=== PATIENT | male | born 1940 | race Caucasian/White ===

== ENCOUNTER 2016-11-04 13:49 | Observation (INO) ==
[2016-11-04] MEDS ORDERED: Ondansetron 4 MG/2 ML VIAL IVP PRN (18:02)
[2016-11-04] MEDS ORDERED: Acetaminophen 325 MG TABLET PO PRN (18:02)
[2016-11-04] MEDS ORDERED: Naloxone 0.4 MG/ML INJ IVP PRN (18:02)
--- NOTE | 2016-11-04 18:48 | Internal Med History&Physical ---
Date of Encounter: 11/04/16 Time of Encounter: 17:40 Assessment and Plan (1) Syncope Current visit: Yes Status: Acute to r/o cardiogenic syncope. Continue Telemetry monitoring with serial Troponin trending; continue ASA, beta-buster and Eliquis; Echocardiogram from May 2016 shows preserved EF with severe pulmonary HTN, dilated and hypokinetic RV, dilated LA, moderate TR; will repeat Echo and Carotid Doppler; Cardiology consult as needed; Qualifiers: Syncope type: unspecified Qualified Code(s): R55 - Syncope and collapse (2) Acute kidney failure Current visit: Yes Status: Acute likely related to medication use and prerenal- will hold Lasix, ARB for now; he is also noted to be on chronic NSAIDs, will hold Aleeve/Ibuprofen for now; will hold off on IV hydration given his peripheral edema; continue to monitor serum creatinine and consult Nephrology if worsens; avoid nephrotoxins and contrast; Qualifiers: Acute renal failure type: unspecified Qualified Code(s): N17.9 - Acute kidney failure, unspecified (3) Atrial fibrillation Current visit: Yes Status: Chronic continue beta-buster and Eliquis for toe pounder anticoagulation; Qualifiers: Atrial fibrillation type: persistent Qualified Code(s): I48.1 - Persistent atrial fibrillation (4) Fluid overload Current visit: Yes Status: Chronic has been ongoing issue, right ventricular dysfunction; needs Lasix and currently held due to renal dysfunction; Qualifiers: Hypervolemia type: unspecified Qualified Code(s): E87.70 - Fluid overload, unspecified (5) Hyperlipidemia Current visit: Yes Status: Chronic Qualifiers: Hyperlipidemia type: unspecified Qualified Code(s): E78.5 - Hyperlipidemia , unspecified (6) Obesity with body mass index of 30.0-39.9 Current visit: Yes Status: Chronic (7) Hypertension Current visit: Yes Status: Chronic Qualifiers: Hypertension type: essential hypertension Qualified Code(s): I10 - Essential (primary) hypertension Internal Medicine - H&P: HPI Chief complaint: Syncope Admitted From: Emergency Dept Plans for Post Hospital Care: Home History of present illness: Mr. 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 Patient reports being at his [employer] office for f/up of his macular degeneration when he went to use the restroom and had an episode of dizziness and syncope, unwitnessed, probably for a few seconds. Patient reports no chest pain, palpitations, dyspnea, headache prior to the episode and no witnessed seizure-like activity. He does report that he has been doing poorly over the last 2-3 months, with increasing leg swelling, fatigue and intermittent dyspnea. His Lasix has been increased recently due to worsening leg swelling. He is supposed to undergo outpatient Sleep study for possible ANNEL , per previous notes. Past Med Surg Social Fam HX - Past Medical History Medical history: atrial fibrillation, CHF, hyperlipidemia, hypertension, syncope Psychiatric history: no psych history - Past Surgical History Surgical History: orthopedic, other (right shoulder replacement), other ( ablation and maze procedures for a.fib) - Social History Smoking Status: Former smoker Smokeless Tobacco Status: No Alcohol use: none Drug use: none Occupational status: retired Current living situation: Home, With Family Activity Level: Uses cane/walker Recent Out of Country Travel Within the Last 8 Weeks: No Exposure or Possible Exposure to Illness During Travel: No - Family History Father Adopted: No Family Member Ethnicity: Non- Living Status: Cause of : heart attack Hx Family Cardiac Disorders: Yes Hx Family Respiratory Disorders: No Hx Family Cancer: No Hx Family GI Disorders: No Hx Family Genitourinary Disorders: No Hx Family Endocrine Disorder: No Hx Family Musculoskeletal Disorders: No Hx Family Neuromuscular Disorders: No Hx Family Neurologic Disorders: No Hx Family HEENT Disorders: No Hx Family Autoimmune Disorders: No Hx Family Reproductive Disorders: No Hx Family Psychosocial Disorders: No Internal Medicine - H&P: Meds Ascorbate Calcium [Vitamin C] 500 mg PO QPM 06/13/16 [History] Aspirin Enteric Coated [Aspirin EC] 81 mg PO QAM 06/13/16 [History] Duloxetine [Cymbalta] 60 mg PO BID 06/13/16 [History] Furosemide [Lasix] 40 mg PO QAM 06/13/16 [History] Gabapentin [Neurontin] 1,200 mg PO QAM 06/13/16 [History] Gabapentin [Neurontin] 600 mg PO QPM 06/13/16 [History] Gluc/Abran-MSM#1/C/Telly/Mahesh/Bor [Osteo Bi-Flex Caplet] 1 tab PO QPM 06/13/16 [ History] Melatonin 5 mg PO HS 06/13/16 [History] Naproxen Sodium [Aleve] 440 mg PO QAM 06/13/16 [History] Potassium Chloride [K-Tab ER] 10 meq PO QAM 06/13/16 [History] Valsartan/Hydrochlorothiazide [Diovan Hct 160-25 mg Tablet] 1 tab PO QAM [History] Vitamin E Acid Succinate [Vitamin E] 400 units PO QPM 06/13/16 [History] Apixaban [Eliquis] 5 mg PO BID #60 tablet 06/15/16 [Rx] Diltiazem CD (24hr) [Cardizem CD] 240 mg PO DAILY 30 Days 10/12/16 [Rx] Metoprolol XL (24 HR) Succ [Toprol Xl] 50 mg PO QPM 30 Days 10/12/16 [Rx] Docusate Sodium [Move It Along] 100 mg PO BID PRN 11/04/16 [History] Magnesium Citrate [Citroma] 296 ml PO PRN PRN 11/04/16 [History] Allergies Influenza Virus Vaccines Allergy (Verified 06/13/16 11:34) Hives All Systems PM: A 10-system review of systems was performed and is negative for pertinent findings except as documented above in the HPI. - Constitutional Constitutional: fatigue, malaise, weight gain, no chills, no fever(s), no night sweats - EENT Eyes: no change in vision, no discharge, no pain, no photophobia Ears: no ear discharge, no ear pain, no tinnitus Nose, mouth and throat: no dysphagia, no nasal discharge, no neck pain, no sore throat - Cardiovascular Cardiovascular ROS IM: dyspnea on exertion, edema, lightheadedness - Respiratory Respiratory: no cough, no dyspnea, no wheezing, no excessive phlegm production - Gastrointestinal Gastrointestinal: no abdominal pain, no diarrhea, no hematemesis, no hematochezia, no melena, no nausea, no vomiting - Musculoskeletal Musculoskeletal ROS IM: no numbness, no tingling - Integumentary Integumentary IM: no rash, no unusual bruising - Neurological Neurological ROS: no confusion, no convulsions, no focal weakness, no numbness, no tingling, no tremor(s) - Hematologic/Lymphatic Hematologic/Lymphatic: no easy bruising - Constitutional Vitals: Temp Pulse Resp BP Pulse Ox 98.1 F 70 18 127/87 92 L 11/04/16 18:40 11/04/16 18:40 11/04/16 18:40 11/04/16 18:40 11/04/16 18:40 General appearance: Present: A&O X 3, obese, answers questions appropriately - Head Head exam: Present: atraumatic, normocephalic - Neck Neck exam general surgery: Present: supple, trachea midline. Absent: lymphadenopathy - Respiratory Respiratory exam: Present: CTAB. Absent: accessory muscle use, rales, rhonchi, wheezes - Cardiovascular Cardiovascular exam: Present: irregular rhythm, +S1, +S2. Absent: diastolic murmur, gallop, rubs, systolic murmur - GI/Abdominal GI/Abdominal exam: Present: normal bowel sounds, soft (central obesity, nontender), no peritoneal signs. Absent: distended, tenderness - Extremities Exam Extremities exam: Present: pedal edema (2+ pedal edema unto B/L hips) - Neurological Exam Neurological exam: Present: CN II-XII intact, oriented X3, no focal deficits. Absent: pronater drift, facial droop, speech deficit - Skin Skin exam: Present: dry, intact Internal Med - H&P Results - Labs CBC & Chem 7: 11/05/16 01:00 11/05/16 01:00 - EKG Data -: EKG Interpreted by Myself - EKG Data EKG comments: 11/05/16 07:51 Accelerated junctional rhythm at 73bpm, TWI in lateral leads
[2016-11-04] MEDS ORDERED: Furosemide 40 MG/4 ML VIAL IVP SCH (21:00)
[2016-11-04] MEDS: APIXABAN 5 MG TABLET PO SCH (21:36)
[2016-11-05 01:15] LABS: Basophils # 0.1 K/mcL (0.0-0.2); Basophils % 0.8 %; Eosinophils # 0.6 K/mcL (0.0-0.6); Eosinophils % 6.3 %; Hematocrit 33.9 % (37.5-50.1); Hemoglobin 10.5 g/dL (12.9-16.9); Immature Granulocytes % 0.4 % (0-4); Lymphocytes # 1.1 K/mcL (0.6-4.6); Lymphocytes % 12.3 %; Mean Corpuscular Hemoglobin 27.5 pg (28.0-33.3); Mean Corpuscular Volume 88.7 fL (83.0-100.0); Monocytes # 1.1 K/mcL (0.0-1.3); Monocytes % 11.7 %; Neutrophils # 6.2 K/mcL (1.6-8.9); Nucleated Red Blood Cells 0.3 /100 WBC (0); Platelet Count 333 K/mcL (140-400); Red Blood Count 3.82 M/mcL (4.19-5.50); Red Cell Distribution Width 15.3 % (11.5-14.5); Segmented Neutrophils % 68.5 %
[2016-11-05 01:23] LABS: INR 2.7; Prothrombin Time 30.4 Seconds (9.4-12.1)
[2016-11-05 01:28] LABS: Calcium 8.4 mg/dL (8.6-10.8); Potassium 3.7 mEq/L (3.5-4.5)
[2016-11-05] MEDS: Diltiazem CD (24hr) 240 MG CAPSULE PO SCH (08:26)
[2016-11-05] MEDS: Aspirin Enteric Coated 81 MG Tablet PO SCH (08:26)
[2016-11-05] MEDS: APIXABAN 5 MG TABLET PO SCH ×2 (08:26→20:06)
[2016-11-05] MEDS ORDERED: Perflutren Lipid Microsphere 1.3 ML in 0.9 % Sodium Chloride 8.7 ML IVP ONE (11:11)
--- NOTE | 2016-11-05 12:14 | ECHO - Doppler Report ---
Echo with Imaging Enhancement Agent Name: Pete Bonner Date of Study: 11/05/2016 Date: 1940 Ht: 68.0 in Medical Record#: [id number] Age: 76 Wt: 280.0 lb Gender: Male BSA: 2.36 Order #: [id number] Location: [facility] Room #: [id number] Reading Physician: Smita Chong DO Costume Cutter: SHAVON GuyT, [facility] Ordering Physician: Karo Joseph MD Primary Physician: None Indications: Syncope Impressions: Technically a very difficult study with suboptimal images. LV function is normal with use of Definity, EF 60%. LV wall thickness visually appears increased but could not be well measured. RV is not well evaluated. Mild MR and TR. No pulmonary hypertension based on TR gradient, 29 mmHg. IVC is not visualized. Left Ventricular Wall Motion: Rest Echo Findings The mid inferior lateral and basal inferior lateral cheng were not visualized. All other wall segments showed normal motion. Findings: Study Quality * Technically sub-optimal due to body habitus. ECG Findings * Atrial fibrillation. Left Ventricle * Difficult to quantify LV wall thickness. Size appears normal. * Indeterminate diastolic function. * LVEF 60%. * Definity echo contrast was used. Left Atrium * Severely dilated left atrium. Aortic Valve * No aortic regurgitation. * Aortic valve not well visualized. * No aortic stenosis. Mitral Valve * Mild mitral regurgitation. * Mitral valve is not well visualized. * No stenosis. Tricuspid Valve * Tricuspid valve not well visualized. * Mild tricuspid regurgitation. Pulmonic Valve * Pulmonic valve is not well visualized. * No pulmonic stenosis. * Trace pulmonic regurgitation. Pulmonary Artery * Pulmonary artery not well visualized. Right Ventricle * RV is not well evaluated. Right Atrium * Right atrium is not well visualized. Interatrial Septum * Interatrial septum not well evaluated. IVC * The IVC is not well evaluated. Aorta * Not well visualized. History Hypertension Family History of CAD 2016 a Previous Echo was performed. Contrast: Definity 1.3 ml in 8.7 ml of saline 3 ml. Measurements: BP: 127/ 77 2D Normal Values IVSd: 2.10 cm 0.6 - 1.0 cm LVIDd: 4.80 cm 3.7 - 5.6 cm LVPWd: 1.30 cm 0.6 - 1.1 cm LVIDs: 3.95 cm 1.5 - 3.6 cm AO: 3.50 cm < 4.0 cm LA: 5.05 cm 2.0 - 4.0cm %FS: 16.70 cm >25 % LA volume: 129 Mitral Valve Peak E:.98 m/sec Peak A:.40 m/sec E/A Ratio:2.5 Tricuspid Valve TV Regurg Peak Grad: 29.00mmHg TV Regurg Peak Wicho: 2.69m/sec Updated by Smita Chong on 11/05/2016 12:06:56 PM electronically signed on 11/05/2016 12:08:09 PM with status of Final Wall Motion Hendrix: 1=Normal, 2=Hypokinesis, 3=Akinesis, 4=Dyskinesis, 5=Aneurysmal, 6=Hyperkinetic, X=Not Visualized (Blank)=Missing
--- NOTE | 2016-11-05 13:40 | Carotid Imaging Report ---
Carotid Duplex Patient Name:Pete Bonner Order Number:[id number] Procedure Date:11/05/2016 Date:1940Age:76 yrs Gender:Male Location:[facility] Room #: [id number] Chief Clinical Officer:Radha Espinal, RVT, RDCS Referring MD:Karo Joseph MD bottle tester:None Reading MD:Alberto Bowen MD Primary Indications:Syncope Risk Factors Yes/No Hypertension Yes Anticoagulants Yes Previous Vascular Surgery Yes Impressions: Findings: Bilateral carotid system has nonstenotic plaque. Findings Carotid Duplex: Right: The right proximal common carotid artery has a PSV of 66 cm/s and a EDV of 18 cm/s. The right mid common carotid artery has a PSV of 64 cm/s and a EDV of 21 cm/s. The right distal common carotid artery has a PSV of 52 cm/s and a EDV of 19 cm/s. There is nonstenotic plaque in the right bifurcation with a PSV of 50 cm/s and a EDV of 20 cm/s. There is irregular heterogeneous plaque. There is nonstenotic plaque in the right proximal internal carotid artery with a PSV of 97 cm/s and a EDV of 38 cm/s. There is irregular heterogeneous plaque. The right mid internal carotid artery has a PSV of 99 cm/s and a EDV of 34 cm/s. The right distal internal carotid artery has a PSV of 90 cm/s and a EDV of 42 cm/s. The right eca has a PSV of 53 cm/s and a EDV of 11 cm/s. The right vertebral artery was not well visualized. Left: The left proximal common carotid artery has a PSV of 83 cm/s and a EDV of 22 cm/s. The left mid common carotid artery has a PSV of 84 cm/s and a EDV of 29 cm/s. The left distal common carotid artery has a PSV of 72 cm/s and a EDV of 28 cm/s. There is nonstenotic plaque in the left bifurcation with a PSV of 62 cm/s and a EDV of 28 cm/s. There is irregular heterogeneous plaque. The left proximal internal carotid artery has a PSV of 72 cm/s and a EDV of 28 cm/s. The left mid internal carotid artery has a PSV of 83 cm/s and a EDV of 31 cm/s. The left distal internal carotid artery has a PSV of 104 cm/s and a EDV of 45 cm/s. The left eca has a PSV of 58 cm/s and a EDV of 12 cm/s. Prior Study: No prior study available for comparison. Carotid Results Right PSV EDV Assessment Proximal CCA 66 18 Normal Mid CCA 64 21 Normal Distal CCA 52 19 Normal Bifurcation 50 20 Non Stenotic Plaque Proximal ICA 97 38 Non Stenotic Plaque Mid ICA 99 34 Normal Distal ICA 90 42 Normal ECA 53 11 Normal Left PSV EDV Assessment Proximal CCA 83 22 Normal Mid CCA 84 29 Normal Distal CCA 72 28 Normal Bifurcation 62 28 Non Stenotic Plaque Proximal ICA 72 28 Normal Mid ICA 83 31 Normal Distal ICA 104 45 Normal ECA 58 12 Normal Vertebral Artery 53 20 Normal Ratio's Right ICA/CCA Ratio: 1.55 ICA/CCA Values: 99/64 Left ICA/CCA Ratio: 0.99 ICA/CCA Values: 83/84 Updated by Alberto Bowen MD on 11/05/2016 1:35:37 PM electronically signed on 11/05/2016 1:35:52 PM with status of Final
--- NOTE | 2016-11-05 16:23 | Internal Med Progress Note ---
Date of Encounter: 11/05/16 Time of Encounter: 09:00 - Assessment and plan (1) Syncope Current Visit: Yes Status: Acute Assessment and plan: syncopal episode , possible vaso vagal, happen when while pt was having an eye procedure, but also may be precipitated by arrythmia his HR in the ER was 130 ,(pt was on afib ) will be on telemetry, check serial cardiac enzimes, echo was unremarkable will ask cardiology to evaluate, Qualifiers: Syncope type: unspecified Qualified Code(s): R55 - Syncope and collapse (2) Atrial fibrillation Current Visit: Yes Status: Chronic Assessment and plan: pt is s/p Maze procedure and ablation but still on afib, wants to see cardiology again to see if he cardiovertion could be again an option, , rate is control on eliquis for AC Qualifiers: Atrial fibrillation type: persistent Qualified Code(s): I48.1 - Persistent atrial fibrillation (3) Acute kidney failure Current Visit: Yes Status: Acute Assessment and plan: on top on CKD , possible pre renal start gentle hydration, follow renal function Qualifiers: Acute renal failure type: unspecified Qualified Code(s): N17.9 - Acute kidney failure, unspecified (4) Obesity with body mass index of 30.0-39.9 Current Visit: Yes Status: Chronic Assessment and plan: suspect ANNEL check nocturnal pulse ox , check FLP HBA1C, pt advised on weight loss - Subjective Interval history: Pt c/o SOB on exertion denies chest pain , overnight cardiac enzimes negative - Constitutional Vitals: Temp Pulse Resp BP Pulse Ox 97.7 F 87 18 123/76 94 L 11/05/16 15:16 11/05/16 15:16 11/05/16 15:16 11/05/16 15:16 11/05/16 15:16 General appearance: Present: A&O X 3, obese, answers questions appropriately - Respiratory Respiratory exam: Present: decreased breath sounds - Cardiovascular Cardiovascular exam: Present: irregular rhythm, +S1, +S2 Additional comments: increase P2 - GI/Abdominal GI/Abdominal exam: Present: normal bowel sounds, soft. Absent: tenderness - Extremities Exam Additional comments: trace pedal edema Internal Medicine: Result - Labs CBC & Chem 7: 11/05/16 01:00 11/05/16 01:00 Labs: Short CBC 11/05/16 Range/Units 01:00 WBC 9.1 (4.3-11.1) K/mcL Hgb 10.5 L (12.9-16.9) g/dL Hct 33.9 L (37.5-50.1) % Plt Count 333 (140-400) K/mcL Neutrophils # 6.2 (1.6-8.9) K/mcL BMP 11/05/16 01:00 Sodium 136 Potassium 3.7 Chloride 90 L Carbon Dioxide 34 H BUN 86 H Creatinine 2.61 H Glucose 141 H Calcium 8.4 L Cardiac Enzymes 11/04/16 11/05/16 11/05/16 Range/Units 18:49 01:00 06:23 Troponin I 0.04 H* 0.03 0.03 (0-0.03) ng/mL - ABG Interpretation ABG results: PT/INR, D-dimer PT 30.4 Seconds (9.4-12.1) H 11/05/16 01:00 Consult Discharge Plan - Plan Referrals: NO,PCP [Primary Care Provider] -
[2016-11-05] MEDS: 0.9 % Sodium Chloride 1,000 ML IVC SCH (17:12)
[2016-11-05] MEDS: Ascorbic Acid 500 MG TABLET PO SCH (17:13)
[2016-11-05] MEDS: Metoprolol XL (24 HR) Succ 25 MG TAB.ER.24H PO SCH (17:13)
[2016-11-06] MEDS: 0.9 % Sodium Chloride 1,000 ML IVC SCH ×2 (05:13→19:06)
[2016-11-06 05:16] LABS: Hematocrit 32.1 % (37.5-50.1); Hemoglobin 9.8 g/dL (12.9-16.9); Mean Corpuscular HGB Conc 30.5 g/dL (31.6-35.5); Mean Corpuscular Hemoglobin 27.5 pg (28.0-33.3); Mean Corpuscular Volume 89.9 fL (83.0-100.0); Mean Platelet Volume 9.8 fL (9.4-12.4); Platelet Count 311 K/mcL (140-400); Red Blood Count 3.57 M/mcL (4.19-5.50); Red Cell Distribution Width 15.2 % (11.5-14.5)
[2016-11-06 05:32] LABS: Albumin 2.8 g/dL (3.5-5.0); Albumin/Globulin Ratio 0.9 (1.1-2.2); Bilirubin,Total 0.8 mg/dL (0.2-1.2); Calcium 8.1 mg/dL (8.6-10.8); Potassium 3.3 mEq/L (3.5-4.5); Total Protein 5.8 g/dL (6.0-8.3)
[2016-11-06 05:35] LABS: Chol/HDL Ratio 3.8 (0-4.9)
--- NOTE | 2016-11-06 09:01 | Internal Med Progress Note ---
Date of Encounter: 11/06/16 Time of Encounter: 08:55 - Assessment and plan (1) Syncope Current Visit: Yes Status: Acute Assessment and plan: syncopal episode , possible vaso vagal, happen when while pt was having an eye procedure, but also may be precipitated by arrythmia his HR in the ER was 130 ,(pt was on afib ) will be on telemetry, check serial cardiac enzimes, echo was unremarkable will ask cardiology to evaluate, 11/06/2016. Patient is still having dizziness. Vitals stable. Was able to walk a few steps but has a unstable gait. We will continue observation. We will get a physical therapy and occupational therapy tomorrow for further evaluation. Qualifiers: Syncope type: unspecified Qualified Code(s): R55 - Syncope and collapse (2) Atrial fibrillation Current Visit: Yes Status: Chronic Assessment and plan: pt is s/p Maze procedure and ablation but still on afib, wants to see cardiology again to see if he cardiovertion could be again an option, , rate is control on eliquis for AC 11/06/2016 Heart rate is well controlled between 70 and 80. Anticoagulation: Elliquis Qualifiers: Atrial fibrillation type: persistent Qualified Code(s): I48.1 - Persistent atrial fibrillation (3) Acute kidney failure Current Visit: Yes Status: Acute Assessment and plan: on top on CKD , possible pre renal start gentle hydration, follow renal function 11/06/2016 Renal function: 11/05/2016: BUN 86, creatinine 2.61 11/06/2016: BUN 66, creatinine 1.73 We will decrease IV fluids from 100 mL/h to 70 mL per hour. Patient has a 3+ pedal edema. Qualifiers: Acute renal failure type: unspecified Qualified Code(s): N17.9 - Acute kidney failure, unspecified (4) Obesity with body mass index of 30.0-39.9 Current Visit: Yes Status: Chronic Assessment and plan: suspect ANNEL check nocturnal pulse ox , check FLP HBA1C, pt advised on weight loss 11/06/2016. Patient is qualified for BiPAP. Medical decision making: Patient has a yaiz-lb-ltaqozrh risk of worsening in terms of his renal function in spite of appropriate treatment. - Subjective Interval history: Patient seen and examined. Chart reviewed. Patient still complaining of occasional dizziness. - Constitutional Vitals: Temp Pulse Resp BP Pulse Ox 97.3 F L 76 16 162/77 90 L 11/06/16 07:30 11/06/16 07:30 11/06/16 07:30 11/06/16 07:30 11/06/16 07:30 General appearance: Present: A&O X 3, obese, answers questions appropriately - Head Head exam: Present: atraumatic, normocephalic - Eye Eye exam: Present: PERRL, conjuntiva pink, sclera anicteric Pupils: Present: PERRL - Neck Neck exam general surgery: Present: supple, trachea midline. Absent: lymphadenopathy - Respiratory Respiratory exam: Present: CTAB. Absent: accessory muscle use, rales, rhonchi, wheezes - Cardiovascular Cardiovascular exam: Present: RRR, +S1, +S2. Absent: diastolic murmur, gallop, rubs, systolic murmur - GI/Abdominal GI/Abdominal exam: Present: normal bowel sounds, soft, no peritoneal signs. Absent: distended, tenderness - Extremities Exam Extremities exam: Present: warm, radial pulses palpable and symetrical. Absent : calf tenderness, cyanotic, pedal edema - Neurological Exam Neurological exam: Present: CN II-XII intact, oriented X3, no focal deficits. Absent: pronater drift, facial droop, speech deficit - Skin Skin exam: Present: dry, intact Internal Medicine: Result - Labs CBC & Chem 7: 11/06/16 04:49 11/06/16 04:49 Labs: Short CBC 11/06/16 Range/Units 04:49 WBC 9.1 (4.3-11.1) K/mcL Hgb 9.8 L (12.9-16.9) g/dL Hct 32.1 L (37.5-50.1) % Plt Count 311 (140-400) K/mcL BMP 11/06/16 04:49 Sodium 138 Potassium 3.3 L Chloride 94 L Carbon Dioxide 32 H BUN 66 H Creatinine 1.73 H Glucose 121 H Calcium 8.1 L Liver Function 11/06/16 Range/Units 04:49 Total Bilirubin 0.8 (0.2-1.2) mg/dL AST 127 H (5-34) Units/L ALT 198 H (0-55) Units/L Alkaline Phosphatase 160 H (38-126) Units/L Albumin 2.8 L (3.5-5.0) g/dL - ABG Interpretation ABG results: PT/INR, D-dimer PT 30.4 Seconds (9.4-12.1) H 11/05/16 01:00 Consult Discharge Plan - Plan Referrals: NO,PCP [Primary Care Provider] -
[2016-11-06] MEDS ORDERED: Potassium Chloride Elixir 20 MEQ/15 ML UDC PO ONE (09:06)
[2016-11-06] MEDS: APIXABAN 5 MG TABLET PO SCH ×2 (10:11→19:55)
[2016-11-06] MEDS: Diltiazem CD (24hr) 240 MG CAPSULE PO SCH (10:11)
[2016-11-06] MEDS: Aspirin Enteric Coated 81 MG Tablet PO SCH (10:11)
--- NOTE | 2016-11-06 12:33 | Cardiology Consult Note ---
Date of Encounter: 11/06/16 Time of Encounter: 11:00 Assessment and Plan (1) Syncope Current Visit: Yes Status: Acute Mr. Bonner presents with syncope most likely secondary to intravascular volume depletion and dehydration. He did present with acute on chronic renal insufficiency and has recently doubled his dose of Lasix. He also admits to being somewhat lightheaded over the past 2 months. On telemetry, heart rates are averaging in the 80s while in chronic atrial fibrillation. There does not appear to be a cardiac cause to his presenting symptoms. Troponins are unremarkable and EKG is without acute findings. Qualifiers: Syncope type: unspecified Qualified Code(s): R55 - Syncope and collapse (2) Atrial fibrillation Current Visit: Yes Status: Chronic Patient has a long history of chronic atrial fibrillation. He is maintained on a beta buster and is on Eliquis for anticoagulation. Recommend careful watching kidney function while he is on Eliquis. Qualifiers: Atrial fibrillation type: persistent Qualified Code(s): I48.1 - Persistent atrial fibrillation (3) Edema Current Visit: Yes Status: Acute Patient's edema may be multifactorial. He likely has some element of venous insufficiency and he is morbidly obese with significant central adiposity contributing to the delay in venous return. However, he also admits to abdominal distention which may be related in part to constipation. However, we have been unable to evaluate the right side of his heart. He underwent a PRAVEEN in May 2016 which demonstrated poor visualization. He also, during that procedure was hypoxic with episodes of apnea concerning for sleep apnea. He has not undergone a sleep study. I recommend considering an outpatient sleep study. I also recommend getting a better assessment of the right side of his heart, possibly with a cardiac MRI. This would be done as an outpatient. He would require follow-up and discussion with Dr. Schwartz. Qualifiers: Edema type: unspecified Qualified Code(s): R60.9 - Edema, unspecified Discussion w patient/family: The assessment and plan as outlined above was discussed with the patient and/or family members who expressed understanding and agreement. All questions were answered. Thank you for involving us in the care of your patient. No further testing is warranted as an inpatient from a cardiac perspective. I recommend following up as an outpatient. We will sign off. Please call with questions. History of Present Illness Consult date: 11/06/16 Requesting physician: Mila Lee Consult reason: Syncope Chief complaint: Syncope History of present illness: Mr. Bonner is a 76 year old male presenting to the hospital for syncope. 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 Prior to this, he got up to go to the bathroom. He remembers entering the bathroom and that last he is aware of. He woke up on the floor. He states that he will was not confused when he woke up. However, he does not remember the details preceding the event. Was unwitnessed. However the patient believes that it only lasted a few minutes. He states that during the morning, he was not feeling well. He does not describe his exact symptoms. However, he was lightheaded and reports being lightheaded for some time now. He has also noticed abdominal distention and lower extremity swelling. Also, he has been constipated for the past 2-3 months. He reports that Lasix was recently doubled due to leg swelling. Upon presentation, he was noted to be an acute renal failure. His Lasix and ARB were held. He does use chronic NSAIDs which were stopped. Telemetry demonstrates chronic atrial fibrillation with average heart rate 87 bpm without concerning findings. His weight while hospitalized is not comparable to outpatient. During his most recent evaluation on 08/23/2016 in the cardiology office, his weight was 261 pounds. Weight while hospitalized is 104 kg. He is being followed as an outpatient for atrial fibrillation which is chronic. He has been maintained on metoprolol and Eliquis. He underwent PRAVEEN/DCCV 2015. I personally performed this procedure and reviewed the report. His LV function appeared normal but the RV was not well visualized. He had mild to moderate prolapsing of the posterior mitral valve leaflet and moderate mitral regurgitation. The patient was hypoxic during the exam with episodes of apnea. Cardioversion was attempted but unsuccessful. Presently, at the bedside the patient feels somewhat better. He still has lower extremity edema and abdominal distention. He is not having chest pain. He does not feel palpitations. He has baseline shortness of breath. Past Med Surg Social Fam HX - Past Medical History Attestation: Yes The following information was validated with the patient. Medical history: atrial fibrillation, hyperlipidemia, hypertension, syncope Psychiatric history: no psych history - Past Surgical History Surgical History: orthopedic, other (right shoulder replacement), other ( ablation and maze procedures for a.fib) - Social History Smoking Status: Former smoker Smokeless Tobacco Status: No Alcohol use: none Drug use: none - Family History Father Adopted: No Family Member Ethnicity: Non- Living Status: Cause of : heart attack Hx Family Cardiac Disorders: Yes Hx Family Respiratory Disorders: No Hx Family Cancer: No Hx Family GI Disorders: No Hx Family Genitourinary Disorders: No Hx Family Endocrine Disorder: No Hx Family Musculoskeletal Disorders: No Hx Family Neuromuscular Disorders: No Hx Family Neurologic Disorders: No Hx Family HEENT Disorders: No Hx Family Autoimmune Disorders: No Hx Family Reproductive Disorders: No Hx Family Psychosocial Disorders: No Medications and Allergies Ascorbate Calcium [Vitamin C] 500 mg PO QPM 06/13/16 [History] Aspirin Enteric Coated [Aspirin EC] 81 mg PO QAM 06/13/16 [History] Duloxetine [Cymbalta] 60 mg PO BID 06/13/16 [History] Furosemide [Lasix] 40 mg PO QAM 06/13/16 [History] Gabapentin [Neurontin] 1,200 mg PO QAM 06/13/16 [History] Gabapentin [Neurontin] 600 mg PO QPM 06/13/16 [History] Gluc/Abran-MSM#1/C/Telly/Mahesh/Bor [Osteo Bi-Flex Caplet] 1 tab PO QPM 06/13/16 [ History] Melatonin 5 mg PO HS 06/13/16 [History] Naproxen Sodium [Aleve] 440 mg PO QAM 06/13/16 [History] Potassium Chloride [K-Tab ER] 10 meq PO QAM 06/13/16 [History] Valsartan/Hydrochlorothiazide [Diovan Hct 160-25 mg Tablet] 1 tab PO QAM [History] Vitamin E Acid Succinate [Vitamin E] 400 units PO QPM 06/13/16 [History] Apixaban [Eliquis] 5 mg PO BID #60 tablet 06/15/16 [Rx] Diltiazem CD (24hr) [Cardizem CD] 240 mg PO DAILY 30 Days 10/12/16 [Rx] Metoprolol XL (24 HR) Succ [Toprol Xl] 50 mg PO QPM 30 Days 10/12/16 [Rx] Docusate Sodium [Move It Along] 100 mg PO BID PRN 11/04/16 [History] Magnesium Citrate [Citroma] 296 ml PO PRN PRN 11/04/16 [History] Allergies Influenza Virus Vaccines Allergy (Verified 06/13/16 11:34) Hives All Systems Review: A 10-system review of systems was performed and is negative for pertinent findings except as documented above in the HPI. - Cardiovascular Cardiovascular: as per HPI Physical Examination Vital Signs, Last 4 Hours Temp Pulse Resp BP Pulse Ox 11/06/16 11:27 97.6 F 86 16 129/83 86 L General: Conversant, No Apparent Distress HEENT: Other (Mucous membranes moist) Neck: Other (JPV difficult to appreciate) Cardiac: Other (Soft heart sounds, appears irregularly irregular without murmur) Lungs: Other (Breath sounds are normal, no apparent wheeze, rhonchi or rales) Neuro: Alert and responsive, No focal deficits noted Abdomen: Soft, Other (Obese, audible bowel sounds) Extremities: Other (Moderate bilateral lower extremity edema) Results 11/06/16 04:49 11/06/16 04:49 Lab Results 11/06/16 11/06/16 04:49 04:49 WBC 9.1 Hgb 9.8 L Hct 32.1 L Plt Count 311 Sodium 138 Potassium 3.3 L Chloride 94 L Carbon Dioxide 32 H BUN 66 H Creatinine 1.73 H Glucose 121 H Calcium 8.1 L Total Bilirubin 0.8 AST 127 H ALT 198 H Alkaline Phosphatase 160 H - Imaging and Cardiology Other Results: PRAVEEN/DCCV 06/15/2016 - EKG Interpretation EKG results cardiology: personally reviewed (AFIB), other (Telemetry has been reviewed him and treating chronic atrial fibrillation with average heart rate in the 80s, no significant positives or concerning dysrhythmia) Consult Discharge Plan - Plan Referrals: NO,PCP [Primary Care Provider] -
[2016-11-06] MEDS: Metoprolol XL (24 HR) Succ 25 MG TAB.ER.24H PO SCH (17:43)
[2016-11-06] MEDS: Ascorbic Acid 500 MG TABLET PO SCH (17:44)
[2016-11-07 05:10] LABS: Basophils % 0.5 %; Eosinophils # 0.3 K/mcL (0.0-0.6); Eosinophils % 3.9 %; Hematocrit 32.6 % (37.5-50.1); Immature Granulocytes % 0.4 % (0-4); Lymphocytes # 0.9 K/mcL (0.6-4.6); Lymphocytes % 11.3 %; Mean Corpuscular HGB Conc 30.7 g/dL (31.6-35.5); Mean Corpuscular Hemoglobin 27.4 pg (28.0-33.3); Mean Corpuscular Volume 89.3 fL (83.0-100.0); Mean Platelet Volume 10.1 fL (9.4-12.4); Monocytes # 0.9 K/mcL (0.0-1.3); Monocytes % 11.1 %; Neutrophils # 5.7 K/mcL (1.6-8.9); Nucleated Red Blood Cells 0.3 /100 WBC (0); Platelet Count 307 K/mcL (140-400); Red Blood Count 3.65 M/mcL (4.19-5.50); Red Cell Distribution Width 15.4 % (11.5-14.5); Segmented Neutrophils % 72.8 %
[2016-11-07 05:17] LABS: Alanine Aminotransferase 188 Units/L (0-55); Albumin 2.9 g/dL (3.5-5.0); Alkaline Phosphatase 171 Units/L (38-126); Aspartate Amino Transferase 113 Units/L (5-34); BUN/Creatinine Ratio 38 (6-26); Bilirubin,Total 0.8 mg/dL (0.2-1.2); Calcium 8.4 mg/dL (8.6-10.8); Carbon Dioxide 36 mEq/L (19-29); Chloride 97 mEq/L (98-109); Glucose 127 mg/dL (70-99); Osmolality,Calculated 306 (280-300); Potassium 3.4 mEq/L (3.5-4.5); Sodium 141 mEq/L (136-145); Total Protein 5.9 g/dL (6.0-8.3); eGFR For African Americans > 60 (> 60); eGFR For Non-African Americans 57 (> 60)
[2016-11-07 05:19] LABS: Blood Urea Nitrogen 47 mg/dL (8-26)
[2016-11-07] MEDS: APIXABAN 5 MG TABLET PO SCH ×2 (07:33→21:16)
[2016-11-07] MEDS: Diltiazem CD (24hr) 240 MG CAPSULE PO SCH (07:33)
[2016-11-07] MEDS: Aspirin Enteric Coated 81 MG Tablet PO SCH (07:33)
[2016-11-07] MEDS ORDERED: Vancomycin 1,500 MG in D5% in Water 250 ML IVPB SCH (08:00)
[2016-11-07] MEDS ORDERED: Vancomycin 1,500 MG in D5% in Water 250 ML IVPB ONE (12:57)
[2016-11-07] MEDS: Metoprolol XL (24 HR) Succ 25 MG TAB.ER.24H PO SCH (16:59)
[2016-11-07] MEDS: Ascorbic Acid 500 MG TABLET PO SCH (16:59)
--- NOTE | 2016-11-07 18:50 | Internal Med Progress Note ---
Date of Encounter: 11/14/16 Time of Encounter: 18:49 - Assessment and plan (1) Syncope Status: Acute Assessment and plan: syncopal episode , possible vaso vagal, happen when while pt was having an eye procedure, but also may be precipitated by arrythmia his HR in the ER was 130 ,(pt was on afib ) will be on telemetry, check serial cardiac enzimes, echo was unremarkable will ask cardiology to evaluate, 11/06/2016. Patient is still having dizziness. Vitals stable. Was able to walk a few steps but has a unstable gait. We will continue observation. We will get a physical therapy and occupational therapy tomorrow for further evaluation. 11/07/2016 much better no new complaints in terms of dizziness has swollen leg and started on IV vancomycin in view of cellulitis. patietn and family updated about this new medication. side effects explained. Qualifiers: Syncope type: unspecified Qualified Code(s): R55 - Syncope and collapse (2) Atrial fibrillation Status: Chronic Assessment and plan: pt is s/p Maze procedure and ablation but still on afib, wants to see cardiology again to see if he cardiovertion could be again an option, , rate is control on eliquis for AC 11/06/2016 Heart rate is well controlled between 70 and 80. Anticoagulation: Elliquis Qualifiers: Atrial fibrillation type: persistent Qualified Code(s): I48.1 - Persistent atrial fibrillation (3) Acute kidney failure Status: Acute Assessment and plan: on top on CKD , possible pre renal start gentle hydration, follow renal function 11/06/2016 Renal function: 11/05/2016: BUN 86, creatinine 2.61 11/06/2016: BUN 66, creatinine 1.73 We will decrease IV fluids from 100 mL/h to 70 mL per hour. Patient has a 3+ pedal edema. Qualifiers: Acute renal failure type: unspecified Qualified Code(s): N17.9 - Acute kidney failure, unspecified (4) Obesity with body mass index of 30.0-39.9 Status: Chronic Assessment and plan: suspect ANNEL check nocturnal pulse ox , check FLP HBA1C, pt advised on weight loss 11/06/2016. Patient is qualified for BiPAP. Medical decision making: Patient has a [id number] risk of worsening in terms of his renal function in spite of appropriate treatment. - Subjective Interval history: Patient seen and examined. Chart reviewed. Patient still complaining of occasional dizziness. 11/07/2016. Patient seen and examined. Chart reviewed. Patient has redness on his left thigh likely early cellulitis. - Constitutional Vitals: Temp Pulse Resp BP Pulse Ox 97.5 F L 82 17 143/76 93 L 11/07/16 15:54 11/07/16 15:54 11/07/16 15:54 11/07/16 15:54 11/07/16 15:54 General appearance: Present: A&O X 3, obese, answers questions appropriately - Head Head exam: Present: atraumatic, normocephalic - Eye Eye exam: Present: PERRL, conjuntiva pink, sclera anicteric Pupils: Present: PERRL - Neck Neck exam general surgery: Present: supple, trachea midline. Absent: lymphadenopathy - Respiratory Respiratory exam: Present: CTAB. Absent: accessory muscle use, rales, rhonchi, wheezes - Cardiovascular Cardiovascular exam: Present: RRR, +S1, +S2. Absent: diastolic murmur, gallop, rubs, systolic murmur - GI/Abdominal GI/Abdominal exam: Present: normal bowel sounds, soft, no peritoneal signs. Absent: distended, tenderness - Extremities Exam Extremities exam: Present: warm, radial pulses palpable and symetrical. Absent : calf tenderness, cyanotic, pedal edema - Neurological Exam Neurological exam: Present: CN II-XII intact, oriented X3, no focal deficits. Absent: pronater drift, facial droop, speech deficit - Skin Skin exam: Present: dry, intact Internal Medicine: Result - Labs CBC & Chem 7: 11/07/16 04:00 11/07/16 04:00 Labs: Short CBC 11/07/16 Range/Units 04:00 WBC 7.8 (4.3-11.1) K/mcL Hgb 10.0 L (12.9-16.9) g/dL Hct 32.6 L (37.5-50.1) % Plt Count 307 (140-400) K/mcL Neutrophils # 5.7 (1.6-8.9) K/mcL BMP 11/07/16 04:00 Sodium 141 Potassium 3.4 L Chloride 97 L Carbon Dioxide 36 H BUN 47 H D Creatinine 1.23 Glucose 127 H Calcium 8.4 L Liver Function 11/07/16 Range/Units 04:00 Total Bilirubin 0.8 (0.2-1.2) mg/dL AST 113 H (5-34) Units/L ALT 188 H (0-55) Units/L Alkaline Phosphatase 171 H (38-126) Units/L Albumin 2.9 L (3.5-5.0) g/dL - ABG Interpretation ABG results: PT/INR, D-dimer PT 30.4 Seconds (9.4-12.1) H 11/05/16 01:00 Consult Discharge Plan - Plan Referrals: Denis Bhat CNP [Advanced Practice Nurse] - 11/09/16 12:30 pm Johny Waller MD [Partnered Physician] - 11/15/16 11:00 am
[2016-11-07] MEDS ORDERED: MOM Conc 10 ML UD.LIQ PO ONE (20:58)
[2016-11-07] MEDS ORDERED: Sennosides/Docusate Sodium TABLET PO ONE (20:59)
[2016-11-08] MEDS: Vancomycin 1,000 MG in D5% in Water 250 ML IVPB SCH ×2 (00:29→12:03)
[2016-11-08] MEDS: APIXABAN 5 MG TABLET PO SCH ×2 (07:08→21:44)
[2016-11-08] MEDS: Diltiazem CD (24hr) 240 MG CAPSULE PO SCH (07:08)
[2016-11-08] MEDS: Aspirin Enteric Coated 81 MG Tablet PO SCH (07:08)
--- NOTE | 2016-11-08 16:53 | Internal Med Progress Note ---
Date of Encounter: 11/08/16 Time of Encounter: 16:52 - Assessment and plan (1) Syncope Status: Acute Assessment and plan: syncopal episode , possible vaso vagal, happen when while pt was having an eye procedure, but also may be precipitated by arrythmia his HR in the ER was 130 ,(pt was on afib ) will be on telemetry, check serial cardiac enzimes, echo was unremarkable will ask cardiology to evaluate, 11/06/2016. Patient is still having dizziness. Vitals stable. Was able to walk a few steps but has a unstable gait. We will continue observation. We will get a physical therapy and occupational therapy tomorrow for further evaluation. 11/07/2016 much better no new complaints in terms of dizziness has swollen leg and started on IV vancomycin in view of cellulitis. patietn and family updated about this new medication. side effects explained. 11/08/2016 short run of VT noted will get cardiology tomorrow will continue vanco ( pharmacy to dose) Qualifiers: Syncope type: unspecified Qualified Code(s): R55 - Syncope and collapse (2) Atrial fibrillation Status: Chronic Assessment and plan: pt is s/p Maze procedure and ablation but still on afib, wants to see cardiology again to see if he cardiovertion could be again an option, , rate is control on eliquis for AC 11/06/2016 Heart rate is well controlled between 70 and 80. Anticoagulation: Elliquis Qualifiers: Atrial fibrillation type: persistent Qualified Code(s): I48.1 - Persistent atrial fibrillation (3) Acute kidney failure Status: Acute Assessment and plan: on top on CKD , possible pre renal start gentle hydration, follow renal function 11/06/2016 Renal function: 11/05/2016: BUN 86, creatinine 2.61 11/06/2016: BUN 66, creatinine 1.73 We will decrease IV fluids from 100 mL/h to 70 mL per hour. Patient has a 3+ pedal edema. Qualifiers: Acute renal failure type: unspecified Qualified Code(s): N17.9 - Acute kidney failure, unspecified (4) Obesity with body mass index of 30.0-39.9 Status: Chronic Assessment and plan: suspect ANNEL check nocturnal pulse ox , check FLP HBA1C, pt advised on weight loss 11/06/2016. Patient is qualified for BiPAP. Medical decision making: Patient has a [id number] risk of worsening in terms of his renal function in spite of appropriate treatment. - Subjective Interval history: Patient seen and examined. Chart reviewed. Patient still complaining of occasional dizziness. 11/07/2016. Patient seen and examined. Chart reviewed. Patient has redness on his left thigh likely early cellulitis. 11/08/2016 still redness over thigh is present noted short run of VT will get cardiology tomorrow if worsenes then call crdiology - Constitutional Vitals: Temp Pulse Resp BP Pulse Ox 97.7 F 98 16 137/88 89 L 11/08/16 15:17 11/08/16 15:17 11/08/16 15:17 11/08/16 15:17 11/08/16 15:17 General appearance: Present: A&O X 3, obese, answers questions appropriately - Head Head exam: Present: atraumatic, normocephalic - Eye Eye exam: Present: PERRL, conjuntiva pink, sclera anicteric Pupils: Present: PERRL - Neck Neck exam general surgery: Present: supple, trachea midline. Absent: lymphadenopathy - Respiratory Respiratory exam: Present: CTAB. Absent: accessory muscle use, rales, rhonchi, wheezes - Cardiovascular Cardiovascular exam: Present: RRR, +S1, +S2. Absent: diastolic murmur, gallop, rubs, systolic murmur - GI/Abdominal GI/Abdominal exam: Present: normal bowel sounds, soft, no peritoneal signs. Absent: distended, tenderness - Extremities Exam Extremities exam: Present: warm, radial pulses palpable and symetrical. Absent : calf tenderness, cyanotic, pedal edema - Neurological Exam Neurological exam: Present: CN II-XII intact, oriented X3, no focal deficits. Absent: pronater drift, facial droop, speech deficit - Skin Skin exam: Present: dry, intact Internal Medicine: Result - Labs CBC & Chem 7: 11/07/16 04:00 11/07/16 04:00 - ABG Interpretation ABG results: PT/INR, D-dimer PT 30.4 Seconds (9.4-12.1) H 11/05/16 01:00 Consult Discharge Plan - Plan Referrals: Denis Bhat CNP [Advanced Practice Nurse] - 11/09/16 12:30 pm Johny Waller MD [Partnered Physician] - 11/15/16 11:00 am
[2016-11-08] MEDS: Metoprolol XL (24 HR) Succ 25 MG TAB.ER.24H PO SCH (16:59)
[2016-11-08] MEDS: Ascorbic Acid 500 MG TABLET PO SCH (16:59)
[2016-11-08] MEDS ORDERED: traZODone 50 MG TABLET PO PRN ×2 (23:25→23:47)
[2016-11-09] MEDS ORDERED: Aminoglycoside Consult 1 EACH MC ONE (02:49)
[2016-11-09 03:07] VITALS: BP 152/76
== END 2016-11-09 02:50 | disposition left against medical advice (07) ==
LOC: 3BNU → SUATTDRO 17:01
PROVIDERS: ADMIT Nurse Practitioner Family; ATTEND Internal Medicine

== ENCOUNTER 2016-11-19 09:35 | Inpatient (IN) ==
[2016-11-19] MEDS ORDERED: Aspirin 325 MG TABLET PO ONE (09:52)
--- NOTE | 2016-11-19 09:54 | Emergency Department Note ---
Disposition Clinical Impression: CHF exacerbation, CKD (chronic kidney disease), Confusion, Edema Disposition: Admitted As Inpatient Condition: Fair Referrals: Keon Hector MD [Primary Care Provider] - Forms: ED Satisfaction Letter Time of Disposition: 11:18 SOB HPI - General Chief Complaint: ED Shortness of Breath/Dyspnea Stated Complaint: Afib/Weakness Time Seen by Provider: 11/19/16 09:44 Source: patient Mode of arrival: ambulatory Limitations: no limitations Nursing Notes Reviewed: Yes Vital Signs Reviewed: Yes - History of Present Illness This is a 76-year-old male who presents with increased shortness of breath and weakness. Patient has had a history of A. fib and is on Eliquis for this. Patient has had 2 open-heart surgeries and follows with Dr. Waller for cardiology. Patient also seems slightly confused and is a poor historian. Patient denies any chest pain. Patient denies fevers. Patient states his abdomen and his legs have been swelling. Pt Subjective Complaint: shortness of breath Onset (ago): day(s) - Related Data Home Medications Medication Instructions Recorded Confirmed Ascorbate Calcium [Vitamin C] 500 mg PO QPM 06/13/16 11/04/16 Aspirin Enteric Coated [Aspirin EC] 81 mg PO QAM 06/13/16 11/04/16 Duloxetine [Cymbalta] 60 mg PO BID 06/13/16 11/04/16 Furosemide [Lasix] 40 mg PO QAM 06/13/16 11/04/16 Gabapentin [Neurontin] 1,200 mg PO QAM 06/13/16 11/04/16 Gabapentin [Neurontin] 600 mg PO QPM 06/13/16 11/04/16 Gluc/Abran-MSM#1/C/Telly/Mahesh/Bor 1 tab PO QPM 06/13/16 11/04/16 [Osteo Bi-Flex Caplet] Melatonin 5 mg PO HS 06/13/16 11/04/16 Naproxen Sodium [Aleve] 440 mg PO QAM 06/13/16 11/04/16 Potassium Chloride [K-Tab ER] 10 meq PO QAM 06/13/16 11/04/16 Valsartan/Hydrochlorothiazide 1 tab PO QAM 06/13/16 11/04/16 [Diovan Hct 160-25 mg Tablet] Vitamin E Acid Succinate [Vitamin 400 units PO QPM 06/13/16 11/04/16 E] Docusate Sodium [Move It Along] 100 mg PO BID PRN 11/04/16 11/04/16 Magnesium Citrate [Citroma] 296 ml PO PRN PRN 11/04/16 11/04/16 Previous Rx's Medication Instructions Recorded Apixaban [Eliquis] 5 mg PO BID #60 tablet 06/15/16 Diltiazem CD (24hr) [Cardizem CD] 240 mg PO DAILY 30 Days 10/12/16 Metoprolol XL (24 HR) Succ [Toprol 50 mg PO QPM 30 Days 10/12/16 Xl] Allergies Allergy/AdvReac Type Severity Reaction Status Date / Time Influenza Virus Vaccines Allergy Hives Verified 11/19/16 09:39 All systems ED: reviewed and negative except as stated. Constitutional: Reports: weakness. Denies: fever, chills, weight change Eyes: Denies: eye pain, eye discharge, vision change ENT ED: Denies: ear pain, throat pain, dental pain, hearing loss, epistaxis, congestion, dysphagia Cardiovascular: Reports: edema. Denies: chest pain, palpitations, dyspnea on exertion, syncope Respiratory: Reports: dyspnea. Denies: cough, wheezes, hemoptysis, stridor Gastrointestinal: Reports: other (swelling in the abdomen). Denies: abdominal pain, nausea, vomiting, diarrhea, constipation, hematemesis, melena, hematochezia Genitourinary: Denies: urgency, dysuria, frequency, hematuria Musculoskeletal: Denies: back pain, neck pain, arthralgia, myalgia Integumentary: Denies: rash, abrasion, lesions Neurological: Reports: confusion. Denies: headache, numbness, paresthesias, abnormal gait, vertigo Psychiatric: Denies: anxiety, depression, suicidal thoughts, homicidal thoughts , auditory hallucinations, visual hallucinations Endocrine: Denies: fatigue Hematological/Lymphatic: Denies: easy bleeding, easy bruising Allergic/Immunologic: Denies: facial swelling, urticaria Past Medical History - Past Medical History Attestation: Yes The following information was validated with the patient. Source: patient Medical history: Reports: atrial fibrillation, hyperlipidemia, hypertension, syncope Surgical history: Reports: orthopedic, other (right shoulder replacement), other (ablation and maze procedures for a.fib) Psychiatric history: Reports: no psych history - Social History Smoking Status: Former smoker Smokeless Tobacco Status: No Alcohol use: Reports: none Drug use: Reports: none Physical Exam - General Limitations: no limitations General appearance: alert, in no apparent distress - Head Head exam: atraumatic, normocephalic - Eye Eye exam: Present: normal appearance, PERRL, EOMI - ENT ENT exam: normal exam, normal oropharynx - Neck Neck exam: Present: normal inspection, full ROM, trachea midline. Absent: tenderness - Chest Chest inspection: Present: normal inspection, symmetric chest wall rise. Absent : tenderness - Respiratory Respiratory exam: Present: other (diminshed BS mostly on the L) - Cardiovascular Cardiovascular exam: Present: regular rate, irregular rhythm - Abdominal Exam Abdominal exam: Present: soft, Non-Tender, distention. Absent: guarding, rebound, rigidity - Extremities Exam Extremities exam: Present: full ROM, pedal edema. Absent: tenderness - Expanded Lower Extremity Exam Lower leg exam: Present: swelling Ankle exam: Present: swelling Foot/toe exam: Present: swelling - Back Exam Back exam: Present: normal inspection, full ROM. Absent: tenderness - Neurological Exam Neurological exam: Present: alert, oriented X3, other (pt is slow to answer questions and seems mildly confused) - Psychiatric Psychiatric exam: Present: normal affect, normal mood - Skin Skin exam: Present: warm, dry, intact, normal color Course - Consultations Consultation #1: I spoke with Dr. Damian edwards to admit. Time: 11:25 Vital Signs Temperature 97.8 F 11/19/16 09:36 Pulse Rate 87 11/19/16 09:36 Respiratory Rate 18 11/19/16 09:36 Blood Pressure 125/76 11/19/16 09:36 O2 Sat by Pulse Oximetry 91 L 11/19/16 09:36 Temperature 97.8 F 11/19/16 09:36 Pulse Rate 82 11/19/16 11:09 Respiratory Rate 17 11/19/16 11:09 Blood Pressure 125/78 11/19/16 11:09 O2 Sat by Pulse Oximetry 96 11/19/16 11:09 Oxygen Delivery Oxygen Delivery Nasal Cannula Shortness of Breath/Dyspnea - Medical Records Medical records reviewed: Yes I reviewed the patient's medical records. - Lab Data Lab results reviewed: Yes I reviewed the patient's lab results. Result diagrams: 11/19/16 10:27 11/19/16 10:27 Lab Results 11/19/16 11/19/16 11/19/16 Range/Units 10:27 10:27 10:27 WBC 7.2 (4.3-11.1) K/mcL RBC 3.80 L (4.19-5.50) M/mcL Hgb 10.1 L (12.9-16.9) g/dL Hct 33.8 L (37.5-50.1) % MCV 88.9 (83.0-100.0) fL MCH 26.6 L (28.0-33.3) pg MCHC 29.9 L (31.6-35.5) g/dL RDW 16.7 H (11.5-14.5) % Plt Count 264 (140-400) K/mcL MPV 9.5 (9.4-12.4) fL Immature Gran % 0.3 (0-4) % Seg Neutrophils % 74.1 % Lymphocytes % 12.0 % Monocytes % 9.3 % Eosinophils % 3.6 % Basophils % 0.7 % Neutrophils # 5.4 (1.6-8.9) K/mcL Lymphocytes # 0.9 (0.6-4.6) K/mcL Monocytes # 0.7 (0.0-1.3) K/mcL Eosinophils # 0.3 (0.0-0.6) K/mcL Basophils # 0.1 (0.0-0.2) K/mcL PT (9.4-12.1) Seconds INR APTT 34.6 (26.0-36.0) Seconds D-Dimer (0-500) ng/mLFEU Sodium 145 (136-145) mEq/L Potassium 3.8 (3.5-4.5) mEq/L Chloride 100 (98-109) mEq/L Carbon Dioxide 33 H (19-29) mEq/L BUN 38 H (8-26) mg/dL Creatinine 1.48 H (0.72-1.25) mg/dL Est GFR ( Amer) 56 L (> 60) Est GFR (Non-Af Amer) 46 L (> 60) BUN/Creatinine Ratio 26 (6-26) Glucose 135 H (70-99) mg/dL Calculated Osmolality 311 H (280-300) Calcium 8.9 (8.6-10.8) mg/dL Total Bilirubin (0.2-1.2) mg/dL Direct Bilirubin (0.0-0.5) mg/dL Indirect Bilirubin (0.0-1.2) mg/dL AST (5-34) Units/L ALT (0-55) Units/L Alkaline Phosphatase (38-126) Units/L Troponin I (0-0.03) ng/mL B-Natriuretic Peptide (0-100) pg/mL Serum Total Protein (6.0-8.3) g/dL Albumin (3.5-5.0) g/dL Globulin (2.4-3.5) g/dL Albumin/Globulin Ratio (1.1-2.2) Lipase (8-78) Units/L TSH (0.350-4.840) mcIU/mL 11/19/16 11/19/16 11/19/16 Range/Units 10:27 10:27 10:27 WBC (4.3-11.1) K/mcL RBC (4.19-5.50) M/mcL Hgb (12.9-16.9) g/dL Hct (37.5-50.1) % MCV (83.0-100.0) fL MCH (28.0-33.3) pg MCHC (31.6-35.5) g/dL RDW (11.5-14.5) % Plt Count (140-400) K/mcL MPV (9.4-12.4) fL Immature Gran % (0-4) % Seg Neutrophils % % Lymphocytes % % Monocytes % % Eosinophils % % Basophils % % Neutrophils # (1.6-8.9) K/mcL Lymphocytes # (0.6-4.6) K/mcL Monocytes # (0.0-1.3) K/mcL Eosinophils # (0.0-0.6) K/mcL Basophils # (0.0-0.2) K/mcL PT 25.9 H (9.4-12.1) Seconds INR 2.3 APTT (26.0-36.0) Seconds D-Dimer 950 H (0-500) ng/mLFEU Sodium (136-145) mEq/L Potassium (3.5-4.5) mEq/L Chloride (98-109) mEq/L Carbon Dioxide (19-29) mEq/L BUN (8-26) mg/dL Creatinine (0.72-1.25) mg/dL Est GFR ( Amer) (> 60) Est GFR (Non-Af Amer) (> 60) BUN/Creatinine Ratio (6-26) Glucose (70-99) mg/dL Calculated Osmolality (280-300) Calcium (8.6-10.8) mg/dL Total Bilirubin 0.7 (0.2-1.2) mg/dL Direct Bilirubin 0.5 (0.0-0.5) mg/dL Indirect Bilirubin 0.2 (0.0-1.2) mg/dL AST 32 (5-34) Units/L ALT 34 (0-55) Units/L Alkaline Phosphatase 169 H (38-126) Units/L Troponin I (0-0.03) ng/mL B-Natriuretic Peptide 960 H (0-100) pg/mL Serum Total Protein 6.1 (6.0-8.3) g/dL Albumin 2.6 L (3.5-5.0) g/dL Globulin 3.5 (2.4-3.5) g/dL Albumin/Globulin Ratio 0.7 L (1.1-2.2) Lipase 30 (8-78) Units/L TSH 4.421 (0.350-4.840) mcIU/mL 11/19/16 Range/Units 10:27 WBC (4.3-11.1) K/mcL RBC (4.19-5.50) M/mcL Hgb (12.9-16.9) g/dL Hct (37.5-50.1) % MCV (83.0-100.0) fL MCH (28.0-33.3) pg MCHC (31.6-35.5) g/dL RDW (11.5-14.5) % Plt Count (140-400) K/mcL MPV (9.4-12.4) fL Immature Gran % (0-4) % Seg Neutrophils % % Lymphocytes % % Monocytes % % Eosinophils % % Basophils % % Neutrophils # (1.6-8.9) K/mcL Lymphocytes # (0.6-4.6) K/mcL Monocytes # (0.0-1.3) K/mcL Eosinophils # (0.0-0.6) K/mcL Basophils # (0.0-0.2) K/mcL PT (9.4-12.1) Seconds INR APTT (26.0-36.0) Seconds D-Dimer (0-500) ng/mLFEU Sodium (136-145) mEq/L Potassium (3.5-4.5) mEq/L Chloride (98-109) mEq/L Carbon Dioxide (19-29) mEq/L BUN (8-26) mg/dL Creatinine (0.72-1.25) mg/dL Est GFR ( Amer) (> 60) Est GFR (Non-Af Amer) (> 60) BUN/Creatinine Ratio (6-26) Glucose (70-99) mg/dL Calculated Osmolality (280-300) Calcium (8.6-10.8) mg/dL Total Bilirubin (0.2-1.2) mg/dL Direct Bilirubin (0.0-0.5) mg/dL Indirect Bilirubin (0.0-1.2) mg/dL AST (5-34) Units/L ALT (0-55) Units/L Alkaline Phosphatase (38-126) Units/L Troponin I 0.04 H* (0-0.03) ng/mL B-Natriuretic Peptide (0-100) pg/mL Serum Total Protein (6.0-8.3) g/dL Albumin (3.5-5.0) g/dL Globulin (2.4-3.5) g/dL Albumin/Globulin Ratio (1.1-2.2) Lipase (8-78) Units/L TSH (0.350-4.840) mcIU/mL - Radiology Data Radiology results reviewed: Yes I reviewed the patient's radiology results. - EKG Data EKG attestation: Yes I reviewed and interpreted this EKG. Rate: Reports: normal Rhythm: Reports: A.Fib Zimmerman/QRS: Reports: normal T wave inversions noted in: Reports: v5, v6 When compared to previous EKG there are: no significant changes Interpretation: Reports: nonspecific ST-T wave changes
[2016-11-19 10:34] LABS: Basophils # 0.1 K/mcL (0.0-0.2); Basophils % 0.7 %; Eosinophils # 0.3 K/mcL (0.0-0.6); Eosinophils % 3.6 %; Hematocrit 33.8 % (37.5-50.1); Hemoglobin 10.1 g/dL (12.9-16.9); Immature Granulocytes % 0.3 % (0-4); Lymphocytes # 0.9 K/mcL (0.6-4.6); Mean Corpuscular HGB Conc 29.9 g/dL (31.6-35.5); Mean Corpuscular Hemoglobin 26.6 pg (28.0-33.3); Mean Corpuscular Volume 88.9 fL (83.0-100.0); Mean Platelet Volume 9.5 fL (9.4-12.4); Monocytes # 0.7 K/mcL (0.0-1.3); Monocytes % 9.3 %; Neutrophils # 5.4 K/mcL (1.6-8.9); Platelet Count 264 K/mcL (140-400); Red Cell Distribution Width 16.7 % (11.5-14.5); Segmented Neutrophils % 74.1 %
[2016-11-19 10:51] LABS: Calcium 8.9 mg/dL (8.6-10.8); Potassium 3.8 mEq/L (3.5-4.5)
[2016-11-19 10:52] LABS: Albumin 2.6 g/dL (3.5-5.0); Albumin/Globulin Ratio 0.7 (1.1-2.2); Bilirubin,Direct 0.5 mg/dL (0.0-0.5); Bilirubin,Indirect 0.2 mg/dL (0.0-1.2); Bilirubin,Total 0.7 mg/dL (0.2-1.2); Globulin 3.5 g/dL (2.4-3.5); Total Protein 6.1 g/dL (6.0-8.3)
[2016-11-19 11:04] LABS: INR 2.3; Prothrombin Time 25.9 Seconds (9.4-12.1)
[2016-11-19 11:13] LABS: Thyroid Stimulating Hormone 4.421 mcIU/mL (0.350-4.840)
[2016-11-19] MEDS ORDERED: Acetaminophen 325 MG TABLET PO PRN (12:41)
--- NOTE | 2016-11-19 14:32 | Internal Med History&Physical ---
Date of Encounter: 11/19/16 Time of Encounter: 14:26 Assessment and Plan (1) Congestive heart failure (CHF) Current visit: Yes Status: Acute Suspected right heart failure. Patient having symptoms of dyspnea on exertion and persistent pedal edema. His pedal edema appears to be chronic but his symptoms of dyspnea on exertion are concerning. We will start treatment with Bumex. During his last admission, cardiology recommended cardiac MRI as outpatient to assess right heart function. We will order this to better evaluate the patient's heart function as he has not had a clear diagnosis yet. Daily weights. Monitor intake and output. Fluid restriction. During his last hospitalization, patient did have acute kidney injury and exhibited symptoms of dehydration and orthostasis. We will monitor his blood pressure and renal function closely. We will consider cardiology consult depending on the patient' s course. Patient at high risk for complications from this condition and due to use of intravenous diuretics. Qualifiers: Congestive heart failure type: unspecified congestive heart failure type Congestive heart failure chronicity: acute Qualified Code(s): I50.9 - Heart failure, unspecified (2) CKD (chronic kidney disease) Current visit: Yes Status: Chronic Patient appears to be having chronic kidney disease stage II. Will follow renal function. Monitor urine output. At risk for acute kidney injury due to intravenous diuretic use Qualifiers: Chronic kidney disease stage: stage 2 (mild) Qualified Code(s): N18.2 - Chronic kidney disease, stage 2 (mild) (3) Edema Current visit: Yes Status: Chronic Patient has chronic pedal edema. Likely due to combination of possible right- sided heart failure and venous stasis. Started on diuretics. Patient does have stasis dermatitis changes in both his lower extremities. Qualifiers: Edema type: unspecified Qualified Code(s): R60.9 - Edema, unspecified (4) Hypertension Current visit: No Status: Chronic Blood pressure elevated on presentation. Will monitor blood pressure. Resume home medications. Qualifiers: Hypertension type: essential hypertension Qualified Code(s): I10 - Essential (primary) hypertension (5) Obesity with body mass index of 30.0-39.9 Current visit: No Status: Chronic Recommend weight loss. Patient will may have underlying sleep apnea. He will need a sleep study done as outpatient. (6) Atrial fibrillation Current visit: No Status: Chronic Rate controlled. On Eliquis for anticoagulation. Qualifiers: Atrial fibrillation type: persistent Qualified Code(s): I48.1 - Persistent atrial fibrillation Internal Medicine - H&P: HPI Chief complaint: Shortness of breath, leg swelling, abdominal distention Admitted From: Emergency Dept Plans for Post Hospital Care: Home History of present illness: Mr. Bonner is a 76 year old male with a history of atrial fibrillation, possible right-sided heart failure, chronic kidney disease, hypertension and hyperlipidemia along with obesity presented to the ER with complaints of shortness of breath, especially with exertion and persistent swelling in his legs and on his abdomen. He had been admitted here last week for similar complaints after he presented with an episode of syncope. During the course of his stay he underwent a 2-D echocardiogram which showed a normal ejection fraction of 60%. Right ventricular systolic function could not be assessed. Cardiology recommended cardiac MRI as outpatient to better evaluate her ventricular function. Patient had left against medical advise at that time by this treatment was ongoing. He returns today as his symptoms have not gotten better. He is taking 160 mg of Lasix at home and has had no improvement in his pedal edema or symptoms. He continues to have significant dyspnea on exertion. No chest pain. No palpitations. Denies any cough or sputum production. Occasionally gets dizzy especially on standing. Past Med Surg Social Fam HX - Past Medical History Medical history: atrial fibrillation, hyperlipidemia, hypertension, syncope Psychiatric history: no psych history - Past Surgical History Surgical History: orthopedic, other (right shoulder replacement), other ( ablation and maze procedures for a.fib) - Social History Smoking Status: Former smoker Smokeless Tobacco Status: No Alcohol use: none Drug use: none - Family History Father Adopted: No Family Member Ethnicity: Non- Living Status: Hx Family Cardiac Disorders: Yes Hx Family Respiratory Disorders: No Hx Family Cancer: No Hx Family GI Disorders: No Hx Family Endocrine Disorder: No Hx Family Neuromuscular Disorders: No Hx Family Neurologic Disorders: No Hx Family HEENT Disorders: No Hx Family Autoimmune Disorders: No Internal Medicine - H&P: Meds Ascorbate Calcium [Vitamin C] 500 mg PO QPM 06/13/16 [History] Aspirin Enteric Coated [Aspirin EC] 81 mg PO QAM 06/13/16 [History] Duloxetine [Cymbalta] 60 mg PO BID 06/13/16 [History] Furosemide [Lasix] 40 mg PO QAM 06/13/16 [History] Gabapentin [Neurontin] 600 mg PO TID 06/13/16 [History] Gluc/Abran-MSM#1/C/Telly/Mahesh/Bor [Osteo Bi-Flex Caplet] 1 tab PO QPM 06/13/16 [ History] Melatonin 5 mg PO HS 06/13/16 [History] Naproxen Sodium [Aleve] 440 mg PO QAM 06/13/16 [History] Potassium Chloride [K-Tab ER] 10 meq PO QAM 06/13/16 [History] Valsartan/Hydrochlorothiazide [Diovan Hct 160-25 mg Tablet] 1 tab PO QAM [History] Vitamin E Acid Succinate [Vitamin E] 400 units PO QPM 06/13/16 [History] Apixaban [Eliquis] 5 mg PO BID #60 tablet 06/15/16 [Rx] Diltiazem CD (24hr) [Cardizem CD] 240 mg PO DAILY 30 Days 10/12/16 [Rx] Metoprolol XL (24 HR) Succ [Toprol Xl] 50 mg PO QPM 30 Days 10/12/16 [Rx] Docusate Sodium [Move It Along] 100 mg PO BID PRN 11/04/16 [History] Allergies Influenza Virus Vaccines Allergy (Verified 11/19/16 11:53) Swelling of Lip/Tongue/Throat All Systems PM: A 10-system review of systems was performed and is negative for pertinent findings except as documented above in the HPI. - Constitutional Constitutional: fatigue, lethargy, no chills, no fever(s), no night sweats - EENT Eyes: no change in vision, no discharge, no pain, no photophobia Ears: no ear discharge, no ear pain, no tinnitus Nose, mouth and throat: no dysphagia, no nasal discharge, no neck pain, no sore throat - Cardiovascular Cardiovascular ROS IM: dyspnea on exertion, edema, no chest pain, no diaphoresis , no dyspnea, no lightheadedness, no palpitations, no syncope - Respiratory Respiratory: no cough, no dyspnea, no wheezing, no excessive phlegm production - Gastrointestinal Gastrointestinal: no abdominal pain, no diarrhea, no hematemesis, no hematochezia, no melena, no nausea, no vomiting - Musculoskeletal Musculoskeletal ROS IM: no numbness, no tingling - Integumentary Integumentary IM: no rash, no unusual bruising - Neurological Neurological ROS: no confusion, no convulsions, no focal weakness, no numbness, no tingling, no tremor(s) - Hematologic/Lymphatic Hematologic/Lymphatic: no easy bruising - Constitutional Vitals: Temp Pulse Resp BP Pulse Ox 97.4 F L 84 17 152/84 100 11/19/16 13:42 11/19/16 13:42 11/19/16 13:42 11/19/16 13:42 11/19/16 13:42 General appearance: Present: cooperative, A&O X 3, obese, answers questions appropriately Exam: Moderate distress - Eye Eye exam: Present: EOMI, PERRL - Neck Neck exam general surgery: Present: supple, trachea midline. Absent: lymphadenopathy - Respiratory Respiratory exam: Present: CTAB. Absent: accessory muscle use, rales, rhonchi, wheezes - Cardiovascular Cardiovascular exam: Present: irregular rhythm, +S1, +S2. Absent: diastolic murmur, gallop, rubs, systolic murmur Additional comments: basal crackles - GI/Abdominal GI/Abdominal exam: Present: normal bowel sounds, soft, no peritoneal signs. Absent: distended, tenderness - Extremities Exam Extremities exam: Present: pedal edema, warm, radial pulses palpable and symetrical. Absent: calf tenderness, cyanotic Additional comments: stasis dermatitis - Neurological Exam Neurological exam: Present: CN II-XII intact, oriented X3, no focal deficits. Absent: pronater drift, speech deficit - Psychiatric Psychiatric exam: Present: normal affect, normal mood - Skin Skin exam: Present: dry, intact Internal Med - H&P Results - Labs CBC & Chem 7: 11/19/16 10:27 11/19/16 10:27 - EKG Data -: EKG Interpreted by Myself - EKG Data EKG comments: 11/19/16 15:01 Atrial fibrillation-rate controlled - Impressions Chest X-Ray 11/19/16 09:51 IMPRESSION: Findings most consistent with mild congestive heart failure. D/ / Gigi Gonzalez MD / Gigi Gonzalez MD Interpreting Provider: Gigi Gonzalez MD - Attending Attestation This document has been at least partially created by [employer] recognition technology by Dr. Kruger. Errors in grammar, wording or other phrases may exist. If errors are found after the documentation is signed, they will be addressed individually in the addendum section of this document when appropriate.
[2016-11-19] MEDS ORDERED: metOLazone 5 MG TABLET PO ONE (14:33)
[2016-11-19] MEDS: Ascorbic Acid 500 MG TABLET PO SCH (17:37)
[2016-11-19] MEDS: Metoprolol XL (24 HR) Succ 25 MG TAB.ER.24H PO SCH (17:37)
[2016-11-19] MEDS: Gabapentin 300 MG CAPSULE PO SCH ×2 (17:37→22:22)
[2016-11-19] MEDS: Bumetanide 1 MG/4 ML VIAL IVP SCH (17:37)
[2016-11-19] MEDS: Melatonin 3 MG TABLET PO SCH (22:23)
[2016-11-19] MEDS: APIXABAN 5 MG TABLET PO SCH (22:23)
[2016-11-20 04:22] LABS: Basophils # 0.1 K/mcL (0.0-0.2); Basophils % 0.8 %; Eosinophils # 0.4 K/mcL (0.0-0.6); Eosinophils % 5.2 %; Hematocrit 34.6 % (37.5-50.1); Hemoglobin 10.5 g/dL (12.9-16.9); Immature Granulocytes % 0.2 % (0-4); Lymphocytes % 12.6 %; Mean Corpuscular HGB Conc 30.3 g/dL (31.6-35.5); Mean Corpuscular Hemoglobin 26.6 pg (28.0-33.3); Mean Corpuscular Volume 87.6 fL (83.0-100.0); Mean Platelet Volume 10.3 fL (9.4-12.4); Monocytes # 0.8 K/mcL (0.0-1.3); Monocytes % 9.7 %; Neutrophils # 5.9 K/mcL (1.6-8.9); Platelet Count 283 K/mcL (140-400); Red Blood Count 3.95 M/mcL (4.19-5.50); Red Cell Distribution Width 16.8 % (11.5-14.5); Segmented Neutrophils % 71.5 %
[2016-11-20 04:47] LABS: Chol/HDL Ratio 3.1 (0-4.9)
[2016-11-20 04:55] LABS: BUN/Creatinine Ratio 26 (6-26); Blood Urea Nitrogen 35 mg/dL (8-26); Calcium 9.1 mg/dL (8.6-10.8); Carbon Dioxide 31 mEq/L (19-29); Chloride 97 mEq/L (98-109); Glucose 111 mg/dL (70-99); Osmolality,Calculated 307 (280-300); Potassium 3.5 mEq/L (3.5-4.5); Sodium 144 mEq/L (136-145); eGFR For African Americans > 60 (> 60); eGFR For Non-African Americans 52 (> 60)
[2016-11-20] MEDS: APIXABAN 5 MG TABLET PO SCH ×2 (08:23→20:26)
[2016-11-20] MEDS: Gabapentin 300 MG CAPSULE PO SCH ×3 (08:23→20:26)
[2016-11-20] MEDS: Bumetanide 1 MG/4 ML VIAL IVP SCH ×2 (08:23→17:53)
[2016-11-20] MEDS: Diltiazem CD (24hr) 240 MG CAPSULE PO SCH (08:23)
[2016-11-20] MEDS: Aspirin Enteric Coated 81 MG Tablet PO SCH (08:23)
[2016-11-20 09:44] LABS: Bilirubin,Urine Negative (Negative); Blood,Urine Negative (Negative); Clarity,Urine Clear (Clear); Color,Urine Yellow (Yellow); Glucose,Urine (UA) Normal (Normal); Ketones,Urine Negative (Negative); Leukocyte Esterase,Urine Negative (Negative); Nitrite,Urine Negative (Negative); PH,Urine 6.5 pH Units (5.0-8.0); Protein,Urine Negative (Neg-Trace); Specific Gravity,Urine 1.013 (1.010-1.025); Urobilinogen,Urine Normal (Normal)
--- NOTE | 2016-11-20 10:58 | Cardiology Consult Note ---
Date of Encounter: 11/20/16 Time of Encounter: 10:00 Assessment and Plan (1) CHF exacerbation Current Visit: Yes Status: Acute Acute on chronic diastolic CHF likely secondary to dietary non-compliance and untreated ANNEL. He appears volume overload upon exam; states his symptoms have improved. IKG=555. CXR: mild CHF BLE are edematous; however suspect a component of BLE cellulitis contributing to edema--defer mgmt to primary service. States BLE redness started after last hospital discharge. Reviewed TTE (11/05/16) with Dr. Tanner; EF preserved however RV is dilated and hypokinetic. Unable to complete Cardiac MRI as inpatient; can consider as outpatient if warranted. Continue Bumex, will decrease to 1 mg BID. Monitor I&O and daily weights closely. 24 I&O: -420 mL. Recommend ANNEL evaluation as outpatient as untreated sleep apnea is likely contributing to his symptoms. CHF education discussed including 2L fluid restriction diet, low sodium, and daily weights. Qualifiers: Congestive heart failure type: diastolic Qualified Code(s): I50.33 - Acute on chronic diastolic (congestive) heart failure (2) Atrial fibrillation Current Visit: Yes Status: Chronic Long standing history of atrial fibrillation. Hx of ablation in 2002 ([facility]) complicated by perforation requiring OHS, s/p repeat ablation, and s/p open MAZE procedure and PER stapling. Recent failed DCCV (06/15/16) x2 attempts. TTE May 2016: EF 60%, severe hypertrophy of basal septum, RV dilated and hypokinetic, mild MR, mild to moderate TR, severe PH. TTE 11/05/15: EF 60% mild MR, TR RVR likely secondary to volume overload, suspect rate will improve with diuresis. 12 hour tele: avg HR=94 afib. HR 70's-80's upon exam. Continue Toprol 50 mg daily and cardizem 240 mg daily. Continue Eliquis 5 mg BID for AC. Recommend outpatient sleep study as he likely has underlying ANNEL which may be driving RVR. Follow-up with Dr. Johny Waller as scheduled. Qualifiers: Atrial fibrillation type: persistent Qualified Code(s): I48.1 - Persistent atrial fibrillation Discussion w patient/family: The assessment and plan as outlined above was discussed with the patient and/or family members who expressed understanding and agreement. All questions were answered. Thank you for involving us in the care of your patient. Please call with any questions. The patient will be discussed and reviewed with Dr. Tanner; changes to be made accordingly. History of Present Illness Consult date: 11/20/16 Requesting physician: Seema Kruger Consult reason: CHF Chief complaint: BLE swelling/redness History of present illness: Mr. Bonner is a 76 year old male with PMH significant for AF (Eliquis), obesity , HTN, and chronic back pain who reports to the ED with weakness and worsening shortness of breath over the past few days. Associated symptoms include increase in abdominal girth, increase in BLE edema, and BLE redness. Recently hospitalized a few weeks ago after syncopal episode. He denies any other symptoms including chest pain or discomfort, palpitations, syncope, or dizziness. Reports non-compliance CHF guidelines including low sodium diet and fluid restriction. Past Med Surg Social Fam HX - Past Medical History Medical history: atrial fibrillation, CHF (chronic, diastolic), hyperlipidemia, hypertension, renal disease, syncope Psychiatric history: no psych history - Past Surgical History Surgical History: orthopedic, other (right shoulder replacement), other ( ablation and maze procedures for a.fib) - Social History Smoking Status: Former smoker Smokeless Tobacco Status: No Alcohol use: none Drug use: none - Family History Father Adopted: No Family Member Ethnicity: Non- Living Status: Hx Family Cardiac Disorders: Yes Hx Family Respiratory Disorders: No Hx Family Cancer: No Hx Family GI Disorders: No Hx Family Endocrine Disorder: No Hx Family Neuromuscular Disorders: No Hx Family Neurologic Disorders: No Hx Family HEENT Disorders: No Hx Family Autoimmune Disorders: No Medications and Allergies Ascorbate Calcium [Vitamin C] 500 mg PO QPM 06/13/16 [History] Aspirin Enteric Coated [Aspirin EC] 81 mg PO QAM 06/13/16 [History] Duloxetine [Cymbalta] 60 mg PO BID 06/13/16 [History] Furosemide [Lasix] 40 mg PO QAM 06/13/16 [History] Gabapentin [Neurontin] 600 mg PO TID 06/13/16 [History] Gluc/Abran-MSM#1/C/Telly/Mahesh/Bor [Osteo Bi-Flex Caplet] 1 tab PO QPM 06/13/16 [ History] Melatonin 5 mg PO HS 06/13/16 [History] Naproxen Sodium [Aleve] 440 mg PO QAM 06/13/16 [History] Potassium Chloride [K-Tab ER] 10 meq PO QAM 06/13/16 [History] Valsartan/Hydrochlorothiazide [Diovan Hct 160-25 mg Tablet] 1 tab PO QAM [History] Vitamin E Acid Succinate [Vitamin E] 400 units PO QPM 06/13/16 [History] Apixaban [Eliquis] 5 mg PO BID #60 tablet 06/15/16 [Rx] Diltiazem CD (24hr) [Cardizem CD] 240 mg PO DAILY 30 Days 10/12/16 [Rx] Metoprolol XL (24 HR) Succ [Toprol Xl] 50 mg PO QPM 30 Days 10/12/16 [Rx] Docusate Sodium [Move It Along] 100 mg PO BID PRN 11/04/16 [History] Allergies Influenza Virus Vaccines Allergy (Verified 11/19/16 11:53) Swelling of Lip/Tongue/Throat All Systems Review: A 10-system review of systems was performed and is negative for pertinent findings except as documented above in the HPI. - Cardiovascular Cardiovascular: as per HPI Physical Examination Vital Signs, Last 4 Hours Temp Pulse Resp BP Pulse Ox 11/20/16 06:59 97.3 F L 70 17 149/87 95 General: Conversant, Other (morbidly obese, scotty appearance ) Cardiac: Other (irregularly irregular) Lungs: Other (Expiratory wheezes, bibasilar rales) Neuro: Alert and responsive, No focal deficits noted Abdomen: Other (Large, distended) Musculoskeletal: No Chest Wall Tenderness Extremities: Other (BLE edema +2 to hips; BLE redness) Results 11/20/16 02:54 11/20/16 02:54 Lab Results 11/19/16 11/19/16 11/20/16 16:51 23:02 02:54 WBC 8.2 Hgb 10.5 L Hct 34.6 L Plt Count 283 Sodium Potassium Chloride Carbon Dioxide BUN Creatinine Glucose Calcium Troponin I 0.03 0.03 11/20/16 02:54 WBC Hgb Hct Plt Count Sodium 144 Potassium 3.5 Chloride 97 L Carbon Dioxide 31 H BUN 35 H Creatinine 1.33 H Glucose 111 H Calcium 9.1 Troponin I Active Medications Acetaminophen (Tylenol) 650 mg PO Q6HR PRN PRN Reason: Mild Pain (1-3) Stop: 05/21/17 12:42 Apixaban (Eliquis) 5 mg PO BID [facility] Stop: 05/21/17 21:01 Last Admin: 11/20/16 08:23 Dose: 5 mg Ascorbic Acid (Vitamin C) 500 mg PO QPM [facility] Stop: 05/21/17 18:01 Last Admin: 11/19/16 17:37 Dose: 500 mg Aspirin (Aspirin Ec) 81 mg PO QAM [facility] Stop: 05/22/17 09:01 Last Admin: 11/20/16 08:23 Dose: 81 mg Bumetanide (Bumex) 2 mg IVP BIDDIURETIC [facility] Stop: 05/21/17 17:01 Last Admin: 11/20/16 08:23 Dose: 2 mg Diltiazem HCl (Cardizem Cd) 240 mg PO DAILY [facility] Stop: 05/22/17 09:01 Last Admin: 11/20/16 08:23 Dose: 240 mg Docusate Sodium (Colace) 100 mg PO BID PRN PRN Reason: Constipation Duloxetine HCl (Cymbalta) 60 mg PO BID [facility] Stop: 05/21/17 21:01 Last Admin: 11/20/16 08:23 Dose: 60 mg Gabapentin (Neurontin) 600 mg PO TID [facility] Stop: 05/21/17 15:01 Last Admin: 11/20/16 08:23 Dose: 600 mg Melatonin (Melatonin) 5 mg PO HS [facility] Stop: 05/21/17 21:01 Last Admin: 11/19/16 22:23 Dose: 5 mg Metoprolol Succinate (Toprol Xl) 50 mg PO QPM [facility] Stop: 05/21/17 18:01 Last Admin: 11/19/16 17:37 Dose: 50 mg Potassium Chloride (Potassium Chloride) 10 meq PO QAM [facility] Stop: 05/22/17 09:01 Last Admin: 11/20/16 08:23 Dose: 10 meq - Imaging and Cardiology Chest Xray: report reviewed Echo: report reviewed Other Results: Telemetry reviewed, avg HR=94 afib. - EKG Interpretation EKG results cardiology: personally reviewed Consult Discharge Plan - Plan Referrals: Keon Hector MD [Primary Care Provider] -
--- NOTE | 2016-11-20 12:40 | Internal Med Progress Note ---
Date of Encounter: 11/20/16 Time of Encounter: 08:35 - Assessment and plan (1) Congestive heart failure (CHF) Current Visit: Yes Status: Acute Assessment and plan: Cardiology consulted. Improving volume status. Responded well to IV Bumex. Cardiology recommends decreasing dose to 1 mg twice daily. Will continue. Daily weights. Monitor intake and output. Qualifiers: Congestive heart failure type: unspecified congestive heart failure type Congestive heart failure chronicity: acute Qualified Code(s): I50.9 - Heart failure, unspecified (2) CKD (chronic kidney disease) Current Visit: Yes Status: Chronic Assessment and plan: Stable Qualifiers: Chronic kidney disease stage: stage 2 (mild) Qualified Code(s): N18.2 - Chronic kidney disease, stage 2 (mild) (3) Edema Current Visit: Yes Status: Chronic Assessment and plan: Persistent bilateral pedal edema. Likely exacerbated by stasis dermatitis bilaterally. Qualifiers: Edema type: unspecified Qualified Code(s): R60.9 - Edema, unspecified (4) Hypertension Current Visit: No Status: Chronic Assessment and plan: Controlled Qualifiers: Hypertension type: essential hypertension Qualified Code(s): I10 - Essential (primary) hypertension (5) Obesity with body mass index of 30.0-39.9 Current Visit: No Status: Chronic (6) Atrial fibrillation Current Visit: Yes Status: Chronic Assessment and plan: Rate controlled. On Eliquis Qualifiers: Atrial fibrillation type: persistent Qualified Code(s): I48.1 - Persistent atrial fibrillation (7) Stasis dermatitis without varicosities Current Visit: Yes Status: Acute Assessment and plan: Patient appears to be having chronic stasis dermatitis with edema in his bilateral lower extremities. There is no significant warmth to touch or tenderness. Does not appear to be cellulitis. Will recommend local wound care and Prudencio wrap bandage. - Subjective Interval history: Patient is feeling much better today. Denies any fever or chills or night sweats overnight. Dyspnea is improving. Not requiring O2 supplementation. - Constitutional Vitals: Temp Pulse Resp BP Pulse Ox 98.1 F 71 15 111/42 99 11/20/16 11:10 11/20/16 11:10 11/20/16 11:10 11/20/16 11:10 11/20/16 11:10 General appearance: Present: cooperative, mild distress, A&O X 3, obese, answers questions appropriately - Respiratory Respiratory exam: Present: CTAB. Absent: accessory muscle use, rales, rhonchi, wheezes - Cardiovascular Cardiovascular exam: Present: RRR, +S1, +S2. Absent: diastolic murmur, gallop, rubs, systolic murmur - GI/Abdominal GI/Abdominal exam: Present: normal bowel sounds, soft, no peritoneal signs. Absent: distended, tenderness - Extremities Exam Extremities exam: Present: pedal edema, warm, radial pulses palpable and symetrical. Absent: calf tenderness, cyanotic Additional comments: Bilateral stasis dermatitis in both lower extremities - Neurological Exam Neurological exam: Present: oriented X3, no focal deficits. Absent: facial droop, speech deficit - Skin Skin exam: Present: dry, intact Additional comments: Stasis dermatitis involving both lower extremities present Internal Medicine: Result - Labs CBC & Chem 7: 11/20/16 02:54 11/20/16 02:54 Labs: Short CBC 11/20/16 Range/Units 02:54 WBC 8.2 (4.3-11.1) K/mcL Hgb 10.5 L (12.9-16.9) g/dL Hct 34.6 L (37.5-50.1) % Plt Count 283 (140-400) K/mcL Neutrophils # 5.9 (1.6-8.9) K/mcL BMP 11/20/16 02:54 Sodium 144 Potassium 3.5 Chloride 97 L Carbon Dioxide 31 H BUN 35 H Creatinine 1.33 H Glucose 111 H Calcium 9.1 Cardiac Enzymes 11/19/16 11/19/16 Range/Units 16:51 23:02 Troponin I 0.03 0.03 (0-0.03) ng/mL Urine 11/20/16 Range/Units 09:31 Urine Color Yellow (Yellow) Urine Clarity Clear (Clear) Urine pH 6.5 (5.0-8.0) pH Units Ur Specific [place] 1.013 (1.010-1.025) Urine Protein Negative (Neg-Trace) mg/dL Urine Glucose (UA) Normal (Normal) mg/dL - ABG Interpretation ABG results: PT/INR, D-dimer PT 25.9 Seconds (9.4-12.1) H 11/19/16 10:27 D-Dimer 950 ng/mLFEU (0-500) H 11/19/16 10:27 Consult Discharge Plan - Plan Referrals: Keon Hector MD [Primary Care Provider] - - Attending Attestation This document has been at least partially created by [facility] recognition technology by Dr. Kruger. Errors in grammar, wording or other phrases may exist. If errors are found after the documentation is signed, they will be addressed individually in the addendum section of this document when appropriate. Medical Decision Making - MDM Narrative Medical decision making narrative: High risk for complications due to use of intravenous diuretics - Lab Data Lab results reviewed: Yes I reviewed the patient's lab results. Result diagrams: 11/20/16 02:54 11/20/16 02:54 Lab Results 11/19/16 11/19/16 11/20/16 Range/Units 16:51 23:02 02:54 WBC 8.2 (4.3-11.1) K/mcL RBC 3.95 L (4.19-5.50) M/mcL Hgb 10.5 L (12.9-16.9) g/dL Hct 34.6 L (37.5-50.1) % MCV 87.6 (83.0-100.0) fL MCH 26.6 L (28.0-33.3) pg MCHC 30.3 L (31.6-35.5) g/dL RDW 16.8 H (11.5-14.5) % Plt Count 283 (140-400) K/mcL MPV 10.3 (9.4-12.4) fL Immature Gran % 0.2 (0-4) % Seg Neutrophils % 71.5 % Lymphocytes % 12.6 % Monocytes % 9.7 % Eosinophils % 5.2 % Basophils % 0.8 % Neutrophils # 5.9 (1.6-8.9) K/mcL Lymphocytes # 1.0 (0.6-4.6) K/mcL Monocytes # 0.8 (0.0-1.3) K/mcL Eosinophils # 0.4 (0.0-0.6) K/mcL Basophils # 0.1 (0.0-0.2) K/mcL Sodium (136-145) mEq/L Potassium (3.5-4.5) mEq/L Chloride (98-109) mEq/L Carbon Dioxide (19-29) mEq/L BUN (8-26) mg/dL Creatinine (0.72-1.25) mg/dL Est GFR ( Amer) (> 60) Est GFR (Non-Af Amer) (> 60) BUN/Creatinine Ratio (6-26) Glucose (70-99) mg/dL Calculated Osmolality (280-300) Calcium (8.6-10.8) mg/dL Troponin I 0.03 0.03 (0-0.03) ng/mL Triglycerides (< 150) mg/dL Cholesterol (< 200) mg/dL LDL Cholesterol, Calc (0-99) mg/dL VLDL Cholesterol, Calc (< 31) mg/dL HDL Cholesterol (40-59) mg/dL Cholesterol/HDL Ratio (0-4.9) Urine Color (Yellow) Urine Clarity (Clear) Urine pH (5.0-8.0) pH Units Ur Specific [place] (1.010-1.025) Urine Protein (Neg-Trace) mg/dL Urine Glucose (UA) (Normal) mg/dL Urine Ketones (Negative) mg/dL Urine Blood (Negative) Urine Nitrite (Negative) Urine Bilirubin (Negative) Urine Urobilinogen (Normal) mg/dL Ur Leukocyte Esterase (Negative) Ur Culture Indicated? (NO) 11/20/16 11/20/16 11/20/16 Range/Units 02:54 02:54 09:31 WBC (4.3-11.1) K/mcL RBC (4.19-5.50) M/mcL Hgb (12.9-16.9) g/dL Hct (37.5-50.1) % MCV (83.0-100.0) fL MCH (28.0-33.3) pg MCHC (31.6-35.5) g/dL RDW (11.5-14.5) % Plt Count (140-400) K/mcL MPV (9.4-12.4) fL Immature Gran % (0-4) % Seg Neutrophils % % Lymphocytes % % Monocytes % % Eosinophils % % Basophils % % Neutrophils # (1.6-8.9) K/mcL Lymphocytes # (0.6-4.6) K/mcL Monocytes # (0.0-1.3) K/mcL Eosinophils # (0.0-0.6) K/mcL Basophils # (0.0-0.2) K/mcL Sodium 144 (136-145) mEq/L Potassium 3.5 (3.5-4.5) mEq/L Chloride 97 L (98-109) mEq/L Carbon Dioxide 31 H (19-29) mEq/L BUN 35 H (8-26) mg/dL Creatinine 1.33 H (0.72-1.25) mg/dL Est GFR ( Amer) > 60 (> 60) Est GFR (Non-Af Amer) 52 L (> 60) BUN/Creatinine Ratio 26 (6-26) Glucose 111 H (70-99) mg/dL Calculated Osmolality 307 H (280-300) Calcium 9.1 (8.6-10.8) mg/dL Troponin I (0-0.03) ng/mL Triglycerides 85 (< 150) mg/dL Cholesterol 109 (< 200) mg/dL LDL Cholesterol, Calc 57 (0-99) mg/dL VLDL Cholesterol, Calc 17 (< 31) mg/dL HDL Cholesterol 35 L (40-59) mg/dL Cholesterol/HDL Ratio 3.1 (0-4.9) Urine Color Yellow (Yellow) Urine Clarity Clear (Clear) Urine pH 6.5 (5.0-8.0) pH Units Ur Specific [place] 1.013 (1.010-1.025) Urine Protein Negative (Neg-Trace) mg/dL Urine Glucose (UA) Normal (Normal) mg/dL Urine Ketones Negative (Negative) mg/dL Urine Blood Negative (Negative) Urine Nitrite Negative (Negative) Urine Bilirubin Negative (Negative) Urine Urobilinogen Normal (Normal) mg/dL Ur Leukocyte Esterase Negative (Negative) Ur Culture Indicated? NO (NO)
[2016-11-20] MEDS: Metoprolol XL (24 HR) Succ 25 MG TAB.ER.24H PO SCH (17:53)
[2016-11-20] MEDS: Ascorbic Acid 500 MG TABLET PO SCH (17:53)
[2016-11-20] MEDS: Melatonin 3 MG TABLET PO SCH (20:27)
[2016-11-21 02:44] LABS: Basophils # 0.1 K/mcL (0.0-0.2); Basophils % 0.8 %; Eosinophils # 0.4 K/mcL (0.0-0.6); Eosinophils % 4.5 %; Hematocrit 31.5 % (37.5-50.1); Hemoglobin 9.6 g/dL (12.9-16.9); Immature Granulocytes % 0.7 % (0-4); Lymphocytes % 11.3 %; Mean Corpuscular HGB Conc 30.5 g/dL (31.6-35.5); Mean Corpuscular Hemoglobin 25.8 pg (28.0-33.3); Mean Corpuscular Volume 84.7 fL (83.0-100.0); Mean Platelet Volume 10.2 fL (9.4-12.4); Monocytes # 0.9 K/mcL (0.0-1.3); Monocytes % 9.7 %; Neutrophils # 6.5 K/mcL (1.6-8.9); Platelet Count 263 K/mcL (140-400); Red Blood Count 3.72 M/mcL (4.19-5.50); Red Cell Distribution Width 16.7 % (11.5-14.5)
[2016-11-21 02:58] LABS: BUN/Creatinine Ratio 26 (6-26); Blood Urea Nitrogen 34 mg/dL (8-26); Calcium 8.5 mg/dL (8.6-10.8); Carbon Dioxide 25 mEq/L (19-29); Chloride 103 mEq/L (98-109); Glucose 133 mg/dL (70-99); Osmolality,Calculated 310 (280-300); Potassium 4.3 mEq/L (3.5-4.5); Sodium 145 mEq/L (136-145); eGFR For African Americans > 60 (> 60); eGFR For Non-African Americans 52 (> 60)
[2016-11-21] MEDS: Diltiazem CD (24hr) 240 MG CAPSULE PO SCH (07:31)
[2016-11-21] MEDS: Gabapentin 300 MG CAPSULE PO SCH ×3 (07:31→21:19)
[2016-11-21] MEDS: APIXABAN 5 MG TABLET PO SCH ×2 (07:31→21:19)
[2016-11-21] MEDS: Aspirin Enteric Coated 81 MG Tablet PO SCH (07:31)
[2016-11-21] MEDS: Bumetanide 1 MG/4 ML VIAL IVP SCH ×2 (07:32→18:00)
--- NOTE | 2016-11-21 10:02 | Cardiology Progress Note ---
Date of Encounter: 11/21/16 Time of Encounter: 10:30 Assessment and Plan (1) CHF exacerbation Current Visit: Yes Status: Acute Acute on chronic diastolic CHF likely secondary to dietary non-compliance (fluid /sodium indiscretion) and untreated ANNEL. He appears volume overload upon exam; states his symptoms have improved. UOS=693. CXR: mild CHF BLE are edematous; however suspect a component of BLE cellulitis contributing to edema--defer mgmt to primary service. States BLE redness started after last hospital discharge. Reviewed TTE (11/05/16) with Dr. Tanner; EF preserved however RV is dilated and hypokinetic. Unable to complete Cardiac MRI as inpatient; can consider as outpatient if warranted. Continue IV Bumex, 1 mg BID. Monitor I&O and daily weights closely. Recommend additional 24-48 hours of IV diuresis, defer further mgmt to primary service. Transition to oral dose by discharge. 24 I&O: -1400 mL, cumulative -3490 mL Recommend ANNEL evaluation as outpatient as untreated sleep apnea is likely contributing to his symptoms. CHF education discussed including 2L fluid restriction diet, low sodium, and daily weights. Follow-up with Dr. Johny Waller as scheduled on 11/24/16. Qualifiers: Congestive heart failure type: diastolic Qualified Code(s): I50.33 - Acute on chronic diastolic (congestive) heart failure (2) Atrial fibrillation Current Visit: Yes Status: Chronic Long standing history of atrial fibrillation. Hx of ablation in 2002 ([facility]) complicated by perforation requiring OHS, s/p repeat ablation, and s/p open MAZE procedure and PER stapling. Recent failed DCCV (06/15/16) x2 attempts. TTE May 2016: EF 60%, severe hypertrophy of basal septum, RV dilated and hypokinetic, mild MR, mild to moderate TR, severe PH. TTE 11/05/15: EF 60% mild MR, TR RVR likely secondary to volume overload, suspect rate will improve with diuresis. HR 70's-80's upon exam. Continue Toprol 50 mg daily and cardizem 240 mg daily. Continue Eliquis 5 mg BID for AC. Recommend outpatient sleep study as he likely has underlying ANNEL which may be driving RVR. Follow-up with Dr. Johny Waller as scheduled. Qualifiers: Atrial fibrillation type: persistent Qualified Code(s): I48.1 - Persistent atrial fibrillation Discussion w patient/family: The assessment and plan as outlined above was discussed with the patient and/or family members who expressed understanding and agreement. All questions were answered. Thank you for involving us in the care of your patient. Please call with any questions. The patient was discussed and reviewed with Dr. Schwartz; Cardiology will sign- off. Please call with questions. Subjective Principal diagnosis: dCHF, Afib Interval history: Seen and examined. Denies complaints overnight. Continue to have dependent edema, improving; not yet at baseline. Objective Vital Signs, Last 4 Hours Temp Pulse Resp BP Pulse Ox 11/21/16 09:27 148/88 95 11/21/16 07:13 97.6 F 97 15 136/63 98 General: Conversant HEENT: Atraumatic, Normocephaly Cardiac: Other (irregularly irregular) Lungs: Other (Expiratory wheezes) Neuro: Alert and responsive Abdomen: Other (large, distended) Extremities: Other (+2-3 edema to hips; BUE edema/red discoloration) Results 11/21/16 02:36 11/21/16 02:36 Lab Results 11/21/16 11/21/16 02:36 02:36 WBC 8.9 Hgb 9.6 L Hct 31.5 L Plt Count 263 Sodium 145 Potassium 4.3 Chloride 103 Carbon Dioxide 25 BUN 34 H Creatinine 1.33 H Glucose 133 H Calcium 8.5 L Active Medications Acetaminophen (Tylenol) 650 mg PO Q6HR PRN PRN Reason: Mild Pain (1-3) Stop: 05/21/17 12:42 Apixaban (Eliquis) 5 mg PO BID [facility] Stop: 05/21/17 21:01 Last Admin: 11/21/16 07:31 Dose: 5 mg Ascorbic Acid (Vitamin C) 500 mg PO QPM [facility] Stop: 05/21/17 18:01 Last Admin: 11/20/16 17:53 Dose: 500 mg Aspirin (Aspirin Ec) 81 mg PO QAM [facility] Stop: 05/22/17 09:01 Last Admin: 11/21/16 07:31 Dose: 81 mg Bumetanide (Bumex) 1 mg IVP BIDDIURETIC [facility] Stop: 05/21/17 17:01 Last Admin: 11/21/16 07:32 Dose: 1 mg Docusate Sodium (Colace) 100 mg PO BID PRN PRN Reason: Constipation Duloxetine HCl (Cymbalta) 60 mg PO BID [facility] Stop: 05/21/17 21:01 Last Admin: 11/21/16 07:31 Dose: 60 mg Gabapentin (Neurontin) 600 mg PO TID [facility] Stop: 05/21/17 15:01 Last Admin: 11/21/16 07:31 Dose: 600 mg Diltiazem HCl 125 mg/ Dextrose 125 mls @ 10 mls/hr IVC .[id number] JESSE; 10 MG/HR PRN Reason: Protocol Stop: 05/23/17 09:01 Melatonin (Melatonin) 5 mg PO HS [facility] Stop: 05/21/17 21:01 Last Admin: 11/20/16 20:27 Dose: 5 mg Metoprolol Succinate (Toprol Xl) 50 mg PO QPM [facility] Stop: 05/21/17 18:01 Last Admin: 11/20/16 17:53 Dose: 50 mg Potassium Chloride (Potassium Chloride) 10 meq PO QAM [facility] Stop: 05/22/17 09:01 Last Admin: 11/21/16 07:31 Dose: 10 meq - Imaging and Cardiology Echo: report reviewed - EKG Interpretation EKG results cardiology: personally reviewed Consult Discharge Plan - Plan Referrals: Keon Hector MD [Primary Care Provider] - Johny Waller MD [Partnered Physician] - 11/24/16 4:00 pm
[2016-11-21] MEDS: Miconazole 2% cream 118 GM TUBE TP SCH ×3 (13:54→21:19)
--- NOTE | 2016-11-21 15:26 | Internal Med Progress Note ---
Date of Encounter: 11/21/16 Time of Encounter: 08:25 - Assessment and plan (1) Congestive heart failure (CHF) Current Visit: Yes Status: Acute Assessment and plan: We will change Bumex to oral dose. Continue to monitor input and output and daily weights. Patient may need home oxygen especially with exertion. Will consult PTOT. Incentive spirometry. Plan for O2 qualification tomorrow. Moderate risk for complications Qualifiers: Congestive heart failure type: diastolic Congestive heart failure chronicity: acute Qualified Code(s): I50.31 - Acute diastolic (congestive) heart failure (2) Atrial fibrillation Current Visit: Yes Status: Acute Assessment and plan: A. fib with RVR. Cardizem 20 mg IV ordered. Transferred to [facility] floor and monitor closely with telemetry. If heart rate does not improve, start Cardizem drip. Continue to monitor to make sure patient does not have any further episodes of RVR. Qualifiers: Atrial fibrillation type: persistent Qualified Code(s): I48.1 - Persistent atrial fibrillation (3) CKD (chronic kidney disease) Current Visit: Yes Status: Chronic Assessment and plan: Creatinine is at baseline. Qualifiers: Chronic kidney disease stage: stage 2 (mild) Qualified Code(s): N18.2 - Chronic kidney disease, stage 2 (mild) (4) Edema Current Visit: Yes Status: Chronic Assessment and plan: Bilateral pedal edema still present. Dermatitis changes. Wound care to commence topical antifungal application. Most likely due to venous insufficiency. Qualifiers: Edema type: unspecified Qualified Code(s): R60.9 - Edema, unspecified (5) Hypertension Current Visit: No Status: Chronic Assessment and plan: Well-controlled Qualifiers: Hypertension type: essential hypertension Qualified Code(s): I10 - Essential (primary) hypertension (6) Obesity with body mass index of 30.0-39.9 Current Visit: No Status: Chronic (7) Stasis dermatitis without varicosities Current Visit: Yes Status: Acute Assessment and plan: Patient appears to be having chronic pedal edema and dermatitis related to venous insufficiency. Supportive care. Topical antifungal agents for dermatitis. No indication for antibiotics at this time as patient does not have any warmth or tenderness suggestive of cellulitis. No fever either. - Subjective Interval history: Patient was doing all right this morning. He developed an episode of rapid ventricular rate with heart rate going into the 160s. EKG was done. EKG shows atrial fibrillation without any ST segment changes. He denies any chest pain. His respiratory status is improving. He however is having episodes of hypoxia especially with walking. Denies any palpitations. - Constitutional Vitals: Temp Pulse Resp BP Pulse Ox 97.6 F 96 18 127/73 98 11/21/16 15:08 11/21/16 15:08 11/21/16 15:08 11/21/16 15:08 11/21/16 15:08 General appearance: Present: cooperative, mild distress, A&O X 3, obese, answers questions appropriately - Respiratory Respiratory exam: Present: CTAB. Absent: accessory muscle use, rales, rhonchi, wheezes - Cardiovascular Cardiovascular exam: Present: irregular rhythm, +S1, +S2, tachycardia. Absent: diastolic murmur, gallop, rubs, systolic murmur - GI/Abdominal GI/Abdominal exam: Present: normal bowel sounds, soft, no peritoneal signs. Absent: distended, tenderness - Extremities Exam Extremities exam: Present: pedal edema, warm, radial pulses palpable and symetrical. Absent: calf tenderness, cyanotic Additional comments: Bilateral lower extremity dermatitis changes noted. Pedal edema. No warmth or tenderness to palpation. - Neurological Exam Neurological exam: Present: alert, oriented X3, no focal deficits. Absent: facial droop, speech deficit Internal Medicine: Result - Labs CBC & Chem 7: 11/21/16 02:36 11/21/16 02:36 Labs: Short CBC 11/21/16 Range/Units 02:36 WBC 8.9 (4.3-11.1) K/mcL Hgb 9.6 L (12.9-16.9) g/dL Hct 31.5 L (37.5-50.1) % Plt Count 263 (140-400) K/mcL Neutrophils # 6.5 (1.6-8.9) K/mcL BMP 11/21/16 02:36 Sodium 145 Potassium 4.3 Chloride 103 Carbon Dioxide 25 BUN 34 H Creatinine 1.33 H Glucose 133 H Calcium 8.5 L - ABG Interpretation ABG results: PT/INR, D-dimer PT 25.9 Seconds (9.4-12.1) H 11/19/16 10:27 D-Dimer 950 ng/mLFEU (0-500) H 11/19/16 10:27 Consult Discharge Plan - Plan Referrals: Keon Hector MD [Primary Care Provider] - Johny Waller MD [Partnered Physician] - 11/24/16 4:00 pm - Attending Attestation This document has been at least partially created by eEye recognition technology by Dr. Kruger. Errors in grammar, wording or other phrases may exist. If errors are found after the documentation is signed, they will be addressed individually in the addendum section of this document when appropriate.
--- NOTE | 2016-11-21 17:24 | Electrocardiograph Report ---
[facility] Test Date: 2016-11-19 Pat Name: Pete Bonner Department: 104 Room: 2A36 Gender: M Thoracic Surgeon: WALESKA : 1940 Requested By: Lisa Hunt Order Number: [id number] Reading MD: Justin Tanner DO Measurements Intervals [place] Rate: 86 P: [place]: 0 QRS: 59 QRSD: 100 T: 69 QT: 388 QTc: 431 Interpretive Statements Atrial fibrillation Low QRS voltage Nonspecific ST-T changes Electronically Signed On 11-21-16 17:23:52 EST by Justin Tanner DO
--- NOTE | 2016-11-21 17:47 | Electrocardiograph Report ---
[facility] Test Date: 2016-11-21 Pat Name: ARGELIA SALOMON Department: 115 Room: 2A36 Gender: M Health Information Assistant: : 1940 Requested By: Janina Fields Order Number: [id number] Reading MD: Justin Tanner DO Measurements Intervals [place] Rate: 161 P: ID: 0 QRS: 61 QRSD: 88 T: 240 QT: 268 QTc: 357 Interpretive Statements Atrial fibrillation with rapid ventricular response Anterolateral ST-T changes due to rate and/or ischemia Electronically Signed On 11-21-16 17:46:07 EST by Justin Tanner DO
[2016-11-21] MEDS: Metoprolol XL (24 HR) Succ 25 MG TAB.ER.24H PO SCH (18:00)
[2016-11-21] MEDS: Ascorbic Acid 500 MG TABLET PO SCH (18:00)
[2016-11-21] MEDS: Melatonin 3 MG TABLET PO SCH (21:18)
[2016-11-21] MEDS: Nystatin POWDER 30 GM BOTTLE TP SCH (21:19)
[2016-11-22 05:46] LABS: Basophils # 0.1 K/mcL (0.0-0.2); Basophils % 1.1 %; Eosinophils # 0.6 K/mcL (0.0-0.6); Eosinophils % 6.9 %; Hemoglobin 10.3 g/dL (12.9-16.9); Immature Granulocytes % 0.5 % (0-4); Lymphocytes # 1.1 K/mcL (0.6-4.6); Lymphocytes % 12.7 %; Mean Corpuscular HGB Conc 29.4 g/dL (31.6-35.5); Mean Corpuscular Hemoglobin 25.8 pg (28.0-33.3); Mean Corpuscular Volume 87.5 fL (83.0-100.0); Mean Platelet Volume 10.5 fL (9.4-12.4); Monocytes % 11.6 %; Neutrophils # 5.7 K/mcL (1.6-8.9); Platelet Count 311 K/mcL (140-400); Red Cell Distribution Width 16.9 % (11.5-14.5); Segmented Neutrophils % 67.2 %
[2016-11-22 06:02] LABS: BUN/Creatinine Ratio 25 (6-26); Blood Urea Nitrogen 32 mg/dL (8-26); Calcium 8.9 mg/dL (8.6-10.8); Carbon Dioxide 33 mEq/L (19-29); Chloride 94 mEq/L (98-109); Glucose 119 mg/dL (70-99); Osmolality,Calculated 300 (280-300); Potassium 3.3 mEq/L (3.5-4.5); Sodium 141 mEq/L (136-145); eGFR For African Americans > 60 (> 60); eGFR For Non-African Americans 55 (> 60)
[2016-11-22] MEDS: Aspirin Enteric Coated 81 MG Tablet PO SCH (09:10)
[2016-11-22] MEDS: Gabapentin 300 MG CAPSULE PO SCH ×3 (09:10→20:21)
[2016-11-22] MEDS: APIXABAN 5 MG TABLET PO SCH ×2 (09:10→20:21)
[2016-11-22] MEDS: Nystatin POWDER 30 GM BOTTLE TP SCH ×2 (09:11→20:21)
[2016-11-22] MEDS: Miconazole 2% cream 118 GM TUBE TP SCH ×2 (09:11→20:21)
[2016-11-22] MEDS ORDERED: traMADol 50 MG TABLET PO ONE (09:14)
[2016-11-22] MEDS: Bumetanide 1 MG TABLET PO SCH ×2 (09:14→18:05)
[2016-11-22] MEDS: Diltiazem CD (24hr) 120 MG CAPSULE PO SCH (15:52)
[2016-11-22] MEDS: Ascorbic Acid 500 MG TABLET PO SCH (18:05)
[2016-11-22] MEDS: Metoprolol XL (24 HR) Succ 25 MG TAB.ER.24H PO SCH (18:05)
--- NOTE | 2016-11-22 18:20 | Internal Med Progress Note ---
Date of Encounter: 11/22/16 Time of Encounter: 13:00 - Assessment and plan (1) Atrial fibrillation Current Visit: Yes Status: Acute Assessment and plan: A. fib with RVR. Now rate controlled Will resume home cardizem at a low dose and titrate prn Also on toprol, continue same On anticoagulation, continue same Qualifiers: Atrial fibrillation type: persistent Qualified Code(s): I48.1 - Persistent atrial fibrillation (2) CHF exacerbation Current Visit: Yes Status: Acute Assessment and plan: Improving, continue current management Qualify for home O2 PT reviewed noted, for home with home health Qualifiers: Congestive heart failure type: diastolic Qualified Code(s): I50.33 - Acute on chronic diastolic (congestive) heart failure (3) Stasis dermatitis without varicosities Current Visit: Yes Status: Acute Assessment and plan: Patient appears to be having chronic pedal edema and dermatitis related to venous insufficiency. Supportive care. Topical antifungal agents for dermatitis. No indication for antibiotics at this time as patient does not have any warmth or tenderness suggestive of cellulitis. No fever either. (4) CKD (chronic kidney disease) Current Visit: Yes Status: Chronic Assessment and plan: Creatinine is at baseline. Qualifiers: Chronic kidney disease stage: stage 2 (mild) Qualified Code(s): N18.2 - Chronic kidney disease, stage 2 (mild) (5) Hyperlipidemia Current Visit: Yes Status: Chronic Qualifiers: Hyperlipidemia type: unspecified Qualified Code(s): E78.5 - Hyperlipidemia , unspecified (6) Hypertension Current Visit: No Status: Chronic Assessment and plan: Well-controlled Qualifiers: Hypertension type: essential hypertension Qualified Code(s): I10 - Essential (primary) hypertension - Subjective Interval history: 76 Y/O M with Afib, CH He is being managed for acute hypoxic respiratory failure secondary to CHF exacerbation he is seen at bedside, complains of chronic shoulder pain He remains oxygen dependent even though he is not on home O2 at home He has chronic venous stasis changes, with bilateral chronic pedal edema - Constitutional Vitals: Temp Pulse Resp BP Pulse Ox 98 F 85 18 141/96 98 11/22/16 15:53 11/22/16 17:53 11/22/16 17:53 11/22/16 17:53 11/22/16 17:53 General appearance: Present: cooperative, A&O X 3, morbidly obese, pleasant, answers questions appropriately - Head Head exam: Present: atraumatic - Eye Eye exam: Present: PERRL, conjuntiva pink, sclera anicteric - ENT ENT exam: Present: mucous membranes moist - Neck Neck exam general surgery: Present: normal inspection - Respiratory Respiratory exam: Present: CTAB - Cardiovascular Cardiovascular exam: Present: +S1, +S2, systolic murmur. Absent: JVD, rubs - GI/Abdominal GI/Abdominal exam: Present: normal bowel sounds, soft, no peritoneal signs. Absent: tenderness - Extremities Exam Extremities exam: Present: pedal edema - Neurological Exam Neurological exam: Present: alert, oriented X3, no focal deficits. Absent: pronater drift, facial droop, speech deficit - Skin Skin exam: Present: dry Internal Medicine: Result - Labs CBC & Chem 7: 11/22/16 05:21 11/22/16 05:21 Labs: Short CBC 11/22/16 Range/Units 05:21 WBC 8.5 (4.3-11.1) K/mcL Hgb 10.3 L (12.9-16.9) g/dL Hct 35.0 L (37.5-50.1) % Plt Count 311 (140-400) K/mcL Neutrophils # 5.7 (1.6-8.9) K/mcL BMP 11/22/16 05:21 Sodium 141 Potassium 3.3 L D Chloride 94 L Carbon Dioxide 33 H BUN 32 H Creatinine 1.28 H Glucose 119 H Calcium 8.9 - ABG Interpretation ABG results: PT/INR, D-dimer PT 25.9 Seconds (9.4-12.1) H 11/19/16 10:27 D-Dimer 950 ng/mLFEU (0-500) H 11/19/16 10:27 Consult Discharge Plan - Plan Referrals: Keon Hector MD [Primary Care Provider] - Johny Waller MD [Partnered Physician] - 11/24/16 4:00 pm (Please follow up as schedule..)
[2016-11-22] MEDS: Melatonin 3 MG TABLET PO SCH (20:21)
[2016-11-23] MEDS ORDERED: methylPREDNISolone 125 MG/2 ML VIAL IM ONE (00:06)
[2016-11-23 00:34] LABS: ABG Base Excess 15.8 mEq/L (-2.0 to 3.0); ABG HCO3 43.4 mEQ/L (21-27); ABG Oxygen Saturation 96 % (95-98); ABG PO2 82 mmHg (85-104); ABG TCO2 45.5 mEq/L (20-26)
[2016-11-23 00:35] LABS: Blood Gas FiO2 36 %
[2016-11-23 00:39] LABS: ABG PCO2 70 mmHg (35-45)
[2016-11-23] MEDS ORDERED: *HR* LORazepam 2 MG/ML VIAL ONE (04:36)
[2016-11-23] MEDS ORDERED: Haloperidol Lactate 5 MG/ML VIAL ONE (04:36)
[2016-11-23] MEDS ORDERED: Haloperidol Lactate 5 MG/ML VIAL IVP ONE (04:50)
[2016-11-23] MEDS ORDERED: *HR* LORazepam 2 MG/ML VIAL IV ONE (04:51)
[2016-11-23 06:43] LABS: Basophils # 0.1 K/mcL (0.0-0.2); Basophils % 0.7 %; Eosinophils # 0.1 K/mcL (0.0-0.6); Eosinophils % 1.9 %; Hematocrit 33.4 % (37.5-50.1); Hemoglobin 9.9 g/dL (12.9-16.9); Immature Granulocytes % 0.4 % (0-4); Lymphocytes # 0.4 K/mcL (0.6-4.6); Lymphocytes % 5.2 %; Mean Corpuscular HGB Conc 29.6 g/dL (31.6-35.5); Mean Corpuscular Volume 87.7 fL (83.0-100.0); Mean Platelet Volume 10.2 fL (9.4-12.4); Monocytes # 0.1 K/mcL (0.0-1.3); Monocytes % 1.5 %; Neutrophils # 6.6 K/mcL (1.6-8.9); Platelet Count 286 K/mcL (140-400); Red Blood Count 3.81 M/mcL (4.19-5.50); Segmented Neutrophils % 90.3 %
--- NOTE | 2016-11-23 06:45 | Event Note ---
Date of Encounter: 11/23/16 Time of Encounter: 05:10 I had ordered solumedrol to control a susposedly rapidly progressive erythematous rash (as I was informed had spread and was more in ense over a matter of hours), patient developed aggression subseqtly. IMP Dermatitis, report of rapid progression. Corticosteroid-induced psychotic episode. Sleep apnea PLAN 1 dose of Ativan and Haloperidol, 1mg and 2.5mg respectively DC SOLUMEDROL De-escalate to 2 point restraint Maintain a sitter BiPAP, continous pulse ox.
[2016-11-23 06:52] LABS: BUN/Creatinine Ratio 25 (6-26); Blood Urea Nitrogen 30 mg/dL (8-26); Calcium 8.9 mg/dL (8.6-10.8); Carbon Dioxide 34 mEq/L (19-29); Chloride 96 mEq/L (98-109); Glucose 164 mg/dL (70-99); Osmolality,Calculated 304 (280-300); Potassium 3.1 mEq/L (3.5-4.5); Sodium 142 mEq/L (136-145); eGFR For African Americans > 60 (> 60); eGFR For Non-African Americans 58 (> 60)
[2016-11-23] MEDS ORDERED: MethylPREDNISolone 40 MG/ML VIAL IVP SCH (08:00)
[2016-11-23 09:09] LABS: ABG Base Excess 12.8 mEq/L (-2.0 to 3.0); ABG HCO3 40.9 mEQ/L (21-27); ABG Oxygen Saturation 98 % (95-98); ABG PH 7.35 pH Units (7.32-7.45); ABG PO2 118 mmHg (85-104); ABG TCO2 43.2 mEq/L (20-26)
[2016-11-23 09:10] LABS: ABG PCO2 74 mmHg (35-45); Blood Gas FiO2 40 %
[2016-11-23] MEDS: Bumetanide 1 MG TABLET PO SCH (09:14)
[2016-11-23] MEDS: Gabapentin 300 MG CAPSULE PO SCH ×3 (10:07→21:43)
[2016-11-23] MEDS: APIXABAN 5 MG TABLET PO SCH ×2 (10:07→21:43)
[2016-11-23] MEDS: Aspirin Enteric Coated 81 MG Tablet PO SCH (10:07)
[2016-11-23] MEDS: Nystatin POWDER 30 GM BOTTLE TP SCH ×2 (10:43→21:43)
[2016-11-23] MEDS: Miconazole 2% cream 118 GM TUBE TP SCH ×2 (10:44→21:43)
[2016-11-23] MEDS: Diltiazem CD (24hr) 120 MG CAPSULE PO SCH (12:48)
[2016-11-23 15:37] LABS: ABG Oxygen Saturation 98 % (95-98); ABG PCO2 63 mmHg (35-45); ABG PO2 100 mmHg (85-104); ABG TCO2 40.9 mEq/L (20-26)
[2016-11-23 15:38] LABS: Blood Gas FiO2 35 %
[2016-11-23] MEDS: Bumetanide 1 MG/4 ML VIAL IVP SCH (16:23)
--- NOTE | 2016-11-23 17:49 | Internal Med Progress Note ---
Date of Encounter: 11/23/16 Time of Encounter: 09:15 - Assessment and plan (1) Acute hypercapnic respiratory failure Current Visit: Yes Status: Acute (2) Metabolic alkalosis Current Visit: Yes Status: Acute (3) Atrial fibrillation Current Visit: Yes Status: Acute Qualifiers: Atrial fibrillation type: persistent Qualified Code(s): I48.1 - Persistent atrial fibrillation (4) CHF exacerbation Current Visit: Yes Status: Acute Qualifiers: Congestive heart failure type: diastolic Qualified Code(s): I50.33 - Acute on chronic diastolic (congestive) heart failure (5) Stasis dermatitis without varicosities Current Visit: Yes Status: Acute (6) CKD (chronic kidney disease) Current Visit: Yes Status: Chronic Qualifiers: Chronic kidney disease stage: stage 2 (mild) Qualified Code(s): N18.2 - Chronic kidney disease, stage 2 (mild) (7) Hyperlipidemia Current Visit: Yes Status: Chronic Qualifiers: Hyperlipidemia type: unspecified Qualified Code(s): E78.5 - Hyperlipidemia , unspecified (8) Hypertension Current Visit: No Status: Chronic Qualifiers: Hypertension type: essential hypertension Qualified Code(s): I10 - Essential (primary) hypertension - Subjective Interval history: 76 Y/O M with Afib, CHFrEF, HTN, Morbid Obesity Patient was seen this morning Apparently had a new R upper extremity swelling and redness overnight that was concerning for allergic reaction, he was given solumedrol, he also had an episode of hyperactive delirium, requiring benzodiazepines and haldol He also developed acute hypercapneic respiratory failure As per family at the bedside, patient never had sleep studies nor is on Oxygen or BIPAP at home he has been having metabolic alkalosis since admission but had been tolerable He is seen at bedside with family on BIPAP VSS. Noted to have gained ~1.5kg in the past 24hours, he also looks more edematous to me than yesterday Gen: He opens eye to name call, is able to recognize family and follows commands HEENT: Crusty eye discharge, dry oral mucosa Chest: Anterior auscultation is clear Heart: S1, S2 , no S3, irregular, no murmurs Abdomen: Obese, with abdominal wall edema, sacral edema, moves with respiration , not tender Extremities: Bilateral pedal edema, with hyperpigmentation from stasis dermatitis. RUE redness and swelling from the mid-arm down to the mid fore-arm, pulses are present. Labs and Imaging reviewed Assessment/Plan 1. Acute Hypercapneic respiratory failure: Continue BiPAP, repeat ABG, may feed once PCO2 starts to trend down. Ensure BiPAP at ight. D/C restraints. Patient is high risk due to respiratory status. He is full code and is agreeable to mechanical intubation should need arise for it 2. Hyperactive delirium: Improved. Avoid benzos. Orientation and reorientation 3. CHFrEF: Change bumex to IV as patient is currently on BiPAP. Patient with metabolic alkalosis but weight gain, will continue IV diuresis for ow. Place [place] For strict intake/output. Fluid restriction diet 4. Afib : No RVR. rate is controlled. Continue Cardizem, continue anticoagulation with Eliquis 5. Stasis dermatitis: Stable 6. HTN: Stable 7. HLD: Stable - Constitutional Vitals: Temp Pulse Resp BP Pulse Ox 98.2 F 82 32 121/92 95 11/23/16 15:03 11/23/16 15:03 11/23/16 15:03 11/23/16 15:03 11/23/16 15:03 Internal Medicine: Result - Labs CBC & Chem 7: 11/23/16 06:24 11/23/16 06:24 - ABG Interpretation ABG results: ABG ABG pH 7.40 pH Units (7.32-7.45) 11/23/16 15:28 ABG pCO2 63 mmHg (35-45) H 11/23/16 15:28 ABG pO2 100 mmHg (85-104) 11/23/16 15:28 ABG O2 Saturation 98 % (95-98) 11/23/16 15:28 PT/INR, D-dimer PT 25.9 Seconds (9.4-12.1) H 11/19/16 10:27 D-Dimer 950 ng/mLFEU (0-500) H 11/19/16 10:27 Consult Discharge Plan - Plan Referrals: Keon Hector MD [Primary Care Provider] - 12/05/16 9:20 am Johny Waller MD [Partnered Physician] - 11/24/16 4:00 pm (Please follow up as schedule..)
[2016-11-23] MEDS: Metoprolol XL (24 HR) Succ 25 MG TAB.ER.24H PO SCH (17:51)
[2016-11-23] MEDS: Ascorbic Acid 500 MG TABLET PO SCH (17:51)
[2016-11-23] MEDS: Melatonin 3 MG TABLET PO SCH (21:43)
[2016-11-23] MEDS ORDERED: *HR* LORazepam 2 MG/ML VIAL IVP ONE (22:23)
[2016-11-24 00:08] LABS: ABG Base Excess 14.3 mEq/L (-2.0 to 3.0); ABG HCO3 41.2 mEQ/L (21-27); ABG Oxygen Saturation 100 % (95-98); ABG PCO2 65 mmHg (35-45); ABG PH 7.41 pH Units (7.32-7.45); ABG PO2 260 mmHg (85-104); ABG TCO2 43.2 mEq/L (20-26)
[2016-11-24 00:10] LABS: Blood Gas FiO2 80 %
[2016-11-24] MEDS ORDERED: Furosemide 20 MG/2 ML VIAL IVP ONE (00:36)
[2016-11-24] MEDS ORDERED: *HR* LORazepam 2 MG/ML VIAL IVP ONE ×2 (03:09→06:10)
[2016-11-24 06:05] LABS: Basophils % 0.3 %; Red Cell Distribution Width 17.2 % (11.5-14.5)
[2016-11-24 06:07] LABS: Eosinophils # 0.1 K/mcL (0.0-0.6); Eosinophils % 0.8 %; Hematocrit 36.2 % (37.5-50.1); Hemoglobin 10.6 g/dL (12.9-16.9); Immature Granulocytes % 0.6 % (0-4); Lymphocytes # 1.2 K/mcL (0.6-4.6); Lymphocytes % 9.8 %; Mean Corpuscular HGB Conc 29.3 g/dL (31.6-35.5); Mean Corpuscular Hemoglobin 26.1 pg (28.0-33.3); Mean Corpuscular Volume 89.2 fL (83.0-100.0); Mean Platelet Volume 10.2 fL (9.4-12.4); Monocytes # 1.4 K/mcL (0.0-1.3); Monocytes % 11.3 %; Neutrophils # 9.3 K/mcL (1.6-8.9); Platelet Count 374 K/mcL (140-400); Red Blood Count 4.06 M/mcL (4.19-5.50); Segmented Neutrophils % 77.2 %
[2016-11-24 06:24] LABS: BUN/Creatinine Ratio 27 (6-26); Blood Urea Nitrogen 33 mg/dL (8-26); Calcium 9.3 mg/dL (8.6-10.8); Carbon Dioxide 37 mEq/L (19-29); Chloride 95 mEq/L (98-109); Glucose 122 mg/dL (70-99); Osmolality,Calculated 311 (280-300); Sodium 146 mEq/L (136-145); eGFR For African Americans > 60 (> 60); eGFR For Non-African Americans 58 (> 60)
[2016-11-24 06:26] LABS: Anisocytosis 1+ (Not Present); Hypochromasia Present (Not Present); Large Platelets Present (Not Present); Platelet Estimate Normal (Normal); Polychromasia 1+ (Not Present); Reactive Lymphocytes Present (Not Present)
[2016-11-24 06:29] LABS: Potassium 4.4 mEq/L (3.5-4.5)
[2016-11-24] MEDS: APIXABAN 5 MG TABLET PO SCH ×2 (08:52→21:05)
[2016-11-24] MEDS: Aspirin Enteric Coated 81 MG Tablet PO SCH (08:53)
[2016-11-24] MEDS: Gabapentin 300 MG CAPSULE PO SCH ×3 (08:53→21:05)
[2016-11-24] MEDS: Nystatin POWDER 30 GM BOTTLE TP SCH ×2 (08:53→21:10)
[2016-11-24] MEDS: Bumetanide 1 MG/4 ML VIAL IVP SCH (08:53)
[2016-11-24] MEDS: Miconazole 2% cream 118 GM TUBE TP SCH ×2 (08:54→21:10)
--- NOTE | 2016-11-24 10:23 | Venous Imaging Report ---
UE Venous Duplex Patient Name:Pete Bonner Order Number:[id number] Procedure Date:11/23/2016 Date:1940Age:76 yrs Gender:Male Location:[facility] Room #: 2N15 Group Home Counselor:Reta Grissom Referring MD:Estrada Garcia MD fold skiver:None Reading MD:Blake Easton MD , FACS Primary Indications:New onset edema Secondary Indications: Risk Factors Yes/No Anticoagulants Impressions: Right upper extremity: normal superficial and deep exam. Left upper extremity: normal contralateral exam. Recommendations: After imaging the patient returned to their room. Findings Prior Study: No prior study available for comparison. Upper Extremity Venous Duplex Side Vein Compress Spontaneous Flow Augment Right Jugular Normal Yes Phasic Yes Right Subclavian Normal Yes Phasic Yes Right Axillary Normal Yes Phasic Yes Right Brachial Normal Yes Phasic Yes Right Cephalic Normal Yes Phasic Yes Right Basilic Normal Yes Phasic Yes Right Radial Normal Yes Phasic Yes Right Ulnar Normal Yes Phasic Yes Left Subclavian Normal Yes Phasic Yes Updated by Blake Easton MD, FACS on 11/24/2016 10:17:03 AM Blake Easton MD electronically signed on 11/24/2016 10:17:29 AM with status of Final
[2016-11-24] MEDS: Diltiazem CD (24hr) 120 MG CAPSULE PO SCH (12:59)
[2016-11-24] MEDS: methylPREDNISolone 125 MG/2 ML VIAL IV SCH ×3 (14:55→23:40)
--- NOTE | 2016-11-24 15:11 | Internal Med Progress Note ---
Date of Encounter: 11/24/16 Time of Encounter: 15:09 - Assessment and plan (1) Acute hypercapnic respiratory failure Current Visit: Yes Status: Acute (2) CHF exacerbation Current Visit: Yes Status: Acute Qualifiers: Congestive heart failure type: diastolic Qualified Code(s): I50.33 - Acute on chronic diastolic (congestive) heart failure (3) Encephalopathy acute Current Visit: Yes Status: Acute (4) Acute kidney failure Current Visit: No Status: Acute Qualifiers: Acute renal failure type: unspecified Qualified Code(s): N17.9 - Acute kidney failure, unspecified (5) Atrial fibrillation with RVR Current Visit: No Status: Acute (6) Hypertension Current Visit: No Status: Chronic Qualifiers: Hypertension type: essential hypertension Qualified Code(s): I10 - Essential (primary) hypertension (7) Obesity with body mass index of 30.0-39.9 Current Visit: No Status: Chronic Assessment and plan: Episode of confusion with agitation, continue soft restraints restart steroids, nebs and add mucomyst. continue bipap as tolerated elevate extremities, restrict fluids to 1500ml/day with strict ins and outs. continue metoprolol and diltiazem. - Subjective Interval history: pt confused at times, laying in bed, awake and responding to questions. - Constitutional Vitals: Temp Pulse Resp BP Pulse Ox 97.3 F L 86 17 131/80 92 L 11/24/16 10:58 11/24/16 15:00 11/24/16 15:00 11/24/16 15:00 11/24/16 15:00 General appearance: Present: cooperative, A&O X 3, morbidly obese, pleasant, answers questions appropriately - Head Head exam: Present: atraumatic, normocephalic - Eye Eye exam: Present: PERRL, conjuntiva pink, sclera anicteric Pupils: Present: PERRL - Neck Neck exam general surgery: Present: supple, trachea midline. Absent: lymphadenopathy - Respiratory Respiratory exam: Present: decreased breath sounds, wheezes. Absent: accessory muscle use, rales, rhonchi - Cardiovascular Cardiovascular exam: Present: RRR, +S1, +S2. Absent: diastolic murmur, gallop, rubs, systolic murmur - GI/Abdominal GI/Abdominal exam: Present: normal bowel sounds, soft, no peritoneal signs. Absent: distended, tenderness - Extremities Exam Extremities exam: Present: warm, radial pulses palpable and symetrical. Absent : calf tenderness, cyanotic, pedal edema Additional comments: 2+ LE edema bilaterally. oscar has been displaced by patient and now laying on the bed. - Neurological Exam Neurological exam: Present: CN II-XII intact, oriented X3, no focal deficits. Absent: pronater drift, facial droop, speech deficit - Skin Skin exam: Present: dry, intact Internal Medicine: Result - Labs CBC & Chem 7: 11/24/16 05:26 11/24/16 05:26 Labs: Short CBC 11/24/16 Range/Units 05:26 WBC 12.0 H D (4.3-11.1) K/mcL Hgb 10.6 L (12.9-16.9) g/dL Hct 36.2 L (37.5-50.1) % Plt Count 374 (140-400) K/mcL Neutrophils # 9.3 H (1.6-8.9) K/mcL BMP 11/24/16 05:26 Sodium 146 H Potassium 4.4 D Chloride 95 L Carbon Dioxide 37 H BUN 33 H Creatinine 1.21 Glucose 122 H Calcium 9.3 - ABG Interpretation ABG results: ABG ABG pH 7.41 pH Units (7.32-7.45) 11/23/16 23:58 ABG pCO2 65 mmHg (35-45) H 11/23/16 23:58 ABG pO2 260 mmHg (85-104) H 11/23/16 23:58 ABG O2 Saturation 100 % (95-98) H 11/23/16 23:58 PT/INR, D-dimer PT 25.9 Seconds (9.4-12.1) H 11/19/16 10:27 D-Dimer 950 ng/mLFEU (0-500) H 11/19/16 10:27 - Impressions Impressions Chest X-Ray 11/23/16 21:46 IMPRESSION: 1. Pulmonary vascular congestion and moderate cardiomegaly with bilateral perihilar edema. 2. Unchanged bibasilar atelectasis. D/ / Robert Chatterjee MD / Robert Chatterjee MD Interpreting Provider: Robert Chatterjee MD Consult Discharge Plan - Plan Referrals: Keon Hector MD [Primary Care Provider] - 12/05/16 9:20 am Johny Waller MD [Partnered Physician] - 11/24/16 4:00 pm (Please follow up as schedule..)
[2016-11-24] MEDS: Ipratropium/Albuterol Neb 3 ML IH SCH ×2 (16:05→20:51)
[2016-11-24] MEDS: Acetylcysteine 10% 2 ML INHSOL IH SCH ×2 (16:05→20:51)
[2016-11-24] MEDS: Haloperidol Lactate 5 MG/ML VIAL IVP PRN ×2 (16:09→22:05)
[2016-11-24] MEDS: Ascorbic Acid 500 MG TABLET PO SCH (17:14)
[2016-11-24] MEDS: Metoprolol XL (24 HR) Succ 25 MG TAB.ER.24H PO SCH (17:14)
[2016-11-24] MEDS: Melatonin 3 MG TABLET PO SCH (21:05)
[2016-11-24] MEDS: Furosemide 40 MG/4 ML VIAL IVP SCH (21:06)
[2016-11-25] MEDS: Ipratropium/Albuterol Neb 3 ML IH SCH ×6 (00:03→20:30)
[2016-11-25] MEDS: Acetylcysteine 10% 2 ML INHSOL IH SCH ×6 (00:03→20:31)
[2016-11-25] MEDS: Haloperidol Lactate 5 MG/ML VIAL IVP PRN ×3 (04:08→23:10)
[2016-11-25] MEDS: methylPREDNISolone 125 MG/2 ML VIAL IV SCH ×4 (05:08→23:09)
[2016-11-25] MEDS: APIXABAN 5 MG TABLET PO SCH ×2 (08:16→20:13)
[2016-11-25] MEDS: Miconazole 2% cream 118 GM TUBE TP SCH ×2 (08:17→20:13)
[2016-11-25] MEDS: Nystatin POWDER 30 GM BOTTLE TP SCH ×2 (08:17→20:13)
[2016-11-25] MEDS: Furosemide 40 MG/4 ML VIAL IVP SCH (08:17)
[2016-11-25] MEDS: Gabapentin 300 MG CAPSULE PO SCH ×3 (08:17→20:13)
[2016-11-25] MEDS: Diltiazem CD (24hr) 120 MG CAPSULE PO SCH (12:59)
[2016-11-25] MEDS: Metoprolol XL (24 HR) Succ 25 MG TAB.ER.24H PO SCH (17:58)
[2016-11-25] MEDS: Ascorbic Acid 500 MG TABLET PO SCH (17:58)
--- NOTE | 2016-11-25 18:34 | Internal Med Progress Note ---
Date of Encounter: 11/25/16 Time of Encounter: 18:32 - Assessment and plan (1) Acute hypercapnic respiratory failure Current Visit: Yes Status: Acute (2) CHF exacerbation Current Visit: Yes Status: Acute Qualifiers: Congestive heart failure type: diastolic Qualified Code(s): I50.33 - Acute on chronic diastolic (congestive) heart failure (3) Encephalopathy acute Current Visit: Yes Status: Acute (4) Acute kidney failure Current Visit: No Status: Acute Qualifiers: Acute renal failure type: unspecified Qualified Code(s): N17.9 - Acute kidney failure, unspecified (5) Atrial fibrillation with RVR Current Visit: No Status: Acute (6) Hypertension Current Visit: No Status: Chronic Qualifiers: Hypertension type: essential hypertension Qualified Code(s): I10 - Essential (primary) hypertension (7) Obesity with body mass index of 30.0-39.9 Current Visit: No Status: Chronic Assessment and plan: Episode of confusion with agitation, continue soft restraints. severely diminshed lung sounds, continue steroids, nebs. continue bipap as tolerated elevate extremities, restrict fluids to 1500ml/day with strict ins and outs. modest decrease in LE edema noted, will decrease lasix to once daily. continue metoprolol and diltiazem. - Subjective Interval history: pt confused at times, laying in bed, awake and responding to questions. - Constitutional Vitals: Temp Pulse Resp BP Pulse Ox 98.0 F 92 19 120/82 94 L 11/25/16 17:12 11/25/16 17:12 11/25/16 17:12 11/25/16 17:12 11/25/16 17:12 General appearance: Present: cooperative, A&O X 3, morbidly obese, pleasant, answers questions appropriately - Head Head exam: Present: atraumatic, normocephalic - Eye Eye exam: Present: PERRL, conjuntiva pink, sclera anicteric Pupils: Present: PERRL - Neck Neck exam general surgery: Present: supple, trachea midline. Absent: lymphadenopathy - Respiratory Respiratory exam: Present: decreased breath sounds, rhonchi. Absent: accessory muscle use, rales, wheezes - Cardiovascular Cardiovascular exam: Present: RRR, +S1, +S2. Absent: diastolic murmur, gallop, rubs, systolic murmur - GI/Abdominal GI/Abdominal exam: Present: normal bowel sounds, soft, no peritoneal signs. Absent: distended, tenderness - Extremities Exam Extremities exam: Present: warm, radial pulses palpable and symetrical. Absent : calf tenderness, cyanotic, pedal edema Additional comments: 1+ edema bilaterally. - Neurological Exam Neurological exam: Present: CN II-XII intact, oriented X3, no focal deficits. Absent: pronater drift, facial droop, speech deficit - Skin Skin exam: Present: dry, intact Internal Medicine: Result - Labs CBC & Chem 7: 11/24/16 05:26 11/24/16 05:26 - ABG Interpretation ABG results: ABG ABG pH 7.41 pH Units (7.32-7.45) 11/23/16 23:58 ABG pCO2 65 mmHg (35-45) H 11/23/16 23:58 ABG pO2 260 mmHg (85-104) H 11/23/16 23:58 ABG O2 Saturation 100 % (95-98) H 11/23/16 23:58 PT/INR, D-dimer PT 25.9 Seconds (9.4-12.1) H 11/19/16 10:27 D-Dimer 950 ng/mLFEU (0-500) H 11/19/16 10:27 Consult Discharge Plan - Plan Referrals: Keon Hector MD [Primary Care Provider] - 12/05/16 9:20 am Johny Waller MD [Partnered Physician] - 11/24/16 4:00 pm (Please follow up as schedule..)
[2016-11-25] MEDS: Melatonin 3 MG TABLET PO SCH (20:13)
[2016-11-26] MEDS: Acetylcysteine 10% 2 ML INHSOL IH SCH ×7 (05:14→23:18)
[2016-11-26] MEDS: Ipratropium/Albuterol Neb 3 ML IH SCH ×7 (05:14→23:18)
[2016-11-26] MEDS: methylPREDNISolone 125 MG/2 ML VIAL IV SCH ×2 (05:17→12:39)
[2016-11-26] MEDS: Gabapentin 300 MG CAPSULE PO SCH ×3 (08:06→20:45)
[2016-11-26] MEDS: APIXABAN 5 MG TABLET PO SCH ×2 (08:06→20:45)
[2016-11-26] MEDS: Furosemide 40 MG/4 ML VIAL IVP SCH (08:07)
[2016-11-26] MEDS: Nystatin POWDER 30 GM BOTTLE TP SCH ×2 (08:09→20:45)
[2016-11-26] MEDS: Miconazole 2% cream 118 GM TUBE TP SCH ×2 (08:10→20:45)
[2016-11-26] MEDS: Diltiazem CD (24hr) 120 MG CAPSULE PO SCH (12:39)
--- NOTE | 2016-11-26 17:30 | Internal Med Progress Note ---
Date of Encounter: 11/26/16 Time of Encounter: 17:25 - Assessment and plan (1) Acute hypercapnic respiratory failure Current Visit: Yes Status: Acute (2) Atrial fibrillation Current Visit: Yes Status: Acute Qualifiers: Atrial fibrillation type: persistent Qualified Code(s): I48.1 - Persistent atrial fibrillation (3) CHF exacerbation Current Visit: Yes Status: Acute Qualifiers: Congestive heart failure type: diastolic Qualified Code(s): I50.33 - Acute on chronic diastolic (congestive) heart failure (4) Stasis dermatitis without varicosities Current Visit: Yes Status: Acute Assessment and plan: Counseling patient and family about ROX hose lower extremities, discussed with staff. Check chest x-ray, change IV steroid to oral steroid tapering dose. Counseling on deep breathing and incentive spirometry Daily weight, patient had dry mouth to the extent, talk discussed with patient and family about water restriction. It is not forbidden to drink water. 300 mL was given to the patient. Add laxiatives no bowel movement since admission. Add thiamine in view of thiamine deficiency with use of Lasix . We will try to avoid any narcotics in view of possible sleep apnea. Physical therapy consult, ambulate patient, up to chair - Time Spent With Patient 25 - 35 minutes - Constitutional Vitals: Temp Pulse Resp BP Pulse Ox 97.6 F 89 18 142/88 93 L 11/26/16 15:42 11/26/16 15:42 11/26/16 16:20 11/26/16 15:42 11/26/16 16:20 General appearance: Present: cooperative, morbidly obese, pleasant, no acute distress, answers questions appropriately - Head Head exam: Present: atraumatic, normocephalic - Neck Neck exam general surgery: Present: supple, trachea midline. Absent: lymphadenopathy - Respiratory Respiratory exam: Present: decreased breath sounds (Bilateral lung base), prolonged expiratory phase. Absent: accessory muscle use, rales, rhonchi, wheezes - Cardiovascular Cardiovascular exam: Present: RRR, +S1, +S2. Absent: diastolic murmur, gallop, rubs - GI/Abdominal GI/Abdominal exam: Present: hypoactive bowel sounds, soft, no peritoneal signs. Absent: distended, tenderness - Extremities Exam Extremities exam: Present: pedal edema (Positive 3 bilateral lower extremity edema), warm, radial pulses palpable and symetrical. Absent: calf tenderness, cyanotic - Neurological Exam Neurological exam: Present: CN II-XII intact, oriented X3, no focal deficits. Absent: pronater drift, facial droop, speech deficit - Skin Skin exam: Present: dry, intact. Absent: abrasion Internal Medicine: Result - Labs CBC & Chem 7: 11/24/16 05:26 11/24/16 05:26 - ABG Interpretation ABG results: ABG ABG pH 7.41 pH Units (7.32-7.45) 11/23/16 23:58 ABG pCO2 65 mmHg (35-45) H 11/23/16 23:58 ABG pO2 260 mmHg (85-104) H 11/23/16 23:58 ABG O2 Saturation 100 % (95-98) H 11/23/16 23:58 PT/INR, D-dimer PT 25.9 Seconds (9.4-12.1) H 11/19/16 10:27 D-Dimer 950 ng/mLFEU (0-500) H 11/19/16 10:27 Consult Discharge Plan - Plan Referrals: Keon Hector MD [Primary Care Provider] - 12/05/16 9:20 am Johny Waller MD [Partnered Physician] - 11/24/16 4:00 pm (Please follow up as schedule..)
[2016-11-26] MEDS: Metoprolol XL (24 HR) Succ 25 MG TAB.ER.24H PO SCH (19:42)
[2016-11-26] MEDS: Thiamine (B-1) 100 MG TABLET PO SCH (19:42)
[2016-11-26] MEDS: predniSONE 20 MG TABLET PO SCH (19:43)
[2016-11-26] MEDS: Ascorbic Acid 500 MG TABLET PO SCH (19:43)
[2016-11-26] MEDS: Melatonin 3 MG TABLET PO SCH (20:44)
[2016-11-27] MEDS: Ipratropium/Albuterol Neb 3 ML IH SCH ×5 (03:47→20:07)
[2016-11-27] MEDS: Acetylcysteine 10% 2 ML INHSOL IH SCH ×5 (03:47→20:07)
[2016-11-27 05:18] LABS: Basophils % 0.1 %; Hematocrit 32.5 % (37.5-50.1); Hemoglobin 9.7 g/dL (12.9-16.9); Immature Granulocytes % 0.5 % (0-4); Lymphocytes # 0.4 K/mcL (0.6-4.6); Lymphocytes % 4.1 %; Mean Corpuscular HGB Conc 29.8 g/dL (31.6-35.5); Mean Corpuscular Hemoglobin 25.9 pg (28.0-33.3); Mean Corpuscular Volume 86.9 fL (83.0-100.0); Mean Platelet Volume 10.1 fL (9.4-12.4); Monocytes # 0.7 K/mcL (0.0-1.3); Monocytes % 7.4 %; Neutrophils # 8.6 K/mcL (1.6-8.9); Platelet Count 325 K/mcL (140-400); Red Blood Count 3.74 M/mcL (4.19-5.50); Red Cell Distribution Width 17.1 % (11.5-14.5); Segmented Neutrophils % 87.9 %
[2016-11-27 05:34] LABS: BUN/Creatinine Ratio 39 (6-26); Blood Urea Nitrogen 40 mg/dL (8-26); Carbon Dioxide 37 mEq/L (19-29); Chloride 95 mEq/L (98-109); Glucose 162 mg/dL (70-99); Magnesium 2.3 mg/dL (1.6-2.6); Osmolality,Calculated 309 (280-300); Phosphorous 2.7 mg/dL (2.3-4.7); Potassium 4.1 mEq/L (3.5-4.5); Sodium 143 mEq/L (136-145); eGFR For African Americans > 60 (> 60); eGFR For Non-African Americans > 60 (> 60)
[2016-11-27] MEDS: Gabapentin 300 MG CAPSULE PO SCH ×3 (08:50→20:35)
[2016-11-27] MEDS: Furosemide 40 MG/4 ML VIAL IVP SCH ×2 (08:50→16:49)
[2016-11-27] MEDS: APIXABAN 5 MG TABLET PO SCH ×2 (08:50→20:35)
[2016-11-27] MEDS: Thiamine (B-1) 100 MG TABLET PO SCH (08:50)
[2016-11-27] MEDS: Miconazole 2% cream 118 GM TUBE TP SCH ×2 (08:51→20:35)
[2016-11-27] MEDS: predniSONE 20 MG TABLET PO SCH (08:51)
[2016-11-27] MEDS: Nystatin POWDER 30 GM BOTTLE TP SCH ×2 (08:52→20:35)
[2016-11-27] MEDS: Diltiazem CD (24hr) 120 MG CAPSULE PO SCH (13:29)
--- NOTE | 2016-11-27 15:56 | Internal Med Progress Note ---
Date of Encounter: 11/27/16 Time of Encounter: 15:00 - Assessment and plan (1) Acute hypercapnic respiratory failure Current Visit: Yes Status: Acute Assessment and plan: Continue to improve, wean oxygen as tolerated, discussed with staff about incentive spirometry, counseling patient about incentive spirometry and deep breathing, home oxygen evaluation next a.m., possible discharge home next a.m. (2) Atrial fibrillation Current Visit: Yes Status: Acute Assessment and plan: Rate controlled continue current medication, potassium magnesium stable Qualifiers: Atrial fibrillation type: persistent Qualified Code(s): I48.1 - Persistent atrial fibrillation (3) CHF exacerbation Current Visit: Yes Status: Acute Qualifiers: Congestive heart failure type: diastolic Qualified Code(s): I50.33 - Acute on chronic diastolic (congestive) heart failure (4) Stasis dermatitis without varicosities Current Visit: Yes Status: Acute Assessment and plan: Improving continue compression stockings extremities marked improvement with swelling with compression stocking (5) Physical deconditioning Current Visit: Yes Status: Acute Assessment and plan: PTOT, need home health on discharge, discontinue Oscar catheter - Subjective Interval history: Patient C/o sob better than yesterday , He had BM, He still has oscar catheter, lower extremity swelling is improving compared to yesterday - Constitutional Vitals: Temp Pulse Resp BP Pulse Ox 98.5 F 97 18 136/67 96 11/27/16 12:27 11/27/16 12:27 11/27/16 12:27 11/27/16 12:27 11/27/16 12:27 General appearance: Present: cooperative, morbidly obese, pleasant, no acute distress, answers questions appropriately - Head Head exam: Present: atraumatic, normocephalic - Neck Neck exam general surgery: Present: supple, trachea midline. Absent: lymphadenopathy - Respiratory Respiratory exam: Present: decreased breath sounds (Markedly diminished breathing sounds on bilateral lung base), prolonged expiratory phase. Absent: accessory muscle use, rales, rhonchi, wheezes - Cardiovascular Cardiovascular exam: Present: irregular rhythm, +S1, +S2. Absent: diastolic murmur, gallop, rubs, systolic murmur - GI/Abdominal GI/Abdominal exam: Present: distended, normal bowel sounds, soft, no peritoneal signs. Absent: hepatomegaly, mass, tenderness - Extremities Exam Extremities exam: Present: pedal edema (+2-3 edema bilateral lower extremities) , warm, radial pulses palpable and symetrical. Absent: calf tenderness, cyanotic - Skin Skin exam: Present: dry, intact Internal Medicine: Result - Labs CBC & Chem 7: 11/27/16 05:01 11/27/16 05:01 Labs: Short CBC 11/27/16 Range/Units 05:01 WBC 9.8 (4.3-11.1) K/mcL Hgb 9.7 L (12.9-16.9) g/dL Hct 32.5 L (37.5-50.1) % Plt Count 325 (140-400) K/mcL Neutrophils # 8.6 (1.6-8.9) K/mcL BMP 11/27/16 05:01 Sodium 143 Potassium 4.1 Chloride 95 L Carbon Dioxide 37 H BUN 40 H Creatinine 1.02 Glucose 162 H Calcium 9.0 - ABG Interpretation ABG results: ABG ABG pH 7.41 pH Units (7.32-7.45) 11/23/16 23:58 ABG pCO2 65 mmHg (35-45) H 11/23/16 23:58 ABG pO2 260 mmHg (85-104) H 11/23/16 23:58 ABG O2 Saturation 100 % (95-98) H 11/23/16 23:58 PT/INR, D-dimer PT 25.9 Seconds (9.4-12.1) H 11/19/16 10:27 D-Dimer 950 ng/mLFEU (0-500) H 11/19/16 10:27 - Impressions Impressions Chest X-Ray 11/26/16 17:32 IMPRESSION: Stable mild pulmonary vascular congestion. New small left pleural effusion. Resolution of the small right effusion. D/ / 11/27/2016 08:34:21 Ac Barber MD / bcarter Interpreting Provider: Ac Barber MD - VTE Documentation of Mechanical Device: Graduated compression elastic hosiery Consult Discharge Plan - Plan Referrals: Keon Hector MD [Primary Care Provider] - 12/05/16 9:20 am Johny Waller MD [Partnered Physician] - 11/24/16 4:00 pm (Please follow up as schedule..)
[2016-11-27] MEDS: Ascorbic Acid 500 MG TABLET PO SCH (16:49)
[2016-11-27] MEDS: Metoprolol XL (24 HR) Succ 25 MG TAB.ER.24H PO SCH (16:49)
[2016-11-27] MEDS: Melatonin 3 MG TABLET PO SCH (20:34)
[2016-11-28] MEDS: Ipratropium/Albuterol Neb 3 ML IH SCH ×5 (00:28→16:04)
[2016-11-28] MEDS: Acetylcysteine 10% 2 ML INHSOL IH SCH ×5 (00:28→16:04)
[2016-11-28 06:12] LABS: BUN/Creatinine Ratio 38 (6-26); Blood Urea Nitrogen 41 mg/dL (8-26); Calcium 8.8 mg/dL (8.6-10.8); Chloride 93 mEq/L (98-109); Glucose 114 mg/dL (70-99); Osmolality,Calculated 313 (280-300); Phosphorous 2.7 mg/dL (2.3-4.7); Potassium 3.6 mEq/L (3.5-4.5); Sodium 146 mEq/L (136-145); eGFR For African Americans > 60 (> 60); eGFR For Non-African Americans > 60 (> 60)
[2016-11-28 06:18] LABS: Carbon Dioxide 41 mEq/L (19-29)
[2016-11-28] MEDS: Gabapentin 300 MG CAPSULE PO SCH ×2 (08:53→14:41)
[2016-11-28] MEDS: Furosemide 40 MG/4 ML VIAL IVP SCH (08:53)
[2016-11-28] MEDS: Thiamine (B-1) 100 MG TABLET PO SCH (08:54)
[2016-11-28] MEDS: APIXABAN 5 MG TABLET PO SCH (08:54)
[2016-11-28] MEDS: predniSONE 20 MG TABLET PO SCH (08:54)
[2016-11-28] MEDS: Nystatin POWDER 30 GM BOTTLE TP SCH (08:55)
--- NOTE | 2016-11-28 10:28 | Internal Med Progress Note ---
Date of Encounter: 11/28/16 - Assessment and plan (1) Acute hypercapnic respiratory failure Current Visit: Yes Status: Acute (2) Atrial fibrillation Current Visit: Yes Status: Acute Qualifiers: Atrial fibrillation type: persistent Qualified Code(s): I48.1 - Persistent atrial fibrillation (3) CHF exacerbation Current Visit: Yes Status: Acute Qualifiers: Congestive heart failure type: diastolic Qualified Code(s): I50.33 - Acute on chronic diastolic (congestive) heart failure (4) Stasis dermatitis without varicosities Current Visit: Yes Status: Acute (5) Physical deconditioning Current Visit: Yes Status: Acute - Subjective Interval history: Patient C/o sob better than yesterday , He had BM, He still has oscar catheter, lower extremity swelling is improving compared to yesterday - Constitutional Vitals: Temp Pulse Resp BP Pulse Ox 97.4 F L 0 16 139/84 94 L 11/28/16 07:18 11/28/16 09:10 11/28/16 07:24 11/28/16 07:24 11/28/16 09:10 General appearance: Present: cooperative, morbidly obese, pleasant, no acute distress, answers questions appropriately Internal Medicine: Result - Labs CBC & Chem 7: 11/27/16 05:01 11/28/16 05:30 Labs: BMP 11/28/16 05:30 Sodium 146 H Potassium 3.6 Chloride 93 L Carbon Dioxide 41 H* BUN 41 H Creatinine 1.07 Glucose 114 H Calcium 8.8 - ABG Interpretation ABG results: ABG ABG pH 7.41 pH Units (7.32-7.45) 11/23/16 23:58 ABG pCO2 65 mmHg (35-45) H 11/23/16 23:58 ABG pO2 260 mmHg (85-104) H 11/23/16 23:58 ABG O2 Saturation 100 % (95-98) H 11/23/16 23:58 PT/INR, D-dimer PT 25.9 Seconds (9.4-12.1) H 11/19/16 10:27 D-Dimer 950 ng/mLFEU (0-500) H 11/19/16 10:27 - VTE Documentation of Mechanical Device: Graduated compression elastic hosiery Consult Discharge Plan - Plan Referrals: Keon Hector MD [Primary Care Provider] - 12/05/16 9:20 am Johny Waller MD [Partnered Physician] - 11/24/16 4:00 pm (Please follow up as schedule..)
[2016-11-28 11:12] VITALS: BP 142/80
--- NOTE | 2016-11-28 12:03 | Discharge Summary ---
Date of Encounter: 11/28/16 Time of Encounter: 12:03 - Discharge Diagnosis (1) Acute hypercapnic respiratory failure Priority: Primary Status: Acute (2) Atrial fibrillation Priority: Secondary Status: Acute Qualifiers: Qualified Code(s): I48.1 - Persistent atrial fibrillation (3) CHF exacerbation Priority: Primary Status: Acute Qualifiers: Qualified Code(s): I50.33 - Acute on chronic diastolic (congestive) heart failure (4) Stasis dermatitis without varicosities Priority: Secondary Status: Acute (5) Physical deconditioning Priority: Primary Status: Acute (6) Liver cirrhosis Priority: Secondary Status: Acute Qualifiers: Qualified Code(s): K74.60 - Unspecified cirrhosis of liver - Discharge Medications Prescriptions: Ipratropium/Albuterol Neb [Duoneb] 3 ml IH Q8HR #90 inhsol Diltiazem CD (24hr) [Cardizem CD] 120 mg PO Q24H #90 cap.er.24h Docusate [Colace] 100 mg PO BID PRN #60 capsule PRN Reason: Constipation Furosemide [Lasix] 40 mg PO DAILY PRN #30 tab PRN Reason: other Lidocaine Patch [Lidoderm 5% patch] 1 each TP Q24H #20 adh..patch Miconazole 2% cream [Remedy Antifungal] 1 appl TP BID #2 tube PredniSONE 20 mg PO DAILY #9 tablet Spironolactone [Aldactone] 25 mg PO DAILY #30 tablet Thiamine (B-1) [Vitamin B-1] 200 mg PO DAILY #180 tablet Home Medications: Ascorbate Calcium [Vitamin C] 500 mg PO QPM 06/13/16 [History] Aspirin Enteric Coated [Aspirin EC] 81 mg PO QAM 06/13/16 [History] Duloxetine [Cymbalta] 60 mg PO BID 06/13/16 [History] Furosemide [Lasix] 40 mg PO QAM 06/13/16 [History] Gabapentin [Neurontin] 600 mg PO TID 06/13/16 [History] Gluc/Abran-MSM#1/C/Telly/Mahesh/Bor [Osteo Bi-Flex Caplet] 1 tab PO QPM 06/13/16 [ History] Melatonin 5 mg PO HS 06/13/16 [History] Potassium Chloride [K-Tab ER] 10 meq PO QAM 06/13/16 [History] Apixaban [Eliquis] 5 mg PO BID #60 tablet 06/15/16 [Rx] Metoprolol XL (24 HR) Succ [Toprol Xl] 50 mg PO QPM 30 Days 10/12/16 [Rx] Docusate Sodium [Move It Along] 100 mg PO BID PRN 11/04/16 [History] Diltiazem CD (24hr) [Cardizem CD] 120 mg PO Q24H #90 cap.er.24h 11/28/16 [Rx] Docusate [Colace] 100 mg PO BID PRN #60 capsule 11/28/16 [Rx] Furosemide [Lasix] 40 mg PO DAILY PRN #30 tab 11/28/16 [Rx] Ipratropium/Albuterol Neb [Duoneb] 3 ml IH Q8HR #90 inhsol 11/28/16 [Rx] Lidocaine Patch [Lidoderm 5% patch] 1 each TP Q24H #20 adh..patch 11/28/16 [Rx] Miconazole 2% cream [Remedy Antifungal] 1 appl TP BID #2 tube 11/28/16 [Rx] PredniSONE 20 mg PO DAILY #9 tablet 11/28/16 [Rx] Spironolactone [Aldactone] 25 mg PO DAILY #30 tablet 11/28/16 [Rx] Thiamine (B-1) [Vitamin B-1] 200 mg PO DAILY #180 tablet 11/28/16 [Rx] Allergies/Adverse Reactions: Allergies Influenza Virus Vaccines Allergy (Verified 11/19/16 11:53) Swelling of Lip/Tongue/Throat Procedures/tests Complete & Pending: BMP to be done in 4 days Date of admission: 11/23/16 08:39 Primary care physician: Keon Hector MD Consults: Cardiology Discharging clinician: Milton Maddox - Patient Status Disposition: Home Health Service Condition: Fair Functional capacity at discharge: uses cane/walker Overall status at discharge: patient is progressing back to baseline - Discharge Instructions Instructions: Spironolactone (By mouth), Diltiazem (By mouth), Furosemide (By mouth), Prednisone (By mouth), Thiamine (Vitamin B-1) (By mouth), Laxative, Stool Softeners (By mouth), Lidocaine (On the skin), Miconazole (On the skin), Heart Failure (DC) Follow Up With: Keon Hector MD [Primary Care Provider] - 12/05/16 9:20 am (Follow-up with cardiology in 1 week) Johny Waller MD [Partnered Physician] - 11/24/16 4:00 pm (Please follow up as schedule..) Erasto Lund MD [Partnered Physician] - (follow up with pulmonary for severe pulmonary hypertension, sleep apnea, COPD) Shyla Morgan MD [Non-Partnered Physician] - ( F/Up director of home health services for liver cirrhosis and ascites) Additional Instructions: Follow-up with cardiology in 1 week, Follow up with director of home health services in 2 weeks, Follow-up with pulmonary in 1 week Follow-up with the cardiac rehabilitation in 3-4 days - Diet and Activity Activity: ambulate only with your walker, other (Oxygen 24h/day / 7days /week) Hospital course: Mr. Bonner is a 76 year old male past medical history of atrial fibrillation, right-sided heart failure, chronic kidney disease, severe pulmonary hypertension and morbid obesity. Cardiac echo done showed ejection fraction was 60% with mild mitral regurg and tricuspid regurg. Patient came to the hospital with progressive shortness of breath and progressive lower extremity swelling. With his hypoxemia, patient was admitted to the hospital for CHF exacerbation. Will start patient on Lasix IV 40 mg twice a day. Continue to monitor the patient condition. Patient required BiPAP at night, continue to wean patient gradually from oxygen. Patient had dermatitis in lower extremities responded to steroid. With his abdominal distention ultrasound abdomen done which show mild ascites with liver cirrhosis. Patient is not alcoholic. Possible secondary to right sided heart failure. Discussed with cardiology team recommended to add a small dose of Aldactone follow-up as an outpatient with the renal function test in one week. Patient had mild elevation of liver enzyme in addition to high INR and albumin which indicate about possible liver cirrhosis as a contributing factor for patient condition. Discussed with family that need to follow up with director of home health services as outpatient for further workup. I had a long discussion with patient about BiPAP. Patient refused BiPAP. He will did not hospital hardly he will keep it on. After long discussion with patient he was agreeable to wear oxygen at home. I had a discussion with patient at bedside in the presence of his and daughter on the risk of noncompliance to oxygen. Counseling about compression stockings lower extremities. Counseling about cardiac rehabilitation. Need further evaluation by pulmonary team for his pulmonary hypertension as well as for his sleep apnea, needs sleep study to be done as an outpatient.. - Time Spent with Patient Total time spent providing and/or coordinating discharge services: Greater than 30 minutes - Constitutional Vitals: Temp Pulse Resp BP Pulse Ox 97.8 F 82 19 142/80 96 11/28/16 11:11 11/28/16 11:11 11/28/16 11:11 11/28/16 11:11 11/28/16 11:51 General appearance: Present: cooperative, morbidly obese, pleasant, no acute distress, answers questions appropriately - Head Head exam: Present: atraumatic, normocephalic - Neck Neck exam general surgery: Present: supple, trachea midline. Absent: lymphadenopathy - Respiratory Respiratory exam: Present: decreased breath sounds, prolonged expiratory phase. Absent: accessory muscle use, rales, rhonchi, wheezes - Cardiovascular Cardiovascular exam: Present: irregular rhythm, +S1, +S2. Absent: diastolic murmur, gallop, rubs, systolic murmur - GI/Abdominal GI/Abdominal exam: Present: distended, normal bowel sounds, soft, no peritoneal signs. Absent: tenderness - Extremities Exam Extremities exam: Present: pedal edema (Positive 2-3 edema bilateral), warm, radial pulses palpable and symetrical. Absent: calf tenderness, cyanotic - VTE Documentation of Mechanical Device: Graduated compression elastic hosiery
[2016-11-28 13:46] LABS: INR 1.5; Prothrombin Time 16.7 Seconds (9.4-12.1)
[2016-11-28 13:48] LABS: Activated Partial Thrombo Time 29.5 Seconds (26.0-36.0)
[2016-11-28 13:54] LABS: Albumin/Globulin Ratio 0.8 (1.1-2.2); Bilirubin,Direct 0.5 mg/dL (0.0-0.5); Bilirubin,Indirect 0.5 mg/dL (0.0-1.2); Globulin 3.6 g/dL (2.4-3.5); Total Protein 6.6 g/dL (6.0-8.3)
[2016-11-28] MEDS: Diltiazem CD (24hr) 120 MG CAPSULE PO SCH (14:41)
--- NOTE | 2016-11-28 16:36 | Physician Discharge Referral ---
Home Health/Hosp Referral Info Transfer to: Home Health Provider in Charge Post Discharge: PCP - Diagnosis (1) Acute hypercapnic respiratory failure Priority: Primary Status: Acute (2) Atrial fibrillation Priority: Secondary Status: Acute (3) CHF exacerbation Priority: Primary Status: Acute (4) Stasis dermatitis without varicosities Priority: Primary Status: Acute (5) Physical deconditioning Priority: Secondary Status: Acute (6) Liver cirrhosis Priority: Primary Status: Acute - Respiratory Orders Smoking Cessation: Smoking cessation has been advised. For more information, call the [place] Tobacco Quit Line at 8-332-XRUM-NOW. - Transfer Medications Prescriptions: Ipratropium/Albuterol Neb [Duoneb] 3 ml IH Q8HR #90 inhsol Diltiazem CD (24hr) [Cardizem CD] 120 mg PO Q24H #90 cap.er.24h Docusate [Colace] 100 mg PO BID PRN #60 capsule PRN Reason: Constipation Furosemide [Lasix] 40 mg PO DAILY PRN #30 tab PRN Reason: other Lidocaine Patch [Lidoderm 5% patch] 1 each TP Q24H #20 adh..patch Miconazole 2% cream [Remedy Antifungal] 1 appl TP BID #2 tube PredniSONE 20 mg PO DAILY #9 tablet Spironolactone [Aldactone] 25 mg PO DAILY #30 tablet Thiamine (B-1) [Vitamin B-1] 200 mg PO DAILY #180 tablet Home Medications: Ascorbate Calcium [Vitamin C] 500 mg PO QPM 06/13/16 [History] Aspirin Enteric Coated [Aspirin EC] 81 mg PO QAM 06/13/16 [History] Duloxetine [Cymbalta] 60 mg PO BID 06/13/16 [History] Furosemide [Lasix] 40 mg PO QAM 06/13/16 [History] Gabapentin [Neurontin] 600 mg PO TID 06/13/16 [History] Gluc/Abran-MSM#1/C/Telly/Mahesh/Bor [Osteo Bi-Flex Caplet] 1 tab PO QPM 06/13/16 [ History] Melatonin 5 mg PO HS 06/13/16 [History] Potassium Chloride [K-Tab ER] 10 meq PO QAM 06/13/16 [History] Apixaban [Eliquis] 5 mg PO BID #60 tablet 06/15/16 [Rx] Metoprolol XL (24 HR) Succ [Toprol Xl] 50 mg PO QPM 30 Days 10/12/16 [Rx] Docusate Sodium [Move It Along] 100 mg PO BID PRN 11/04/16 [History] Diltiazem CD (24hr) [Cardizem CD] 120 mg PO Q24H #90 cap.er.24h 11/28/16 [Rx] Docusate [Colace] 100 mg PO BID PRN #60 capsule 11/28/16 [Rx] Furosemide [Lasix] 40 mg PO DAILY PRN #30 tab 11/28/16 [Rx] Ipratropium/Albuterol Neb [Duoneb] 3 ml IH Q8HR #90 inhsol 11/28/16 [Rx] Lidocaine Patch [Lidoderm 5% patch] 1 each TP Q24H #20 adh..patch 11/28/16 [Rx] Miconazole 2% cream [Remedy Antifungal] 1 appl TP BID #2 tube 11/28/16 [Rx] PredniSONE 20 mg PO DAILY #9 tablet 11/28/16 [Rx] Spironolactone [Aldactone] 25 mg PO DAILY #30 tablet 11/28/16 [Rx] Thiamine (B-1) [Vitamin B-1] 200 mg PO DAILY #180 tablet 11/28/16 [Rx] Allergies/Adverse Reactions: Allergies Influenza Virus Vaccines Allergy (Verified 11/19/16 11:53) Swelling of Lip/Tongue/Throat Certification: Further, I certify that my clinical findings support that this patient is homebound (i.e. absences from home require considerable and taxing effort and are for medical reasons or orthodox services or infrequently or short duration when for other reasons) because: Homebound Reason: Patient requires assistance of a person or device to safely leave home, Leaving home requires considerable and taxing effort due to condition, Severity of cardiac or pulmonary status limits activity tolerance ( Daily weight, daily vital signs, labs to be drawn) Attestation: My signature below is to certify that this patient is under my care and that I, or nurse practitioner, or a physician's certified medical assistant working with me, has a face-to -face encounter with this patient.
[2016-11-28] MEDS: Miconazole 2% cream 118 GM TUBE TP SCH (16:56)
[2016-11-28] MEDS: Metoprolol XL (24 HR) Succ 25 MG TAB.ER.24H PO SCH (18:16)
[2016-11-28] MEDS: Ascorbic Acid 500 MG TABLET PO SCH (18:16)
[2016-11-29] MEDS ORDERED: Furosemide 40 MG/4 ML VIAL IVP SCH (09:00)
== END 2016-11-28 18:44 | disposition home health service (06) | DRG 291 ==
LOC: EMEROO 09:35 → 3BNU 09:35 → SUATTDRO 11:47 → 3BNU 13:20 → 2ANU 11-21 10:01 → SUATTDRO 11-23 08:39 → 2NNU 11-23 11:36 → 2ANU 11-27 11:19
PROVIDERS: ADMIT Nurse Practitioner Family; ATTEND Family Medicine

== ENCOUNTER 2017-03-02 18:55 | Inpatient (IN) ==
[2017-03-02] MEDS ORDERED: Naloxone 0.4 MG/ML INJ IVP PRN (23:30)
--- NOTE | 2017-03-02 23:51 | Internal Med History&Physical ---
Date of Encounter: 03/02/17 Time of Encounter: 23:51 Assessment and Plan (1) Acute exacerbation of CHF (congestive heart failure) Current visit: Yes Status: Acute Pt received lasix in the ER. Pt has borderline BP and no further lasix is given at this time. If the BP improves, will consider starting IV lasix Qualifiers: Congestive heart failure type: diastolic Qualified Code(s): I50.33 - Acute on chronic diastolic (congestive) heart failure (2) UTI (urinary tract infection) Current visit: Yes Status: Acute UA was positive in the ER. Pt was given levofloxacin. UA/culture requested. Qualifiers: Urinary tract infection type: site unspecified Hematuria presence: without hematuria Qualified Code(s): N39.0 - Urinary tract infection, site not specified (3) Lactic acid acidosis Current visit: Yes Status: Acute Likely secondary to pneumonia/UTI versus hypoperfusion secondary to CHF (4) Pulmonary infiltrate in right lung on CXR Current visit: Yes Status: Acute Emperically treat for pneumonia, with ceftriaxone and levofloxacin (5) Hyperkalemia Current visit: Yes Status: Acute Patient is given calcium gluconate and Kayexalate in the ER. Repeat Potassium level is normal (6) Lethargy Current visit: Yes Status: Acute Likely multifactorial including CHF exacerbation, UTI / suspected pneumonia (7) Chronic anticoagulation Current visit: Yes Status: Chronic Continue eliquis (8) Atrial fibrillation Current visit: Yes Status: Chronic Rate controlled at this time Qualifiers: Atrial fibrillation type: unspecified Qualified Code(s): I48.91 - Unspecified atrial fibrillation (9) CKD (chronic kidney disease) Current visit: Yes Status: Chronic Monitor renal function. Avoid nephrotoxics Qualifiers: Chronic kidney disease stage: stage 3 (moderate) Qualified Code(s): N18.3 - Chronic kidney disease, stage 3 (moderate) (10) Edema Current visit: Yes Status: Acute Due to CHF. Treat with IV lasix Qualifiers: Edema type: unspecified Qualified Code(s): R60.9 - Edema, unspecified (11) Physical deconditioning Current visit: Yes Status: Acute Consult PT, when medically stable Internal Medicine - H&P: HPI Chief complaint: Shortness of breath Admitted From: Hospital to Hospital Transfer Plans for Post Hospital Care: Home History of present illness: Mr. Bonner is a 77 year old male with history of atrial fibrillation on eliquis , diastolic CHF (echo from Oct 2016 showed EF of 60%), chronic kidney disease, hypertension and hyperlipidemia. Patient is somnolent at the time of my evaluation and is not able to give clinical details. No family members at bedside. I have reviewed the medical records from his previous admissions and [facility]. He reported progressively worsening swelling over a few weeks and shortness of breath, generalized weakness, lethargy, swelling of the extremities and abdomen. He apparently presented to the ER by EMS and had CPAP at presentation which was changed to BiPAP in the ER. He was noted to be edematous and was given intravenous Lasix. His potassium was 6 and was given calcium gluconate and Kayexalate and sodium bicarbonate. Chest x-ray reported right pleural effusion/possible pneumonia versus CHF. He was given levofloxacin and transferred to [facility] for further management. Labs done at that [facility] showed serum sodium 139, potassium 6, chloride 88, BUN 57, creatinine 1.5, BNP 1014, WBC 11.2, hemoglobin 9.7 hematocrit 33.9, platelets, CK 52, PTT 35, INR 4.3, troponin 0.04. Urinalysis was positive for leukocyte esterase. Lactate was 3.71 Past Med Surg Social Fam HX - Past Medical History Medical history: atrial fibrillation, CHF (chronic, diastolic), hyperlipidemia, hypertension, renal disease, syncope Psychiatric history: no psych history - Past Surgical History Surgical History: orthopedic, other (right shoulder replacement), other ( ablation and maze procedures for a.fib) - Social History Smoking Status: Former smoker Smokeless Tobacco Status: No Alcohol use: none Drug use: none - Family History Father Adopted: No Family Member Ethnicity: Non- Living Status: Hx Family Cardiac Disorders: Yes Hx Family Respiratory Disorders: No Hx Family Cancer: No Hx Family GI Disorders: No Hx Family Endocrine Disorder: No Hx Family Neuromuscular Disorders: No Hx Family Neurologic Disorders: No Hx Family HEENT Disorders: No Hx Family Autoimmune Disorders: No Internal Medicine - H&P: Meds Aspirin Enteric Coated [Aspirin EC] 81 mg PO QAM 06/13/16 [History] Duloxetine [Cymbalta] 60 mg PO DAILY 06/13/16 [History] Gabapentin [Neurontin] 600 mg PO TID 06/13/16 [History] Melatonin 5 mg PO HS 06/13/16 [History] Potassium Chloride [K-Tab ER] 20 meq PO DAILY 06/13/16 [History] Apixaban [Eliquis] 5 mg PO BID #60 tablet 06/15/16 [Rx] Calcium Carbonate [Calcium] 1 tab PO DAILY 03/02/17 [History] Diltiazem CD (24hr) [Cardizem CD] 240 mg PO DAILY 03/02/17 [History] Glucosamine/D3/Boswellia Alondra [Osteo Bi-Flex Tablet] 1 each PO DAILY 03/02/17 [ History] Metoprolol XL (24 HR) Succ [Toprol XL] 75 mg PO BID 03/02/17 [History] Valsartan [Diovan] 160 mg PO DAILY 03/02/17 [History] Furosemide [Lasix] 40 mg PO BID 03/03/17 [History] Ipratropium/Albuterol Neb [Duoneb] 3 ml IH Q6HR PRN 03/03/17 [History] Spironolactone [Aldactone] 25 mg PO DAILY 03/03/17 [History] Thiamine (B-1) [Vitamin B-1] 100 mg PO DAILY 03/03/17 [History] Venlafaxine HCl [Venlafaxine HCl ER] 150 mg PO DAILY 03/03/17 [History] Vitamin E Acetate [Vitamin E] 400 unit PO DAILY 03/03/17 [History] Allergies Influenza Virus Vaccines Allergy (Verified 11/19/16 11:53) Swelling of Lip/Tongue/Throat ROS unobtainable: due to mental status - Constitutional Vitals: Temp Pulse Resp BP Pulse Ox 97.1 F L 106 13 106/98 100 03/02/17 23:00 03/02/17 23:00 03/02/17 23:00 03/02/17 23:00 03/02/17 23:00 Exam: General: Somnulent HEENT: BiPAP in place. No conjunctival palor or scleral icterus Neck: No obvious neck swellings Lungs: B/L Basal crackles present Cardiac: Irregular rhythm. No significant murmurs Abdomen: Distended. Abdominal wall edema present. Bowel sounds present Genitourinary: Haney catheter present Neurological: Somnulent. Not able to follow commands Psych: Somnulent Extremities: B/L leg edema present Skin: Bruising of the upper extremities present. No generalized rash Internal Med - H&P Results - Labs CBC & Chem 7: 03/02/17 23:45 03/02/17 23:45 - ABG Interpretation Interpretation: ABG interpreted by me Additional comments: Possible chronic CO2 retention - EKG Data -: EKG Interpreted by Myself - EKG Data EKG comments: Atrial fibrillation with ventricular rate of 95 bpm. Deviated inversion in lead I, II, V2 to V6 03/03/17 05:56 - Impressions ITS Impressions Chest X-Ray 03/03/17 05:59 IMPRESSION: Worsening right effusion and right lower lobe infiltrate. D/ / 03/03/2017 07:24:08 Loida Castrejon MD / sanket Interpreting Provider: Loida Castrejon MD
[2017-03-02 23:53] LABS: Basophils % 0.5 %
[2017-03-02 23:55] LABS: Eosinophils # 0.3 K/mcL (0.0-0.6); Eosinophils % 3.7 %; Hematocrit 32.8 % (37.5-50.1); Hemoglobin 9.4 g/dL (12.9-16.9); Immature Granulocytes % 0.4 % (0-4); Lymphocytes % 11.9 %; Mean Corpuscular HGB Conc 28.7 g/dL (31.6-35.5); Mean Corpuscular Hemoglobin 21.9 pg (28.0-33.3); Mean Corpuscular Volume 76.5 fL (83.0-100.0); Mean Platelet Volume 9.8 fL (9.4-12.4); Monocytes # 0.9 K/mcL (0.0-1.3); Monocytes % 10.5 %; Neutrophils # 6.2 K/mcL (1.6-8.9); Nucleated Red Blood Cells 3.7 /100 WBC (0); Platelet Count 521 K/mcL (140-400); Red Blood Count 4.29 M/mcL (4.19-5.50); Red Cell Distribution Width 20.5 % (11.5-14.5)
[2017-03-03 00:06] LABS: Calcium 8.7 mg/dL (8.6-10.8); INR 3.8; Potassium 4.4 mEq/L (3.5-4.5); Prothrombin Time 43.2 Seconds (9.4-12.1)
[2017-03-03 00:15] LABS: Anisocytosis 2+ (Not Present); Hypochromasia Present (Not Present); Macrocytosis Present (Not Present); Microcytosis Present (Not Present); Polychromasia 2+ (Not Present)
[2017-03-03 00:16] LABS: Platelet Estimate Increased (Normal); Poikilocytosis 1+ (Not Present); Target Cells 1+ (Not Present)
[2017-03-03 00:44] LABS: ABG Oxygen Saturation 99 % (95-98); ABG PCO2 54 mmHg (35-45); ABG PH 7.42 pH Units (7.32-7.45); ABG PO2 153 mmHg (85-104); ABG TCO2 36.7 mEq/L (20-26)
[2017-03-03 00:46] LABS: Blood Gas FiO2 50 %
[2017-03-03 06:35] LABS: Bilirubin,Urine Negative (Negative); Blood,Urine Large (Negative); Clarity,Urine Cloudy (Clear); Color,Urine Yellow (Yellow); Glucose,Urine (UA) Normal (Normal); Ketones,Urine Negative (Negative); Leukocyte Esterase,Urine Large (Negative); Nitrite,Urine Negative (Negative); Protein,Urine 30 mg/dL (Neg-Trace); Specific Gravity,Urine 1.018 (1.010-1.025); Urobilinogen,Urine Normal (Normal)
[2017-03-03 06:37] LABS: Hyaline Casts,Urine None Seen per lpf (None-Few); RBC,Urine 30-50 per hpf (0-3); Squamous Epithelial Cell,Urine Many per lpf (None-Few); WBC,Urine TNTC per hpf (0-3)
[2017-03-03 06:46] LABS: Bacteria,Urine Moderate per hpf (None-Few)
[2017-03-03] MEDS ORDERED: Ipratropium/Albuterol Neb 3 ML IH PRN (09:21)
[2017-03-03] MEDS ORDERED: Spironolactone 25 MG TABLET PO SCH (09:30)
[2017-03-03] MEDS: APIXABAN 5 MG TABLET PO SCH ×2 (09:55→21:55)
[2017-03-03] MEDS: Gabapentin 300 MG CAPSULE PO SCH ×3 (09:55→21:55)
[2017-03-03] MEDS: Aspirin Enteric Coated 81 MG Tablet PO SCH (09:55)
[2017-03-03] MEDS ORDERED: Levofloxacin 750 MG/150 ML 750 MG/150 ML BAG IVPB SCH (10:00)
[2017-03-03] MEDS ORDERED: Furosemide 100 MG/10 ML VIAL IVP SCH (10:00)
--- NOTE | 2017-03-03 10:22 | Internal Med Progress Note ---
Addendum entered and electronically signed by Dacia Crump DO 13:15: Note was signed in error before subjective and objective portions were completed. Subjective: Patient seen and examined. He would like his BiPAP to be removed. He uses nasal cannula 2-3 L chronically at home. He has a dry mouth and is asking for swabs. Objective: General: Alert and oriented, answers questions appropriately, no distress Head: Normocephalic atraumatic Eyes: PERRLA EOMI ENT: Mucous membranes dry Neck supple Heart: Tachycardic, irregular rhythm Lungs: Clear to auscultation bilaterally Abdomen: Soft, distended, no tenderness Extremities: 1-2+ pitting pedal edema bilaterally Neurologic: Alert, oriented, cranial nerves II-12 intact, no focal deficits Skin: Warm, dry, intact Original Note: <Dacia Crump - Last Filed: 03/03/17 13:09> Date of Encounter: 03/03/17 Time of Encounter: 10:20 - Assessment and plan (1) Acute exacerbation of CHF (congestive heart failure) Current Visit: Yes Status: Acute Assessment and plan: BNP at [facility] 1014 IV Lasix given at [facility], continue as possible hold for hypotension at this time Fluid restriction Continue beta buster, spironolactone --ARB being held at this time due to slight hypotensive pressures Cardiology consulted, appreciate recommendations Qualifiers: Congestive heart failure type: diastolic Qualified Code(s): I50.33 - Acute on chronic diastolic (congestive) heart failure (2) Acute and chronic respiratory failure with hypercapnia Current Visit: Yes Status: Acute Assessment and plan: Patient admitted overnight on BiPAP support Blood gas on BiPAP showed CO2 retention Patient chronically uses 2-3 L supplemental oxygen via nasal cannula 24/ (3) Pulmonary infiltrate in right lung on CXR Current Visit: Yes Status: Acute Assessment and plan: Rocephin and Levaquin --Renally dosed (4) Edema Current Visit: Yes Status: Acute Assessment and plan: IV Lasix - as tolerated, being held due to hypotension at this time Qualifiers: Edema type: unspecified Qualified Code(s): R60.9 - Edema, unspecified (5) Physical deconditioning Current Visit: Yes Status: Acute Assessment and plan: PT/OT consulted, appreciate recommendations (6) UTI (urinary tract infection) Current Visit: Yes Status: Acute Assessment and plan: Urinalysis with blood, white blood cells, and bacteria Urine culture pending [facility] Qualifiers: Urinary tract infection type: site unspecified Hematuria presence: without hematuria Qualified Code(s): N39.0 - Urinary tract infection, site not specified (7) Atrial fibrillation Current Visit: Yes Status: Chronic Assessment and plan: Home medications include Cardizem,Toprol, and anticoagulation with Eliquis --Cardizem being held today due to slight hypotensive blood pressures Qualifiers: Atrial fibrillation type: unspecified Qualified Code(s): I48.91 - Unspecified atrial fibrillation (8) CKD (chronic kidney disease) Current Visit: Yes Status: Chronic Assessment and plan: Monitor renal function Avoid nephrotoxins as possible Qualifiers: Chronic kidney disease stage: stage 3 (moderate) Qualified Code(s): N18.3 - Chronic kidney disease, stage 3 (moderate) (9) Hypertension Current Visit: No Status: Chronic Assessment and plan: Patient currently hypotensive Home medications being held Qualifiers: Hypertension type: essential hypertension Qualified Code(s): I10 - Essential (primary) hypertension - Constitutional Vitals: Temp Pulse Resp BP Pulse Ox 97.1 F L 91 16 95/71 97 03/03/17 07:42 03/03/17 07:42 03/03/17 07:42 03/03/17 07:42 03/03/17 07:42 Internal Medicine: Result - Labs CBC & Chem 7: 03/02/17 23:45 03/02/17 23:45 Labs: Short CBC 03/02/17 Range/Units 23:45 WBC 8.5 (4.3-11.1) K/mcL Hgb 9.4 L (12.9-16.9) g/dL Hct 32.8 L (37.5-50.1) % Plt Count 521 H (140-400) K/mcL Neutrophils # 6.2 (1.6-8.9) K/mcL BMP 03/02/17 23:45 Sodium 132 L Potassium 4.4 Chloride 89 L Carbon Dioxide 32 H BUN 55 H Creatinine 1.41 H Glucose 100 H Calcium 8.7 Cardiac Enzymes 03/02/17 03/03/17 Range/Units 23:45 05:44 Troponin I 0.02 0.01 (0-0.03) ng/mL Urine 03/03/17 Range/Units 06:20 Urine Color Yellow (Yellow) Urine Clarity Cloudy A (Clear) Urine pH 6.0 (5.0-8.0) pH Units Ur Specific Rougon 1.018 (1.010-1.025) Urine Protein 30 H (Neg-Trace) mg/dL Urine Glucose (UA) Normal (Normal) mg/dL - ABG Interpretation ABG results: ABG ABG pH 7.42 pH Units (7.32-7.45) 03/03/17 00:25 ABG pCO2 54 mmHg (35-45) H 03/03/17 00:25 ABG pO2 153 mmHg (85-104) H 03/03/17 00:25 ABG O2 Saturation 99 % (95-98) H 03/03/17 00:25 PT/INR, D-dimer PT 43.2 Seconds (9.4-12.1) H 03/02/17 23:45 - Impressions Impressions Chest X-Ray 03/03/17 05:59 IMPRESSION: Worsening right effusion and right lower lobe infiltrate. D/ / 03/03/2017 07:24:08 Loida Castrejon MD / sanket Interpreting Provider: Loida Castrejon MD Consult Discharge Plan - Plan Referrals: NO,PCP [Primary Care Provider] - <Jan Mccauley P - Last Filed: 03/03/17 17:28> Date of Encounter: 03/03/17 - Constitutional Vitals: Temp Pulse Resp BP Pulse Ox 97.8 F 113 20 108/90 99 03/03/17 13:27 03/03/17 16:00 03/03/17 16:00 03/03/17 16:00 03/03/17 16:00 Internal Medicine: Result - Labs CBC & Chem 7: 03/03/17 15:46 03/03/17 15:46 Labs: Short CBC 03/02/17 03/03/17 Range/Units 23:45 15:46 WBC 8.5 7.8 (4.3-11.1) K/mcL Hgb 9.4 L 8.2 L (12.9-16.9) g/dL Hct 32.8 L 28.8 L (37.5-50.1) % Plt Count 521 H 458 H (140-400) K/mcL Neutrophils # 6.2 5.8 (1.6-8.9) K/mcL BMP 03/02/17 03/03/17 23:45 15:46 Sodium 132 L 136 Potassium 4.4 3.3 L D Chloride 89 L 94 L Carbon Dioxide 32 H 32 H BUN 55 H 49 H Creatinine 1.41 H 1.30 H Glucose 100 H 119 H Calcium 8.7 7.8 L Cardiac Enzymes 03/02/17 03/03/17 Range/Units 23:45 05:44 Troponin I 0.02 0.01 (0-0.03) ng/mL Urine 03/03/17 Range/Units 06:20 Urine Color Yellow (Yellow) Urine Clarity Cloudy A (Clear) Urine pH 6.0 (5.0-8.0) pH Units Ur Specific Rougon 1.018 (1.010-1.025) Urine Protein 30 H (Neg-Trace) mg/dL Urine Glucose (UA) Normal (Normal) mg/dL - ABG Interpretation ABG results: ABG ABG pH 7.42 pH Units (7.32-7.45) 03/03/17 00:25 ABG pCO2 54 mmHg (35-45) H 03/03/17 00:25 ABG pO2 153 mmHg (85-104) H 03/03/17 00:25 ABG O2 Saturation 99 % (95-98) H 03/03/17 00:25 PT/INR, D-dimer PT 43.2 Seconds (9.4-12.1) H 03/02/17 23:45 - Impressions Impressions Chest X-Ray 03/03/17 05:59 IMPRESSION: Worsening right effusion and right lower lobe infiltrate. D/ 03/03/2017 07:24:08 Loida Castrejon MD / sanket Interpreting Provider: Loida Castrejon MD - Attending Attestation I examined this patient and my medical decision-making was reviewed with the PILE DRIVING SUPERVISOR/PA/Advanced Practice Nurse/Resident Physician. I agree with the documented findings, disposition and treatment plan as described except to the extent set forth below. Seen and examined. Chart reviewed. Patient is admitted with atrial fibrillation with rapid ventricular response. Condition received Cardizem intravenously. Patient also received intravenous was admitted. Noted that patient was hypotensive. Etiology: Multifactorial. Cardiology recommended amiodarone drip. Patient was transferred to intensive care unit for further evaluation. Patient was seen by material requirements worker. Wafer Production Lead Worker input appreciated. Care will be transferred under intensive care unit.
--- NOTE | 2017-03-03 10:47 | Cardiology Consult Note ---
<Jesu Corea - Last Filed: 03/03/17 10:32> Date of Encounter: 03/03/17 Time of Encounter: 10:32 Assessment and Plan (1) Acute exacerbation of CHF (congestive heart failure) Current Visit: Yes Status: Acute As an outpatient had a 10 lbs weight gain, with LE edema, and dyspnea R pleural effusion is present on CXR Lasix received in ER BP is in the 90's systolic so unable to use nitro at this time This could be due to infectious causes vs worsening of his cardiac function Recommend maintaining home dose of metoprolol XL 50mg and holding cardizem while BP is in the 90's. Will obtain echocardiogram Recommend strict I's/O's Recommend wrapping legs Qualifiers: Congestive heart failure type: diastolic Qualified Code(s): I50.33 - Acute on chronic diastolic (congestive) heart failure (2) Pulmonary infiltrate in right lung on CXR Current Visit: Yes Status: Acute Pleural effusion likely secondary to CHF Possible infectious etiology covered by antibiotics (3) UTI (urinary tract infection) Current Visit: Yes Status: Acute Treatment by primary team Qualifiers: Urinary tract infection type: site unspecified Hematuria presence: without hematuria Qualified Code(s): N39.0 - Urinary tract infection, site not specified (4) Atrial fibrillation Current Visit: No Status: Acute Remote history of ablation and open MAZE procedure with PER stapling Recommend remaining on metoprolol with BP holding parameters Recommend holding cardizem while SBP is decreased Rate is currently controlled Recommend continuing anticoagulation Qualifiers: Atrial fibrillation type: persistent Qualified Code(s): I48.1 - Persistent atrial fibrillation Discussion w patient/family: The assessment and plan as outlined above was discussed with the patient and/or family members who expressed understanding and agreement. All questions were answered. Thank you for involving us in the care of your patient. Please call with any questions. History of Present Illness Consult date: 03/03/17 Consult reason: CHF exacerbation Chief complaint: Dyspnea, weight gain, LE edema History of present illness: Mr. Bonner is a 77 year old male who is seen as an outpatient by Dr Johny Waller. He has been having a progressive weight gain, progressive dyspnea, and progressive LE edema. Recent increase in lasix and metoprolol by Dr Waller. Due to to improvement and worsening of his dyspnea he was advised to come to the ER. He was given a dose of IV lasix at [facility] and transferred to [place]. Denies CP. PMH of CHF, afib, HTN. History of ablation in 2002 due to afib, open MAZE procedure and PER stapling. Takes Eliquis due to Afib. Denies excessive salt intake. Was placed on Bipap. Found to have RLL infiltrate and R pleural effusion on CXR. UTI also present. Received rocephin and levaquin. Past Med Surg Social Fam HX - Past Medical History Medical history: atrial fibrillation, CHF (chronic, diastolic), hyperlipidemia, hypertension, renal disease, syncope Psychiatric history: no psych history - Past Surgical History Surgical History: orthopedic, other (right shoulder replacement), other ( ablation and maze procedures for a.fib) - Social History Smoking Status: Former smoker Smokeless Tobacco Status: No Alcohol use: none Drug use: none - Family History Father History Unknown: Yes Adopted: No Family Member Ethnicity: Non- Living Status: Hx Family Cardiac Disorders: Yes Hx Family Respiratory Disorders: No Hx Family Cancer: No Hx Family GI Disorders: No Hx Family Endocrine Disorder: No Hx Family Neuromuscular Disorders: No Hx Family Neurologic Disorders: No Hx Family HEENT Disorders: No Hx Family Autoimmune Disorders: No Medications and Allergies Aspirin Enteric Coated [Aspirin EC] 81 mg PO QAM 06/13/16 [History] Duloxetine [Cymbalta] 60 mg PO DAILY 06/13/16 [History] Gabapentin [Neurontin] 600 mg PO TID 06/13/16 [History] Melatonin 5 mg PO HS 06/13/16 [History] Potassium Chloride [K-Tab ER] 20 meq PO DAILY 06/13/16 [History] Apixaban [Eliquis] 5 mg PO BID #60 tablet 06/15/16 [Rx] Calcium Carbonate [Calcium] 1 tab PO DAILY 03/02/17 [History] Diltiazem CD (24hr) [Cardizem CD] 240 mg PO DAILY 03/02/17 [History] Glucosamine/D3/Boswellia Alondra [Osteo Bi-Flex Tablet] 1 each PO DAILY 03/02/17 [ History] Metoprolol XL (24 HR) Succ [Toprol XL] 75 mg PO BID 03/02/17 [History] Valsartan [Diovan] 160 mg PO DAILY 03/02/17 [History] Furosemide [Lasix] 40 mg PO BID 03/03/17 [History] Ipratropium/Albuterol Neb [Duoneb] 3 ml IH Q6HR PRN 03/03/17 [History] Spironolactone [Aldactone] 25 mg PO DAILY 03/03/17 [History] Thiamine (B-1) [Vitamin B-1] 100 mg PO DAILY 03/03/17 [History] Venlafaxine HCl [Venlafaxine HCl ER] 150 mg PO DAILY 03/03/17 [History] Vitamin E Acetate [Vitamin E] 400 unit PO DAILY 03/03/17 [History] Allergies Influenza Virus Vaccines Allergy (Verified 11/19/16 11:53) Swelling of Lip/Tongue/Throat All Systems Review: A 10-system review of systems was performed and is negative for pertinent findings except as documented above in the HPI. - Constitutional Constitutional: weight gain, no fever(s) - EENT Eyes: no loss of vision - Cardiovascular Cardiovascular: dyspnea at rest, dyspnea on exertion, leg edema, rapid heart rate, no chest pain at rest, no chest pain with exertion - Respiratory Respiratory: cough, dyspnea - Gastrointestinal Gastrointestinal: no abdominal pain - Integumentary Integumentary: no rash - Hematological/Lymphatic Hematologic/Lymphatic: no easy bleeding Physical Examination Vital Signs, Last 4 Hours Temp Pulse Resp BP Pulse Ox 03/03/17 07:42 97.1 F L 91 16 95/71 97 General: Conversant HEENT: Atraumatic Cardiac: Other (regular rate, irregular rhythm) Lungs: Other (poor air movement. On bipap) Neuro: Alert and responsive Abdomen: Soft Skin: No rashes noted on visualized skin Extremities: Other (3+ LE edema. pulses present) Results 03/02/17 23:45 03/02/17 23:45 Lab Results 03/02/17 03/02/17 03/02/17 23:45 23:45 23:45 WBC 8.5 Hgb 9.4 L Hct 32.8 L Plt Count 521 H INR 3.8 Sodium Potassium Chloride Carbon Dioxide BUN Creatinine Glucose Calcium Magnesium 2.0 Troponin I 03/02/17 03/02/17 03/03/17 23:45 23:45 05:44 WBC Hgb Hct Plt Count INR Sodium 132 L Potassium 4.4 Chloride 89 L Carbon Dioxide 32 H BUN 55 H Creatinine 1.41 H Glucose 100 H Calcium 8.7 Magnesium Troponin I 0.02 0.01 Consult Discharge Plan - Plan Referrals: NO,PCP [Primary Care Provider] - <MyayaquelinSmita - Last Filed: 03/03/17 13:55> Date of Encounter: 03/03/17 Assessment and Plan Discussion w patient/family: The assessment and plan as outlined above was discussed with the patient and/or family members who expressed understanding and agreement. All questions were answered. Thank you for involving us in the care of your patient. Please call with any questions. History of Present Illness History of present illness: Mr. Bonner is a 77 year old male All Systems Review: A 10-system review of systems was performed and is negative for pertinent findings except as documented above in the HPI. Physical Examination Vital Signs, Last 4 Hours Temp Pulse Resp BP Pulse Ox 03/03/17 12:09 98.1 F 99 14 87/66 92 03/03/17 10:00 97 Results 03/02/17 23:45 03/02/17 23:45 Lab Results 03/02/17 03/02/17 03/02/17 23:45 23:45 23:45 WBC 8.5 Hgb 9.4 L Hct 32.8 L Plt Count 521 H INR 3.8 Sodium Potassium Chloride Carbon Dioxide BUN Creatinine Glucose Calcium Magnesium 2.0 Troponin I 03/02/17 03/02/17 03/03/17 23:45 23:45 05:44 WBC Hgb Hct Plt Count INR Sodium 132 L Potassium 4.4 Chloride 89 L Carbon Dioxide 32 H BUN 55 H Creatinine 1.41 H Glucose 100 H Calcium 8.7 Magnesium Troponin I 0.02 0.01 - Attending Attestation I examined this patient and my medical decision-making was reviewed with the TIME STUDY TECHNICIAN/PA/Advanced Practice Nurse/Resident Physician. I agree with the documented findings, disposition and treatment plan. Mr. Bonner developed almost 15 pound weight gain since January admitting to dyspnea, abdominal swelling and worse LE edema. Recent echo in October 2016 demonstrated normal LVEF but right heart was not well visualized. He has diastolic heart failure and possibly may have right sided heart failure. This is in the setting of ARF and UTI. Troponin peak at 0.04 secondary to heart failure. PLAN: 1. Agree with echo 2. Continue IV diuresis with lasix 3. Hold off on spironolactone given treatment for hyperkalemia at outside institution 4. Wrap legs 5. Blood pressures are low, possibly secondary to UTI/bacteremia picture; will have to hold AVN blockers for AF. Recommend Amio gtt as a temporary measure. He is on eliquis.
[2017-03-03] MEDS ORDERED: Amiodarone Premix 360 MG/200 ML BAG IVC ONE ×2 (12:41→21:07)
--- NOTE | 2017-03-03 12:44 | Event Note ---
Date of Encounter: 03/03/17 Time of Encounter: 12:43 While in the room patient was in afib RVR with rates in the 120's. Due to hypotension will start amiodarone. Patient is anticoagulated with Eliquis
[2017-03-03] MEDS ORDERED: Sodium Phosphate 30 MMOL in D5% in Water 100 ML IVPB PRN (15:35)
[2017-03-03] MEDS ORDERED: Furosemide 40 MG/4 ML VIAL IVP ONE (16:09)
--- NOTE | 2017-03-03 16:17 | Pulmonology Consult Note ---
<Matheus Bradford W - Last Filed: 03/03/17 16:44> Date of Encounter: 03/03/17 Medications and Allergies Aspirin Enteric Coated [Aspirin EC] 81 mg PO QAM 06/13/16 [History] Duloxetine [Cymbalta] 60 mg PO DAILY 06/13/16 [History] Gabapentin [Neurontin] 600 mg PO TID 06/13/16 [History] Melatonin 5 mg PO HS 06/13/16 [History] Potassium Chloride [K-Tab ER] 20 meq PO DAILY 06/13/16 [History] Apixaban [Eliquis] 5 mg PO BID #60 tablet 06/15/16 [Rx] Calcium Carbonate [Calcium] 1 tab PO DAILY 03/02/17 [History] Diltiazem CD (24hr) [Cardizem CD] 240 mg PO DAILY 03/02/17 [History] Glucosamine/D3/Boswellia Alondra [Osteo Bi-Flex Tablet] 1 each PO DAILY 03/02/17 [ History] Metoprolol XL (24 HR) Succ [Toprol XL] 75 mg PO BID 03/02/17 [History] Valsartan [Diovan] 160 mg PO DAILY 03/02/17 [History] Furosemide [Lasix] 40 mg PO BID 03/03/17 [History] Ipratropium/Albuterol Neb [Duoneb] 3 ml IH Q6HR PRN 03/03/17 [History] Spironolactone [Aldactone] 25 mg PO DAILY 03/03/17 [History] Thiamine (B-1) [Vitamin B-1] 100 mg PO DAILY 03/03/17 [History] Venlafaxine HCl [Venlafaxine HCl ER] 150 mg PO DAILY 03/03/17 [History] Vitamin E Acetate [Vitamin E] 400 unit PO DAILY 03/03/17 [History] Allergies Influenza Virus Vaccines Allergy (Verified 11/19/16 11:53) Swelling of Lip/Tongue/Throat All Systems: A 10-system review of systems was performed and is negative for pertinent findings except as documented above in the HPI. Physical Examination Vital Signs: Vital Signs, Last 4 Hours Temp Pulse Resp BP Pulse Ox 03/03/17 16:00 113 20 108/90 99 03/03/17 15:05 121 03/03/17 15:00 118 22 110/79 99 05/05/17 14:00 106 20 108/98 93 03/03/17 13:27 97.8 F 110 23 104/74 98 Results - Laboratory Findings CBC and BMP: 03/03/17 15:46 03/02/17 23:45 ABG ABG pH 7.42 pH Units (7.32-7.45) 03/03/17 00:25 ABG pCO2 54 mmHg (35-45) H 03/03/17 00:25 ABG pO2 153 mmHg (85-104) H 03/03/17 00:25 ABG O2 Saturation 99 % (95-98) H 03/03/17 00:25 PT/INR, D-dimer PT 43.2 Seconds (9.4-12.1) H 03/02/17 23:45 Abnormal lab findings: Abnormal lab results RBC 3.84 M/mcL (4.19-5.50) L 03/03/17 15:46 Hgb 8.2 g/dL (12.9-16.9) L 03/03/17 15:46 Hct 28.8 % (37.5-50.1) L 03/03/17 15:46 MCV 75.0 fL (83.0-100.0) L 03/03/17 15:46 MCH 21.4 pg (28.0-33.3) L 03/03/17 15:46 MCHC 28.5 g/dL (31.6-35.5) L 03/03/17 15:46 RDW 20.2 % (11.5-14.5) H 03/03/17 15:46 Plt Count 458 K/mcL (140-400) H 03/03/17 15:46 Nucleated RBCs/100 WBC 3.6 /100 WBC (0) H 03/03/17 15:46 Platelet Estimate Increased (Normal) H 03/02/17 23:45 Polychromasia 2+ (Not Present) A 03/02/17 23:45 Hypochromasia Present (Not Present) A 03/02/17 23:45 Poikilocytosis 1+ (Not Present) A 03/02/17 23:45 Anisocytosis 2+ (Not Present) A 03/02/17 23:45 Microcytosis Present (Not Present) A 03/02/17 23:45 Macrocytosis Present (Not Present) A 03/02/17 23:45 Target Cells 1+ (Not Present) A 03/02/17 23:45 PT 43.2 Seconds (9.4-12.1) H 03/02/17 23:45 ABG pCO2 54 mmHg (35-45) H 03/03/17 00:25 ABG pO2 153 mmHg (85-104) H 03/03/17 00:25 ABG HCO3 35.0 mEQ/L (21-27) H 03/03/17 00:25 ABG Total CO2 36.7 mEq/L (20-26) H 03/03/17 00:25 ABG O2 Saturation 99 % (95-98) H 03/03/17 00:25 ABG Base Excess 9.0 mEq/L (-2.0 to 3.0) H 03/03/17 00:25 Sodium 132 mEq/L (136-145) L 03/02/17 23:45 Chloride 89 mEq/L (98-109) L 03/02/17 23:45 Carbon Dioxide 32 mEq/L (19-29) H 03/02/17 23:45 BUN 55 mg/dL (8-26) H 03/02/17 23:45 Creatinine 1.41 mg/dL (0.72-1.25) H 03/02/17 23:45 Est GFR ( Amer) 59 (> 60) L 03/02/17 23:45 Est GFR (Non-Af Amer) 49 (> 60) L 03/02/17 23:45 BUN/Creatinine Ratio 39 (6-26) H 03/02/17 23:45 Glucose 100 mg/dL (70-99) H 03/02/17 23:45 POC Glucose 116 (58-89) H 03/03/17 13:37 Urine Clarity Cloudy (Clear) A 03/03/17 06:20 Urine Protein 30 mg/dL (Neg-Trace) H 03/03/17 06:20 Urine Blood Large (Negative) H 03/03/17 06:20 Ur Leukocyte Esterase Large (Negative) H 03/03/17 06:20 Urine Microscopic RBC 30-50 per hpf (0-3) H 03/03/17 06:20 Urine Microscopic WBC TNTC per hpf (0-3) H 03/03/17 06:20 Ur Squamous Epith Cells Many per lpf (None-Few) H 03/03/17 06:20 Urine Bacteria Moderate per hpf (None-Few) H 03/03/17 06:20 Ur Culture Indicated? YES (NO) A 03/03/17 06:20 - Clinical Findings Intake & Output: Intake & Output 03/03/17 03/03/17 03/03/17 07:59 15:59 23:59 Intake Total 100 / 100 Output Total 550 / 550 400 / 400 Balance -450 / -450 -400 / -400 Weight 124.4 kg Consult Discharge Plan - Plan Referrals: NO,PCP [Primary Care Provider] - - Attending Attestation I examined this patient and my medical decision-making was reviewed with the RIVET DRIVER/PA/Advanced Practice Nurse/Resident Physician. I agree with the documented findings, disposition and treatment plan as described except to the extent set forth below. Patient seen and examined at bedside Labs, radiology, chart personally reviewed. All lines examined without evidence of infection. Impression: 1. Acute on Chronic Respiratory Failure 2. ADHF (HFpEF) 3. Hypotension 4. Afib with RVR 5. DERRICK 6. Pleural Effusion Plan: -Continue supplemental oxygen via nasal cannula to keep saturations around 92-94 % will use positive airway pressure at night or as needed for work of breathing/ desaturation -Continue diuresis as tolerated by blood pressure; Cardiology following patient -This is secondary to rapid ventricular response improving with amiodarone drip ; maintaining near baseline; lactate is normal; white count not elevated doubt sepsis stop antimicrobials -Continue amiodarone drip restart oral medications as tolerated by BP, continue NOAC for CVA prophylaxis; check TSH -Most likely secondary to venous congestion we will attempt diuresis follow renal function panel every 12 hours replace lites per protocol avoid nephrotoxic agents. Acceptable urine output at present -Defer thoracentesis at this time as this is likely secondary to heart failure and patient currently anticoagulated <Sadiq Arteaga - Last Filed: 03/03/17 16:57> Date of Encounter: 03/03/17 Time of Encounter: 15:30 Assessment and Plan (1) Atrial fibrillation with RVR Current Visit: No Status: Acute Cardiology is following. On amiodarone drip. Continue diuresis. Will dose lasix as tolerated based on response. Additional dose IV lasix 60mg given this evening. Will reassess in the morning. Continue anticoagulation. (2) Fluid overload Current Visit: No Status: Chronic Secondary to CHF and atrial fibrillation with RVR. History of excessive fluid intake without any sort of diet adherence to salty foods. See plan above. Qualifiers: Hypervolemia type: other Qualified Code(s): E87.79 - Other fluid overload (3) Hypertension Current Visit: No Status: Chronic Currently hypotensive secondary to cardizem drip. Consider hydralazine once pressure has normalized. Hold home meds at this time. Continue to monitor. Qualifiers: Hypertension type: essential hypertension Qualified Code(s): I10 - Essential (primary) hypertension (4) Acute exacerbation of CHF (congestive heart failure) Current Visit: Yes Status: Acute Heart failure with preserved ejection fraction. Optimize heart rate and rhythm. Decrease afterload. See plan above. Qualifiers: Congestive heart failure type: diastolic Qualified Code(s): I50.33 - Acute on chronic diastolic (congestive) heart failure (5) Acute hypercapnic respiratory failure Current Visit: No Status: Acute Blood gas on BiPAP showed CO2 retention Patient chronically uses 2-3 L supplemental oxygen via nasal cannula 22/05. Recommend BiPAP overnight. (6) DERRICK (acute kidney injury) Current Visit: Yes Status: Acute Creatinine 1.41 currently. Avoid nephrotoxins. Continue to monitor. History of Present Illness Consult date: 03/03/17 Requesting physician: Jan Mccauley Reason for consult: other (a. fib RVR, with hypotension and hypoxia) Chief complaint: fluid retention History of present illness: This is a 77 year old male with PMH of A. Fib on anticoagulation, CHF, hypertension, and renal disease who was admitted for shortness of breath. The patient reports that he has been going weight and retaining water for the last week. 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 He states that for the last 2-3 days he was not eating much due to trying to get his weight back down, but continued to drink fluids throughout the day. He reports taking lasix at home, but had continued to gain weight. He did complain of some shortness of breath with exertion, but denied palpitations and denied chest pain. He states that he had a similar exacerbation and hospitalization in October where he was so fluid overloaded that he was seeping fluid out of his skin. He has been receiving Lasix and was on a cardizem drip, but became hypotensive. Cardiology was then consulted and he was started an amiodarone drip and transferred to the ICU as a 2N overflow patient. Past Med Surg Social Fam HX - Past Medical History Medical history: atrial fibrillation, CHF (chronic, diastolic), hyperlipidemia, hypertension, renal disease, syncope Psychiatric history: no psych history - Past Surgical History Surgical History: orthopedic, other (right shoulder replacement), other ( ablation and maze procedures for a.fib) - Social History Smoking Status: Former smoker Smokeless Tobacco Status: No Alcohol use: none Drug use: none - Family History Father History Unknown: Yes Adopted: No Family Member Ethnicity: Non- Living Status: Hx Family Cardiac Disorders: Yes Hx Family Respiratory Disorders: No Hx Family Cancer: No Hx Family GI Disorders: No Hx Family Endocrine Disorder: Yes (DM) Hx Family Neuromuscular Disorders: No Hx Family Neurologic Disorders: No Hx Family HEENT Disorders: No Hx Family Autoimmune Disorders: No All Systems: A 10-system review of systems was performed and is negative for pertinent findings except as documented above in the HPI. - Constitutional Constitutional: fatigue, weight gain, no chills, no fever(s) - Cardiovascular Cardiovascular: dyspnea on exertion, edema, orthopnea, no chest pain, no diaphoresis, no palpitations - Respiratory Respiratory: no cough, no hemoptysis - Gastrointestinal Gastrointestinal: no abdominal pain, no diarrhea - Genitourinary Genitourinary: no dysuria, no urinary frequency, no urinary hesitancy, no urinary incontinence - Musculoskeletal Musculoskeletal: back pain (chronic) Physical Examination Vital Signs: Vital Signs, Last 4 Hours Temp Pulse Resp BP Pulse Ox 03/03/17 14:00 106 20 108/98 93 03/03/17 13:27 97.8 F 110 23 104/74 98 General appearance: no acute distress, lethargic, other (answers questions appropriately, but slowly) ENT: oropharynx moist Neck: supple Effort: normal Auscultation: bilateral: other (crackles bilaterally at lung bases, worse ont he right) Cardiovascular: irregular rhythm (tachycardic) Gastrointestinal: normoactive bowel sounds, non-tender, other (distended) Extremities: cyanosis (present bilaterally on the toes and feet), edema (upper and lower extremity edema present) normal mental status, non-focal exam mood appropriate Results - Laboratory Findings CBC and BMP: 03/03/17 15:46 03/02/17 23:45 ABG ABG pH 7.42 pH Units (7.32-7.45) 03/03/17 00:25 ABG pCO2 54 mmHg (35-45) H 03/03/17 00:25 ABG pO2 153 mmHg (85-104) H 03/03/17 00:25 ABG O2 Saturation 99 % (95-98) H 03/03/17 00:25 PT/INR, D-dimer PT 43.2 Seconds (9.4-12.1) H 03/02/17 23:45 Abnormal lab findings: Abnormal lab results Hgb 9.4 g/dL (12.9-16.9) L 03/02/17 23:45 Hct 32.8 % (37.5-50.1) L 03/02/17 23:45 MCV 76.5 fL (83.0-100.0) L 03/02/17 23:45 MCH 21.9 pg (28.0-33.3) L 03/02/17 23:45 MCHC 28.7 g/dL (31.6-35.5) L 03/02/17 23:45 RDW 20.5 % (11.5-14.5) H 03/02/17 23:45 Plt Count 521 K/mcL (140-400) H 03/02/17 23:45 Nucleated RBCs/100 WBC 3.7 /100 WBC (0) H 03/02/17 23:45 Platelet Estimate Increased (Normal) H 03/02/17 23:45 Polychromasia 2+ (Not Present) A 03/02/17 23:45 Hypochromasia Present (Not Present) A 03/02/17 23:45 Poikilocytosis 1+ (Not Present) A 03/02/17 23:45 Anisocytosis 2+ (Not Present) A 03/02/17 23:45 Microcytosis Present (Not Present) A 03/02/17 23:45 Macrocytosis Present (Not Present) A 03/02/17 23:45 Target Cells 1+ (Not Present) A 03/02/17 23:45 PT 43.2 Seconds (9.4-12.1) H 03/02/17 23:45 ABG pCO2 54 mmHg (35-45) H 03/03/17 00:25 ABG pO2 153 mmHg (85-104) H 03/03/17 00:25 ABG HCO3 35.0 mEQ/L (21-27) H 03/03/17 00:25 ABG Total CO2 36.7 mEq/L (20-26) H 03/03/17 00:25 ABG O2 Saturation 99 % (95-98) H 03/03/17 00:25 ABG Base Excess 9.0 mEq/L (-2.0 to 3.0) H 03/03/17 00:25 Sodium 132 mEq/L (136-145) L 03/02/17 23:45 Chloride 89 mEq/L (98-109) L 03/02/17 23:45 Carbon Dioxide 32 mEq/L (19-29) H 03/02/17 23:45 BUN 55 mg/dL (8-26) H 03/02/17 23:45 Creatinine 1.41 mg/dL (0.72-1.25) H 03/02/17 23:45 Est GFR ( Amer) 59 (> 60) L 03/02/17 23:45 Est GFR (Non-Af Amer) 49 (> 60) L 03/02/17 23:45 BUN/Creatinine Ratio 39 (6-26) H 03/02/17 23:45 Glucose 100 mg/dL (70-99) H 03/02/17 23:45 POC Glucose 116 (58-89) H 03/03/17 13:37 Urine Clarity Cloudy (Clear) A 03/03/17 06:20 Urine Protein 30 mg/dL (Neg-Trace) H 03/03/17 06:20 Urine Blood Large (Negative) H 03/03/17 06:20 Ur Leukocyte Esterase Large (Negative) H 03/03/17 06:20 Urine Microscopic RBC 30-50 per hpf (0-3) H 03/03/17 06:20 Urine Microscopic WBC TNTC per hpf (0-3) H 03/03/17 06:20 Ur Squamous Epith Cells Many per lpf (None-Few) H 03/03/17 06:20 Urine Bacteria Moderate per hpf (None-Few) H 03/03/17 06:20 Ur Culture Indicated? YES (NO) A 03/03/17 06:20 - Clinical Findings Intake & Output: Intake & Output 03/03/17 03/03/17 03/03/17 07:59 15:59 23:59 Intake Total 100 / 100 Output Total 550 / 550 400 / 400 Balance -450 / -450 -400 / -400 Weight 124.4 kg
[2017-03-03 16:26] LABS: Basophils % 0.5 %; Eosinophils # 0.3 K/mcL (0.0-0.6); Eosinophils % 4.2 %; Hematocrit 28.8 % (37.5-50.1); Hemoglobin 8.2 g/dL (12.9-16.9); Immature Granulocytes % 0.4 % (0-4); Lymphocytes # 0.8 K/mcL (0.6-4.6); Lymphocytes % 10.1 %; Mean Corpuscular HGB Conc 28.5 g/dL (31.6-35.5); Mean Corpuscular Hemoglobin 21.4 pg (28.0-33.3); Mean Platelet Volume 9.6 fL (9.4-12.4); Monocytes # 0.8 K/mcL (0.0-1.3); Monocytes % 10.4 %; Neutrophils # 5.8 K/mcL (1.6-8.9); Nucleated Red Blood Cells 3.6 /100 WBC (0); Platelet Count 458 K/mcL (140-400); Red Blood Count 3.84 M/mcL (4.19-5.50); Red Cell Distribution Width 20.2 % (11.5-14.5); Segmented Neutrophils % 74.4 %
[2017-03-03 16:59] LABS: BUN/Creatinine Ratio 38 (6-26); Blood Urea Nitrogen 49 mg/dL (8-26); Calcium 7.8 mg/dL (8.6-10.8); Carbon Dioxide 32 mEq/L (19-29); Chloride 94 mEq/L (98-109); Glucose 119 mg/dL (70-99); Osmolality,Calculated 296 (280-300); Sodium 136 mEq/L (136-145); eGFR For African Americans > 60 (> 60); eGFR For Non-African Americans 54 (> 60)
[2017-03-03 17:00] LABS: Potassium 3.3 mEq/L (3.5-4.5)
[2017-03-03] MEDS ORDERED: Furosemide 20 MG TABLET PO SCH (17:00)
[2017-03-03] MEDS ORDERED: Perflutren Lipid Microsphere 1.3 ML in 0.9 % Sodium Chloride 8.7 ML IVP ONE (17:32)
[2017-03-03] MEDS ORDERED: Levofloxacin 500 MG/100 ML 500 MG/100 ML BAG IVPB SCH (18:00)
[2017-03-03] MEDS: Amiodarone Premix 360 MG/200 ML BAG IVC SCH (19:30)
[2017-03-03] MEDS ORDERED: Metoprolol XL (24 HR) Succ 25 MG TAB.ER.24H PO SCH (21:00)
[2017-03-03] MEDS: Melatonin 3 MG TABLET PO SCH (21:55)
[2017-03-04 04:01] LABS: Hematocrit 29.3 % (37.5-50.1); Hemoglobin 8.5 g/dL (12.9-16.9); Mean Corpuscular Hemoglobin 21.5 pg (28.0-33.3); Mean Corpuscular Volume 74.2 fL (83.0-100.0); Mean Platelet Volume 9.1 fL (9.4-12.4); Platelet Count 435 K/mcL (140-400); Red Blood Count 3.95 M/mcL (4.19-5.50); Red Cell Distribution Width 20.1 % (11.5-14.5)
[2017-03-04 04:08] LABS: Ionized Calcium 1.04 mmol/L (1.15-1.35)
[2017-03-04 04:19] LABS: Magnesium 1.5 mg/dL (1.6-2.6); Phosphorous 3.7 mg/dL (2.3-4.7)
[2017-03-04 04:20] LABS: BUN/Creatinine Ratio 34 (6-26); Blood Urea Nitrogen 46 mg/dL (8-26); Calcium 8.3 mg/dL (8.6-10.8); Carbon Dioxide 34 mEq/L (19-29); Chloride 91 mEq/L (98-109); Glucose 114 mg/dL (70-99); Osmolality,Calculated 297 (280-300); Potassium 3.1 mEq/L (3.5-4.5); Sodium 137 mEq/L (136-145); eGFR For African Americans > 60 (> 60); eGFR For Non-African Americans 51 (> 60)
[2017-03-04] MEDS: Amiodarone Premix 360 MG/200 ML BAG IVC SCH ×2 (06:52→19:00)
[2017-03-04] MEDS ORDERED: Furosemide 100 MG/10 ML VIAL IVP ONE (08:04)
--- NOTE | 2017-03-04 08:58 | Pulmonology Progress Note ---
<Sadiq Arteaga - Last Filed: 03/04/17 08:53> Date of Encounter: 03/04/17 Time of Encounter: 08:10 Assessment and Plan (1) Atrial fibrillation with RVR Current Visit: No Status: Acute Cardiology is following. On amiodarone drip. Will follow cardiology's input. Continue diuresis. Will dose lasix as tolerated based on response. Additional dose IV lasix 60mg given this morning. Will continue to reassess. Continue anticoagulation. (2) Fluid overload Current Visit: No Status: Chronic Secondary to CHF and atrial fibrillation with RVR. History of excessive fluid intake without any sort of diet adherence to salty foods. See plan above. Qualifiers: Hypervolemia type: other Qualified Code(s): E87.79 - Other fluid overload (3) Hypertension Current Visit: No Status: Chronic Currently hypotensive secondary to cardizem drip. Consider hydralazine once pressure has normalized. Hold home meds at this time. Continue to monitor. Qualifiers: Hypertension type: essential hypertension Qualified Code(s): I10 - Essential (primary) hypertension (4) Acute exacerbation of CHF (congestive heart failure) Current Visit: Yes Status: Acute Heart failure with preserved ejection fraction. Optimize heart rate and rhythm. Decrease afterload. See plan above. Qualifiers: Congestive heart failure type: diastolic Qualified Code(s): I50.33 - Acute on chronic diastolic (congestive) heart failure (5) Acute hypercapnic respiratory failure Current Visit: No Status: Acute The patient tolerated BiPAP well overnight. Currently saturating at 98% on 4L NC. (6) DERRICK (acute kidney injury) Current Visit: Yes Status: Acute Creatinine 1.41 > 1.35 Avoid nephrotoxins. Continue to monitor. Subjective Principal diagnosis: exacerbation of CHF with fluid overload Interval history: The patient was seen and examined. He states that he feels better this morning and was able to sleep well. He states that he feels like he isn't as short of breath as he was yesterday. He is currently saturating at 98% on 4L NC. Objective PUL Vital signs: Last Vital Signs Temp 97.0 F L 03/04/17 07:40 Pulse 110 03/04/17 07:55 Resp 12 03/04/17 07:00 BP 112/90 03/04/17 07:00 Pulse Ox 98 03/04/17 07:00 General appearance: no acute distress Eyes: nonicteric ENT: oropharynx moist Effort: normal Auscultation: bilateral: diminished breath sounds Cardiovascular: irregular rhythm Gastrointestinal: normoactive bowel sounds, non-tender, other (distended) Extremities: cyanosis (present bilaterally on the toes and feet), edema (upper and lower extremity edema present) normal mental status, non-focal exam mood appropriate Results - Laboratory Findings CBC and BMP: 03/04/17 03:50 03/04/17 03:50 ABG ABG pH 7.42 pH Units (7.32-7.45) 03/03/17 00:25 ABG pCO2 54 mmHg (35-45) H 03/03/17 00:25 ABG pO2 153 mmHg (85-104) H 03/03/17 00:25 ABG O2 Saturation 99 % (95-98) H 03/03/17 00:25 PT/INR, D-dimer PT 43.2 Seconds (9.4-12.1) H 03/02/17 23:45 Abnormal lab findings: Abnormal lab results RBC 3.95 M/mcL (4.19-5.50) L 03/04/17 03:50 Hgb 8.5 g/dL (12.9-16.9) L 03/04/17 03:50 Hct 29.3 % (37.5-50.1) L 03/04/17 03:50 MCV 74.2 fL (83.0-100.0) L 03/04/17 03:50 MCH 21.5 pg (28.0-33.3) L 03/04/17 03:50 MCHC 29.0 g/dL (31.6-35.5) L 03/04/17 03:50 RDW 20.1 % (11.5-14.5) H 03/04/17 03:50 Plt Count 435 K/mcL (140-400) H 03/04/17 03:50 MPV 9.1 fL (9.4-12.4) L 03/04/17 03:50 Nucleated RBCs/100 WBC 3.6 /100 WBC (0) H 03/03/17 15:46 Platelet Estimate Increased (Normal) H 03/02/17 23:45 Polychromasia 2+ (Not Present) A 03/02/17 23:45 Hypochromasia Present (Not Present) A 03/02/17 23:45 Poikilocytosis 1+ (Not Present) A 03/02/17 23:45 Anisocytosis 2+ (Not Present) A 03/02/17 23:45 Microcytosis Present (Not Present) A 03/02/17 23:45 Macrocytosis Present (Not Present) A 03/02/17 23:45 Target Cells 1+ (Not Present) A 03/02/17 23:45 PT 43.2 Seconds (9.4-12.1) H 03/02/17 23:45 ABG pCO2 54 mmHg (35-45) H 03/03/17 00:25 ABG pO2 153 mmHg (85-104) H 03/03/17 00:25 ABG HCO3 35.0 mEQ/L (21-27) H 03/03/17 00:25 ABG Total CO2 36.7 mEq/L (20-26) H 03/03/17 00:25 ABG O2 Saturation 99 % (95-98) H 03/03/17 00:25 ABG Base Excess 9.0 mEq/L (-2.0 to 3.0) H 03/03/17 00:25 Potassium 3.1 mEq/L (3.5-4.5) L 03/04/17 03:50 Chloride 91 mEq/L (98-109) L 03/04/17 03:50 Carbon Dioxide 34 mEq/L (19-29) H 03/04/17 03:50 BUN 46 mg/dL (8-26) H 03/04/17 03:50 Creatinine 1.35 mg/dL (0.72-1.25) H 03/04/17 03:50 Est GFR (Non-Af Amer) 51 (> 60) L 03/04/17 03:50 BUN/Creatinine Ratio 34 (6-26) H 03/04/17 03:50 Glucose 114 mg/dL (70-99) H 03/04/17 03:50 POC Glucose 116 (58-89) H 03/03/17 13:37 Calcium 8.3 mg/dL (8.6-10.8) L 03/04/17 03:50 Ionized Calcium 1.04 mmol/L (1.15-1.35) L 03/04/17 03:50 Magnesium 1.5 mg/dL (1.6-2.6) L 03/04/17 03:50 Urine Clarity Cloudy (Clear) A 03/03/17 06:20 Urine Protein 30 mg/dL (Neg-Trace) H 03/03/17 06:20 Urine Blood Large (Negative) H 03/03/17 06:20 Ur Leukocyte Esterase Large (Negative) H 03/03/17 06:20 Urine Microscopic RBC 30-50 per hpf (0-3) H 03/03/17 06:20 Urine Microscopic WBC TNTC per hpf (0-3) H 03/03/17 06:20 Ur Squamous Epith Cells Many per lpf (None-Few) H 03/03/17 06:20 Urine Bacteria Moderate per hpf (None-Few) H 03/03/17 06:20 Ur Culture Indicated? YES (NO) A 03/03/17 06:20 - Microbiology Findings Microbiology Findings: Microbiology, Last 48 Hours 03/03/17 06:20 Urine Culture - Final Urine,Clean Catch No growth. - Clinical Findings Intake & Output: Intake & Output 03/03/17 03/04/17 03/04/17 23:59 07:59 15:59 Intake Total 882 / 882 200 / 200 120 / 120 Output Total 300 / 300 Balance 882 / 882 -100 / -100 120 / 120 Weight 129.4 kg Consult Discharge Plan - Plan Referrals: NO,PCP [Primary Care Provider] - <Matheus Bradford - Last Filed: 03/04/17 12:24> Date of Encounter: 03/04/17 Objective PUL Vital signs: Last Vital Signs Temp 98.1 F 03/04/17 12:03 Pulse 94 03/04/17 11:00 Resp 18 03/04/17 11:00 BP 108/81 03/04/17 11:00 Pulse Ox 96 03/04/17 11:00 Results - Laboratory Findings CBC and BMP: 03/04/17 03:50 03/04/17 03:50 ABG ABG pH 7.42 pH Units (7.32-7.45) 03/03/17 00:25 ABG pCO2 54 mmHg (35-45) H 03/03/17 00:25 ABG pO2 153 mmHg (85-104) H 03/03/17 00:25 ABG O2 Saturation 99 % (95-98) H 03/03/17 00:25 PT/INR, D-dimer PT 43.2 Seconds (9.4-12.1) H 03/02/17 23:45 Abnormal lab findings: Abnormal lab results RBC 3.95 M/mcL (4.19-5.50) L 03/04/17 03:50 Hgb 8.5 g/dL (12.9-16.9) L 03/04/17 03:50 Hct 29.3 % (37.5-50.1) L 03/04/17 03:50 MCV 74.2 fL (83.0-100.0) L 03/04/17 03:50 MCH 21.5 pg (28.0-33.3) L 03/04/17 03:50 MCHC 29.0 g/dL (31.6-35.5) L 03/04/17 03:50 RDW 20.1 % (11.5-14.5) H 03/04/17 03:50 Plt Count 435 K/mcL (140-400) H 03/04/17 03:50 MPV 9.1 fL (9.4-12.4) L 03/04/17 03:50 Nucleated RBCs/100 WBC 3.6 /100 WBC (0) H 03/03/17 15:46 Platelet Estimate Increased (Normal) H 03/02/17 23:45 Polychromasia 2+ (Not Present) A 03/02/17 23:45 Hypochromasia Present (Not Present) A 03/02/17 23:45 Poikilocytosis 1+ (Not Present) A 03/02/17 23:45 Anisocytosis 2+ (Not Present) A 03/02/17 23:45 Microcytosis Present (Not Present) A 03/02/17 23:45 Macrocytosis Present (Not Present) A 03/02/17 23:45 Target Cells 1+ (Not Present) A 03/02/17 23:45 PT 43.2 Seconds (9.4-12.1) H 03/02/17 23:45 ABG pCO2 54 mmHg (35-45) H 03/03/17 00:25 ABG pO2 153 mmHg (85-104) H 03/03/17 00:25 ABG HCO3 35.0 mEQ/L (21-27) H 03/03/17 00:25 ABG Total CO2 36.7 mEq/L (20-26) H 03/03/17 00:25 ABG O2 Saturation 99 % (95-98) H 03/03/17 00:25 ABG Base Excess 9.0 mEq/L (-2.0 to 3.0) H 03/03/17 00:25 Potassium 3.1 mEq/L (3.5-4.5) L 03/04/17 03:50 Chloride 91 mEq/L (98-109) L 03/04/17 03:50 Carbon Dioxide 34 mEq/L (19-29) H 03/04/17 03:50 BUN 46 mg/dL (8-26) H 03/04/17 03:50 Creatinine 1.35 mg/dL (0.72-1.25) H 03/04/17 03:50 Est GFR (Non-Af Amer) 51 (> 60) L 03/04/17 03:50 BUN/Creatinine Ratio 34 (6-26) H 03/04/17 03:50 Glucose 114 mg/dL (70-99) H 03/04/17 03:50 POC Glucose 116 (58-89) H 03/03/17 13:37 Calcium 8.3 mg/dL (8.6-10.8) L 03/04/17 03:50 Ionized Calcium 1.04 mmol/L (1.15-1.35) L 03/04/17 03:50 Magnesium 1.5 mg/dL (1.6-2.6) L 03/04/17 03:50 Urine Clarity Cloudy (Clear) A 03/03/17 06:20 Urine Protein 30 mg/dL (Neg-Trace) H 03/03/17 06:20 Urine Blood Large (Negative) H 03/03/17 06:20 Ur Leukocyte Esterase Large (Negative) H 03/03/17 06:20 Urine Microscopic RBC 30-50 per hpf (0-3) H 03/03/17 06:20 Urine Microscopic WBC TNTC per hpf (0-3) H 03/03/17 06:20 Ur Squamous Epith Cells Many per lpf (None-Few) H 03/03/17 06:20 Urine Bacteria Moderate per hpf (None-Few) H 03/03/17 06:20 Ur Culture Indicated? YES (NO) A 03/03/17 06:20 - Microbiology Findings Microbiology Findings: Microbiology, Last 48 Hours 03/03/17 06:20 Urine Culture - Final Urine,Clean Catch No growth. - Clinical Findings Intake & Output: Intake & Output 03/03/17 03/04/17 03/04/17 23:59 07:59 15:59 Intake Total 882 / 882 200 / 200 120 / 120 Output Total 300 / 300 1200 / 1200 Balance 882 / 882 -100 / -100 -1080 / -1080 Weight 129.4 kg - Attending Attestation I examined this patient and my medical decision-making was reviewed with the GASATERIA ATTENDANT/PA/Advanced Practice Nurse/Resident Physician. I agree with the documented findings, disposition and treatment plan as described except to the extent set forth below. Patient seen and examined at bedside Labs, radiology, chart personally reviewed. All lines examined without evidence of infection. Impression: 1. Acute on Chronic Respiratory Failure 2. ADHF (HFpEF) 3. Hypotension 4. Afib with RVR 5. DERRICK Plan: -Continue supplemental oxygen via nasal cannula to keep saturations around 92-94 % Cont PAP at night -Continue diuresis.;Add small dose afterload reduction such as hydralazine when able. Cardiology following patient. -Resovled with improvement in HR. MAP goal 60. -Continue amiodarone drip per cardiology -Most likely secondary to venous congestion. Creatinine stable and urine output is good with diuresis. Stable for transfer to stepdown unit when bed available for amiodarone gtt.
[2017-03-04] MEDS ORDERED: Diltiazem CD (24hr) 240 MG CAPSULE PO SCH (09:00)
[2017-03-04] MEDS: Venlafaxine XR (24 HR) 150 MG CAP.ER.24H PO SCH (09:10)
[2017-03-04] MEDS: Gabapentin 300 MG CAPSULE PO SCH ×3 (09:11→20:04)
[2017-03-04] MEDS: Metoprolol XL (24 HR) Succ 50 MG TAB.ER.24H PO SCH (09:11)
[2017-03-04] MEDS: Aspirin Enteric Coated 81 MG Tablet PO SCH (09:11)
[2017-03-04] MEDS: APIXABAN 5 MG TABLET PO SCH ×2 (09:11→20:04)
--- NOTE | 2017-03-04 10:16 | ECHO - Doppler Report ---
Echo with Imaging Enhancement Agent Name: Pete Bonner Date of Study: 03/03/2017 Date: 1940 Ht: 70.0 in Medical Record#: [id number] Age: 77 Wt: 274.0 lb Gender: Male BSA: 2.39 Order #: [id number] Location: [facility] Room #: IC11 Reading Physician: Smita Chong DO Director Of Sales: Abbie Cortez RVT Ordering Physician: Jesu Corea DO Primary Physician: None Indications: Dyspnea, Congestive heart failure Impressions: Technically challenging study due to AFIB with RVR, HR 120's during exam. LVEF 65-70%. Indeterminate diastolic function. Moderate concentric left ventricular hypertrophy. RV is suboptimally visualized in most views. In the PLAX view, it appears hypokinetic. TD velocities of 4 cm/s suggests severe hypokinesis. Mild mitral regurgitation. Moderate tricuspid regurgitation. IVC is dilated without collapse. Estimated RVSP 52 mmHg consistent with moderate pulmonary hypertension. Left Ventricular Wall Motion: Rest Echo Findings The mid anterior septal, mid inferior lateral, basal anterior septal and basal inferior lateral cheng were not visualized. All other wall segments showed normal motion. Findings: Study Quality * Technically sub-optimal due to body habitus. ECG Findings * Atrial fibrillation with RVR, HR 120's. Left Ventricle * Indeterminate diastolic function. * Moderate concentric left ventricular hypertrophy. * Dynamic mid ventricular gradient without significant obstruction, 13 mmHg. * Definity echo contrast was used. * LVEF 65-70%. Left Atrium * Severely dilated left atrium. Mitral Valve * Normal mitral valve structure. * No mitral stenosis. * Mild mitral regurgitation. Aorta * Normally sized aortic root. Aortic Valve * No aortic regurgitation. * Aortic valve not well visualized. * No aortic stenosis. Tricuspid Valve * Tricuspid valve not well visualized. * Moderate tricuspid regurgitation. Pulmonic Valve * Pulmonic valve is not well visualized. * No pulmonic stenosis. * No pulmonic regurgitation. Pulmonary Artery * Pulmonary artery not well visualized. Right Atrium * Volumes not well obtained. Visually, appears mildly dilated. Right Ventricle * RV is not well visualized. Lat S Wicho 4 cm/s. Interatrial Septum * No evidence of PFO by color Doppler. Pericardium * There is no pericardial effusion present. IVC * The IVC is dilated. History Hypertension Family History of CAD 1-7-17 a Previous Echo was performed. Contrast: Definity 1.3 ml in 8.7 ml of saline 2 ml. Measurements: BP: 108/ 90 2D Normal Values RVIDd: 4.30 cm <2.7 cm IVSd: 1.60 cm 0.6 - 1.0 cm LVIDd: 2.60 cm 3.7 - 5.6 cm LVPWd: 1.60 cm 0.6 - 1.1 cm LVIDs: 1.80 cm 1.5 - 3.6 cm AO: 3.80 cm < 4.0 cm LA: 5.70 cm 2.0 - 4.0cm %FS: 30.80 cm >25 % LA volume: 178 Mitral Valve Peak Velocity 1.95 m/sec Mean Velocity:1.01 m/sec Peak Grad:15.00 mmHg Mean Grad:5.00 mmHg Pressure Time:25.00 msec Valve Area:8.80 cm2 Peak E:.86 m/sec Peak E' Lat Wicho:4.42 cm/s Peak E' Med Wicho:2.9 cm/s E/E' Lat Ratio:19.5 E/E' Med Ratio:29.8 LVOT Peak Wicho:1.80 m/sec Mean Wicho:1.07 m/sec Peak Grad:13.00 mmHg Mean Grad:6.00 mmHg Tricuspid Valve TV Regurg Peak Grad: 37.00mmHg TV Regurg Peak Wicho: 3.06m/sec Updated by Smita Chong on 03/04/2017 10:11:08 AM electronically signed on 03/04/2017 10:12:54 AM with status of Final Wall Motion Hendrix: 1=Normal, 2=Hypokinesis, 3=Akinesis, 4=Dyskinesis, 5=Aneurysmal, 6=Hyperkinetic, X=Not Visualized (Blank)=Missing
--- NOTE | 2017-03-04 13:38 | Cardiology Progress Note ---
Date of Encounter: 03/04/17 Time of Encounter: 12:00 Assessment and Plan (1) Atrial fibrillation with RVR Current Visit: No Status: Acute Etiology of AFIB exacerbation may be multifactorial and in part related to acute CHF exacerbation and possibly due to blood loss anemia. Looking back, the patient was started on Eliquis in the Fall of 2015 after which he developed gross hematuria and was seen by Dr. Catalan as an outpatient who recommended cysto but is unclear whether patient no showed. Subsequently, Hgb has continued to slowly decline, now 8.5 from 11-12 in May 2016. At some point, he was also supposed to see GI but did not. For now, we recommend stopping aspirin. We would like to continue eliquis for stroke prevention. Will check stool hemoccult. May consider Urology evaluation (large blood in urinalysis). Also likely driving AFIB RVR is CHF exacerbation and likely undiagnosed ANNEL. Recommend using BIPAP at nighttime during hospitalization. Recommend replacing electrolytes and restart IV diuresis. Home doses of cardizem and toprol were restarted today but concern that BP may not allow. Will decrease cardizem to 120mg and continue toprol with careful watch on BP. (2) Congestive heart failure (CHF) Current Visit: No Status: Acute has acute CHF with an element of diastolic heart failure and probable right sided heart failure. His echo images have been traditionally difficult to visualize the RV. However, his most recent echo demonstrates hypokinesis in the PLAX images and severe reduction in TD velocities suggesting right sided heart failure. For now, I recommend continued IV diuresis and consider nighttime BIPAP. He will need an official sleep study as an outpatient. Qualifiers: Congestive heart failure type: diastolic Congestive heart failure chronicity: acute Qualified Code(s): I50.31 - Acute diastolic (congestive) heart failure Discussion w patient/family: The assessment and plan as outlined above was discussed with the patient and/or family members who expressed understanding and agreement. All questions were answered. Thank you for involving us in the care of your patient. Please call with any questions. Subjective Principal diagnosis: exacerbation of CHF with fluid overload Interval history: No acute overnight events. Patient is somnolent but arousable and oriented and appropriate when asked questions. Objective Vital Signs, Last 4 Hours Temp Pulse Resp BP Pulse Ox 03/04/17 13:00 94 16 99/80 98 03/04/17 12:03 98.1 F 03/04/17 11:00 93 18 108/81 96 General: No Apparent Distress, Other (sleeping but arousable, able to converse) HEENT: Atraumatic Neck: Other (JVP difficult to appreciate) Cardiac: Other (irregularly irregular, soft systolic murmur LSB) Lungs: Other (breath sounds appear clear anteriorly) Neuro: No focal deficits noted Abdomen: Soft, Other (bowel sounds present) Extremities: Other (bilateral LE edema) Results 03/04/17 03:50 03/04/17 03:50 Lab Results 03/03/17 03/03/17 03/04/17 15:46 15:46 03:50 WBC 7.8 7.0 Hgb 8.2 L 8.5 L Hct 28.8 L 29.3 L Plt Count 458 H 435 H Sodium 136 Potassium 3.3 L D Chloride 94 L Carbon Dioxide 32 H BUN 49 H Creatinine 1.30 H Glucose 119 H Calcium 7.8 L Magnesium 03/04/17 03/04/17 03:50 03:50 WBC Hgb Hct Plt Count Sodium 137 Potassium 3.1 L Chloride 91 L Carbon Dioxide 34 H BUN 46 H Creatinine 1.35 H Glucose 114 H Calcium 8.3 L Magnesium 1.5 L - Imaging and Cardiology Echo: report reviewed, image reviewed - EKG Interpretation EKG results cardiology: other (24h telemetry demonstrates average HR 108 bpm, 5 beat run NSVT) Consult Discharge Plan - Plan Referrals: NO,PCP [Primary Care Provider] -
[2017-03-04] MEDS: Furosemide 20 MG/2 ML VIAL IVP SCH ×2 (14:24→20:04)
[2017-03-04] MEDS: Magnesium Sulfate 2 GM in D5% in Water 100 ML IVPB PRN ×2 (14:25→23:39)
[2017-03-04] MEDS: Calcium Gluconate 1,000 MG in D5% in Water 100 ML IVPB PRN ×2 (14:25→23:39)
[2017-03-04] MEDS ORDERED: Saline Nasal Spray 44 ML BOTTLE NS PRN (17:28)
[2017-03-04] MEDS: Melatonin 3 MG TABLET PO SCH (20:04)
[2017-03-04 21:03] LABS: Ionized Calcium 1.07 mmol/L (1.15-1.35)
[2017-03-04 21:05] LABS: Magnesium 1.8 mg/dL (1.6-2.6)
[2017-03-05 05:41] LABS: Basophils % 0.6 %; Immature Granulocytes % 0.4 % (0-4); Mean Corpuscular HGB Conc 28.4 g/dL (31.6-35.5); Mean Corpuscular Hemoglobin 21.3 pg (28.0-33.3)
[2017-03-05 05:42] LABS: Eosinophils % 4.8 %; Hematocrit 29.6 % (37.5-50.1); Hemoglobin 8.4 g/dL (12.9-16.9); Lymphocytes # 0.9 K/mcL (0.6-4.6); Mean Corpuscular Volume 75.1 fL (83.0-100.0); Mean Platelet Volume 9.4 fL (9.4-12.4); Monocytes # 0.8 K/mcL (0.0-1.3); Monocytes % 11.3 %; Neutrophils # 5.1 K/mcL (1.6-8.9); Nucleated Red Blood Cells 1.4 /100 WBC (0); Platelet Count 416 K/mcL (140-400); Red Blood Count 3.94 M/mcL (4.19-5.50); Red Cell Distribution Width 20.3 % (11.5-14.5); Segmented Neutrophils % 70.9 %
[2017-03-05 05:44] LABS: Eosinophils # 0.4 K/mcL (0.0-0.6)
[2017-03-05 05:53] LABS: BUN/Creatinine Ratio 24 (6-26); Calcium 8.4 mg/dL (8.6-10.8); Carbon Dioxide 38 mEq/L (19-29); Chloride 91 mEq/L (98-109); Glucose 126 mg/dL (70-99); Ionized Calcium 0.95 mmol/L (1.15-1.35); Magnesium 1.9 mg/dL (1.6-2.6); Osmolality,Calculated 296 (280-300); Phosphorous 3.4 mg/dL (2.3-4.7); Sodium 139 mEq/L (136-145); eGFR For African Americans > 60 (> 60); eGFR For Non-African Americans 55 (> 60)
[2017-03-05 05:56] LABS: Blood Urea Nitrogen 31 mg/dL (8-26)
[2017-03-05 06:00] LABS: Anisocytosis 2+ (Not Present); Hypochromasia Present (Not Present)
[2017-03-05 06:01] LABS: Microcytosis Present (Not Present); Platelet Estimate Normal (Normal)
[2017-03-05] MEDS: Magnesium Sulfate 2 GM in D5% in Water 100 ML IVPB PRN (06:43)
[2017-03-05] MEDS: Calcium Gluconate 1,000 MG in D5% in Water 100 ML IVPB PRN ×3 (06:43→22:04)
[2017-03-05] MEDS: Amiodarone Premix 360 MG/200 ML BAG IVC SCH (06:46)
[2017-03-05] MEDS: Gabapentin 300 MG CAPSULE PO SCH ×3 (08:58→20:48)
--- NOTE | 2017-03-05 08:58 | Pulmonology Progress Note ---
<Matheus Bradford W - Last Filed: 03/05/17 10:24> Date of Encounter: 03/05/17 Objective PUL Vital signs: Last Vital Signs Temp 95.9 F L 03/05/17 07:00 Pulse 81 03/05/17 09:00 Resp 18 03/05/17 09:00 BP 104/70 03/05/17 09:00 Pulse Ox 95 03/05/17 09:00 Results - Laboratory Findings CBC and BMP: 03/05/17 05:30 03/05/17 05:30 ABG ABG pH 7.42 pH Units (7.32-7.45) 03/03/17 00:25 ABG pCO2 54 mmHg (35-45) H 03/03/17 00:25 ABG pO2 153 mmHg (85-104) H 03/03/17 00:25 ABG O2 Saturation 99 % (95-98) H 03/03/17 00:25 PT/INR, D-dimer PT 43.2 Seconds (9.4-12.1) H 03/02/17 23:45 Abnormal lab findings: Abnormal lab results RBC 3.94 M/mcL (4.19-5.50) L 03/05/17 05:30 Hgb 8.4 g/dL (12.9-16.9) L 03/05/17 05:30 Hct 29.6 % (37.5-50.1) L 03/05/17 05:30 MCV 75.1 fL (83.0-100.0) L 03/05/17 05:30 MCH 21.3 pg (28.0-33.3) L 03/05/17 05:30 MCHC 28.4 g/dL (31.6-35.5) L 03/05/17 05:30 RDW 20.3 % (11.5-14.5) H 03/05/17 05:30 Plt Count 416 K/mcL (140-400) H 03/05/17 05:30 Nucleated RBCs/100 WBC 1.4 /100 WBC (0) H 03/05/17 05:30 Polychromasia 2+ (Not Present) A 03/02/17 23:45 Hypochromasia Present (Not Present) A 03/05/17 05:30 Poikilocytosis 1+ (Not Present) A 03/02/17 23:45 Anisocytosis 2+ (Not Present) A 03/05/17 05:30 Microcytosis Present (Not Present) A 03/05/17 05:30 Macrocytosis Present (Not Present) A 03/02/17 23:45 Target Cells 1+ (Not Present) A 03/02/17 23:45 PT 43.2 Seconds (9.4-12.1) H 03/02/17 23:45 ABG pCO2 54 mmHg (35-45) H 03/03/17 00:25 ABG pO2 153 mmHg (85-104) H 03/03/17 00:25 ABG HCO3 35.0 mEQ/L (21-27) H 03/03/17 00:25 ABG Total CO2 36.7 mEq/L (20-26) H 03/03/17 00:25 ABG O2 Saturation 99 % (95-98) H 03/03/17 00:25 ABG Base Excess 9.0 mEq/L (-2.0 to 3.0) H 03/03/17 00:25 Potassium 3.0 mEq/L (3.5-4.5) L 03/05/17 05:30 Chloride 91 mEq/L (98-109) L 03/05/17 05:30 Carbon Dioxide 38 mEq/L (19-29) H 03/05/17 05:30 BUN 31 mg/dL (8-26) H D 03/05/17 05:30 Creatinine 1.27 mg/dL (0.72-1.25) H 03/05/17 05:30 Est GFR (Non-Af Amer) 55 (> 60) L 03/05/17 05:30 Glucose 126 mg/dL (70-99) H 03/05/17 05:30 POC Glucose 116 (58-89) H 03/03/17 13:37 Calcium 8.4 mg/dL (8.6-10.8) L 03/05/17 05:30 Ionized Calcium 0.95 mmol/L (1.15-1.35) L 03/05/17 05:30 Urine Clarity Cloudy (Clear) A 03/03/17 06:20 Urine Protein 30 mg/dL (Neg-Trace) H 03/03/17 06:20 Urine Blood Large (Negative) H 03/03/17 06:20 Ur Leukocyte Esterase Large (Negative) H 03/03/17 06:20 Urine Microscopic RBC 30-50 per hpf (0-3) H 03/03/17 06:20 Urine Microscopic WBC TNTC per hpf (0-3) H 03/03/17 06:20 Ur Squamous Epith Cells Many per lpf (None-Few) H 03/03/17 06:20 Urine Bacteria Moderate per hpf (None-Few) H 03/03/17 06:20 Ur Culture Indicated? YES (NO) A 03/03/17 06:20 - Microbiology Findings Microbiology Findings: Microbiology, Last 48 Hours 03/03/17 06:20 Urine Culture - Final Urine,Clean Catch No growth. - Clinical Findings Intake & Output: Intake & Output 03/04/17 03/05/17 03/05/17 23:59 07:59 15:59 Intake Total 654 / 654 654 / 654 240 / 240 Output Total 900 / 900 1600 / 1600 175 / 175 Balance -246 / -246 -946 / -946 65 / 65 Weight 129.6 kg Consult Discharge Plan - Plan Referrals: NO,PCP [Primary Care Provider] - - Attending Attestation I examined this patient and my medical decision-making was reviewed with the SIX PACK LOADER OPERATOR/PA/Advanced Practice Nurse/Resident Physician. I agree with the documented findings, disposition and treatment plan as described except to the extent set forth below. Patient seen and examined at bedside Labs, radiology, chart personally reviewed. All lines examined without evidence of infection. Impression: 1. Acute on Chronic Respiratory Failure 2. ADHF (HFpEF) 3. Afib with RVR 4. DERRICK Plan: -Continue supplemental oxygen via nasal cannula to keep saturations around 92-94 % Cont PAP at night -Continue diuresis. Cardiology following patient. -Continue amiodarone drip per cardiology -Improving with diuresis cont to monitor I/Os Stable for transfer to stepdown unit report will be called to admitting hospitalist service who will assume care of the patient. <Sadiq Arteaga - Last Filed: 03/05/17 11:38> Date of Encounter: 03/05/17 Time of Encounter: 08:58 Assessment and Plan (1) Atrial fibrillation with RVR Current Visit: No Status: Acute Cardiology is following. On amiodarone drip. Will follow cardiology's input. Continue diuresis. Continues to tolerate diursis well. Lasix 60mg IVP JESSE BID. Continue anticoagulation. Home rate control medications have been restarted with adequate blood pressures. I spoke with the admitting hospitalist Dr. Wright who accepted the patient for transfer out of the ICU. He is in stable condition and is currently rate controlled. (2) Fluid overload Current Visit: No Status: Chronic Secondary to CHF and atrial fibrillation with RVR. History of excessive fluid intake without any sort of diet adherence to salty foods. See plan above. Qualifiers: Hypervolemia type: other Qualified Code(s): E87.79 - Other fluid overload (3) Hypertension Current Visit: No Status: Chronic Consider hydralazine once pressure has normalized. Hold home meds at this time. Continue to monitor. Qualifiers: Hypertension type: essential hypertension Qualified Code(s): I10 - Essential (primary) hypertension (4) Acute exacerbation of CHF (congestive heart failure) Current Visit: Yes Status: Acute Heart failure with preserved ejection fraction. Optimize heart rate and rhythm. Decrease afterload. See plan above. Qualifiers: Congestive heart failure type: diastolic Qualified Code(s): I50.33 - Acute on chronic diastolic (congestive) heart failure (5) Acute hypercapnic respiratory failure Current Visit: No Status: Acute The patient tolerated BiPAP well overnight. Currently saturating at 96% on 4L NC. (6) DERRICK (acute kidney injury) Current Visit: Yes Status: Acute Creatinine 1.41 > 1.35 > 1.27 Avoid nephrotoxins. Continue to monitor. Subjective Principal diagnosis: exacerbation of CHF with fluid overload Interval history: The patient was seen and examined. He continues to feel comfortable. He is sitting up in a chair and does not have any complaints at this time. He is currently saturating at 96% on 4L NC. Objective PUL Vital signs: Last Vital Signs Temp 95.9 F L 03/05/17 07:00 Pulse 77 03/05/17 07:58 Resp 14 03/05/17 07:00 BP 96/75 03/05/17 07:00 Pulse Ox 96 03/05/17 07:00 General appearance: no acute distress Eyes: nonicteric ENT: oropharynx moist Neck: supple Effort: normal Auscultation: bilateral: diminished breath sounds, other (crackles bilaterally at lung bases) Cardiovascular: irregular rhythm Gastrointestinal: normoactive bowel sounds, non-tender, other (distended) Integumentary: normal Extremities: cyanosis (present on right foot) Musculoskeletal: no deformities normal mental status, non-focal exam mood appropriate Results - Laboratory Findings CBC and BMP: 03/05/17 05:30 03/05/17 05:30 ABG ABG pH 7.42 pH Units (7.32-7.45) 03/03/17 00:25 ABG pCO2 54 mmHg (35-45) H 03/03/17 00:25 ABG pO2 153 mmHg (85-104) H 03/03/17 00:25 ABG O2 Saturation 99 % (95-98) H 03/03/17 00:25 PT/INR, D-dimer PT 43.2 Seconds (9.4-12.1) H 03/02/17 23:45 Abnormal lab findings: Abnormal lab results RBC 3.94 M/mcL (4.19-5.50) L 03/05/17 05:30 Hgb 8.4 g/dL (12.9-16.9) L 03/05/17 05:30 Hct 29.6 % (37.5-50.1) L 03/05/17 05:30 MCV 75.1 fL (83.0-100.0) L 03/05/17 05:30 MCH 21.3 pg (28.0-33.3) L 03/05/17 05:30 MCHC 28.4 g/dL (31.6-35.5) L 03/05/17 05:30 RDW 20.3 % (11.5-14.5) H 03/05/17 05:30 Plt Count 416 K/mcL (140-400) H 03/05/17 05:30 Nucleated RBCs/100 WBC 1.4 /100 WBC (0) H 03/05/17 05:30 Polychromasia 2+ (Not Present) A 03/02/17 23:45 Hypochromasia Present (Not Present) A 03/05/17 05:30 Poikilocytosis 1+ (Not Present) A 03/02/17 23:45 Anisocytosis 2+ (Not Present) A 03/05/17 05:30 Microcytosis Present (Not Present) A 03/05/17 05:30 Macrocytosis Present (Not Present) A 03/02/17 23:45 Target Cells 1+ (Not Present) A 03/02/17 23:45 PT 43.2 Seconds (9.4-12.1) H 03/02/17 23:45 ABG pCO2 54 mmHg (35-45) H 03/03/17 00:25 ABG pO2 153 mmHg (85-104) H 03/03/17 00:25 ABG HCO3 35.0 mEQ/L (21-27) H 03/03/17 00:25 ABG Total CO2 36.7 mEq/L (20-26) H 03/03/17 00:25 ABG O2 Saturation 99 % (95-98) H 03/03/17 00:25 ABG Base Excess 9.0 mEq/L (-2.0 to 3.0) H 03/03/17 00:25 Potassium 3.0 mEq/L (3.5-4.5) L 03/05/17 05:30 Chloride 91 mEq/L (98-109) L 03/05/17 05:30 Carbon Dioxide 38 mEq/L (19-29) H 03/05/17 05:30 BUN 31 mg/dL (8-26) H D 03/05/17 05:30 Creatinine 1.27 mg/dL (0.72-1.25) H 03/05/17 05:30 Est GFR (Non-Af Amer) 55 (> 60) L 03/05/17 05:30 Glucose 126 mg/dL (70-99) H 03/05/17 05:30 POC Glucose 116 (58-89) H 03/03/17 13:37 Calcium 8.4 mg/dL (8.6-10.8) L 03/05/17 05:30 Ionized Calcium 0.95 mmol/L (1.15-1.35) L 03/05/17 05:30 Urine Clarity Cloudy (Clear) A 03/03/17 06:20 Urine Protein 30 mg/dL (Neg-Trace) H 03/03/17 06:20 Urine Blood Large (Negative) H 03/03/17 06:20 Ur Leukocyte Esterase Large (Negative) H 03/03/17 06:20 Urine Microscopic RBC 30-50 per hpf (0-3) H 03/03/17 06:20 Urine Microscopic WBC TNTC per hpf (0-3) H 03/03/17 06:20 Ur Squamous Epith Cells Many per lpf (None-Few) H 03/03/17 06:20 Urine Bacteria Moderate per hpf (None-Few) H 03/03/17 06:20 Ur Culture Indicated? YES (NO) A 03/03/17 06:20 - Microbiology Findings Microbiology Findings: Microbiology, Last 48 Hours 03/03/17 06:20 Urine Culture - Final Urine,Clean Catch No growth. - Clinical Findings Intake & Output: Intake & Output 03/04/17 03/05/17 03/05/17 23:59 07:59 15:59 Intake Total 654 / 654 654 / 654 Output Total 900 / 900 1600 / 1600 175 / 175 Balance -246 / -246 -946 / -946 -175 / -175 Weight 129.6 kg
[2017-03-05] MEDS: Metoprolol XL (24 HR) Succ 50 MG TAB.ER.24H PO SCH (08:59)
[2017-03-05] MEDS: APIXABAN 5 MG TABLET PO SCH ×2 (08:59→20:48)
[2017-03-05] MEDS: Venlafaxine XR (24 HR) 150 MG CAP.ER.24H PO SCH (08:59)
[2017-03-05] MEDS ORDERED: Diltiazem CD (24hr) 120 MG CAPSULE PO SCH (09:00)
[2017-03-05] MEDS: Furosemide 20 MG/2 ML VIAL IVP SCH ×2 (09:18→17:38)
[2017-03-05] MEDS ORDERED: Magnesium Sulfate 2 GM in D5% in Water 100 ML IVPB PRN (11:53)
[2017-03-05] MEDS ORDERED: Amiodarone Premix 360 MG/200 ML BAG IVC SCH (11:53)
[2017-03-05] MEDS ORDERED: Sodium Phosphate 30 MMOL in D5% in Water 100 ML IVPB PRN (11:53)
[2017-03-05] MEDS ORDERED: Saline Nasal Spray 44 ML BOTTLE NS PRN (11:53)
[2017-03-05] MEDS ORDERED: Ipratropium/Albuterol Neb 3 ML IH PRN (11:53)
[2017-03-05] MEDS ORDERED: Naloxone 0.4 MG/ML INJ IVP PRN (11:53)
[2017-03-05 12:15] LABS: Magnesium 2.1 mg/dL (1.6-2.6); Potassium 3.1 mEq/L (3.5-4.5)
--- NOTE | 2017-03-05 12:44 | Cardiology Progress Note ---
Date of Encounter: 03/05/17 Time of Encounter: 09:30 Assessment and Plan (1) Atrial fibrillation with RVR Current Visit: No Status: Acute Heart rates are much better controlled with diuresis. Recommend discontinuing amio drip. Would hold off on starting this patient on PO amiodarone. Continue cardizem and toprol at present doses given borderline blood pressures. Suspect AF RVR secondary to CHF exacerbation and untreated sleep apnea. Replete electrolytes. In regards to eliquis, Ideally he should remain on this medication. However, his blood counts have slowly declined since the start of Eliquis and at one point had gross hematuria but does not appear to have followed up with Dr. Catalan as an outpatient. He does not have gross hematuria on visual inspection but does have large blood in recent urinalysis. May be reasonable to consider Urology evaluation. Aspirin has been stopped. (2) Congestive heart failure (CHF) Current Visit: No Status: Acute has acute CHF with an element of diastolic heart failure and probable right sided heart failure. Echo demonstrates hypokinesis of the RV in the PLAX images and severe reduction in TD velocities suggesting right sided heart failure. I recommend continued IV diuresis and nighttime BIPAP. He will need an official sleep study as an outpatient. Qualifiers: Congestive heart failure type: diastolic Congestive heart failure chronicity: acute Qualified Code(s): I50.31 - Acute diastolic (congestive) heart failure Discussion w patient/family: The assessment and plan as outlined above was discussed with the patient and/or family members who expressed understanding and agreement. All questions were answered. Thank you for involving us in the care of your patient. Please call with any questions. Subjective Principal diagnosis: exacerbation of CHF with fluid overload Interval history: No acute overnight events. Patient has no new complaints today. Objective Vital Signs, Last 4 Hours Pulse Resp BP Pulse Ox 03/05/17 09:00 81 18 104/70 95 General: Conversant, No Apparent Distress Neck: Other (JVP difficult to appreciate) Cardiac: No Murmur, Other (irregularly irregular) Lungs: Other (clear breath sounds anteriorly) Neuro: Alert and responsive, No focal deficits noted Abdomen: Soft, Other (bowel sounds present) Extremities: Other (bilateral LE edema) Results 03/05/17 05:30 03/05/17 11:56 Lab Results 03/04/17 03/05/17 03/05/17 20:45 05:30 05:30 WBC 7.2 Hgb 8.4 L Hct 29.6 L Plt Count 416 H Sodium 139 Potassium 3.0 L 3.0 L Chloride 91 L Carbon Dioxide 38 H BUN 31 H D Creatinine 1.27 H Glucose 126 H Calcium 8.4 L Magnesium 1.8 1.9 03/05/17 11:56 WBC Hgb Hct Plt Count Sodium Potassium 3.1 L Chloride Carbon Dioxide BUN Creatinine Glucose Calcium Magnesium 2.1 - EKG Interpretation EKG results cardiology: other (24h telemetry reviewed demonstrating average HR 94 bpm in AFIB, no other concerning dysrhythmia) Consult Discharge Plan - Plan Referrals: NO,PCP [Primary Care Provider] -
[2017-03-05 12:48] LABS: Ionized Calcium 1.09 mmol/L (1.15-1.35)
[2017-03-05] MEDS: Melatonin 3 MG TABLET PO SCH (20:48)
[2017-03-06 03:36] LABS: Ionized Calcium 1.03 mmol/L (1.15-1.35); Magnesium 1.8 mg/dL (1.6-2.6); Phosphorous 2.9 mg/dL (2.3-4.7)
[2017-03-06] MEDS: Calcium Gluconate 1,000 MG in D5% in Water 100 ML IVPB PRN (05:31)
[2017-03-06] MEDS: Diltiazem CD (24hr) 120 MG CAPSULE PO SCH (08:27)
[2017-03-06] MEDS: Venlafaxine XR (24 HR) 150 MG CAP.ER.24H PO SCH (08:27)
[2017-03-06] MEDS: APIXABAN 5 MG TABLET PO SCH ×2 (08:28→19:59)
[2017-03-06] MEDS: Furosemide 20 MG/2 ML VIAL IVP SCH ×2 (08:28→16:53)
[2017-03-06] MEDS: Gabapentin 300 MG CAPSULE PO SCH ×3 (08:30→20:00)
[2017-03-06] MEDS: Metoprolol XL (24 HR) Succ 50 MG TAB.ER.24H PO SCH (08:30)
--- NOTE | 2017-03-06 08:47 | Cardiology Progress Note ---
Date of Encounter: 03/06/17 Time of Encounter: 08:46 Assessment and Plan (1) Atrial fibrillation with RVR Current Visit: No Status: Acute - HR controlled at 80s-90s - Continue cardizem 120mg daily and toprol 50 mg PO daily - Suspect AF RVR secondary to CHF exacerbation and untreated sleep apnea. Replete electrolytes. Continue BiPAP at night - Continue eliquis 5mg PO BID with close monitoring of any active bleeding. (2) Acute exacerbation of CHF (congestive heart failure) Current Visit: Yes Status: Acute - Echo- LVEF 65-70%, RV hypokinetic with TD velocity 4cm/s; mild MR, moderate TR , moderate pulm HTN with RVSP 52, IVC dilated. - Continue diuresis 60mg BID - Continue nightly BiPAP Qualifiers: Qualified Code(s): I50.33 - Acute on chronic diastolic (congestive) heart failure Discussion w patient/family: The assessment and plan as outlined above was discussed with the patient and/or family members who expressed understanding and agreement. All questions were answered. Thank you for involving us in the care of your patient. Please call with any questions. Subjective Principal diagnosis: exacerbation of CHF with fluid overload Interval history: No acute issues overnight. Pt being transferred out of ICU. BPs decreased to 82/ 68 with morning Lasix dose. Pt currently feeling much better and is able to breath without difficulty on 4L NC. Just worked with therapy and was able to do more activities without exertional dyspnea. Objective Vital Signs, Last 4 Hours Temp Pulse Resp BP Pulse Ox 03/06/17 08:43 89 11 82/68 94 03/06/17 08:32 98.0 F 03/06/17 07:50 84 General: Conversant, No Apparent Distress HEENT: Atraumatic, Mucus Membranes Moist Neck: No JVD Cardiac: Other (a fib, rate 80s-90s) Lungs: Normal Breath Sounds, No Wheeze, Rales, Rhonchi Neuro: Alert and responsive, No focal deficits noted Abdomen: Soft, Non-Tender Skin: No rashes noted on visualized skin Musculoskeletal: No Chest Wall Tenderness Extremities: Normal Pulses, Other (mild LE edema) Results 03/06/17 14:26 03/06/17 14:26 Lab Results 03/05/17 03/05/17 03/05/17 11:56 17:35 20:58 Potassium 3.1 L 3.1 L 3.9 Magnesium 2.1 03/06/17 03/06/17 03:15 03:15 Potassium 3.7 Magnesium 1.8 - Imaging and Cardiology Chest Xray: report reviewed Echo: report reviewed - EKG Interpretation EKG results cardiology: personally reviewed, other (rate controlled a fib) Consult Discharge Plan - Plan Referrals: NO,PCP [Primary Care Provider] -
[2017-03-06 14:31] LABS: Eosinophils % 3.7 %; Hemoglobin 8.8 g/dL (12.9-16.9)
[2017-03-06 14:33] LABS: Basophils % 0.3 %; Eosinophils # 0.3 K/mcL (0.0-0.6); Hematocrit 31.6 % (37.5-50.1); Immature Granulocytes % 0.1 % (0-4); Lymphocytes % 9.8 %; Mean Corpuscular HGB Conc 27.8 g/dL (31.6-35.5); Mean Corpuscular Hemoglobin 21.4 pg (28.0-33.3); Mean Corpuscular Volume 76.9 fL (83.0-100.0); Mean Platelet Volume 9.3 fL (9.4-12.4); Monocytes # 0.9 K/mcL (0.0-1.3); Monocytes % 10.8 %; Neutrophils # 6.5 K/mcL (1.6-8.9); Nucleated Red Blood Cells 1.5 /100 WBC (0); Platelet Count 424 K/mcL (140-400); Red Blood Count 4.11 M/mcL (4.19-5.50); Red Cell Distribution Width 20.5 % (11.5-14.5); Segmented Neutrophils % 75.3 %
[2017-03-06 14:34] LABS: Lymphocytes # 0.8 K/mcL (0.6-4.6)
[2017-03-06 14:46] LABS: BUN/Creatinine Ratio 25 (6-26); Blood Urea Nitrogen 21 mg/dL (8-26); Calcium 7.5 mg/dL (8.6-10.8); Carbon Dioxide 37 mEq/L (19-29); Chloride 97 mEq/L (98-109); Glucose 107 mg/dL (70-99); Osmolality,Calculated 297 (280-300); Potassium 3.2 mEq/L (3.5-4.5); Sodium 142 mEq/L (136-145); eGFR For African Americans > 60 (> 60); eGFR For Non-African Americans > 60 (> 60)
[2017-03-06 14:49] LABS: Anisocytosis 2+ (Not Present); Hypochromasia Present (Not Present); Microcytosis Present (Not Present); Platelet Estimate Increased (Normal)
[2017-03-06] MEDS ORDERED: Furosemide 40 MG/4 ML VIAL IVP ONE (14:53)
--- NOTE | 2017-03-06 15:09 | Internal Med Progress Note ---
Date of Encounter: 03/06/17 Time of Encounter: 15:04 - Assessment and plan (1) Acute on chronic kidney failure Current Visit: Yes Status: Acute Assessment and plan: Improving continue diuresis (2) Acute and chronic respiratory failure with hypercapnia Current Visit: Yes Status: Acute Assessment and plan: Patient admitted on BiPAP support Initial ABG with hypercapnea However, chart review reveals chronic metabolic alkalosis and patient is possibly a chronic retainer Continue O2 supplement and BiPAP prn (3) Acute exacerbation of CHF (congestive heart failure) Current Visit: Yes Status: Acute Assessment and plan: BNP at [facility] 1014 Echo shows LVEF 65-70%, RV hypokinetic with TD velocity 4cm/s; mild MR, moderate TR, moderate pulm HTN with RVSP 52, IVC dilated. I/O -4L Continue lasix 60mg BID Give additional 40mg lasix as tolerated by BP Strict I/Os Daily weight 1.5L fluid restricted cardiac diet Monitor renal function Qualifiers: Congestive heart failure type: diastolic Qualified Code(s): I50.33 - Acute on chronic diastolic (congestive) heart failure (4) CKD (chronic kidney disease) Current Visit: Yes Status: Chronic Assessment and plan: Cr at baseline, avoid nephrotoxins Qualifiers: Chronic kidney disease stage: stage 3 (moderate) Qualified Code(s): N18.3 - Chronic kidney disease, stage 3 (moderate) (5) Chronic anticoagulation Current Visit: Yes Status: Chronic Assessment and plan: Continue eliquis (6) Atrial fibrillation Current Visit: Yes Status: Chronic Assessment and plan: HR controlled On Cardizem, Toprol, Eliquis Continue same Qualifiers: Atrial fibrillation type: persistent Qualified Code(s): I48.1 - Persistent atrial fibrillation (7) Hypokalemia Current Visit: Yes Status: Acute Assessment and plan: Replaced, check chem a.m (8) Hypertension Current Visit: Yes Status: Chronic Assessment and plan: Controlled, continue meds Qualifiers: Hypertension type: essential hypertension Qualified Code(s): I10 - Essential (primary) hypertension (9) Morbid obesity Current Visit: Yes Status: Chronic Assessment and plan: Lifestyle changed Qualifiers: Obesity type: unspecified obesity type Qualified Code(s): E66.01 - Morbid ( severe) obesity due to excess calories - Subjective Interval history: 77 YO M being managed for Acute hypercapneic respiratory failure, Afib with RVR , Acute on chronic CHF exacerbation, and DERRICK on CKD, Hyperkalemia he has a PMH of Afib on Eliquis, CHFpEF, Pulm HTN On admission, he also had infiltrates on R lung region thought to be due to pneumonia, a/b had been discontinued by ICU team Patient is seen and evaluated at bedside by ICU team, He appears dusky and laying with HOB elevation without distress He denies new complains I/O -4.9L Weight gain, doubt accuracy Labs today reviewed - Constitutional Vitals: Temp Pulse Resp BP Pulse Ox 97.9 F 118 11 114/63 96 03/06/17 11:24 03/06/17 14:17 03/06/17 14:15 03/06/17 14:15 03/06/17 14:15 General appearance: Present: A&O X 3, morbidly obese, pleasant, no acute distress - Head Head exam: Present: atraumatic, normocephalic - Eye Eye exam: Present: PERRL, conjuntiva pink, sclera anicteric Pupils: Present: PERRL - ENT Additional comments: Cyanosis at the tip of both ears - Respiratory Respiratory exam: Present: CTAB (anterior auscultation only) - Cardiovascular Cardiovascular exam: Present: irregular rhythm, +S1, +S2. Absent: diastolic murmur, gallop, rubs, systolic murmur - GI/Abdominal GI/Abdominal exam: Present: normal bowel sounds, soft, no peritoneal signs. Absent: distended, tenderness Additional comments: Abdominal wall edema - Extremities Exam Extremities exam: Present: cyanotic (peripheral cyanosis), pedal edema (3+ bilateral pitting pedal edema, chronic venous stasis changes, upper extremity edema, pitting, peripheral cyanosis), warm, radial pulses palpable and symetrical. Absent: calf tenderness - Neurological Exam Neurological exam: Present: alert, CN II-XII intact, oriented X3, no focal deficits. Absent: pronater drift, facial droop, speech deficit - Skin Skin exam: Present: dry, intact Internal Medicine: Result - Labs CBC & Chem 7: 03/06/17 14:26 03/06/17 14:26 Labs: Short CBC 03/06/17 Range/Units 14:26 WBC 8.6 (4.3-11.1) K/mcL Hgb 8.8 L (12.9-16.9) g/dL Hct 31.6 L (37.5-50.1) % Plt Count 424 H (140-400) K/mcL Neutrophils # 6.5 (1.6-8.9) K/mcL BMP 03/05/17 03/05/17 03/06/17 17:35 20:58 03:15 Sodium Potassium 3.1 L 3.9 3.7 Chloride Carbon Dioxide BUN Creatinine Glucose Calcium 03/06/17 14:26 Sodium 142 Potassium 3.2 L Chloride 97 L Carbon Dioxide 37 H BUN 21 D Creatinine 0.85 Glucose 107 H Calcium 7.5 L - ABG Interpretation ABG results: ABG ABG pH 7.42 pH Units (7.32-7.45) 03/03/17 00:25 ABG pCO2 54 mmHg (35-45) H 03/03/17 00:25 ABG pO2 153 mmHg (85-104) H 03/03/17 00:25 ABG O2 Saturation 99 % (95-98) H 03/03/17 00:25 PT/INR, D-dimer PT 43.2 Seconds (9.4-12.1) H 03/02/17 23:45 - Impressions Impressions Chest X-Ray 03/03/17 05:59 IMPRESSION: Worsening right effusion and right lower lobe infiltrate. D/ 03/03/2017 07:24:08 Loida Castrejon MD / sanket Interpreting Provider: Loida Castrejon MD - VTE Documentation of Mechanical Device: Intermittent pneumatic compression device Consult Discharge Plan - Plan Referrals: NO,PCP [Primary Care Provider] -
[2017-03-06] MEDS: Melatonin 3 MG TABLET PO SCH (19:59)
[2017-03-07 03:25] LABS: Hemoglobin 8.6 g/dL (12.9-16.9); Immature Granulocytes % 0.2 % (0-4)
[2017-03-07 03:27] LABS: Basophils # 0.1 K/mcL (0.0-0.2); Basophils % 0.6 %; Eosinophils # 0.4 K/mcL (0.0-0.6); Eosinophils % 4.3 %; Hematocrit 30.5 % (37.5-50.1); Lymphocytes # 0.8 K/mcL (0.6-4.6); Lymphocytes % 10.2 %; Mean Corpuscular HGB Conc 28.2 g/dL (31.6-35.5); Mean Corpuscular Hemoglobin 21.6 pg (28.0-33.3); Mean Corpuscular Volume 76.6 fL (83.0-100.0); Mean Platelet Volume 9.6 fL (9.4-12.4); Monocytes # 1.1 K/mcL (0.0-1.3); Monocytes % 13.1 %; Neutrophils # 5.8 K/mcL (1.6-8.9); Platelet Count 398 K/mcL (140-400); Red Blood Count 3.98 M/mcL (4.19-5.50); Red Cell Distribution Width 20.2 % (11.5-14.5); Segmented Neutrophils % 71.6 %
[2017-03-07 03:37] LABS: BUN/Creatinine Ratio 26 (6-26); Blood Urea Nitrogen 22 mg/dL (8-26); Calcium 8.2 mg/dL (8.6-10.8); Carbon Dioxide 39 mEq/L (19-29); Chloride 94 mEq/L (98-109); Glucose 105 mg/dL (70-99); Osmolality,Calculated 294 (280-300); Potassium 4.1 mEq/L (3.5-4.5); Sodium 140 mEq/L (136-145); eGFR For African Americans > 60 (> 60); eGFR For Non-African Americans > 60 (> 60)
[2017-03-07 03:47] LABS: Anisocytosis 1+ (Not Present); Hypochromasia Present (Not Present); Microcytosis Present (Not Present); Platelet Estimate Normal (Normal); Poikilocytosis 1+ (Not Present)
--- NOTE | 2017-03-07 09:07 | Cardiology Progress Note ---
Date of Encounter: 03/07/17 Time of Encounter: 09:04 Assessment and Plan (1) Atrial fibrillation with RVR Current Visit: No Status: Acute - HR controlled 80s-90s - Continue cardizem 120mg daily and toprol 50 mg PO daily - Suspect AF RVR secondary to CHF exacerbation and untreated sleep apnea. Replete electrolytes. Continue BiPAP at night - Continue eliquis 5mg PO BID with close monitoring of any active bleeding. (2) Fluid overload Current Visit: No Status: Chronic Secondary to CHF and atrial fibrillation with RVR. improving continue diuresis continue fluid restriction and strict I/O monitor electrolytes Qualifiers: Hypervolemia type: other Qualified Code(s): E87.79 - Other fluid overload (3) Congestive heart failure (CHF) Current Visit: No Status: Acute has acute CHF with an element of diastolic heart failure and probable right sided heart failure. Echo demonstrates hypokinesis of the RV in the PLAX images and severe reduction in TD velocities suggesting right sided heart failure. I recommend continued IV diuresis and nighttime BIPAP. He will need an official sleep study as an outpatient. Qualifiers: Congestive heart failure type: diastolic Congestive heart failure chronicity: acute Qualified Code(s): I50.31 - Acute diastolic (congestive) heart failure Discussion w patient/family: The assessment and plan as outlined above was discussed with the patient and/or family members who expressed understanding and agreement. All questions were answered. Thank you for involving us in the care of your patient. Please call with any questions. Subjective Principal diagnosis: exacerbation of CHF with fluid overload Interval history: 77 yo M presents with acute exacerbation of CHF with fluid overload. Pt states that since admission and administration of lasix his edema has improved mostly on the right side of his body. Pt states he has not been having chest pain or shortness of breath while at rest, while laying flat or with minimal ambulation around room. Objective Vital Signs, Last 4 Hours Temp Pulse Resp BP Pulse Ox 03/07/17 06:34 97.4 F L 88 16 114/87 98 General: Conversant, No Apparent Distress HEENT: Atraumatic, Normocephaly, Mucus Membranes Moist Neck: No JVD Cardiac: Other (atrial fibrillation P 88) Lungs: Other (mild crackles and diminished breath sounds at bases) Neuro: Alert and responsive, No focal deficits noted Abdomen: Soft, Non-Tender Skin: No rashes noted on visualized skin Musculoskeletal: No Chest Wall Tenderness Extremities: Normal Pulses, Other (b/l LE 2+pitting edema, 3+ pitting edema L hand) Results 03/07/17 03:15 03/07/17 03:15 Lab Results 03/06/17 03/06/17 03/07/17 14:26 14:26 03:15 WBC 8.6 8.1 Hgb 8.8 L 8.6 L Hct 31.6 L 30.5 L Plt Count 424 H 398 Sodium 142 Potassium 3.2 L Chloride 97 L Carbon Dioxide 37 H BUN 21 D Creatinine 0.85 Glucose 107 H Calcium 7.5 L 03/07/17 03:15 WBC Hgb Hct Plt Count Sodium 140 Potassium 4.1 Chloride 94 L Carbon Dioxide 39 H BUN 22 Creatinine 0.86 Glucose 105 H Calcium 8.2 L - VTE Documentation of Mechanical Device: Intermittent pneumatic compression device Consult Discharge Plan - Plan Referrals: NO,PCP [Primary Care Provider] -
[2017-03-07] MEDS: Furosemide 20 MG/2 ML VIAL IVP SCH ×2 (09:44→17:24)
[2017-03-07] MEDS: Metoprolol XL (24 HR) Succ 50 MG TAB.ER.24H PO SCH (09:45)
[2017-03-07] MEDS: Gabapentin 300 MG CAPSULE PO SCH ×3 (09:45→19:53)
[2017-03-07] MEDS: APIXABAN 5 MG TABLET PO SCH ×2 (09:45→19:53)
[2017-03-07] MEDS: Diltiazem CD (24hr) 120 MG CAPSULE PO SCH (09:46)
[2017-03-07] MEDS: Venlafaxine XR (24 HR) 150 MG CAP.ER.24H PO SCH (09:46)
--- NOTE | 2017-03-07 18:52 | Internal Med Progress Note ---
Date of Encounter: 03/07/17 Time of Encounter: 16:30 - Assessment and plan (1) Acute and chronic respiratory failure with hypercapnia Current Visit: Yes Status: Acute Assessment and plan: Has been slowly improving with diuresis. Tolerates bipap as well. Still very volume overloaded. Continue diuresis and monitoring of respiratory status and renal function. (2) Acute exacerbation of CHF (congestive heart failure) Current Visit: Yes Status: Acute Assessment and plan: Slowly improving with diuresis. Will continue current management. Qualifiers: Congestive heart failure type: diastolic Qualified Code(s): I50.33 - Acute on chronic diastolic (congestive) heart failure (3) Acute on chronic kidney failure Current Visit: Yes Status: Resolved Assessment and plan: Resolved at this time. (4) Atrial fibrillation Current Visit: Yes Status: Chronic Assessment and plan: HR controlled On Cardizem, Toprol, Eliquis Continue same plan at this time. Qualifiers: Atrial fibrillation type: persistent Qualified Code(s): I48.1 - Persistent atrial fibrillation (5) Hypertension Current Visit: Yes Status: Chronic Assessment and plan: Controlled, continue meds Qualifiers: Hypertension type: essential hypertension Qualified Code(s): I10 - Essential (primary) hypertension - Subjective Interval history: Mr. Bonner is currently admitted for acute exac chr diastolic CHF and R heart failure. He is high risk due to potential for worsening respiratory status. - Constitutional Vitals: Temp Pulse Resp BP Pulse Ox 97.7 F 96 16 110/93 97 03/07/17 14:28 03/07/17 14:28 03/07/17 14:28 03/07/17 14:28 03/07/17 14:28 General appearance: Present: mild distress, A&O X 3, morbidly obese, pleasant - Head Head exam: Present: normocephalic - Eye Eye exam: Present: EOMI, conjuntiva pink - ENT ENT exam: Present: mucous membranes moist - Respiratory Respiratory exam: Present: decreased breath sounds, prolonged expiratory phase, rhonchi - Cardiovascular Cardiovascular exam: Present: RRR. Absent: tachycardia - GI/Abdominal GI/Abdominal exam: Present: soft. Absent: tenderness - Extremities Exam Extremities exam: Present: warm Additional comments: Severe pitting edema throughout. - Neurological Exam Neurological exam: Present: alert, oriented X3 - Skin Skin exam: Present: warm. Absent: rash Internal Medicine: Result - Labs CBC & Chem 7: 03/07/17 03:15 03/07/17 03:15 Labs: Short CBC 03/07/17 Range/Units 03:15 WBC 8.1 (4.3-11.1) K/mcL Hgb 8.6 L (12.9-16.9) g/dL Hct 30.5 L (37.5-50.1) % Plt Count 398 (140-400) K/mcL Neutrophils # 5.8 (1.6-8.9) K/mcL BMP 03/07/17 03:15 Sodium 140 Potassium 4.1 Chloride 94 L Carbon Dioxide 39 H BUN 22 Creatinine 0.86 Glucose 105 H Calcium 8.2 L - ABG Interpretation ABG results: ABG ABG pH 7.42 pH Units (7.32-7.45) 03/03/17 00:25 ABG pCO2 54 mmHg (35-45) H 03/03/17 00:25 ABG pO2 153 mmHg (85-104) H 03/03/17 00:25 ABG O2 Saturation 99 % (95-98) H 03/03/17 00:25 PT/INR, D-dimer PT 43.2 Seconds (9.4-12.1) H 03/02/17 23:45 - VTE Documentation of Mechanical Device: Intermittent pneumatic compression device Consult Discharge Plan - Plan Referrals: Keon Hector MD [Non-Partnered Physician] - 03/17/17 9:00 am
[2017-03-07] MEDS: Melatonin 3 MG TABLET PO SCH (19:53)
[2017-03-08 05:25] LABS: BUN/Creatinine Ratio 28 (6-26); Blood Urea Nitrogen 24 mg/dL (8-26); Calcium 8.7 mg/dL (8.6-10.8); Chloride 91 mEq/L (98-109); Glucose 103 mg/dL (70-99); Magnesium 1.4 mg/dL (1.6-2.6); Osmolality,Calculated 292 (280-300); Phosphorous 2.6 mg/dL (2.3-4.7); Potassium 3.7 mEq/L (3.5-4.5); Sodium 139 mEq/L (136-145); eGFR For African Americans > 60 (> 60); eGFR For Non-African Americans > 60 (> 60)
[2017-03-08 05:32] LABS: Carbon Dioxide 41 mEq/L (19-29)
[2017-03-08 06:42] LABS: Hemoglobin 8.8 g/dL (12.9-16.9); Red Cell Distribution Width 20.5 % (11.5-14.5)
[2017-03-08 06:44] LABS: Hematocrit 30.9 % (37.5-50.1); Mean Corpuscular HGB Conc 28.5 g/dL (31.6-35.5); Mean Corpuscular Hemoglobin 21.7 pg (28.0-33.3); Mean Corpuscular Volume 76.3 fL (83.0-100.0); Mean Platelet Volume 9.9 fL (9.4-12.4); Nucleated Red Blood Cells 1.1 /100 WBC (0); Platelet Count 417 K/mcL (140-400); Red Blood Count 4.05 M/mcL (4.19-5.50)
[2017-03-08 07:29] LABS: Anisocytosis 1+ (Not Present); Hypochromasia Present (Not Present); Microcytosis Present (Not Present); Polychromasia 1+ (Not Present)
[2017-03-08 07:31] LABS: Platelet Estimate Normal (Normal)
--- NOTE | 2017-03-08 08:31 | Cardiology Progress Note ---
Date of Encounter: 03/08/17 Time of Encounter: 08:31 Assessment and Plan (1) Atrial fibrillation with RVR Current Visit: No Status: Acute - HR 96-119, continue to monitor - Continue cardizem 120mg daily and toprol 50 mg PO daily; consider increasing if worsening rate control - Suspect AF RVR secondary to CHF exacerbation and untreated sleep apnea. Replete electrolytes. Continue BiPAP at night - Continue eliquis 5mg PO BID with close monitoring of any active bleeding. (2) Acute exacerbation of CHF (congestive heart failure) Current Visit: Yes Status: Acute - Echo- LVEF 65-70%, RV hypokinetic with TD velocity 4cm/s; mild MR, moderate TR , moderate pulm HTN with RVSP 52, IVC dilated. - Continue diuresis 60mg BID - Continue nightly BiPAP Qualifiers: Congestive heart failure type: diastolic Qualified Code(s): I50.33 - Acute on chronic diastolic (congestive) heart failure Discussion w patient/family: The assessment and plan as outlined above was discussed with the patient and/or family members who expressed understanding and agreement. All questions were answered. Thank you for involving us in the care of your patient. Please call with any questions. Subjective Principal diagnosis: exacerbation of CHF with fluid overload Interval history: Pt denies any chest pain or difficulty breathing at this time. Only complaint is that he wants to have a bowel movement. Pt is somewhat confused upon exam today. Edema improved on R side but still prominent on L. Objective Vital Signs, Last 4 Hours Temp Pulse Resp BP Pulse Ox 03/08/17 07:01 97.9 F 94 16 111/74 96 General: No Apparent Distress HEENT: Atraumatic, Mucus Membranes Moist Neck: No JVD Cardiac: Other (a fib with rvr rate 96-119) Lungs: Normal Breath Sounds, No Wheeze, Rales, Rhonchi Neuro: Alert and responsive, No focal deficits noted Abdomen: Soft, Non-Tender Skin: No rashes noted on visualized skin Musculoskeletal: No Chest Wall Tenderness Extremities: Other (2+ pitting edema LUE, RLLE, LLE) Results 03/08/17 04:30 03/08/17 04:30 Lab Results 03/08/17 03/08/17 04:30 04:30 WBC 8.0 Hgb 8.8 L Hct 30.9 L Plt Count 417 H Sodium 139 Potassium 3.7 Chloride 91 L Carbon Dioxide 41 H* BUN 24 Creatinine 0.87 Glucose 103 H Calcium 8.7 Magnesium 1.4 L - VTE Documentation of Mechanical Device: Intermittent pneumatic compression device Consult Discharge Plan - Plan Referrals: Keon Hector MD [Non-Partnered Physician] - 03/17/17 9:00 am
[2017-03-08] MEDS: Metoprolol XL (24 HR) Succ 50 MG TAB.ER.24H PO SCH (09:10)
[2017-03-08] MEDS: APIXABAN 5 MG TABLET PO SCH ×2 (09:10→20:21)
[2017-03-08] MEDS: Diltiazem CD (24hr) 120 MG CAPSULE PO SCH (09:10)
[2017-03-08] MEDS: Furosemide 20 MG/2 ML VIAL IVP SCH ×2 (09:10→16:20)
[2017-03-08] MEDS: Gabapentin 300 MG CAPSULE PO SCH ×3 (09:10→20:21)
[2017-03-08] MEDS: Venlafaxine XR (24 HR) 150 MG CAP.ER.24H PO SCH (09:10)
[2017-03-08 12:49] LABS: Neutrophils # 6.6 K/mcL (1.6-8.9)
[2017-03-08 12:53] LABS: Large Platelets Present (Not Present); Lymphocytes # 0.6 K/mcL (0.6-4.6)
--- NOTE | 2017-03-08 19:15 | Internal Med Progress Note ---
Date of Encounter: 03/08/17 Time of Encounter: 11:30 - Assessment and plan (1) Acute and chronic respiratory failure with hypercapnia Current Visit: Yes Status: Acute Assessment and plan: Continues to slowly improve. Continue diuresis for now. HCO3 increasing so may need to adjust diuretics. (2) Acute exacerbation of CHF (congestive heart failure) Current Visit: Yes Status: Acute Assessment and plan: Slowly improving with diuresis. Will continue current management. Qualifiers: Congestive heart failure type: diastolic Qualified Code(s): I50.33 - Acute on chronic diastolic (congestive) heart failure (3) Atrial fibrillation Current Visit: Yes Status: Chronic Assessment and plan: HR controlled On Cardizem, Toprol, Eliquis Continue same plan at this time. Qualifiers: Atrial fibrillation type: persistent Qualified Code(s): I48.1 - Persistent atrial fibrillation (4) Hypertension Current Visit: Yes Status: Chronic Assessment and plan: Controlled, continue meds Qualifiers: Hypertension type: essential hypertension Qualified Code(s): I10 - Essential (primary) hypertension (5) Morbid obesity Current Visit: Yes Status: Chronic Assessment and plan: Lifestyle changed Qualifiers: Obesity type: unspecified obesity type Qualified Code(s): E66.01 - Morbid ( severe) obesity due to excess calories - Subjective Interval history: Mr. Bonner is currently admitted for acute exac chr diastolic CHF and R heart failure. He is high risk due to potential for worsening respiratory status. Mr. Bonner is feeling OK at this time. He denies pain. He feels like he is breathing better than yesterday. Denies pain. Denies fever or chills. - Constitutional Vitals: Temp Pulse Resp BP Pulse Ox 97.6 F 93 17 134/94 91 03/08/17 16:01 03/08/17 16:01 03/08/17 16:01 03/08/17 16:01 03/08/17 16:01 General appearance: Present: A&O X 3, morbidly obese, pleasant - Head Head exam: Present: normocephalic - Eye Eye exam: Present: conjuntiva pink - ENT ENT exam: Present: mucous membranes dry - Respiratory Respiratory exam: Present: decreased breath sounds, rales, rhonchi - Cardiovascular Cardiovascular exam: Present: irregular rhythm. Absent: tachycardia - GI/Abdominal GI/Abdominal exam: Present: soft. Absent: tenderness - Extremities Exam Extremities exam: Present: pedal edema, warm Additional comments: L arm more swollen than R - Neurological Exam Neurological exam: Present: alert, oriented X3, no focal deficits - Skin Skin exam: Present: warm Additional comments: Weeping from edema Internal Medicine: Result - Labs CBC & Chem 7: 03/08/17 04:30 03/08/17 04:30 Labs: Short CBC 03/08/17 Range/Units 04:30 WBC 8.0 (4.3-11.1) K/mcL Hgb 8.8 L (12.9-16.9) g/dL Hct 30.9 L (37.5-50.1) % Plt Count 417 H (140-400) K/mcL Neutrophils # 6.6 (1.6-8.9) K/mcL BMP 03/08/17 04:30 Sodium 139 Potassium 3.7 Chloride 91 L Carbon Dioxide 41 H* BUN 24 Creatinine 0.87 Glucose 103 H Calcium 8.7 - ABG Interpretation ABG results: ABG ABG pH 7.42 pH Units (7.32-7.45) 03/03/17 00:25 ABG pCO2 54 mmHg (35-45) H 03/03/17 00:25 ABG pO2 153 mmHg (85-104) H 03/03/17 00:25 ABG O2 Saturation 99 % (95-98) H 03/03/17 00:25 PT/INR, D-dimer PT 43.2 Seconds (9.4-12.1) H 03/02/17 23:45 - VTE Documentation of Mechanical Device: Intermittent pneumatic compression device Consult Discharge Plan - Plan Referrals: Keon Hector MD [Non-Partnered Physician] - 03/17/17 9:00 am
[2017-03-08] MEDS ORDERED: Magnesium Sulfate 2 GM in D5% in Water 100 ML IVPB ONE (19:20)
[2017-03-08] MEDS: Melatonin 3 MG TABLET PO SCH (20:21)
--- NOTE | 2017-03-08 21:52 | Venous Imaging Report ---
UE Venous Duplex Patient Name:Pete Bonner Order Number:[id number] Procedure Date:03/08/2017 Date:1940Age:77 yrs Gender:Male Location:[facility] Room #: [id number] Musical Instrument Supervisor:Deisy Peter Referring MD:Jose Lux DO digital composer:None Reading MD:Blake Easton MD , FACS Primary Indications:DVT evaluation Secondary Indications: Risk Factors Yes/No Anticoagulants Yes Impressions: Left upper extremity: normal superficial and deep exam. Right upper extremity: normal contralateral exam. Recommendations: After imaging the patient returned to their room. Findings Venous Duplex Results: Right: Venous imaging of the upper extremity reveals full patency and normal vessel compressibility of the right subclavian. Doppler signals in the evaluated veins were normal. Left: Venous imaging of the upper extremity reveals full patency and normal vessel compressibility of the left jugular, left subclavian, left axillary, left brachial, left cephalic, left basilic, left radial and left ulnar. Doppler signals in the evaluated veins were normal. Upper Extremity Venous Duplex Side Vein Compress Spontaneous Flow Augment Left Jugular Normal Yes Phasic Yes Left Subclavian Normal Yes Phasic Yes Left Axillary Normal Yes Phasic Yes Left Brachial Normal Yes Phasic Yes Left Cephalic Normal Yes Phasic Yes Left Basilic Normal Yes Phasic Yes Left Radial Normal Yes Phasic Yes Left Ulnar Normal Yes Phasic Yes Right Subclavian Normal Yes Phasic Yes Updated by Blake Easton MD, FACS on 03/08/2017 9:45:32 PM Blake Easton MD electronically signed on 03/08/2017 9:46:04 PM with status of Final
[2017-03-09 05:06] LABS: Hematocrit 29.2 % (37.5-50.1); Hemoglobin 8.2 g/dL (12.9-16.9); Mean Corpuscular HGB Conc 28.1 g/dL (31.6-35.5); Mean Corpuscular Hemoglobin 21.3 pg (28.0-33.3); Mean Corpuscular Volume 75.8 fL (83.0-100.0); Mean Platelet Volume 9.7 fL (9.4-12.4); Platelet Count 360 K/mcL (140-400); Red Blood Count 3.85 M/mcL (4.19-5.50); Red Cell Distribution Width 20.4 % (11.5-14.5)
[2017-03-09 05:36] LABS: BUN/Creatinine Ratio 27 (6-26); Blood Urea Nitrogen 23 mg/dL (8-26); Calcium 8.8 mg/dL (8.6-10.8); Chloride 89 mEq/L (98-109); Glucose 111 mg/dL (70-99); Osmolality,Calculated 294 (280-300); Potassium 3.4 mEq/L (3.5-4.5); Sodium 140 mEq/L (136-145); eGFR For African Americans > 60 (> 60); eGFR For Non-African Americans > 60 (> 60)
[2017-03-09 05:53] LABS: Carbon Dioxide 40 mEq/L (19-29)
--- NOTE | 2017-03-09 08:14 | Cardiology Progress Note ---
Date of Encounter: 03/09/17 Time of Encounter: 08:13 Assessment and Plan (1) Atrial fibrillation with RVR Current Visit: No Status: Acute - HR 80s-100s continue to monitor - Increase toprol to 75 mg PO BID; this is his original home dose; Will consider increasing cardizem tomorrow. - Suspect AF RVR secondary to CHF exacerbation and untreated sleep apnea. Replete electrolytes. Continue BiPAP at night - Continue eliquis 5mg PO BID with close monitoring of any active bleeding. (2) Acute exacerbation of CHF (congestive heart failure) Current Visit: Yes Status: Acute - Echo- LVEF 65-70%, RV hypokinetic with TD velocity 4cm/s; mild MR, moderate TR , moderate pulm HTN with RVSP 52, IVC dilated. - Pt with signs of contraction alkalosis; however, BUN/Cr still unchanged, will continue to diurese 60mg BID Lasix for now with careful monitoring for worsening contraction alkalosis. - Continue nightly BiPAP Qualifiers: Congestive heart failure type: diastolic Qualified Code(s): I50.33 - Acute on chronic diastolic (congestive) heart failure Discussion w patient/family: The assessment and plan as outlined above was discussed with the patient and/or family members who expressed understanding and agreement. All questions were answered. Thank you for involving us in the care of your patient. Please call with any questions. Subjective Principal diagnosis: exacerbation of CHF with fluid overload Interval history: Pt feeling better today than yesterday. A&Ox3. Denies any chest pain or dyspnea. LUE US negative for DVT. Still with significant LUE edema. Pt states he has had L shoulder pain for months and has significant crepitus with ROM. Objective Vital Signs, Last 4 Hours Temp Pulse Resp BP Pulse Ox 03/09/17 07:46 97.5 F L 102 17 109/61 98 General: Conversant, No Apparent Distress HEENT: Atraumatic, Mucus Membranes Moist Neck: No JVD Cardiac: Other (a fib with rate 80s-100s) Lungs: Normal Breath Sounds, No Wheeze, Rales, Rhonchi Neuro: Alert and responsive, No focal deficits noted Abdomen: Soft, Non-Tender Skin: No rashes noted on visualized skin Musculoskeletal: No Chest Wall Tenderness Extremities: Other (2+ pitting edema LUE, b/l LE) Results 03/09/17 03:45 03/09/17 03:45 Lab Results 03/09/17 03/09/17 03:45 03:45 WBC 6.7 Hgb 8.2 L Hct 29.2 L Plt Count 360 Sodium 140 Potassium 3.4 L Chloride 89 L Carbon Dioxide 40 H* BUN 23 Creatinine 0.84 Glucose 111 H Calcium 8.8 Magnesium 2.0 - VTE Documentation of Mechanical Device: Intermittent pneumatic compression device Consult Discharge Plan - Plan Referrals: Keon Hector MD [Non-Partnered Physician] - 03/17/17 9:00 am
[2017-03-09] MEDS ORDERED: Metoprolol XL (24 HR) Succ 50 MG TAB.ER.24H PO SCH (09:00)
[2017-03-09] MEDS ORDERED: Acetaminophen 325 MG TABLET PO PRN (10:01)
[2017-03-09] MEDS: Gabapentin 300 MG CAPSULE PO SCH ×3 (10:09→22:02)
[2017-03-09] MEDS: Venlafaxine XR (24 HR) 150 MG CAP.ER.24H PO SCH (10:09)
[2017-03-09] MEDS: Diltiazem CD (24hr) 120 MG CAPSULE PO SCH (10:10)
[2017-03-09] MEDS: APIXABAN 5 MG TABLET PO SCH ×2 (10:10→22:02)
[2017-03-09] MEDS: Furosemide 20 MG/2 ML VIAL IVP SCH ×2 (10:10→15:40)
[2017-03-09] MEDS ORDERED: Artificial Tears SOLN 15 ML BOTTLE BOTH EYES PRN (11:02)
[2017-03-09] MEDS: ceFAZolin 1,000 MG in D5% in Water (Mini-Bag+) 100 ML IVPB SCH ×2 (12:54→21:57)
--- NOTE | 2017-03-09 18:15 | Internal Med Progress Note ---
Date of Encounter: 03/09/17 Time of Encounter: 11:15 - Assessment and plan (1) Acute and chronic respiratory failure with hypercapnia Current Visit: Yes Status: Acute Assessment and plan: Slowly improving. Still requiring higher oxygen amounts. Will wean as able. Continue bipap at night. (2) Acute exacerbation of CHF (congestive heart failure) Current Visit: Yes Status: Acute Assessment and plan: Slowly improving with diuresis. Appreciate cardiology input. Monitor electrolytes. Qualifiers: Congestive heart failure type: diastolic Qualified Code(s): I50.33 - Acute on chronic diastolic (congestive) heart failure (3) Atrial fibrillation Current Visit: Yes Status: Chronic Assessment and plan: HR controlled On Cardizem, Toprol, Eliquis Plan per cardiology. Qualifiers: Atrial fibrillation type: persistent Qualified Code(s): I48.1 - Persistent atrial fibrillation (4) Hypertension Current Visit: Yes Status: Chronic Assessment and plan: Controlled, continue meds Qualifiers: Hypertension type: essential hypertension Qualified Code(s): I10 - Essential (primary) hypertension (5) Morbid obesity Current Visit: Yes Status: Chronic Assessment and plan: Lifestyle changed Qualifiers: Obesity type: unspecified obesity type Qualified Code(s): E66.01 - Morbid ( severe) obesity due to excess calories (6) Anemia Current Visit: Yes Status: Acute Assessment and plan: H/H lower than yesterday. Will recheck tomorrow. No obvious bleeding noted. Qualifiers: Anemia type: other cause Other causes of anemia: chronic disease, other Qualified Code(s): D63.8 - Anemia in other chronic diseases classified elsewhere - Subjective Interval history: Mr. Bonner is currently admitted for acute exac chr diastolic CHF and R heart failure. He is high risk due to potential for worsening respiratory status. Mr. Bonner is having a lot of pain in his L first MCP joint. L arm still swollen though a little better. Feels like he is starting to breathe better. No CP. Appetite OK. - Constitutional Vitals: Temp Pulse Resp BP Pulse Ox 98.0 F 76 16 116/100 94 03/09/17 11:05 03/09/17 15:54 03/09/17 15:54 03/09/17 15:54 03/09/17 15:54 General appearance: Present: A&O X 3, morbidly obese, pleasant - Head Head exam: Present: normocephalic - Eye Eye exam: Present: conjunctival injection - ENT ENT exam: Present: mucous membranes dry - Respiratory Respiratory exam: Present: decreased breath sounds, rales. Absent: rhonchi, wheezes - Cardiovascular Cardiovascular exam: Present: irregular rhythm. Absent: tachycardia - GI/Abdominal GI/Abdominal exam: Present: soft. Absent: tenderness - Extremities Exam Extremities exam: Present: warm Additional comments: Less edema overall but L greater than R. Internal Medicine: Result - Labs CBC & Chem 7: 03/09/17 03:45 03/09/17 03:45 Labs: Short CBC 03/09/17 Range/Units 03:45 WBC 6.7 (4.3-11.1) K/mcL Hgb 8.2 L (12.9-16.9) g/dL Hct 29.2 L (37.5-50.1) % Plt Count 360 (140-400) K/mcL BMP 03/09/17 03:45 Sodium 140 Potassium 3.4 L Chloride 89 L Carbon Dioxide 40 H* BUN 23 Creatinine 0.84 Glucose 111 H Calcium 8.8 - ABG Interpretation ABG results: ABG ABG pH 7.42 pH Units (7.32-7.45) 03/03/17 00:25 ABG pCO2 54 mmHg (35-45) H 03/03/17 00:25 ABG pO2 153 mmHg (85-104) H 03/03/17 00:25 ABG O2 Saturation 99 % (95-98) H 03/03/17 00:25 PT/INR, D-dimer PT 43.2 Seconds (9.4-12.1) H 03/02/17 23:45 - VTE Documentation of Mechanical Device: Intermittent pneumatic compression device Consult Discharge Plan - Plan Referrals: Keon Hector MD [Non-Partnered Physician] - 03/17/17 9:00 am
[2017-03-09] MEDS ORDERED: Metoprolol XL (24 HR) Succ 50 MG TAB.ER.24H PO ONE (21:00)
[2017-03-09] MEDS: Melatonin 3 MG TABLET PO SCH (22:02)
[2017-03-10 04:02] LABS: Hemoglobin 8.3 g/dL (12.9-16.9)
[2017-03-10 04:04] LABS: Hematocrit 29.6 % (37.5-50.1); Mean Corpuscular Hemoglobin 20.8 pg (28.0-33.3); Mean Corpuscular Volume 74.2 fL (83.0-100.0); Mean Platelet Volume 9.2 fL (9.4-12.4); Platelet Count 319 K/mcL (140-400); Red Blood Count 3.99 M/mcL (4.19-5.50)
[2017-03-10] MEDS: ceFAZolin 1,000 MG in D5% in Water (Mini-Bag+) 100 ML IVPB SCH ×3 (04:14→19:51)
[2017-03-10 04:23] LABS: BUN/Creatinine Ratio 28 (6-26); Blood Urea Nitrogen 22 mg/dL (8-26); Calcium 8.8 mg/dL (8.6-10.8); Chloride 87 mEq/L (98-109); Glucose 105 mg/dL (70-99); Osmolality,Calculated 292 (280-300); Potassium 3.2 mEq/L (3.5-4.5); Sodium 139 mEq/L (136-145); eGFR For African Americans > 60 (> 60); eGFR For Non-African Americans > 60 (> 60)
[2017-03-10 04:29] LABS: Carbon Dioxide 41 mEq/L (19-29)
[2017-03-10] MEDS: Gabapentin 300 MG CAPSULE PO SCH ×3 (08:06→20:02)
[2017-03-10] MEDS: Venlafaxine XR (24 HR) 150 MG CAP.ER.24H PO SCH (08:06)
[2017-03-10] MEDS: APIXABAN 5 MG TABLET PO SCH ×2 (08:07→20:02)
[2017-03-10] MEDS: Metoprolol XL (24 HR) Succ 25 MG TAB.ER.24H PO SCH ×2 (08:07→20:03)
[2017-03-10] MEDS: Diltiazem CD (24hr) 120 MG CAPSULE PO SCH (08:07)
[2017-03-10] MEDS: Furosemide 20 MG/2 ML VIAL IVP SCH ×2 (08:08→17:54)
--- NOTE | 2017-03-10 08:16 | Cardiology Progress Note ---
Date of Encounter: 03/10/17 Time of Encounter: 08:15 Assessment and Plan (1) Atrial fibrillation with RVR Current Visit: No Status: Acute - HR 80s-90s continue to monitor - Continue toprol 75 mg PO BID; increase cardizem to 240mg daily. (original home doses) - Suspect AF RVR secondary to CHF exacerbation and untreated sleep apnea. Replete electrolytes. Continue BiPAP at night - pt will need outpatient sleep study - Continue eliquis 5mg PO BID with close monitoring of any active bleeding. (2) Acute exacerbation of CHF (congestive heart failure) Current Visit: Yes Status: Acute - Echo- LVEF 65-70%, RV hypokinetic with TD velocity 4cm/s; mild MR, moderate TR , moderate pulm HTN with RVSP 52, IVC dilated. - Pt with signs of contraction alkalosis; however, BUN/Cr still unchanged, will continue to diurese 60mg BID Lasix for now with careful monitoring for worsening contraction alkalosis. - Continue nightly BiPAP - pt still having O2 requirement of 8L NC. - CXR today Qualifiers: Congestive heart failure type: diastolic Qualified Code(s): I50.33 - Acute on chronic diastolic (congestive) heart failure Discussion w patient/family: The assessment and plan as outlined above was discussed with the patient and/or family members who expressed understanding and agreement. All questions were answered. Thank you for involving us in the care of your patient. Please call with any questions. Subjective Principal diagnosis: exacerbation of CHF with fluid overload Interval history: Pt feeling better today than yesterday. A&Ox3. Denies any chest pain or dyspnea. Still with significant LUE edema, shoulder pain. primary team ordering LUE xrays to rule out other pathology. Objective Vital Signs, Last 4 Hours Temp Pulse Resp BP Pulse Ox 03/10/17 07:20 97.4 F L 89 18 130/75 95 03/10/17 05:47 97.8 F 90 20 115/73 86 03/10/17 04:25 12 General: Conversant, No Apparent Distress HEENT: Atraumatic, Mucus Membranes Moist Neck: No JVD Cardiac: Other (rate controlled a fib in 80s-90s) Lungs: Normal Breath Sounds, No Wheeze, Rales, Rhonchi Neuro: Alert and responsive, No focal deficits noted Abdomen: Soft, Non-Tender Skin: No rashes noted on visualized skin Musculoskeletal: No Chest Wall Tenderness Extremities: Other (LUE 2+ pitting edema, b/l LE pitting edema) Results 03/10/17 03:33 03/10/17 03:33 Lab Results 03/10/17 03/10/17 03:33 03:33 WBC 8.1 Hgb 8.3 L Hct 29.6 L Plt Count 319 Sodium 139 Potassium 3.2 L Chloride 87 L Carbon Dioxide 41 H* BUN 22 Creatinine 0.80 Glucose 105 H Calcium 8.8 - Imaging and Cardiology Chest Xray: pending - VTE Documentation of Mechanical Device: Intermittent pneumatic compression device Consult Discharge Plan - Plan Referrals: Keon Hector MD [Non-Partnered Physician] - 03/17/17 9:00 am
--- NOTE | 2017-03-10 16:51 | Internal Med Progress Note ---
Date of Encounter: 03/10/17 Time of Encounter: 11:00 - Assessment and plan (1) Acute and chronic respiratory failure with hypercapnia Current Visit: Yes Status: Acute Assessment and plan: Continues to slowly improve. Still using bipap at night. Will do qualification Monday night for SNF. (2) Acute exacerbation of CHF (congestive heart failure) Current Visit: Yes Status: Acute Assessment and plan: Slowly improving with diuresis. Appreciate cardiology input. Monitor electrolytes again tomorrow. Qualifiers: Congestive heart failure type: diastolic Qualified Code(s): I50.33 - Acute on chronic diastolic (congestive) heart failure (3) Cellulitis of left upper extremity Current Visit: Yes Status: Acute Assessment and plan: On IV abx. Seems to be a little better today. (4) Atrial fibrillation Current Visit: Yes Status: Chronic Assessment and plan: HR controlled On Cardizem, Toprol, Eliquis Plan per cardiology. Qualifiers: Atrial fibrillation type: persistent Qualified Code(s): I48.1 - Persistent atrial fibrillation (5) Hypertension Current Visit: Yes Status: Chronic Assessment and plan: Controlled, continue meds Qualifiers: Hypertension type: essential hypertension Qualified Code(s): I10 - Essential (primary) hypertension (6) Morbid obesity Current Visit: Yes Status: Chronic Assessment and plan: Lifestyle changed Qualifiers: Obesity type: unspecified obesity type Qualified Code(s): E66.01 - Morbid ( severe) obesity due to excess calories (7) Anemia Current Visit: Yes Status: Acute Assessment and plan: H/H stable today. Recheck tomorrow. Qualifiers: Anemia type: other cause Other causes of anemia: chronic disease, other Qualified Code(s): D63.8 - Anemia in other chronic diseases classified elsewhere - Subjective Interval history: Mr. Bonner is currently admitted for acute exac chr diastolic CHF and R heart failure. He is high risk due to potential for worsening respiratory status. Mr. Bonner feels he is slowly improving. He continues to be less edematous each day. He feels his L arm is a little better today. He can move his thumb with less pain. No fever or chills. No worsening dyspnea or chest pain. No GI symptoms. - Constitutional Vitals: Temp Pulse Resp BP Pulse Ox 98.3 F 74 18 132/77 94 03/10/17 15:50 03/10/17 15:50 03/10/17 15:50 03/10/17 15:50 03/10/17 15:50 General appearance: Present: A&O X 3, morbidly obese, pleasant - Head Head exam: Present: normocephalic - Eye Eye exam: Present: conjunctival injection - ENT ENT exam: Present: mucous membranes moist - Respiratory Respiratory exam: Present: decreased breath sounds, rhonchi. Absent: rales, wheezes - Cardiovascular Cardiovascular exam: Present: irregular rhythm. Absent: tachycardia - GI/Abdominal GI/Abdominal exam: Present: normal bowel sounds, soft. Absent: tenderness - Extremities Exam Extremities exam: Present: warm (Overall less edema. LUE with continued erythema but has less edema.) - Neurological Exam Neurological exam: Present: alert, no focal deficits - Skin Additional comments: Ecchymoses present. Internal Medicine: Result - Labs CBC & Chem 7: 03/10/17 03:33 03/10/17 03:33 Labs: Short CBC 03/10/17 Range/Units 03:33 WBC 8.1 (4.3-11.1) K/mcL Hgb 8.3 L (12.9-16.9) g/dL Hct 29.6 L (37.5-50.1) % Plt Count 319 (140-400) K/mcL [facility] 03/10/17 03:33 Sodium 139 Potassium 3.2 L Chloride 87 L Carbon Dioxide 41 H* BUN 22 Creatinine 0.80 Glucose 105 H Calcium 8.8 - ABG Interpretation ABG results: ABG ABG pH 7.42 pH Units (7.32-7.45) 03/03/17 00:25 ABG pCO2 54 mmHg (35-45) H 03/03/17 00:25 ABG pO2 153 mmHg (85-104) H 03/03/17 00:25 ABG O2 Saturation 99 % (95-98) H 03/03/17 00:25 PT/INR, D-dimer PT 43.2 Seconds (9.4-12.1) H 03/02/17 23:45 - Impressions Impressions Chest X-Ray 03/10/17 10:57 IMPRESSION: 1. Moderate right pleural effusion with right base airspace consolidation. Compared to the exam of March 03, 2017, there has been no appreciable interval change. D/ / Beto Edwards MD / Beto Edwards MD Interpreting Provider: Beto Edwards MD Shoulder X-Ray 03/10/17 11:07 IMPRESSION: 1. 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 D/ / Beto Edwards MD / Beto Edwards MD Interpreting Provider: Beto Edwards MD - VTE Documentation of Mechanical Device: Intermittent pneumatic compression device Consult Discharge Plan - Plan Referrals: Keon Hector MD [Non-Partnered Physician] - 03/17/17 9:00 am
[2017-03-10] MEDS: Melatonin 3 MG TABLET PO SCH (20:02)
[2017-03-11] MEDS: ceFAZolin 1,000 MG in D5% in Water (Mini-Bag+) 100 ML IVPB SCH ×2 (03:42→13:50)
[2017-03-11 04:10] LABS: Hematocrit 28.5 % (37.5-50.1); Mean Corpuscular HGB Conc 28.1 g/dL (31.6-35.5); Mean Corpuscular Hemoglobin 21.4 pg (28.0-33.3); Mean Corpuscular Volume 76.2 fL (83.0-100.0); Mean Platelet Volume 9.7 fL (9.4-12.4); Platelet Count 290 K/mcL (140-400); Red Blood Count 3.74 M/mcL (4.19-5.50); Red Cell Distribution Width 20.3 % (11.5-14.5)
[2017-03-11 04:29] LABS: BUN/Creatinine Ratio 27 (6-26); Blood Urea Nitrogen 18 mg/dL (8-26); Carbon Dioxide 37 mEq/L (19-29); Chloride 98 mEq/L (98-109); Glucose 82 mg/dL (70-99); Osmolality,Calculated 291 (280-300); Potassium 2.7 mEq/L (3.5-4.5); Sodium 140 mEq/L (136-145); eGFR For African Americans > 60 (> 60); eGFR For Non-African Americans > 60 (> 60)
[2017-03-11 04:30] LABS: Calcium 6.8 mg/dL (8.6-10.8)
[2017-03-11] MEDS: Gabapentin 300 MG CAPSULE PO SCH ×3 (09:45→21:57)
[2017-03-11] MEDS: APIXABAN 5 MG TABLET PO SCH ×2 (09:45→21:59)
[2017-03-11] MEDS: Venlafaxine XR (24 HR) 150 MG CAP.ER.24H PO SCH (09:45)
[2017-03-11] MEDS: Furosemide 20 MG/2 ML VIAL IVP SCH ×2 (09:46→18:47)
[2017-03-11] MEDS: Diltiazem CD (24hr) 240 MG CAPSULE PO SCH (09:46)
[2017-03-11] MEDS: Metoprolol XL (24 HR) Succ 25 MG TAB.ER.24H PO SCH ×2 (09:46→21:57)
--- NOTE | 2017-03-11 13:39 | Internal Med Progress Note ---
Date of Encounter: 03/11/17 Time of Encounter: 11:30 - Assessment and plan (1) Acute and chronic respiratory failure with hypercapnia Current Visit: Yes Status: Acute Assessment and plan: Using bipap at night. Seems to be doing better during the day. Less dyspneic on conversation. (2) Acute exacerbation of CHF (congestive heart failure) Current Visit: Yes Status: Acute Assessment and plan: Continues to diurese. Edema slowly improving. Qualifiers: Congestive heart failure type: diastolic Qualified Code(s): I50.33 - Acute on chronic diastolic (congestive) heart failure (3) Cellulitis of left upper extremity Current Visit: Yes Status: Acute Assessment and plan: Still quite erythematous and edematous. Will change abx to Unasyn. (4) Atrial fibrillation Current Visit: Yes Status: Chronic Assessment and plan: HR controlled On Cardizem, Toprol, Eliquis Plan per cardiology. Qualifiers: Atrial fibrillation type: persistent Qualified Code(s): I48.1 - Persistent atrial fibrillation (5) Hypertension Current Visit: Yes Status: Chronic Assessment and plan: Controlled, continue meds Qualifiers: Hypertension type: essential hypertension Qualified Code(s): I10 - Essential (primary) hypertension (6) Morbid obesity Current Visit: Yes Status: Chronic Assessment and plan: Chronic issue Qualifiers: Obesity type: unspecified obesity type Qualified Code(s): E66.01 - Morbid ( severe) obesity due to excess calories (7) Anemia Current Visit: Yes Status: Acute Assessment and plan: H/H continues to slowly drift down. No obvious bleeding noted. Will get stool guiac. Recheck tomorrow. May need further work up as is microcytic. Qualifiers: Anemia type: other cause Other causes of anemia: chronic disease, other Qualified Code(s): D63.8 - Anemia in other chronic diseases classified elsewhere - Subjective Interval history: Mr. Bonner is currently admitted for acute exac chr diastolic CHF and R heart failure. He is moderate to high risk due to potential for worsening respiratory status. Mr. Bonner feels OK. He is breathing OK but not baseline. He continues to have less edema though LUE still red and swollen. Can move wrist but hurts. Thumb not as tender. Legs less swollen. Thinks his "clock" is messed up and he didn't sleep well last night. Family coming in today. No CP. No GI symptoms. - Constitutional Vitals: Temp Pulse Resp BP Pulse Ox 98.5 F 84 16 128/81 94 03/11/17 11:12 03/11/17 11:12 03/11/17 11:12 03/11/17 11:12 03/11/17 11:12 General appearance: Present: A&O X 3, morbidly obese, pleasant, answers questions appropriately - Head Head exam: Present: normocephalic - Eye Eye exam: Present: conjunctival injection, sclera anicteric - ENT ENT exam: Present: mucous membranes moist - Respiratory Respiratory exam: Present: decreased breath sounds, prolonged expiratory phase, rhonchi. Absent: wheezes - Cardiovascular Cardiovascular exam: Present: irregular rhythm. Absent: tachycardia - GI/Abdominal GI/Abdominal exam: Present: normal bowel sounds, soft. Absent: tenderness - Extremities Exam Extremities exam: Present: tenderness, warm Additional comments: Less edema overall. Still with significant edema and redness to LUE. Able to move fingers and wrist better. - Neurological Exam Neurological exam: Present: alert, oriented X3, no focal deficits - Skin Skin exam: Present: erythema, warm. Absent: rash Internal Medicine: Result - Labs CBC & Chem 7: 03/11/17 03:48 03/11/17 03:48 Labs: Short CBC 03/11/17 Range/Units 03:48 WBC 7.1 (4.3-11.1) K/mcL Hgb 8.0 L (12.9-16.9) g/dL Hct 28.5 L (37.5-50.1) % Plt Count 290 (140-400) K/mcL [facility] 03/11/17 03:48 Sodium 140 Potassium 2.7 L Chloride 98 Carbon Dioxide 37 H BUN 18 Creatinine 0.66 L Glucose 82 Calcium 6.8 L D - ABG Interpretation ABG results: ABG ABG pH 7.42 pH Units (7.32-7.45) 03/03/17 00:25 ABG pCO2 54 mmHg (35-45) H 03/03/17 00:25 ABG pO2 153 mmHg (85-104) H 03/03/17 00:25 ABG O2 Saturation 99 % (95-98) H 03/03/17 00:25 PT/INR, D-dimer PT 43.2 Seconds (9.4-12.1) H 03/02/17 23:45 - Impressions Impressions Chest X-Ray 03/10/17 10:57 IMPRESSION: 1. Moderate right pleural effusion with right base airspace consolidation. Compared to the exam of March 03, 2017, there has been no appreciable interval change. D/ / Beto Edwards MD / Beto Edwards MD Interpreting Provider: Beto Edwards MD Shoulder X-Ray 03/10/17 11:07 IMPRESSION: 1. Moderate to severe left glenohumeral degenerative changes with near [id number] articulation. D/ / Beto Edwards MD / Beto Edwards MD Interpreting Provider: Beto Edwards MD - VTE Documentation of Mechanical Device: Intermittent pneumatic compression device Consult Discharge Plan - Plan Referrals: Keon Hector MD [Non-Partnered Physician] - 03/17/17 9:00 am
[2017-03-11] MEDS ORDERED: Calcium Gluconate 2,000 MG in D5% in Water 100 ML IVPB ONE (13:48)
--- NOTE | 2017-03-11 14:26 | Cardiology Progress Note ---
Date of Encounter: 03/11/17 Time of Encounter: 14:00 Assessment and Plan (1) Atrial fibrillation with RVR Current Visit: Yes Status: Acute - HR 80s-90s continue to monitor - Continue toprol 75 mg PO BID; increase cardizem to 240mg daily. (original home doses) - 12 hour tele: avg HR=84 afib. - Suspect AF RVR secondary to CHF exacerbation and untreated sleep apnea. Replete electrolytes, will replace K today. Continue BiPAP at night - pt will need outpatient sleep study - Continue eliquis 5mg PO BID with close monitoring of any active bleeding. Cardiology will sign-off, please call with questions. Follow-up with [facility] as scheduled. (2) Acute exacerbation of CHF (congestive heart failure) Current Visit: Yes Status: Acute - Echo- LVEF 65-70%, RV hypokinetic with TD velocity 4cm/s; mild MR, moderate TR , moderate pulm HTN with RVSP 52, IVC dilated. - Edema/volume overload improved, not yet at baseline. Continues to have BLE pitting edema and significant left upper extremity edema. SHARLENE bandages BLE. - Cumulative I&O: -10,4981 mL. - Continue IV diuresis, BiPap at night, Na/Fluid restriction diet. - Emphasized the importance of outpatient sleep study for evaluation of ANNEL. -No further inpatient Cardiology recommendations, will sign-off, please call with questions. Qualifiers: Congestive heart failure type: diastolic Qualified Code(s): I50.33 - Acute on chronic diastolic (congestive) heart failure Discussion w patient/family: The assessment and plan as outlined above was discussed with the patient and/or family members who expressed understanding and agreement. All questions were answered. Thank you for involving us in the care of your patient. Please call with any questions. The patient was discussed and reviewed with Dr. Janet Waller; Cardiology will sign-off, please call with questions. Follow-up with Dr. Johny Waller as scheduled. Subjective Principal diagnosis: exacerbation of CHF with fluid overload Interval history: Seen and examined. Dyspnea/edema improved, not yet at baseline. He denies abnormal or unusual bleeding. Significant LUE/hand edema. Objective Vital Signs, Last 4 Hours Temp Pulse Resp BP Pulse Ox 03/11/17 11:12 98.5 F 84 16 128/81 94 General: Conversant HEENT: Atraumatic, Normocephaly Cardiac: Other (irregularly irregular) Lungs: Other (Bibasilar rales/diminished, R>L) Neuro: Alert and responsive Abdomen: Soft Skin: No rashes noted on visualized skin Musculoskeletal: No Chest Wall Tenderness Extremities: Other (significant BLE edema/redness +1-2; Left hand/upper extremity edema. ) Results 03/11/17 03:48 03/11/17 03:48 Lab Results 03/11/17 03/11/17 03:48 03:48 WBC 7.1 Hgb 8.0 L Hct 28.5 L Plt Count 290 Sodium 140 Potassium 2.7 L Chloride 98 Carbon Dioxide 37 H BUN 18 Creatinine 0.66 L Glucose 82 Calcium 6.8 L D Magnesium 1.0 L Active Medications Acetaminophen (Tylenol) 650 mg PO Q6HR PRN PRN Reason: Mild Pain Stop: 09/08/17 10:02 Last Admin: 03/09/17 10:09 Dose: 650 mg Albuterol/Ipratropium (Duoneb) 3 ml IH Q6HR PRN; Protocol PRN Reason: Shortness Of Breath Stop: 09/02/17 09:22 Apixaban (Eliquis) 5 mg PO BID [facility] Stop: 09/02/17 09:31 Last Admin: 03/11/17 09:45 Dose: 5 mg Artificial Tears (Akwa Tears) 1 drop BOTH EYES QID PRN; Protocol PRN Reason: Dry Eyes Stop: 09/08/17 13:01 Last Admin: 03/09/17 12:55 Dose: 1 drop Diltiazem HCl (Cardizem Cd) 240 mg PO DAILY JESSE Stop: 09/10/17 09:01 Last Admin: 03/11/17 09:46 Dose: 240 mg Duloxetine HCl (Cymbalta) 60 mg PO DAILY JESSE Stop: 09/02/17 09:31 Last Admin: 03/11/17 09:45 Dose: 60 mg Furosemide (Lasix) 60 mg IVP BIDDIURETIC JESSE Stop: 09/04/17 17:01 Last Admin: 03/11/17 09:46 Dose: 60 mg Gabapentin (Neurontin) 600 mg PO TID JESSE Stop: 09/02/17 09:31 Last Admin: 03/11/17 13:51 Dose: 600 mg Ampicillin Sodium/Sulbactam Sodium 3,000 mg/ Sodium Chloride 100 mls @ 200 mls/ hr IVPB Q6HR JESSE Stop: 09/10/17 18:01 Magnesium Sulfate 2 gm/ (Dextrose) 104 mls @ 96.296 mls/hr IVPB Q1H [facility]ESSE Stop: 03/11/17 15:47 Potassium Chloride (Potassium Chloride 10 Meq/100ml) 10 meq in 100 mls @ 100 mls/hr IVPB Q1H [facility] Stop: 03/11/17 17:59 Melatonin (Melatonin) 6 mg PO HS [facility] Stop: 09/02/17 21:01 Last Admin: 03/10/17 20:02 Dose: 6 mg Metoprolol Succinate (Toprol Xl) 75 mg PO BID JESSE Stop: 09/09/17 09:01 Last Admin: 03/11/17 09:46 Dose: 75 mg Naloxone HCl (Narcan) 0.4 mg IVP Q2MIN PRN PRN Reason: Opioid Reversal Stop: 09/01/17 23:31 Sodium Chloride ([place] Nasal Whitney) 2 spray NS Q2H PRN PRN Reason: Congestion Stop: 09/03/17 17:29 Venlafaxine HCl (Effexor Xr) 150 mg PO DAILY JESSE PRN Reason: Protocol Stop: 09/03/17 09:01 Last Admin: 03/11/17 09:45 Dose: 150 mg - Imaging and Cardiology Other Results: 12 hour tele: avg HR=84 afib. - EKG Interpretation EKG results cardiology: personally reviewed - VTE Documentation of Mechanical Device: Intermittent pneumatic compression device Consult Discharge Plan - Plan Referrals: Keon Hector MD [Non-Partnered Physician] - 03/17/17 9:00 am
[2017-03-11] MEDS: Magnesium Sulfate 2 GM in D5% in Water 100 ML IVPB SCH ×2 (15:52→17:00)
[2017-03-11] MEDS: Ampicillin/Sulbactam 3,000 MG in 0.9 % Sodium Chloride Mini Bag 100 ML IVPB SCH ×2 (18:47→23:28)
[2017-03-11] MEDS: Melatonin 3 MG TABLET PO SCH (21:59)
[2017-03-12] MEDS: Ampicillin/Sulbactam 3,000 MG in 0.9 % Sodium Chloride Mini Bag 100 ML IVPB SCH ×4 (05:27→23:51)
[2017-03-12 05:43] LABS: Red Cell Distribution Width 20.2 % (11.5-14.5)
[2017-03-12 05:44] LABS: Hematocrit 28.9 % (37.5-50.1); Mean Corpuscular HGB Conc 27.7 g/dL (31.6-35.5); Mean Corpuscular Hemoglobin 21.2 pg (28.0-33.3); Mean Corpuscular Volume 76.7 fL (83.0-100.0); Mean Platelet Volume 9.3 fL (9.4-12.4); Platelet Count 260 K/mcL (140-400); Red Blood Count 3.77 M/mcL (4.19-5.50)
[2017-03-12 05:54] LABS: BUN/Creatinine Ratio 23 (6-26); Blood Urea Nitrogen 21 mg/dL (8-26); Chloride 87 mEq/L (98-109); Glucose 104 mg/dL (70-99); Magnesium 1.7 mg/dL (1.6-2.6); Osmolality,Calculated 289 (280-300); Potassium 3.6 mEq/L (3.5-4.5); Sodium 138 mEq/L (136-145); eGFR For African Americans > 60 (> 60); eGFR For Non-African Americans > 60 (> 60)
[2017-03-12 05:55] LABS: Calcium 8.7 mg/dL (8.6-10.8)
[2017-03-12 05:57] LABS: Carbon Dioxide 42 mEq/L (19-29)
--- NOTE | 2017-03-12 09:42 | Internal Med Progress Note ---
Date of Encounter: 03/12/17 Time of Encounter: 09:40 - Assessment and plan (1) Acute and chronic respiratory failure with hypercapnia Current Visit: Yes Status: Acute Assessment and plan: Persists. Continues to use bipap at night. Will do qualification tonight. (2) Acute exacerbation of CHF (congestive heart failure) Current Visit: Yes Status: Acute Assessment and plan: Continues to diurese. Edema slowly improving. Bicarb elevated so may need to decrease Lasix soon. Qualifiers: Congestive heart failure type: diastolic Qualified Code(s): I50.33 - Acute on chronic diastolic (congestive) heart failure (3) Cellulitis of left upper extremity Current Visit: Yes Status: Acute Assessment and plan: Seems to be somewhat better with switch to Unasyn. (4) Atrial fibrillation Current Visit: Yes Status: Chronic Assessment and plan: HR controlled On Cardizem, Toprol, Eliquis Qualifiers: Atrial fibrillation type: persistent Qualified Code(s): I48.1 - Persistent atrial fibrillation (5) Hypertension Current Visit: Yes Status: Chronic Assessment and plan: Controlled, continue meds Qualifiers: Hypertension type: essential hypertension Qualified Code(s): I10 - Essential (primary) hypertension (6) Anemia Current Visit: Yes Status: Acute Assessment and plan: H/H stable today. Considering need for further GI work up. Qualifiers: Anemia type: other cause Other causes of anemia: chronic disease, other Qualified Code(s): D63.8 - Anemia in other chronic diseases classified elsewhere (7) Morbid obesity Current Visit: Yes Status: Chronic Assessment and plan: Chronic issue Qualifiers: Obesity type: unspecified obesity type Qualified Code(s): E66.01 - Morbid ( severe) obesity due to excess calories - Subjective Interval history: Mr. Bonner is currently admitted for acute exac chr diastolic CHF and R heart failure. He is moderate to high risk due to potential for worsening respiratory status. Mr. Bonner is resting comfortably. Feels his L arm is moving better. Pain mostly in L shoulder (chronic). No fever or chills. No GI symptoms. Feels his overall swelling is decreasing. Asking about rehab. - Constitutional Vitals: Temp Pulse Resp BP Pulse Ox 97.4 F L 85 18 96/79 97 03/12/17 07:47 03/12/17 07:47 03/12/17 07:47 03/12/17 07:47 03/12/17 07:47 General appearance: Present: A&O X 3, morbidly obese, pleasant, answers questions appropriately - Head Head exam: Present: normocephalic - Eye Eye exam: Present: conjunctival injection, EOMI - ENT ENT exam: Present: mucous membranes moist - Respiratory Respiratory exam: Present: decreased breath sounds, CTAB. Absent: rhonchi, wheezes - Cardiovascular Cardiovascular exam: Present: distant heart sounds, irregular rhythm. Absent: tachycardia - GI/Abdominal GI/Abdominal exam: Present: distended, soft. Absent: tenderness - Extremities Exam Extremities exam: Present: tenderness, warm Additional comments: Decreased swelling and erythema of LUE. Able to close fist. Both legs with less edema as well. - Neurological Exam Neurological exam: Present: alert, oriented X3, no focal deficits - Skin Skin exam: Present: erythema, warm. Absent: rash Internal Medicine: Result - Labs CBC & Chem 7: 03/12/17 05:30 03/12/17 05:30 Labs: Short CBC 03/12/17 Range/Units 05:30 WBC 7.3 (4.3-11.1) K/mcL Hgb 8.0 L (12.9-16.9) g/dL Hct 28.9 L (37.5-50.1) % Plt Count 260 (140-400) K/mcL [facility] 03/12/17 05:30 Sodium 138 Potassium 3.6 Chloride 87 L Carbon Dioxide 42 H* BUN 21 Creatinine 0.91 Glucose 104 H Calcium 8.7 D - ABG Interpretation ABG results: ABG ABG pH 7.42 pH Units (7.32-7.45) 03/03/17 00:25 ABG pCO2 54 mmHg (35-45) H 03/03/17 00:25 ABG pO2 153 mmHg (85-104) H 03/03/17 00:25 ABG O2 Saturation 99 % (95-98) H 03/03/17 00:25 PT/INR, D-dimer PT 43.2 Seconds (9.4-12.1) H 03/02/17 23:45 - VTE Documentation of Mechanical Device: Intermittent pneumatic compression device Consult Discharge Plan - Plan Referrals: Keon Hector MD [Non-Partnered Physician] - 03/17/17 9:00 am
[2017-03-12] MEDS: Gabapentin 300 MG CAPSULE PO SCH ×3 (10:08→21:20)
[2017-03-12] MEDS: Venlafaxine XR (24 HR) 150 MG CAP.ER.24H PO SCH (10:08)
[2017-03-12] MEDS: Furosemide 20 MG/2 ML VIAL IVP SCH (10:08)
[2017-03-12] MEDS: APIXABAN 5 MG TABLET PO SCH ×2 (10:09→21:24)
[2017-03-12] MEDS: Diltiazem CD (24hr) 240 MG CAPSULE PO SCH (10:09)
[2017-03-12] MEDS: Metoprolol XL (24 HR) Succ 25 MG TAB.ER.24H PO SCH ×2 (10:09→21:23)
[2017-03-12] MEDS: Tobramycin/Dex Opth DROPS 2.5 ML BOTTLE BOTH EYES SCH ×3 (12:58→21:24)
[2017-03-12] MEDS ORDERED: Tobramycin/Dex Opth DROPS 2.5 ML BOTTLE RIGHT EYE SCH (13:00)
[2017-03-12 14:36] LABS: ABG Base Excess 21.7 mEq/L (-2.0 to 3.0); ABG Oxygen Saturation 89 % (95-98); ABG PCO2 66 mmHg (35-45); ABG PH 7.47 pH Units (7.32-7.45); ABG PO2 53 mmHg (85-104); Blood Gas Liter Flow 7 L/MIN
[2017-03-12] MEDS: Melatonin 3 MG TABLET PO SCH (22:16)
[2017-03-13 03:47] LABS: Hemoglobin 8.2 g/dL (12.9-16.9)
[2017-03-13 03:48] LABS: Hematocrit 30.4 % (37.5-50.1); Mean Corpuscular Volume 77.7 fL (83.0-100.0); Mean Platelet Volume 9.5 fL (9.4-12.4); Platelet Count 263 K/mcL (140-400); Red Blood Count 3.91 M/mcL (4.19-5.50); Red Cell Distribution Width 20.3 % (11.5-14.5)
[2017-03-13 04:01] LABS: BUN/Creatinine Ratio 25 (6-26); Blood Urea Nitrogen 21 mg/dL (8-26); Calcium 9.1 mg/dL (8.6-10.8); Chloride 86 mEq/L (98-109); Glucose 103 mg/dL (70-99); Osmolality,Calculated 291 (280-300); Potassium 3.8 mEq/L (3.5-4.5); Sodium 139 mEq/L (136-145); eGFR For African Americans > 60 (> 60); eGFR For Non-African Americans > 60 (> 60)
[2017-03-13 04:03] LABS: Carbon Dioxide 44 mEq/L (19-29)
[2017-03-13] MEDS: Ampicillin/Sulbactam 3,000 MG in 0.9 % Sodium Chloride Mini Bag 100 ML IVPB SCH ×3 (05:47→17:50)
[2017-03-13] MEDS: Diltiazem CD (24hr) 240 MG CAPSULE PO SCH (09:09)
[2017-03-13] MEDS: Gabapentin 300 MG CAPSULE PO SCH ×3 (09:09→21:41)
[2017-03-13] MEDS: APIXABAN 5 MG TABLET PO SCH (09:10)
[2017-03-13] MEDS: Metoprolol XL (24 HR) Succ 25 MG TAB.ER.24H PO SCH ×2 (09:10→21:41)
[2017-03-13] MEDS: Venlafaxine XR (24 HR) 150 MG CAP.ER.24H PO SCH (09:11)
[2017-03-13] MEDS: Tobramycin/Dex Opth DROPS 2.5 ML BOTTLE BOTH EYES SCH ×4 (09:17→21:42)
--- NOTE | 2017-03-13 12:58 | Internal Med Progress Note ---
Date of Encounter: 03/13/17 Time of Encounter: 12:56 - Assessment and plan (1) Pleural effusion Current Visit: Yes Status: Acute Assessment and plan: Pt with R pleural effusion. Lung is collapsed and trapped it appears. Will ask IR to drain and send for studies. Hopefully will help oxygenation. (2) Collapse of right lung Current Visit: Yes Status: Acute Assessment and plan: Due to pressure from fluid. Plan drainage. (3) Acute and chronic respiratory failure with hypercapnia Current Visit: Yes Status: Acute Assessment and plan: Persists. Using bipap at night. Oxygen levels fluctuate during the day. CT shows large R pleural effusion. (4) Acute exacerbation of CHF (congestive heart failure) Current Visit: Yes Status: Acute Assessment and plan: Diuresis on hold due to intravascular volume contraction. Has large effusion to tap Qualifiers: Congestive heart failure type: diastolic Qualified Code(s): I50.33 - Acute on chronic diastolic (congestive) heart failure (5) Cellulitis of left upper extremity Current Visit: Yes Status: Acute Assessment and plan: Continuing to improve slowly with IV abx. (6) Atrial fibrillation Current Visit: Yes Status: Chronic Assessment and plan: HR controlled On Cardizem, Toprol, Eliquis Qualifiers: Atrial fibrillation type: persistent Qualified Code(s): I48.1 - Persistent atrial fibrillation (7) Hypertension Current Visit: Yes Status: Chronic Assessment and plan: Controlled, continue meds Qualifiers: Hypertension type: essential hypertension Qualified Code(s): I10 - Essential (primary) hypertension (8) Anemia Current Visit: Yes Status: Acute Assessment and plan: H/H stable today. Guiac ordered. Qualifiers: Anemia type: other cause Other causes of anemia: chronic disease, other Qualified Code(s): D63.8 - Anemia in other chronic diseases classified elsewhere (9) Morbid obesity Current Visit: Yes Status: Chronic Assessment and plan: Chronic issue Qualifiers: Obesity type: unspecified obesity type Qualified Code(s): E66.01 - Morbid ( severe) obesity due to excess calories - Subjective Interval history: Mr. Bonner is currently admitted for acute exac chr diastolic CHF and R heart failure. He is moderate to high risk due to potential for worsening respiratory status. Mr. Bonner continues to have episodes of hypoxia. 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 He denies new issues overnight. No fever or chills. No GI symptoms. Due to persistent dyspnea and hypoxemia, CT done and shows large R pleural effusion and lung collapse. Some of lung looks to be in the middle of the effusion. Due to that I will have IR drain. Discussed with patient and he is agreeable. - Constitutional Vitals: Temp Pulse Resp BP Pulse Ox 96.3 F L 109 17 106/92 93 03/13/17 06:59 03/13/17 11:45 03/13/17 11:45 03/13/17 11:45 03/13/17 11:45 General appearance: Present: A&O X 3, morbidly obese, pleasant, answers questions appropriately - Head Head exam: Present: normocephalic - Eye Eye exam: Present: conjunctival injection, sclera anicteric - ENT ENT exam: Present: mucous membranes moist - Respiratory Respiratory exam: Present: decreased breath sounds, rales. Absent: rhonchi, wheezes - Cardiovascular Cardiovascular exam: Present: distant heart sounds, irregular rhythm. Absent: tachycardia - GI/Abdominal GI/Abdominal exam: Present: soft. Absent: tenderness Additional comments: Large abdomen. - Extremities Exam Extremities exam: Present: tenderness, warm Additional comments: Less edema overall. LUE with less edema and erythema but still present. Able to close fist. - Neurological Exam Neurological exam: Present: alert, oriented X3, no focal deficits - Skin Skin exam: Present: erythema, warm. Absent: rash Internal Medicine: Result - Labs CBC & Chem 7: 03/13/17 03:15 03/13/17 03:15 Labs: Short CBC 03/13/17 Range/Units 03:15 WBC 7.2 (4.3-11.1) K/mcL Hgb 8.2 L (12.9-16.9) g/dL Hct 30.4 L (37.5-50.1) % Plt Count 263 (140-400) K/mcL BMP 03/13/17 03:15 Sodium 139 Potassium 3.8 Chloride 86 L Carbon Dioxide 44 H* BUN 21 Creatinine 0.84 Glucose 103 H Calcium 9.1 - ABG Interpretation ABG results: ABG ABG pH 7.47 pH Units (7.32-7.45) H 03/12/17 14:23 ABG pCO2 66 mmHg (35-45) H 03/12/17 14:23 ABG pO2 53 mmHg (85-104) L 03/12/17 14:23 ABG O2 Saturation 89 % (95-98) L 03/12/17 14:23 PT/INR, D-dimer PT 43.2 Seconds (9.4-12.1) H 03/02/17 23:45 - Impressions Impressions Abdomen/Pelvis CT 03/13/17 10:30 IMPRESSION: 1. Large right pleural effusion. Collapse of the right lower lobe and right middle lobe. 2. Small left pleural effusion with mild left lower lobe atelectasis. 3. Small amount of ascites in the abdomen or pelvis. No acute abnormality in the abdomen or pelvis. D/ /13/2017 11:53:03 Javad Lobo MD / domonique Interpreting Provider: Javad Lobo MD Chest CT 03/13/17 10:30 IMPRESSION: 1. Large right pleural effusion. Collapse of the right lower lobe and right middle lobe. 2. Small left pleural effusion with mild left lower lobe atelectasis. 3. Small amount of ascites in the abdomen or pelvis. No acute abnormality in the abdomen or pelvis. D/ /13/2017 11:53:03 Javad Lobo MD / domonique Interpreting Provider: Javad Lobo MD - VTE Documentation of Mechanical Device: Intermittent pneumatic compression device Consult Discharge Plan - Plan Referrals: Keon Hector MD [Non-Partnered Physician] - 03/17/17 9:00 am
[2017-03-13 14:43] LABS: INR 2.5; Prothrombin Time 27.4 Seconds (9.4-12.1)
[2017-03-13] MEDS: Melatonin 3 MG TABLET PO SCH (22:19)
[2017-03-14] MEDS: Ampicillin/Sulbactam 3,000 MG in 0.9 % Sodium Chloride Mini Bag 100 ML IVPB SCH ×4 (00:49→17:46)
[2017-03-14 06:35] LABS: Hematocrit 28.9 % (37.5-50.1); Hemoglobin 8.1 g/dL (12.9-16.9); Mean Corpuscular Hemoglobin 21.6 pg (28.0-33.3); Mean Corpuscular Volume 77.1 fL (83.0-100.0); Mean Platelet Volume 9.5 fL (9.4-12.4); Platelet Count 218 K/mcL (140-400); Red Blood Count 3.75 M/mcL (4.19-5.50); Red Cell Distribution Width 20.3 % (11.5-14.5)
[2017-03-14 06:51] LABS: BUN/Creatinine Ratio 29 (6-26); Blood Urea Nitrogen 26 mg/dL (8-26); Calcium 8.9 mg/dL (8.6-10.8); Chloride 88 mEq/L (98-109); Glucose 101 mg/dL (70-99); Osmolality,Calculated 293 (280-300); Potassium 3.6 mEq/L (3.5-4.5); Sodium 139 mEq/L (136-145); eGFR For African Americans > 60 (> 60); eGFR For Non-African Americans > 60 (> 60)
[2017-03-14 06:55] LABS: Carbon Dioxide 40 mEq/L (19-29)
[2017-03-14] MEDS: Diltiazem CD (24hr) 240 MG CAPSULE PO SCH (09:01)
[2017-03-14] MEDS: Metoprolol XL (24 HR) Succ 25 MG TAB.ER.24H PO SCH ×2 (09:01→21:58)
[2017-03-14] MEDS: Gabapentin 300 MG CAPSULE PO SCH ×3 (09:01→21:55)
[2017-03-14] MEDS: Venlafaxine XR (24 HR) 150 MG CAP.ER.24H PO SCH (09:01)
[2017-03-14 09:55] LABS: INR 2.1; Prothrombin Time 22.6 Seconds (9.4-12.1)
[2017-03-14] MEDS ORDERED: Furosemide 40 MG/4 ML VIAL IVP ONE (12:45)
[2017-03-14 13:11] LABS: Alanine Aminotransferase 22 Units/L (0-55); Albumin 2.6 g/dL (3.5-5.0); Albumin/Globulin Ratio 0.8 (1.1-2.2); Alkaline Phosphatase 150 Units/L (38-126); Aspartate Amino Transferase 24 Units/L (5-34); Bilirubin,Direct 1.4 mg/dL (0.0-0.5); Bilirubin,Indirect 0.8 mg/dL (0.0-1.2); Bilirubin,Total 2.2 mg/dL (0.2-1.2); Globulin 3.3 g/dL (2.4-3.5); Total Protein 5.9 g/dL (6.0-8.3)
[2017-03-14 13:51] LABS: Bilirubin,Urine Small (Negative); Blood,Urine Large (Negative); Clarity,Urine Cloudy (Clear); Color,Urine Dark Yellow (Yellow); Glucose,Urine (UA) Normal (Normal); Ketones,Urine Negative (Negative); Leukocyte Esterase,Urine Negative (Negative); Nitrite,Urine Negative (Negative); PH,Urine 5.5 pH Units (5.0-8.0); Protein,Urine 100 mg/dL (Neg-Trace); Urobilinogen,Urine Normal (Normal)
[2017-03-14 13:53] LABS: Bacteria,Urine None Seen per hpf (None-Few); RBC,Urine 50-100 per hpf (0-3); Squamous Epithelial Cell,Urine Many per lpf (None-Few); WBC,Urine 0-3 per hpf (0-3)
[2017-03-14 14:06] LABS: Hyaline Casts,Urine Moderate per lpf (None-Few)
--- NOTE | 2017-03-14 16:44 | Internal Med Progress Note ---
Date of Encounter: 03/14/17 Time of Encounter: 09:00 - Assessment and plan (1) Pleural effusion Current Visit: Yes Status: Acute Assessment and plan: Pt with R pleural effusion. Lung is collapsed and trapped it appears. INR too high to drain it today. Will continue supportive care and hope tomorrow INR will be lower. and can be tapped. (2) Collapse of right lung Current Visit: Yes Status: Acute Assessment and plan: Due to pressure from fluid. Plan drainage. (3) Acute and chronic respiratory failure with hypercapnia Current Visit: Yes Status: Acute Assessment and plan: Persists. Having to use bipap more today. Monitor closely. (4) Acute exacerbation of CHF (congestive heart failure) Current Visit: Yes Status: Acute Assessment and plan: Given dose of lasix today. Reassess in AM. Qualifiers: Congestive heart failure type: diastolic Qualified Code(s): I50.33 - Acute on chronic diastolic (congestive) heart failure (5) Cellulitis of left upper extremity Current Visit: Yes Status: Acute Assessment and plan: Continuing to improve slowly with IV abx. (6) Atrial fibrillation Current Visit: Yes Status: Chronic Assessment and plan: HR controlled On Cardizem, Toprol, Eliquis on hold for thoracentesis Qualifiers: Atrial fibrillation type: persistent Qualified Code(s): I48.1 - Persistent atrial fibrillation (7) Hypertension Current Visit: Yes Status: Chronic Assessment and plan: Controlled, continue meds Qualifiers: Hypertension type: essential hypertension Qualified Code(s): I10 - Essential (primary) hypertension (8) Anemia Current Visit: Yes Status: Acute Assessment and plan: H/H stable today. Guiac ordered. Qualifiers: Anemia type: other cause Other causes of anemia: chronic disease, other Qualified Code(s): D63.8 - Anemia in other chronic diseases classified elsewhere (9) Morbid obesity Current Visit: Yes Status: Chronic Assessment and plan: Chronic issue Qualifiers: Obesity type: unspecified obesity type Qualified Code(s): E66.01 - Morbid ( severe) obesity due to excess calories - Subjective Interval history: Mr. Bonner is currently admitted for acute exac chr diastolic CHF and R heart failure. He is moderate to high risk due to potential for worsening respiratory status. Mr. Bonner has been on the bipap more last night and today. He has been having more issues with hypoxemia. No pain. Arm is about the same. No fever or chills. No diarrhea. Family visiting here today. - Constitutional Vitals: Temp Pulse Resp BP Pulse Ox 98.2 F 73 17 103/94 96 03/14/17 16:29 03/14/17 16:29 03/14/17 16:29 03/14/17 16:29 03/14/17 16:29 General appearance: Present: mild distress, morbidly obese, pleasant, answers questions appropriately - Head Head exam: Present: normocephalic - Eye Eye exam: Present: conjunctival injection - ENT ENT exam: Present: mucous membranes dry - Respiratory Respiratory exam: Present: decreased breath sounds, prolonged expiratory phase, rhonchi, wheezes - Cardiovascular Cardiovascular exam: Present: irregular rhythm. Absent: tachycardia - GI/Abdominal GI/Abdominal exam: Present: distended, soft. Absent: mass, tenderness - Extremities Exam Extremities exam: Present: tenderness, warm Additional comments: Continued edema though stable. L arm still slowly improving. - Neurological Exam Neurological exam: Present: alert, no focal deficits - Skin Skin exam: Present: erythema, warm. Absent: rash Internal Medicine: Result - Labs CBC & Chem 7: 03/14/17 06:24 03/14/17 06:24 Labs: Short CBC 03/14/17 Range/Units 06:24 WBC 6.9 (4.3-11.1) K/mcL Hgb 8.1 L (12.9-16.9) g/dL Hct 28.9 L (37.5-50.1) % Plt Count 218 (140-400) K/mcL BMP 03/14/17 06:24 Sodium 139 Potassium 3.6 Chloride 88 L Carbon Dioxide 40 H* BUN 26 Creatinine 0.90 Glucose 101 H Calcium 8.9 Liver Function 03/14/17 Range/Units 06:24 Total Bilirubin 2.2 H (0.2-1.2) mg/dL Direct Bilirubin 1.4 H (0.0-0.5) mg/dL AST 24 (5-34) Units/L ALT 22 (0-55) Units/L Alkaline Phosphatase 150 H (38-126) Units/L Albumin 2.6 L (3.5-5.0) g/dL Urine 03/14/17 Range/Units 13:39 Urine Color Dark Yellow (Yellow) Urine Clarity Cloudy A (Clear) Urine pH 5.5 (5.0-8.0) pH Units Ur Specific [place] 1.030 H (1.010-1.025) Urine Protein 100 H (Neg-Trace) mg/dL Urine Glucose (UA) Normal (Normal) mg/dL - ABG Interpretation ABG results: ABG ABG pH 7.47 pH Units (7.32-7.45) H 03/12/17 14:23 ABG pCO2 66 mmHg (35-45) H 03/12/17 14:23 ABG pO2 53 mmHg (85-104) L 03/12/17 14:23 ABG O2 Saturation 89 % (95-98) L 03/12/17 14:23 PT/INR, D-dimer PT 22.6 Seconds (9.4-12.1) H 03/14/17 09:30 - VTE Documentation of Mechanical Device: Intermittent pneumatic compression device Consult Discharge Plan - Plan Referrals: Keon Hector MD [Non-Partnered Physician] - 03/17/17 9:00 am
[2017-03-14] MEDS: Tobramycin/Dex Opth DROPS 2.5 ML BOTTLE BOTH EYES SCH ×4 (16:49→21:57)
[2017-03-15] MEDS: Ampicillin/Sulbactam 3,000 MG in 0.9 % Sodium Chloride Mini Bag 100 ML IVPB SCH ×2 (00:25→06:32)
[2017-03-15] MEDS: Melatonin 3 MG TABLET PO SCH ×2 (00:32→20:00)
[2017-03-15 03:51] LABS: Red Cell Distribution Width 20.7 % (11.5-14.5)
[2017-03-15 03:54] LABS: Hematocrit 28.3 % (37.5-50.1); Hemoglobin 7.9 g/dL (12.9-16.9); Immature Platelets 4.5 % (1.1-6.1); Mean Corpuscular HGB Conc 27.9 g/dL (31.6-35.5); Mean Corpuscular Hemoglobin 21.8 pg (28.0-33.3); Mean Corpuscular Volume 78.2 fL (83.0-100.0); Mean Platelet Volume 9.7 fL (9.4-12.4); Red Blood Count 3.62 M/mcL (4.19-5.50)
[2017-03-15 03:56] LABS: INR 1.8; Prothrombin Time 19.2 Seconds (9.4-12.1)
[2017-03-15 04:03] LABS: Alanine Aminotransferase 19 Units/L (0-55); Albumin 2.5 g/dL (3.5-5.0); Albumin/Globulin Ratio 0.7 (1.1-2.2); Alkaline Phosphatase 154 Units/L (38-126); Aspartate Amino Transferase 22 Units/L (5-34); BUN/Creatinine Ratio 29 (6-26); Bilirubin,Total 2.2 mg/dL (0.2-1.2); Blood Urea Nitrogen 26 mg/dL (8-26); Chloride 87 mEq/L (98-109); Globulin 3.6 g/dL (2.4-3.5); Glucose 108 mg/dL (70-99); Magnesium 1.7 mg/dL (1.6-2.6); Osmolality,Calculated 295 (280-300); Potassium 3.4 mEq/L (3.5-4.5); Sodium 140 mEq/L (136-145); Total Protein 6.1 g/dL (6.0-8.3); eGFR For African Americans > 60 (> 60); eGFR For Non-African Americans > 60 (> 60)
[2017-03-15 04:07] LABS: Carbon Dioxide 44 mEq/L (19-29)
--- NOTE | 2017-03-15 08:45 | IR Procedure Note ---
Date of procedure: 03/15/17 Consent Obtained: Written consent Timeout: Correct patient and procedure verified, Correct site verified, Time out performed, Skin prep completed Local anesthetic: Lidocaine 1% Indications: Right pleural effusion Procedure Performed: Right thoracentesis Complications: None; Tolerated procedure well (Monitor on floor)
[2017-03-15] MEDS: Venlafaxine XR (24 HR) 150 MG CAP.ER.24H PO SCH (09:23)
[2017-03-15] MEDS: Metoprolol XL (24 HR) Succ 25 MG TAB.ER.24H PO SCH ×2 (09:23→20:00)
[2017-03-15] MEDS: Diltiazem CD (24hr) 240 MG CAPSULE PO SCH (09:24)
[2017-03-15] MEDS: Tobramycin/Dex Opth DROPS 2.5 ML BOTTLE BOTH EYES SCH ×4 (09:24→20:12)
[2017-03-15] MEDS: Gabapentin 300 MG CAPSULE PO SCH ×3 (09:24→20:00)
[2017-03-15] MEDS ORDERED: Acetaminophen 325 MG TABLET PO ONE (09:52)
[2017-03-15] MEDS ORDERED: Furosemide 20 MG/2 ML VIAL IVP ONE (09:52)
[2017-03-15] MEDS ORDERED: Vancomycin 2,000 MG in D5% in Water 250 ML IVPB ONE (10:05)
[2017-03-15] MEDS ORDERED: Vancomycin 2,000 MG in D5% in Water 250 ML IVPB SCH (10:15)
[2017-03-15] MEDS: Vancomycin 2,000 MG in D5% in Water 500 ML IVPB SCH ×2 (11:11→20:13)
[2017-03-15] MEDS: Piperacillin/Tazobactam 3.375 GM in D5% in Water (Mini-Bag+) 100 ML IVPB SCH ×2 (12:08→20:00)
[2017-03-15] MEDS ORDERED: 0.9 % Sodium Chloride 250 ML ONE (13:44)
--- NOTE | 2017-03-15 15:16 | Internal Med Progress Note ---
Date of Encounter: 03/15/17 Time of Encounter: 09:30 - Assessment and plan (1) Pleural effusion Current Visit: Yes Status: Acute Assessment and plan: Had thoracentesis today. Tolerated OK. Seems to be breathing somewhat better post procedure. CXR post shows bilateral changes of pulmonary edema versus pneumonia. Will change abx today. (2) Collapse of right lung Current Visit: Yes Status: Acute Assessment and plan: s/p thoracentesis. Should improve. (3) Acute and chronic respiratory failure with hypercapnia Current Visit: Yes Status: Acute Assessment and plan: Off and on bipap. Expect oxygenation will improve s/p thoracentesis. (4) Anemia Current Visit: Yes Status: Acute Assessment and plan: Hemoglobin below 8 today. Will transfuse one unit PRBCs. GI consult as has microcytic anemia and is on anticoagulation. Qualifiers: Anemia type: other cause Other causes of anemia: chronic disease, other Qualified Code(s): D63.8 - Anemia in other chronic diseases classified elsewhere (5) Acute exacerbation of CHF (congestive heart failure) Current Visit: Yes Status: Acute Assessment and plan: Bicarb increased again after diuresis yesterday. Will start Diamox. Scheduled lasix on hold. Will give smaller dose today after blood transfusion. Qualifiers: Congestive heart failure type: diastolic Qualified Code(s): I50.33 - Acute on chronic diastolic (congestive) heart failure (6) Pneumonia Current Visit: Yes Status: Suspected Assessment and plan: Post thoracentesis x-ray has bilateral infiltrates. Will change to Zosyn and Vanc for now Qualifiers: Pneumonia type: due to other aerobic Gram-negative bacteria Laterality: bilateral Lung location: lower lobe of lung Qualified Code(s): J15.6 - Pneumonia due to other aerobic Gram-negative bacteria (7) Cellulitis of left upper extremity Current Visit: Yes Status: Acute Assessment and plan: Appears to be about the same. Abx changed to cover lungs. (8) Atrial fibrillation Current Visit: Yes Status: Chronic Assessment and plan: HR controlled On Cardizem, Toprol, Eliquis on hold for thoracentesis. Will restart tomorrow. Qualifiers: Atrial fibrillation type: persistent Qualified Code(s): I48.1 - Persistent atrial fibrillation (9) Hypertension Current Visit: Yes Status: Chronic Assessment and plan: Controlled, continue meds Qualifiers: Hypertension type: essential hypertension Qualified Code(s): I10 - Essential (primary) hypertension (10) Morbid obesity Current Visit: Yes Status: Chronic Assessment and plan: Chronic issue Qualifiers: Obesity type: unspecified obesity type Qualified Code(s): E66.01 - Morbid ( severe) obesity due to excess calories - Subjective Interval history: Mr. Bonner is currently admitted for acute exac chr diastolic CHF and R heart failure. He is moderate to high risk due to potential for worsening respiratory status. Mr. Bonner had thoracentesis this AM. 1.5L plus removed. Pt returned to floor and seemed to be breathing somewhat better. Denies pain. No fever or chills. Hemoglobin lower today - denies bleeding. - Constitutional Vitals: Temp Pulse Resp BP Pulse Ox 96.2 F L 76 20 93/56 96 03/15/17 14:09 03/15/17 14:06 03/15/17 14:06 03/15/17 14:06 03/15/17 14:06 General appearance: Present: mild distress, morbidly obese, pleasant, answers questions appropriately - Head Head exam: Present: normocephalic - Eye Eye exam: Present: conjunctival injection - ENT ENT exam: Present: mucous membranes moist - Respiratory Respiratory exam: Present: decreased breath sounds, rhonchi. Absent: wheezes - Cardiovascular Cardiovascular exam: Present: irregular rhythm. Absent: tachycardia - GI/Abdominal GI/Abdominal exam: Present: soft. Absent: tenderness - Extremities Exam Extremities exam: Present: warm. Absent: tenderness Additional comments: Edema LUE persists. Can close hand. Less erythema. - Neurological Exam Neurological exam: Present: alert, oriented X3 - Skin Skin exam: Present: dry, erythema, warm. Absent: rash Internal Medicine: Result - Labs CBC & Chem 7: 03/15/17 03:30 03/15/17 03:30 Labs: Short CBC 03/15/17 Range/Units 03:30 WBC 6.8 (4.3-11.1) K/mcL Hgb 7.9 L (12.9-16.9) g/dL Hct 28.3 L (37.5-50.1) % Plt Count 202 (140-400) K/mcL BMP 03/15/17 03:30 Sodium 140 Potassium 3.4 L Chloride 87 L Carbon Dioxide 44 H* BUN 26 Creatinine 0.91 Glucose 108 H Calcium 9.0 Liver Function 03/15/17 Range/Units 03:30 Total Bilirubin 2.2 H (0.2-1.2) mg/dL AST 22 (5-34) Units/L ALT 19 (0-55) Units/L Alkaline Phosphatase 154 H (38-126) Units/L Albumin 2.5 L (3.5-5.0) g/dL - ABG Interpretation ABG results: ABG ABG pH 7.47 pH Units (7.32-7.45) H 03/12/17 14:23 ABG pCO2 66 mmHg (35-45) H 03/12/17 14:23 ABG pO2 53 mmHg (85-104) L 03/12/17 14:23 ABG O2 Saturation 89 % (95-98) L 03/12/17 14:23 PT/INR, D-dimer PT 19.2 Seconds (9.4-12.1) H 03/15/17 03:30 - Impressions Impressions Abdomen/Pelvis CT 03/13/17 10:30 IMPRESSION: 1. Large right pleural effusion. Collapse of the right lower lobe and right middle lobe. 2. Small left pleural effusion with mild left lower lobe atelectasis. 3. Small amount of ascites in the abdomen or pelvis. No acute abnormality in the abdomen or pelvis. D/ /13/2017 11:53:03 Javad Lobo MD / domonique Interpreting Provider: Javad Lobo MD Chest CT 03/13/17 10:30 IMPRESSION: 1. Large right pleural effusion. Collapse of the right lower lobe and right middle lobe. 2. Small left pleural effusion with mild left lower lobe atelectasis. 3. Small amount of ascites in the abdomen or pelvis. No acute abnormality in the abdomen or pelvis. D/ /13/2017 11:53:03 Javad Lobo MD / domonique Interpreting Provider: Javad Lobo MD Thoracentesis Ultrasound 03/15/17 00:00 IMPRESSION: 1. Successful ultrasound guided right thoracentesis. D/ / Arian Pope MD / Arian Pope MD Interpreting Provider: Arian Pope MD Chest X-Ray 03/15/17 08:45 IMPRESSION: 1. Interval decrease in size of the patient's now small right pleural effusion status post thoracentesis, without evidence of a pneumothorax. 2. Persistent findings suggestive of CHF, with multifocal airspace opacity likely representing a combination of multifocal atelectasis and asymmetric edema, though underlying pneumonia cannot be excluded. D/ / 03/15/2017 09:40:22 Bud Whitehead MD / polo Interpreting Provider: Bud Whitehead MD - VTE Documentation of Mechanical Device: Intermittent pneumatic compression device Consult Discharge Plan - Plan Referrals: Keon Hector MD [Non-Partnered Physician] - 03/17/17 9:00 am
[2017-03-15] MEDS: acetaZOLAMIDE 250 MG TABLET PO SCH (16:40)
[2017-03-16] MEDS: Piperacillin/Tazobactam 3.375 GM in D5% in Water (Mini-Bag+) 100 ML IVPB SCH ×3 (02:02→20:16)
[2017-03-16 03:19] LABS: Hemoglobin 8.6 g/dL (12.9-16.9)
[2017-03-16 03:21] LABS: Hematocrit 30.3 % (37.5-50.1); Immature Platelets 4.3 % (1.1-6.1); Mean Corpuscular HGB Conc 28.4 g/dL (31.6-35.5); Mean Corpuscular Volume 77.5 fL (83.0-100.0); Mean Platelet Volume 10.2 fL (9.4-12.4); Red Blood Count 3.91 M/mcL (4.19-5.50); Red Cell Distribution Width 20.6 % (11.5-14.5)
[2017-03-16 06:39] LABS: Alanine Aminotransferase 18 Units/L (0-55); Albumin 2.4 g/dL (3.5-5.0); Albumin/Globulin Ratio 0.8 (1.1-2.2); Alkaline Phosphatase 134 Units/L (38-126); Aspartate Amino Transferase 21 Units/L (5-34); BUN/Creatinine Ratio 26 (6-26); Bilirubin,Total 2.4 mg/dL (0.2-1.2); Blood Urea Nitrogen 25 mg/dL (8-26); Calcium 8.5 mg/dL (8.6-10.8); Chloride 88 mEq/L (98-109); Globulin 3.2 g/dL (2.4-3.5); Glucose 102 mg/dL (70-99); Osmolality,Calculated 291 (280-300); Potassium 3.4 mEq/L (3.5-4.5); Sodium 138 mEq/L (136-145); Total Protein 5.6 g/dL (6.0-8.3); eGFR For African Americans > 60 (> 60); eGFR For Non-African Americans > 60 (> 60)
[2017-03-16 06:58] LABS: Carbon Dioxide 41 mEq/L (19-29)
[2017-03-16] MEDS: Venlafaxine XR (24 HR) 150 MG CAP.ER.24H PO SCH (09:10)
[2017-03-16] MEDS: Diltiazem CD (24hr) 240 MG CAPSULE PO SCH (09:10)
[2017-03-16] MEDS: Gabapentin 300 MG CAPSULE PO SCH ×3 (09:10→20:16)
[2017-03-16] MEDS: acetaZOLAMIDE 250 MG TABLET PO SCH (09:10)
[2017-03-16] MEDS: Metoprolol XL (24 HR) Succ 25 MG TAB.ER.24H PO SCH ×2 (09:10→20:16)
[2017-03-16] MEDS: Tobramycin/Dex Opth DROPS 2.5 ML BOTTLE BOTH EYES SCH ×2 (09:12→12:22)
[2017-03-16] MEDS ORDERED: Furosemide 40 MG/4 ML VIAL IVP ONE ×3 (09:34→20:00)
[2017-03-16] MEDS ORDERED: Albumin 25% 25gram/100mL 25 GM/100 ML IV.SOLN IVPB ONE ×2 (09:35→17:50)
[2017-03-16] MEDS: Vancomycin 1,750 MG in D5% in Water 500 ML IVPB SCH ×2 (10:38→20:16)
[2017-03-16 13:12] LABS: RBC,Pleural Fluid < 0.002 M/mcL
[2017-03-16 13:24] LABS: Amylase,Pleural Fluid 34 Units/L (No Ref Range); LDH,Pleural Fluid 37 Units/L (No Ref Range); Triglycerides, Pleural Fluid 11 mg/dL (No Ref Range)
[2017-03-16 13:25] LABS: Total Protein,Pleural Fluid 1.2 g/dL (No Ref Range)
[2017-03-16 15:16] LABS: Appearance of Pleural Fl Clear (Clear)
--- NOTE | 2017-03-16 15:16 | Event Note ---
Date of Encounter: 03/16/17 Time of Encounter: 15:16 Chart reviewed, full consult follow. Will likely complete EGD and colonoscopy on Monday.
--- NOTE | 2017-03-16 16:07 | Internal Med Progress Note ---
Date of Encounter: 03/16/17 Time of Encounter: 08:30 - Assessment and plan (1) Pleural effusion Current Visit: Yes Status: Acute Assessment and plan: Continues to improve after thoracentesis. Continue monitoring. (2) Collapse of right lung Current Visit: Yes Status: Acute Assessment and plan: s/p thoracentesis. Recheck CXR in AM. (3) Acute and chronic respiratory failure with hypercapnia Current Visit: Yes Status: Acute Assessment and plan: Improving oxygenation post thoracentesis. (4) Anemia Current Visit: Yes Status: Acute Assessment and plan: Improved today. Holding Eliquis for now. If clinically better over weekend will have endoscopy Monday. Qualifiers: Anemia type: other cause Other causes of anemia: chronic disease, other Qualified Code(s): D63.8 - Anemia in other chronic diseases classified elsewhere (5) Acute exacerbation of CHF (congestive heart failure) Current Visit: Yes Status: Acute Assessment and plan: Bicarb better on Diamox. Albumin and Lasix today. Qualifiers: Congestive heart failure type: diastolic Qualified Code(s): I50.33 - Acute on chronic diastolic (congestive) heart failure (6) Pneumonia Current Visit: Yes Status: Suspected Assessment and plan: Post thoracentesis x-ray has bilateral infiltrates. On Zosyn and Vanc. Qualifiers: Pneumonia type: due to other aerobic Gram-negative bacteria Laterality: bilateral Lung location: lower lobe of lung Qualified Code(s): J15.6 - Pneumonia due to other aerobic Gram-negative bacteria (7) Cellulitis of left upper extremity Current Visit: Yes Status: Acute Assessment and plan: Appears to be about the same. Abx changed to cover lungs. (8) Atrial fibrillation Current Visit: Yes Status: Chronic Assessment and plan: HR controlled On Cardizem, Toprol, Eliquis on hold for possible GI workup. Qualifiers: Atrial fibrillation type: persistent Qualified Code(s): I48.1 - Persistent atrial fibrillation (9) Hypertension Current Visit: Yes Status: Chronic Assessment and plan: Controlled, continue meds Qualifiers: Hypertension type: essential hypertension Qualified Code(s): I10 - Essential (primary) hypertension (10) Morbid obesity Current Visit: Yes Status: Chronic Assessment and plan: Chronic issue Qualifiers: Obesity type: unspecified obesity type Qualified Code(s): E66.01 - Morbid ( severe) obesity due to excess calories - Subjective Interval history: Mr. Bonner is currently admitted for acute exac chr diastolic CHF and R heart failure. He is moderate to high risk due to potential for worsening respiratory status. Mr. Bonner seems to be doing better today. He is more oriented and his respiratory status is improving. He is on 7 liters at this time. No CP. No fever or chills. No GI symptoms. Hemoglobin somewhat better today. Albumin and Lasix to be given today. - Constitutional Vitals: Temp Pulse Resp BP Pulse Ox 97.6 F 67 18 110/81 93 03/16/17 15:26 03/16/17 15:26 03/16/17 15:26 03/16/17 15:26 03/16/17 15:26 General appearance: Present: morbidly obese, pleasant, answers questions appropriately - Head Head exam: Present: normocephalic - Eye Eye exam: Present: conjunctival injection - ENT ENT exam: Present: mucous membranes moist - Respiratory Respiratory exam: Present: decreased breath sounds, rhonchi. Absent: rales, wheezes - Cardiovascular Cardiovascular exam: Present: distant heart sounds, irregular rhythm. Absent: tachycardia - GI/Abdominal GI/Abdominal exam: Present: soft. Absent: mass, tenderness - Extremities Exam Extremities exam: Present: warm. Absent: tenderness Additional comments: Still with edema. - Neurological Exam Neurological exam: Present: alert, oriented X3 - Skin Skin exam: Present: dry, warm Internal Medicine: Result - Labs CBC & Chem 7: 03/16/17 03:00 03/16/17 03:00 Labs: Short CBC 03/16/17 Range/Units 03:00 WBC 8.6 (4.3-11.1) K/mcL Hgb 8.6 L (12.9-16.9) g/dL Hct 30.3 L (37.5-50.1) % Plt Count 178 (140-400) K/mcL BMP 03/16/17 03:00 Sodium 138 Potassium 3.4 L Chloride 88 L Carbon Dioxide 41 H* BUN 25 Creatinine 0.96 Glucose 102 H Calcium 8.5 L Liver Function 03/16/17 Range/Units 03:00 Total Bilirubin 2.4 H (0.2-1.2) mg/dL AST 21 (5-34) Units/L ALT 18 (0-55) Units/L Alkaline Phosphatase 134 H (38-126) Units/L Albumin 2.4 L (3.5-5.0) g/dL - ABG Interpretation ABG results: ABG ABG pH 7.47 pH Units (7.32-7.45) H 03/12/17 14:23 ABG pCO2 66 mmHg (35-45) H 03/12/17 14:23 ABG pO2 53 mmHg (85-104) L 03/12/17 14:23 ABG O2 Saturation 89 % (95-98) L 03/12/17 14:23 PT/INR, D-dimer PT 19.2 Seconds (9.4-12.1) H 03/15/17 03:30 - Impressions Impressions Chest X-Ray 03/15/17 08:45 IMPRESSION: 1. Interval decrease in size of the patient's now small right pleural effusion status post thoracentesis, without evidence of a pneumothorax. 2. Persistent findings suggestive of CHF, with multifocal airspace opacity likely representing a combination of multifocal atelectasis and asymmetric edema, though underlying pneumonia cannot be excluded. D/ / 03/15/2017 09:40:22 Bud Whitehead MD / polo Interpreting Provider: Bud Whitehead MD - VTE Documentation of Mechanical Device: Intermittent pneumatic compression device Consult Discharge Plan - Plan Referrals: Keon Hector MD [Non-Partnered Physician] - 03/17/17 9:00 am
[2017-03-16] MEDS: Melatonin 3 MG TABLET PO SCH (20:16)
[2017-03-17] MEDS: Piperacillin/Tazobactam 3.375 GM in D5% in Water (Mini-Bag+) 100 ML IVPB SCH ×3 (03:40→17:57)
[2017-03-17 03:56] LABS: Hematocrit 29.5 % (37.5-50.1); Hemoglobin 8.3 g/dL (12.9-16.9); Mean Corpuscular HGB Conc 28.1 g/dL (31.6-35.5); Mean Platelet Volume 9.6 fL (9.4-12.4); Platelet Count 140 K/mcL (140-400); Red Blood Count 3.78 M/mcL (4.19-5.50)
[2017-03-17 04:09] LABS: BUN/Creatinine Ratio 23 (6-26); Blood Urea Nitrogen 22 mg/dL (8-26); Calcium 8.6 mg/dL (8.6-10.8); Chloride 87 mEq/L (98-109); Glucose 115 mg/dL (70-99); Magnesium 1.6 mg/dL (1.6-2.6); Osmolality,Calculated 288 (280-300); Potassium 3.1 mEq/L (3.5-4.5); Sodium 137 mEq/L (136-145); eGFR For African Americans > 60 (> 60); eGFR For Non-African Americans > 60 (> 60)
[2017-03-17 04:20] LABS: Carbon Dioxide 41 mEq/L (19-29)
[2017-03-17] MEDS: acetaZOLAMIDE 250 MG TABLET PO SCH (10:55)
[2017-03-17] MEDS: Venlafaxine XR (24 HR) 150 MG CAP.ER.24H PO SCH (10:56)
[2017-03-17] MEDS: Gabapentin 300 MG CAPSULE PO SCH ×3 (10:56→20:23)
[2017-03-17] MEDS: Metoprolol XL (24 HR) Succ 25 MG TAB.ER.24H PO SCH ×2 (10:56→20:23)
[2017-03-17] MEDS: Diltiazem CD (24hr) 240 MG CAPSULE PO SCH (10:56)
--- NOTE | 2017-03-17 11:09 | Gastroenterology Consult Note ---
<MoyerRobert Wagner - Last Filed: 03/17/17 11:06> Date of Encounter: 03/17/17 Time of Encounter: 10:45 - Assessment and plan (1) Anemia Current Visit: Yes Status: Acute Assessment and plan: Continue to monitor CBC and transfuse PRBC as needed. Plan for EGD and colonoscopy on Monday. Clear liquid diet Monday, no red or purple. NPO at midnight Monday night. If not clear by 6 AM, give 2 tap water enemas. Qualifiers: Anemia type: other cause Other causes of anemia: chronic disease, other Qualified Code(s): D63.8 - Anemia in other chronic diseases classified elsewhere (2) Acute exacerbation of CHF (congestive heart failure) Current Visit: Yes Status: Acute Assessment and plan: Management per primary team. Qualifiers: Congestive heart failure type: diastolic Qualified Code(s): I50.33 - Acute on chronic diastolic (congestive) heart failure (3) Pleural effusion Current Visit: Yes Status: Acute Assessment and plan: s/p thoracentesis. Management per primary team. (4) Cellulitis of left upper extremity Current Visit: Yes Status: Acute (5) Acute and chronic respiratory failure with hypercapnia Current Visit: Yes Status: Acute - Time Spent With Patient Total time spent is greater than 50% in coordination of care (as documented) at patient's floor/unit and/or counseling patient: GI History of Present Illness - Data of Consult Patient: new to practice Consult date: 03/17/17 Requesting Physician: Dante Cisneros DO - Consult Narrative Reason for consult: anemia History of present illness: Mr. Bonner is a 77 year old male with PMHx of Afib on Eliquis, CHF, HLD, HTN, CKD who was admitted with acute exacerbation of CHF and developed acute on chronic respiratory failure. He was on BiPAP and was transitioned to nasal cannula. He developed pleural effusion and thoracentesis was completed 03/15. We have been consulted to evaluate his microcytic anemia. Hgb on admission was 9.4 with MCV 76.5, this AM Hgb 8.3 with MCV 78. There are no records of previous EGD or colonoscopy. He denies abdominal pain, nausea, vomiting, hematemesis, melena, or hematochezia. Procedures: None NSAIDs: ASA Anticoagulation: Eliquis Past Med Surg Social Fam HX - Past Medical History Medical history: atrial fibrillation, CHF (chronic, diastolic), hyperlipidemia, hypertension, renal disease, syncope Psychiatric history: no psych history - Past Surgical History Surgical History: orthopedic, other (right shoulder replacement), other ( ablation and maze procedures for a.fib) - Social History Smoking Status: Former smoker Smokeless Tobacco Status: No Alcohol use: none Drug use: none - Family History Father History Unknown: Yes Adopted: No Family Member Ethnicity: Non- Living Status: Hx Family Cardiac Disorders: Yes Hx Family Respiratory Disorders: No Hx Family Cancer: No Hx Family GI Disorders: No Hx Family Endocrine Disorder: Yes (DM) Hx Family Neuromuscular Disorders: No Hx Family Neurologic Disorders: No Hx Family HEENT Disorders: No Hx Family Autoimmune Disorders: No - Gastrointestinal Gastrointestinal: Present: as per HPI - Constitutional Constitutional: as per HPI - EENT Eyes: as per HPI Ears: Present: as per HPI Nose, mouth and throat: Present: as per HPI - Cardiovascular Cardiovascular ROS: Present: as per HPI - Respiratory Respiratory IM: Present: as per HPI - Genitourinary Genitourinary: Absent: change in color, Urinary frequency - Neurological ROS Neurological GI: Present: as per HPI - Hematologic/Lymphatic Hematologic/Lymphatic pediatric: Present: as per HPI - Musculoskeletal Musculoskeletal ROS GI: Present: as per HPI - Integumentary Integumentary GI: Present: as per HPI - Psychiatric ROS Psychiatric GI: Present: as per HPI - Endocrine Endocrine IM: Present: as per HPI - Constitutional Vitals: Temp Pulse Resp BP Pulse Ox 97.7 F 65 18 142/71 97 03/17/17 06:45 03/17/17 06:45 03/17/17 06:45 03/17/17 06:45 03/17/17 06:45 General appearance: Present: cooperative, A&O X 1, answers questions appropriately - Head Head exam: Present: atraumatic, normocephalic - Eye Eye exam: Present: normal appearance, sclera anicteric - ENT ENT exam: Present: mucous membranes dry - Neck Neck exam general surgery: Present: normal inspection, trachea midline - Respiratory Respiratory exam: Present: decreased breath sounds, rhonchi - Cardiovascular Cardiovascular exam: Present: RRR, +S1, +S2 - GI/Abdominal GI/Abdominal exam: Present: soft, no peritoneal signs. Absent: distended, firm , guarding, tenderness Additional comments: obese - Rectal Rectal exam: Present: deferred - Extremities Exam Extremities exam: Present: warm Additional comments: LUE edema - Neurological Exam Neurological exam: Present: no focal deficits - Psychiatric Psychiatric exam: Present: normal affect, normal mood - Skin Skin exam: Present: dry, intact, normal color, warm Results - Labs CBC & Chem 7: 03/17/17 03:30 03/17/17 03:30 Labs: Last Result Calcium 8.6 mg/dL (8.6-10.8) 03/17/17 03:30 Troponin I 0.01 ng/mL (0-0.03) 03/03/17 05:44 Entire Visit Hgb 8.3 g/dL (12.9-16.9) L 03/17/17 03:30 Hct 29.5 % (37.5-50.1) L 03/17/17 03:30 PT 19.2 Seconds (9.4-12.1) H 03/15/17 03:30 Total Bilirubin 2.4 mg/dL (0.2-1.2) H 03/16/17 03:00 AST 21 Units/L (5-34) 03/16/17 03:00 ALT 18 Units/L (0-55) 03/16/17 03:00 - ABG ABG results: ABG ABG pH 7.47 pH Units (7.32-7.45) H 03/12/17 14:23 ABG pCO2 66 mmHg (35-45) H 03/12/17 14:23 ABG pO2 53 mmHg (85-104) L 03/12/17 14:23 ABG O2 Saturation 89 % (95-98) L 03/12/17 14:23 PT/INR, D-dimer PT 19.2 Seconds (9.4-12.1) H 03/15/17 03:30 Consult Discharge Plan - Plan Referrals: Keon Hector MD [Non-Partnered Physician] - 03/17/17 9:00 am <Rambo Barriga - Last Filed: 03/20/17 08:55> Date of Encounter: 03/16/17 Time of Encounter: 17:00 - Time Spent With Patient Total time spent is greater than 50% in coordination of care (as documented) at patient's floor/unit and/or counseling patient: GI History of Present Illness - Data of Consult Requesting Physician: Dante Cisneros DO - Consult Narrative History of present illness: Mr. Bonner is a 77 year old male - Constitutional Vitals: Temp Pulse Resp BP Pulse Ox 97.4 F L 66 18 100/73 92 03/20/17 07:00 03/20/17 07:00 03/20/17 07:00 03/20/17 07:00 03/20/17 07:00 Results - Labs CBC & Chem 7: 03/20/17 07:45 03/19/17 04:13 Labs: Last Result Calcium 8.8 mg/dL (8.6-10.8) 03/19/17 04:13 Troponin I 0.01 ng/mL (0-0.03) 03/03/17 05:44 Entire Visit Hgb 9.3 g/dL (12.9-16.9) L 03/20/17 07:45 Hct 33.6 % (37.5-50.1) L 03/20/17 07:45 PT 19.2 Seconds (9.4-12.1) H 03/15/17 03:30 Total Bilirubin 1.8 mg/dL (0.2-1.2) H 03/19/17 04:13 AST 18 Units/L (5-34) 03/19/17 04:13 ALT 11 Units/L (0-55) 03/19/17 04:13 Carcinoembryonic Ag 1.5 ng/mL (0-5.0) 03/19/17 04:13 - ABG ABG results: ABG ABG pH 7.40 pH Units (7.32-7.45) 03/19/17 15:30 ABG pCO2 75 mmHg (35-45) H* 03/19/17 15:30 ABG pO2 86 mmHg (85-104) 03/19/17 15:30 ABG O2 Saturation 97 % (95-98) 03/19/17 15:30 PT/INR, D-dimer PT 19.2 Seconds (9.4-12.1) H 03/15/17 03:30 - Attending Attestation I examined this patient and my medical decision-making was reviewed with the PRINTING SERVICES COORDINATOR/PA/Advanced Practice Nurse/Resident Physician. I agree with the documented findings, disposition and treatment plan as described except to the extent set forth below.
--- NOTE | 2017-03-17 13:41 | Internal Med Progress Note ---
Date of Encounter: 03/17/17 Time of Encounter: 09:00 - Assessment and plan (1) Acute and chronic respiratory failure with hypercapnia Current Visit: Yes Status: Acute Assessment and plan: Have been able to wean oxygen down slowly. Will continue over weekend. (2) Pleural effusion Current Visit: Yes Status: Acute Assessment and plan: s/p thoracentesis. Recheck CXR tomorrow. (3) Collapse of right lung Current Visit: Yes Status: Acute Assessment and plan: Recheck CXR tomorrow. (4) Anemia Current Visit: Yes Status: Acute Assessment and plan: Stable today. If clinically able plan endoscopy Monday. Qualifiers: Anemia type: other cause Other causes of anemia: chronic disease, other Qualified Code(s): D63.8 - Anemia in other chronic diseases classified elsewhere (5) Acute exacerbation of CHF (congestive heart failure) Current Visit: Yes Status: Acute Assessment and plan: On Diamox. Will give another albumin/Lasix today and then anticipate restart scheduled Lasix. Qualifiers: Congestive heart failure type: diastolic Qualified Code(s): I50.33 - Acute on chronic diastolic (congestive) heart failure (6) Pneumonia Current Visit: Yes Status: Suspected Assessment and plan: Continue current antibiotics as well. Qualifiers: Pneumonia type: due to other aerobic Gram-negative bacteria Laterality: bilateral Lung location: lower lobe of lung Qualified Code(s): J15.6 - Pneumonia due to other aerobic Gram-negative bacteria (7) Cellulitis of left upper extremity Current Visit: Yes Status: Acute Assessment and plan: Doing OK. Continue IV abx. (8) Atrial fibrillation Current Visit: Yes Status: Chronic Assessment and plan: HR controlled On Cardizem, Toprol, Eliquis on hold for possible GI workup. Qualifiers: Atrial fibrillation type: persistent Qualified Code(s): I48.1 - Persistent atrial fibrillation (9) Hypertension Current Visit: Yes Status: Chronic Assessment and plan: Controlled, continue meds Qualifiers: Hypertension type: essential hypertension Qualified Code(s): I10 - Essential (primary) hypertension (10) Morbid obesity Current Visit: Yes Status: Chronic Assessment and plan: Chronic issue Qualifiers: Obesity type: unspecified obesity type Qualified Code(s): E66.01 - Morbid ( severe) obesity due to excess calories - Subjective Interval history: Mr. Bonner is currently admitted for acute exac chr diastolic CHF and R heart failure. He is moderate to high risk due to potential for worsening respiratory status. Mr. Bonner did not wear bipap last night. He seems to be more confused this AM and he is very tired. Denies CP. No fever or chills. Have been able to wean down oxygen this AM. - Constitutional Vitals: Temp Pulse Resp BP Pulse Ox 97.0 F L 77 11 128/78 97 03/17/17 11:46 03/17/17 11:46 03/17/17 11:46 03/17/17 11:46 03/17/17 06:45 General appearance: Present: morbidly obese, pleasant, answers questions appropriately - Head Head exam: Present: normocephalic - Eye Eye exam: Present: conjuntiva pink, sclera anicteric - ENT ENT exam: Present: mucous membranes moist - Respiratory Respiratory exam: Present: decreased breath sounds, rhonchi. Absent: rales, wheezes - Cardiovascular Cardiovascular exam: Present: distant heart sounds, irregular rhythm. Absent: tachycardia - GI/Abdominal GI/Abdominal exam: Present: soft. Absent: mass, tenderness - Extremities Exam Extremities exam: Present: warm Additional comments: Less edema overall. - Neurological Exam Neurological exam: Present: alert, oriented X3 - Skin Skin exam: Present: rash. Absent: warm Internal Medicine: Result - Labs CBC & Chem 7: 03/17/17 03:30 03/17/17 03:30 Labs: Short CBC 03/17/17 Range/Units 03:30 WBC 7.1 (4.3-11.1) K/mcL Hgb 8.3 L (12.9-16.9) g/dL Hct 29.5 L (37.5-50.1) % Plt Count 140 (140-400) K/mcL [facility] 03/17/17 03:30 Sodium 137 Potassium 3.1 L Chloride 87 L Carbon Dioxide 41 H* BUN 22 Creatinine 0.97 Glucose 115 H Calcium 8.6 - ABG Interpretation ABG results: ABG ABG pH 7.47 pH Units (7.32-7.45) H 03/12/17 14:23 ABG pCO2 66 mmHg (35-45) H 03/12/17 14:23 ABG pO2 53 mmHg (85-104) L 03/12/17 14:23 ABG O2 Saturation 89 % (95-98) L 03/12/17 14:23 PT/INR, D-dimer PT 19.2 Seconds (9.4-12.1) H 03/15/17 03:30 - VTE Documentation of Mechanical Device: Intermittent pneumatic compression device Consult Discharge Plan - Plan Referrals: Keon Hector MD [Non-Partnered Physician] - 03/17/17 9:00 am
[2017-03-17] MEDS ORDERED: Furosemide 40 MG/4 ML VIAL IVP ONE (13:54)
[2017-03-17] MEDS ORDERED: Albumin 25% 25gram/100mL 25 GM/100 ML IV.SOLN IVPB ONE (13:54)
[2017-03-17] MEDS: Melatonin 3 MG TABLET PO SCH (20:22)
[2017-03-18] MEDS: Piperacillin/Tazobactam 3.375 GM in D5% in Water (Mini-Bag+) 100 ML IVPB SCH ×3 (02:37→18:54)
[2017-03-18 03:37] LABS: BUN/Creatinine Ratio 20 (6-26); Blood Urea Nitrogen 19 mg/dL (8-26); Calcium 8.9 mg/dL (8.6-10.8); Chloride 88 mEq/L (98-109); Glucose 107 mg/dL (70-99); Osmolality,Calculated 289 (280-300); Potassium 3.1 mEq/L (3.5-4.5); Sodium 138 mEq/L (136-145); eGFR For African Americans > 60 (> 60); eGFR For Non-African Americans > 60 (> 60)
[2017-03-18 03:39] LABS: Carbon Dioxide 41 mEq/L (19-29); Red Cell Distribution Width 21.5 % (11.5-14.5)
[2017-03-18 03:40] LABS: Hematocrit 31.2 % (37.5-50.1); Hemoglobin 8.7 g/dL (12.9-16.9); Mean Corpuscular HGB Conc 27.9 g/dL (31.6-35.5); Mean Corpuscular Hemoglobin 21.7 pg (28.0-33.3); Mean Corpuscular Volume 77.8 fL (83.0-100.0); Mean Platelet Volume 10.2 fL (9.4-12.4); Platelet Count 152 K/mcL (140-400); Red Blood Count 4.01 M/mcL (4.19-5.50)
[2017-03-18] MEDS: Gabapentin 300 MG CAPSULE PO SCH ×3 (08:57→21:07)
[2017-03-18] MEDS: Diltiazem CD (24hr) 240 MG CAPSULE PO SCH (08:58)
[2017-03-18] MEDS: Metoprolol XL (24 HR) Succ 25 MG TAB.ER.24H PO SCH ×2 (08:58→21:07)
[2017-03-18] MEDS: acetaZOLAMIDE 250 MG TABLET PO SCH (08:59)
[2017-03-18] MEDS: Venlafaxine XR (24 HR) 150 MG CAP.ER.24H PO SCH (08:59)
--- NOTE | 2017-03-18 11:43 | Internal Med Progress Note ---
Date of Encounter: 03/18/17 Time of Encounter: 10:00 - Assessment and plan (1) Acute and chronic respiratory failure with hypercapnia Current Visit: Yes Status: Acute Assessment and plan: On 5 liters. Wearing bipap intermittently. His pulse ox does not roll picker well. He seems to be clinically improved today. CXR done - pleural effusion returning on R. (2) Pleural effusion Current Visit: Yes Status: Acute Assessment and plan: s/p thoracentesis. Increased in size again on R on today's CXR. Diurese more today. (3) Collapse of right lung Current Visit: Yes Status: Acute Assessment and plan: Somewhat better on today's CXR. May need to have further drainage of fluid if recurs. (4) Anemia Current Visit: Yes Status: Acute Assessment and plan: Hopefully will be medically able to have endoscopy Monday. Qualifiers: Anemia type: other cause Other causes of anemia: chronic disease, other Qualified Code(s): D63.8 - Anemia in other chronic diseases classified elsewhere (5) Acute exacerbation of CHF (congestive heart failure) Current Visit: Yes Status: Acute Assessment and plan: On Diamox. Edema better today though pleural fluid returning. Restart Lasix today. Qualifiers: Congestive heart failure type: diastolic Qualified Code(s): I50.33 - Acute on chronic diastolic (congestive) heart failure (6) Pneumonia Current Visit: Yes Status: Suspected Assessment and plan: Continue current antibiotics as well. Qualifiers: Pneumonia type: due to other aerobic Gram-negative bacteria Laterality: bilateral Lung location: lower lobe of lung Qualified Code(s): J15.6 - Pneumonia due to other aerobic Gram-negative bacteria (7) Cellulitis of left upper extremity Current Visit: Yes Status: Acute Assessment and plan: Doing OK. Continue IV abx. (8) Atrial fibrillation Current Visit: Yes Status: Chronic Assessment and plan: HR controlled On Cardizem, Toprol, Eliquis on hold for possible GI workup. Qualifiers: Atrial fibrillation type: persistent Qualified Code(s): I48.1 - Persistent atrial fibrillation (9) Hypertension Current Visit: Yes Status: Chronic Assessment and plan: Controlled, continue meds Qualifiers: Hypertension type: essential hypertension Qualified Code(s): I10 - Essential (primary) hypertension (10) Morbid obesity Current Visit: Yes Status: Chronic Assessment and plan: Chronic issue Qualifiers: Obesity type: unspecified obesity type Qualified Code(s): E66.01 - Morbid ( severe) obesity due to excess calories - Subjective Interval history: Mr. Bonner is currently admitted for acute exac chr diastolic CHF and R heart failure. He is moderate to high risk due to potential for worsening respiratory status. Mr. Bonner seems to be more alert and oriented today. He is currently on bipap. His oxygen saturation does not roll picker well on monitor. He has been decreased to 5 liters. He denies CP. No fever or chills. - Constitutional Vitals: Temp Pulse Resp BP Pulse Ox 98.1 F 67 18 134/75 90 03/18/17 05:04 03/18/17 05:04 03/18/17 05:04 03/18/17 05:04 03/18/17 05:04 General appearance: Present: morbidly obese, pleasant, answers questions appropriately - Head Head exam: Present: normocephalic - Eye Eye exam: Present: conjunctival injection - ENT ENT exam: Present: mucous membranes moist - Respiratory Respiratory exam: Present: decreased breath sounds, rhonchi. Absent: rales, wheezes - Cardiovascular Cardiovascular exam: Present: irregular rhythm. Absent: tachycardia - GI/Abdominal GI/Abdominal exam: Present: soft. Absent: tenderness - Extremities Exam Extremities exam: Present: warm Additional comments: Much less edema throughout. Less erythema in arms. Legs improved as well. - Neurological Exam Neurological exam: Present: alert, no focal deficits - Skin Skin exam: Present: dry, warm Internal Medicine: Result - Labs CBC & Chem 7: 03/18/17 03:12 03/18/17 03:12 Labs: Short CBC 03/18/17 Range/Units 03:12 WBC 7.0 (4.3-11.1) K/mcL Hgb 8.7 L (12.9-16.9) g/dL Hct 31.2 L (37.5-50.1) % Plt Count 152 (140-400) K/mcL BMP 03/18/17 03:12 Sodium 138 Potassium 3.1 L Chloride 88 L Carbon Dioxide 41 H* BUN 19 Creatinine 0.93 Glucose 107 H Calcium 8.9 - ABG Interpretation ABG results: ABG ABG pH 7.47 pH Units (7.32-7.45) H 03/12/17 14:23 ABG pCO2 66 mmHg (35-45) H 03/12/17 14:23 ABG pO2 53 mmHg (85-104) L 03/12/17 14:23 ABG O2 Saturation 89 % (95-98) L 03/12/17 14:23 PT/INR, D-dimer PT 19.2 Seconds (9.4-12.1) H 03/15/17 03:30 - Impressions Impressions Chest X-Ray 03/18/17 06:00 IMPRESSION: Stable cardiomegaly. Interval increased airspace opacity in the right hemithorax and to a lesser degree at the left lung base, likely related to pulmonary edema versus pneumonia. Bilateral pleural effusions, mild on the left and moderate on the right, increased since the prior study. D/ / Luis Thomson MD / Luis Thomson MD Interpreting Provider: Luis Thomson MD - VTE Documentation of Mechanical Device: Intermittent pneumatic compression device Consult Discharge Plan - Plan Referrals: Keon Hector MD [Non-Partnered Physician] - 03/17/17 9:00 am
[2017-03-18] MEDS ORDERED: Potassium Chloride 20 MEQ, Lidocaine 1% 2 ML in D5% in Water 250 ML IVPB ONE (11:58)
[2017-03-18] MEDS ORDERED: Furosemide 20 MG/2 ML VIAL IVP SCH (12:00)
[2017-03-18 14:37] LABS: Alanine Aminotransferase 13 Units/L (0-55); Albumin/Globulin Ratio 1.1 (1.1-2.2); Alkaline Phosphatase 112 Units/L (38-126); Aspartate Amino Transferase 20 Units/L (5-34); Bilirubin,Direct 1.5 mg/dL (0.0-0.5); Bilirubin,Indirect 0.8 mg/dL (0.0-1.2); Bilirubin,Total 2.3 mg/dL (0.2-1.2); Globulin 2.8 g/dL (2.4-3.5)
[2017-03-18 14:39] LABS: Total Protein 5.8 g/dL (6.0-8.3)
[2017-03-18] MEDS: Melatonin 3 MG TABLET PO SCH (21:07)
[2017-03-19] MEDS: Piperacillin/Tazobactam 3.375 GM in D5% in Water (Mini-Bag+) 100 ML IVPB SCH ×3 (03:02→20:14)
[2017-03-19 04:25] LABS: Hematocrit 30.7 % (37.5-50.1); Hemoglobin 8.5 g/dL (12.9-16.9); Mean Corpuscular HGB Conc 27.7 g/dL (31.6-35.5); Mean Corpuscular Volume 79.3 fL (83.0-100.0); Mean Platelet Volume 10.5 fL (9.4-12.4); Platelet Count 165 K/mcL (140-400); Red Blood Count 3.87 M/mcL (4.19-5.50); Red Cell Distribution Width 22.1 % (11.5-14.5)
[2017-03-19 04:47] LABS: Alanine Aminotransferase 11 Units/L (0-55); Albumin 2.7 g/dL (3.5-5.0); Albumin/Globulin Ratio 0.9 (1.1-2.2); Alkaline Phosphatase 119 Units/L (38-126); Aspartate Amino Transferase 18 Units/L (5-34); BUN/Creatinine Ratio 18 (6-26); Bilirubin,Total 1.8 mg/dL (0.2-1.2); Blood Urea Nitrogen 17 mg/dL (8-26); Calcium 8.8 mg/dL (8.6-10.8); Chloride 89 mEq/L (98-109); Globulin 3.1 g/dL (2.4-3.5); Glucose 135 mg/dL (70-99); Magnesium 1.8 mg/dL (1.6-2.6); Osmolality,Calculated 288 (280-300); Potassium 3.2 mEq/L (3.5-4.5); Sodium 137 mEq/L (136-145); Total Protein 5.8 g/dL (6.0-8.3); eGFR For African Americans > 60 (> 60); eGFR For Non-African Americans > 60 (> 60)
[2017-03-19 04:53] LABS: Carbon Dioxide 42 mEq/L (19-29)
[2017-03-19 05:59] LABS: Carcinoembryonic Antigen 1.5 ng/mL (0-5.0)
[2017-03-19] MEDS: Diltiazem CD (24hr) 240 MG CAPSULE PO SCH (10:19)
[2017-03-19] MEDS: Gabapentin 300 MG CAPSULE PO SCH ×3 (10:19→20:17)
[2017-03-19] MEDS: Metoprolol XL (24 HR) Succ 25 MG TAB.ER.24H PO SCH ×2 (10:19→20:17)
[2017-03-19] MEDS: Venlafaxine XR (24 HR) 150 MG CAP.ER.24H PO SCH (10:19)
[2017-03-19] MEDS: acetaZOLAMIDE 250 MG TABLET PO SCH (10:20)
[2017-03-19] MEDS: Vancomycin 1,250 MG in D5% in Water 250 ML IVPB SCH (12:29)
[2017-03-19] MEDS ORDERED: Albumin 25% 25gram/100mL 25 GM/100 ML IV.SOLN IVPB ONE (12:50)
[2017-03-19] MEDS ORDERED: Furosemide 40 MG/4 ML VIAL IVP ONE (12:51)
--- NOTE | 2017-03-19 14:57 | Internal Med Progress Note ---
Date of Encounter: 03/19/17 Time of Encounter: 10:00 - Assessment and plan (1) Acute and chronic respiratory failure with hypercapnia Current Visit: Yes Status: Acute Assessment and plan: Remains on 5 liters. Repeat ABG to eval CO2 and pH. Overall he continues to not do well. He was improved but has declined again. (2) Pleural effusion Current Visit: Yes Status: Acute Assessment and plan: Reaccumulating on CXR yesterday. May need drained again. Will recheck Chest CT today and do as CTA. (3) Collapse of right lung Current Visit: Yes Status: Acute Assessment and plan: Seems to have improved with thoracentesis. (4) Anemia Current Visit: Yes Status: Acute Assessment and plan: Does not appear to be medically stable for endoscopy tomorrow. Will hold prep today. Qualifiers: Anemia type: other cause Other causes of anemia: chronic disease, other Qualified Code(s): D63.8 - Anemia in other chronic diseases classified elsewhere (5) Acute exacerbation of CHF (congestive heart failure) Current Visit: Yes Status: Acute Assessment and plan: Getting some diuretic. Will give albumin/Lasix today again. Heart failure may be worse than appears - especially on R. Qualifiers: Congestive heart failure type: diastolic Qualified Code(s): I50.33 - Acute on chronic diastolic (congestive) heart failure (6) Pneumonia Current Visit: Yes Status: Suspected Assessment and plan: Continue current antibiotics as well. Qualifiers: Pneumonia type: due to other aerobic Gram-negative bacteria Laterality: bilateral Lung location: lower lobe of lung Qualified Code(s): J15.6 - Pneumonia due to other aerobic Gram-negative bacteria (7) Cellulitis of left upper extremity Current Visit: Yes Status: Acute Assessment and plan: Doing OK. Continue IV abx. (8) Atrial fibrillation Current Visit: Yes Status: Chronic Assessment and plan: HR controlled On Cardizem, Toprol, Eliquis on hold for possible GI workup. Qualifiers: Atrial fibrillation type: persistent Qualified Code(s): I48.1 - Persistent atrial fibrillation (9) Hypertension Current Visit: Yes Status: Chronic Assessment and plan: Controlled, continue meds Qualifiers: Hypertension type: essential hypertension Qualified Code(s): I10 - Essential (primary) hypertension (10) Morbid obesity Current Visit: Yes Status: Chronic Assessment and plan: Chronic issue Qualifiers: Obesity type: unspecified obesity type Qualified Code(s): E66.01 - Morbid ( severe) obesity due to excess calories - Subjective Interval history: Mr. Bonner is currently admitted for acute exac chr diastolic CHF and R heart failure. He is moderate to high risk due to potential for worsening respiratory status. Mr. Bonner is only on 5 liters and seems to be oxygenating OK but remains confused. Denies pain. No fever or chills. No cough. No diarrhea. Is to start prep for colonoscopy but not clinically able to do it at this time. - Constitutional Vitals: Temp Pulse Resp BP Pulse Ox 97.6 F 71 18 113/70 93 03/19/17 11:00 03/19/17 11:00 03/19/17 11:00 03/19/17 11:00 03/19/17 11:00 General appearance: Present: morbidly obese, obese - Head Head exam: Present: normocephalic - Eye Eye exam: Present: conjuntiva pink - ENT ENT exam: Present: mucous membranes moist - Respiratory Respiratory exam: Present: decreased breath sounds. Absent: rales, rhonchi, wheezes Additional comments: Diminshed breath sounds throughout. - Cardiovascular Cardiovascular exam: Present: irregular rhythm. Absent: tachycardia - GI/Abdominal GI/Abdominal exam: Absent: tenderness - Extremities Exam Extremities exam: Present: warm Additional comments: Edema worsened again today. - Neurological Exam Neurological exam: Present: alert, no focal deficits - Skin Skin exam: Present: erythema. Absent: rash Internal Medicine: Result - Labs CBC & Chem 7: 03/19/17 04:13 03/19/17 04:13 Labs: Short CBC 03/19/17 Range/Units 04:13 WBC 8.4 (4.3-11.1) K/mcL Hgb 8.5 L (12.9-16.9) g/dL Hct 30.7 L (37.5-50.1) % Plt Count 165 (140-400) K/mcL BMP 03/19/17 04:13 Sodium 137 Potassium 3.2 L Chloride 89 L Carbon Dioxide 42 H* BUN 17 Creatinine 0.97 Glucose 135 H Calcium 8.8 Liver Function 03/19/17 Range/Units 04:13 Total Bilirubin 1.8 H (0.2-1.2) mg/dL AST 18 (5-34) Units/L ALT 11 (0-55) Units/L Alkaline Phosphatase 119 (38-126) Units/L Albumin 2.7 L (3.5-5.0) g/dL - ABG Interpretation ABG results: ABG ABG pH 7.47 pH Units (7.32-7.45) H 03/12/17 14:23 ABG pCO2 66 mmHg (35-45) H 03/12/17 14:23 ABG pO2 53 mmHg (85-104) L 03/12/17 14:23 ABG O2 Saturation 89 % (95-98) L 03/12/17 14:23 PT/INR, D-dimer PT 19.2 Seconds (9.4-12.1) H 03/15/17 03:30 - VTE Documentation of Mechanical Device: Intermittent pneumatic compression device Consult Discharge Plan - Plan Referrals: Keon Hector MD [Non-Partnered Physician] - 03/17/17 9:00 am
[2017-03-19 15:43] LABS: ABG Base Excess 18.3 mEq/L (-2.0 to 3.0); ABG HCO3 46.5 mEQ/L (21-27); ABG Oxygen Saturation 97 % (95-98); ABG PO2 86 mmHg (85-104); ABG TCO2 48.8 mEq/L (20-26); Blood Gas FiO2 50 %; Blood Gas PEEP 7 cm H2O; Blood Gas Respiration Rate 17
[2017-03-19 15:44] LABS: ABG PCO2 75 mmHg (35-45)
[2017-03-19] MEDS ORDERED: Polyethylene Glycol 3350 255 GM POWDER PO ONE (17:00)
[2017-03-19] MEDS: Melatonin 3 MG TABLET PO SCH (20:15)
[2017-03-20] MEDS: Piperacillin/Tazobactam 3.375 GM in D5% in Water (Mini-Bag+) 100 ML IVPB SCH ×3 (03:29→21:27)
[2017-03-20 08:07] LABS: Mean Corpuscular HGB Conc 27.7 g/dL (31.6-35.5); Mean Corpuscular Volume 79.2 fL (83.0-100.0); Red Cell Distribution Width 22.5 % (11.5-14.5)
[2017-03-20 08:08] LABS: Hematocrit 33.6 % (37.5-50.1); Hemoglobin 9.3 g/dL (12.9-16.9); Mean Corpuscular Hemoglobin 21.9 pg (28.0-33.3); Mean Platelet Volume 10.4 fL (9.4-12.4); Red Blood Count 4.24 M/mcL (4.19-5.50)
[2017-03-20 08:12] LABS: Platelet Count 260 K/mcL (140-400)
[2017-03-20] MEDS: Diltiazem CD (24hr) 240 MG CAPSULE PO SCH (09:04)
[2017-03-20] MEDS: acetaZOLAMIDE 250 MG TABLET PO SCH (09:04)
[2017-03-20] MEDS: Venlafaxine XR (24 HR) 150 MG CAP.ER.24H PO SCH (09:05)
[2017-03-20] MEDS: Metoprolol XL (24 HR) Succ 25 MG TAB.ER.24H PO SCH ×2 (09:08→21:28)
[2017-03-20] MEDS: Gabapentin 300 MG CAPSULE PO SCH ×4 (09:12→21:29)
[2017-03-20 09:49] LABS: Alanine Aminotransferase 13 Units/L (0-55); Albumin 3.2 g/dL (3.5-5.0); Alkaline Phosphatase 114 Units/L (38-126); Aspartate Amino Transferase 22 Units/L (5-34); BUN/Creatinine Ratio 15 (6-26); Bilirubin,Total 2.2 mg/dL (0.2-1.2); Blood Urea Nitrogen 14 mg/dL (8-26); Calcium 9.2 mg/dL (8.6-10.8); Carbon Dioxide 39 mEq/L (19-29); Chloride 89 mEq/L (98-109); Globulin 3.2 g/dL (2.4-3.5); Glucose 111 mg/dL (70-99); Magnesium 1.9 mg/dL (1.6-2.6); Osmolality,Calculated 285 (280-300); Potassium 3.4 mEq/L (3.5-4.5); Sodium 137 mEq/L (136-145); Total Protein 6.4 g/dL (6.0-8.3); eGFR For African Americans > 60 (> 60); eGFR For Non-African Americans > 60 (> 60)
--- NOTE | 2017-03-20 11:52 | Cardiology Progress Note ---
Date of Encounter: 03/20/17 Time of Encounter: 11:48 Assessment and Plan (1) Atrial fibrillation with RVR Current Visit: Yes Status: Acute - HR 80s-90s continue to monitor - Continue toprol 75 mg PO BID and cardizem 240mg daily. (original home doses) - 12 hour tele: avg HR=84 afib. - Consider sleep study in outpatient setting. - eliquis held d/t anemia requiring blood transfusion during stay for Hgb 7.9. - No evidence of bleeding noted. Consider restarting once stable. Hgb trending up-quintero. (2) Congestive heart failure (CHF) Current Visit: No Status: Acute Echo- LVEF 65-70%, RV hypokinetic with TD velocity 4cm/s; mild MR, moderate TR, moderate pulm HTN with RVSP 52, IVC dilated. Right sided heart failure symptoms. Recurrent pleural effusions. CTA of the chest completed today shows no acute PE. There is a large right and small left pleural effusion. IV lasix stopped previously. Last one time dose yesterday. Was on diamox 250 mg daily (carbon dioxide elevated). Kidney function remains normal. Net negative -14, 853 ml, negative -1300 ml yesterday. Discussed with primary team. Fluid overload improved and he had thoracentesis with 2L fluid removed. Patient developed recurrent fluid overload and large pleural effusion. Lasix given yesterday. Continue aggressive IV diuresis, bipap at night, Na/Fluid restriction diet. Discussed with Dr. Oneal. Start lasix 40 mg daily and d/c diamox. Start aldactone 25 mg daily. Continue to monitor kidney function closely. Strict I&O. Consider repeat thoracentesis. Qualifiers: Congestive heart failure type: diastolic Congestive heart failure chronicity: acute Qualified Code(s): I50.31 - Acute diastolic (congestive) heart failure Discussion w patient/family: The assessment and plan as outlined above was discussed with the patient and/or family members who expressed understanding and agreement. All questions were answered. Thank you for involving us in the care of your patient. Please call with any questions. Subjective Principal diagnosis: exacerbation of CHF with fluid overload Interval history: Cardiology re-consulted for recurrent pleural effusion and fluid overload despite thoracentesis and diuressis. On exam patient denies chest pain or SOB. He is not conversational. His words are difficult to understand at times but seems to answer appropriately. Objective Vital Signs Temp Pulse Resp BP Pulse Ox 03/20/17 07:00 97.4 F L 66 18 100/73 92 03/20/17 04:00 98.0 F 64 16 121/63 93 03/20/17 03:38 91 03/20/17 00:00 97.3 F L 66 16 100/70 96 03/19/17 19:00 98.5 F 67 12 116/56 99 03/19/17 15:31 9 99 03/19/17 15:00 96.4 F L 68 14 104/61 99 Intake and Output 03/19/17 03/20/17 03/20/17 23:59 07:59 15:59 Intake Total 0 / 0 300 / 300 0 / 0 Output Total 300 / 300 200 / 200 Balance -300 / -300 100 / 100 0 / 0 Intake: IV Fluids 100 / 100 Zosyn 3.375 GM In 100 / 100 Dextrose 5% (Minibag+) 100 ML 100 ML @ 25 mls/hr IVPB Q8H [facility] Rx#: [id number] Oral 0 / 0 200 / 200 0 / 0 Output: Catheter 300 / 300 200 / 200 Other: Meal Breakfast Percent of Meal Consumed 5% Weight 126 kg Patient Weight 03/20/17 23:59 Weight 126 kg General: No Apparent Distress HEENT: Atraumatic, Normocephaly, Mucus Membranes Moist Cardiac: Other (irregularly irregular) Lungs: Other (Lungs diminished throughout. ) Neuro: Alert and responsive, Other (Generalized weakness noted. ) Abdomen: Other (Distended and round) Musculoskeletal: No Chest Wall Tenderness Extremities: Other (Anasarca noted with increased edema in the upper extremities , left more than right. ) Results 03/20/17 07:45 03/20/17 09:18 Lab Results 03/20/17 03/20/17 07:45 09:18 WBC 8.3 Hgb 9.3 L Hct 33.6 L Plt Count 260 D Sodium 137 Potassium 3.4 L Chloride 89 L Carbon Dioxide 39 H BUN 14 Creatinine 0.96 Glucose 111 H Calcium 9.2 Magnesium 1.9 Total Bilirubin 2.2 H AST 22 ALT 13 Alkaline Phosphatase 114 Shoulder X-Ray 03/10/17 11:07 IMPRESSION: 1. Moderate to severe left glenohumeral degenerative changes with near [id number] articulation. D/ / Beto Edwards MD / Beto Edwards MD Interpreting Provider: Beto Edwards MD Abdomen/Pelvis CT 03/13/17 10:30 IMPRESSION: 1. Large right pleural effusion. Collapse of the right lower lobe and right middle lobe. 2. Small left pleural effusion with mild left lower lobe atelectasis. 3. Small amount of ascites in the abdomen or pelvis. No acute abnormality in the abdomen or pelvis. D/ 03/13/2017 11:53:03 Javad Lobo MD / domonique Interpreting Provider: Javad Lobo MD Chest CT 03/13/17 10:30 IMPRESSION: 1. Large right pleural effusion. Collapse of the right lower lobe and right middle lobe. 2. Small left pleural effusion with mild left lower lobe atelectasis. 3. Small amount of ascites in the abdomen or pelvis. No acute abnormality in the abdomen or pelvis. D/ 03/13/2017 11:53:03 Javad Lobo MD / domonique Interpreting Provider: Javad Lobo MD Thoracentesis Ultrasound 03/15/17 00:00 IMPRESSION: 1. Successful ultrasound guided right thoracentesis. D/ / Arian Pope MD / Arian Pope MD Interpreting Provider: Arian Pope MD Chest X-Ray 03/18/17 06:00 IMPRESSION: Stable cardiomegaly. Interval increased airspace opacity in the right hemithorax and to a lesser degree at the left lung base, likely related to pulmonary edema versus pneumonia. Bilateral pleural effusions, mild on the left and moderate on the right, increased since the prior study. D/ / Luis Thomson MD / Luis Thomson MD Interpreting Provider: Luis Thomson MD Chest CTA 03/20/17 11:00 IMPRESSION: 1. No findings of central pulmonary embolism. There is suboptimal opacification of subsegmental branches. 2. Mild to moderate cardiomegaly with moderate right ventricular hypertrophy. Associated right heart dysfunction is suspected given reflux of the contrast bolus and bowing of the interventricular septum. 3. Likely pulmonary hypertension given marked dilation of the pulmonary arteries given the above findings. 4. Fusiform aneurysmal dilation of the ascending thoracic aorta, measuring up to 4.6 cm x 4.6 cm. 5. Unchanged large right and small to moderate left pleural effusions with associated passive atelectasis in both lungs, including persistent complete collapse of the right lower lobe. Superimposed pneumonia could be present collapse portions of the lung. D/ / Robert Chatterjee MD / Robert Chatterjee MD Interpreting Provider: Robert Chatterjee MD Head CT 03/20/17 11:00 IMPRESSION: 1. No acute intracranial abnormality. D/ / Arian Pope MD / Arian Poep MD Interpreting Provider: Arian Pope MD - Imaging and Cardiology Echo: report reviewed - VTE Documentation of Mechanical Device: Intermittent pneumatic compression device Consult Discharge Plan - Plan Referrals: Keon Hector MD [Non-Partnered Physician] - 03/17/17 9:00 am
[2017-03-20] MEDS: Vancomycin 1,250 MG in D5% in Water 250 ML IVPB SCH (12:40)
--- NOTE | 2017-03-20 14:06 | Internal Med Progress Note ---
Date of Encounter: 03/20/17 Time of Encounter: 08:30 - Assessment and plan (1) Acute and chronic respiratory failure with hypercapnia Current Visit: Yes Status: Acute Assessment and plan: Hypoxia persists. Will continue supplemental oxygen. (2) Pleural effusion Current Visit: Yes Status: Acute Assessment and plan: Reaccumulated on CT. Pathology of first thoracentesis is pending. ? thoracentesis versus catheter. Will ask pulm for opinion. (3) Collapse of right lung Current Visit: Yes Status: Acute Assessment and plan: Remains present on repeat CT today. Will ask pulm for further input/evaluation. (4) Anemia Current Visit: Yes Status: Acute Assessment and plan: Do not feel he can tolerate GI workup at this time. Hemoglobin stable since transfusion. No obvious bleeding noted. Qualifiers: Anemia type: other cause Other causes of anemia: chronic disease, other Qualified Code(s): D63.8 - Anemia in other chronic diseases classified elsewhere (5) Acute exacerbation of CHF (congestive heart failure) Current Visit: Yes Status: Acute Assessment and plan: Appreciate repeat eval from cardiology. Diuretic adjusted. Qualifiers: Congestive heart failure type: diastolic Qualified Code(s): I50.33 - Acute on chronic diastolic (congestive) heart failure (6) Pneumonia Current Visit: Yes Status: Suspected Assessment and plan: Currently on IV abx. Qualifiers: Pneumonia type: due to other aerobic Gram-negative bacteria Laterality: bilateral Lung location: lower lobe of lung Qualified Code(s): J15.6 - Pneumonia due to other aerobic Gram-negative bacteria (7) Cellulitis of left upper extremity Current Visit: Yes Status: Acute Assessment and plan: Little better today. (8) Atrial fibrillation Current Visit: Yes Status: Chronic Assessment and plan: HR controlled On Cardizem, Toprol, Eliquis on hold for possible GI workup. Qualifiers: Atrial fibrillation type: persistent Qualified Code(s): I48.1 - Persistent atrial fibrillation (9) Hypertension Current Visit: Yes Status: Chronic Assessment and plan: Controlled, continue meds Qualifiers: Hypertension type: essential hypertension Qualified Code(s): I10 - Essential (primary) hypertension (10) Morbid obesity Current Visit: Yes Status: Chronic Assessment and plan: Chronic issue Qualifiers: Obesity type: unspecified obesity type Qualified Code(s): E66.01 - Morbid ( severe) obesity due to excess calories - Subjective Interval history: Mr. Bonner is currently admitted for acute exac chr diastolic CHF and R heart failure. He is moderate to high risk due to potential for worsening respiratory status. Mr. Bonner is on 5 liters still today. He is confused and not answering much. Denies pain. Appears that R side pleural effusion has re-accumulated. Repeat CT today still shows collapsed lobe on right. Pleural fluid pathology pending. - Constitutional Vitals: Temp Pulse Resp BP Pulse Ox 97.4 F L 67 18 124/76 97 03/20/17 07:00 03/20/17 12:10 03/20/17 12:10 03/20/17 12:10 03/20/17 12:10 General appearance: Present: morbidly obese, obese - Head Head exam: Present: normocephalic - Eye Eye exam: Present: conjuntiva pink, sclera anicteric - ENT ENT exam: Present: mucous membranes moist - Respiratory Respiratory exam: Present: rhonchi. Absent: decreased breath sounds, rales, wheezes - Cardiovascular Cardiovascular exam: Present: irregular rhythm. Absent: tachycardia - GI/Abdominal GI/Abdominal exam: Present: soft. Absent: tenderness - Extremities Exam Extremities exam: Present: warm Additional comments: Overall edema is improved. - Neurological Exam Neurological exam: Present: alert, altered. Absent: facial droop - Skin Skin exam: Present: warm. Absent: rash Internal Medicine: Result - Labs CBC & Chem 7: 03/20/17 07:45 03/20/17 09:18 Labs: Short CBC 03/20/17 Range/Units 07:45 WBC 8.3 (4.3-11.1) K/mcL Hgb 9.3 L (12.9-16.9) g/dL Hct 33.6 L (37.5-50.1) % Plt Count 260 D (140-400) K/mcL BMP 03/20/17 09:18 Sodium 137 Potassium 3.4 L Chloride 89 L Carbon Dioxide 39 H BUN 14 Creatinine 0.96 Glucose 111 H Calcium 9.2 Liver Function 03/20/17 Range/Units 09:18 Total Bilirubin 2.2 H (0.2-1.2) mg/dL AST 22 (5-34) Units/L ALT 13 (0-55) Units/L Alkaline Phosphatase 114 (38-126) Units/L Albumin 3.2 L (3.5-5.0) g/dL - ABG Interpretation ABG results: ABG ABG pH 7.40 pH Units (7.32-7.45) 03/19/17 15:30 ABG pCO2 75 mmHg (35-45) H* 03/19/17 15:30 ABG pO2 86 mmHg (85-104) 03/19/17 15:30 ABG O2 Saturation 97 % (95-98) 03/19/17 15:30 PT/INR, D-dimer PT 19.2 Seconds (9.4-12.1) H 03/15/17 03:30 - Impressions Impressions Chest CTA 03/20/17 11:00 IMPRESSION: 1. No findings of central pulmonary embolism. There is suboptimal opacification of subsegmental branches. 2. Mild to moderate cardiomegaly with moderate right ventricular hypertrophy. Associated right heart dysfunction is suspected given reflux of the contrast bolus and bowing of the interventricular septum. 3. Likely pulmonary hypertension given marked dilation of the pulmonary arteries given the above findings. 4. Fusiform aneurysmal dilation of the ascending thoracic aorta, measuring up to 4.6 cm x 4.6 cm. 5. Unchanged large right and small to moderate left pleural effusions with associated passive atelectasis in both lungs, including persistent complete collapse of the right lower lobe. Superimposed pneumonia could be present collapse portions of the lung. D/ / Robert Chatterjee MD / Robert Chatterjee MD Interpreting Provider: Robert Chatterjee MD Head CT 03/20/17 11:00 IMPRESSION: 1. No acute intracranial abnormality. D/ / Arian Pope MD / Arian Pope MD Interpreting Provider: Arian Pope MD - VTE Documentation of Mechanical Device: Intermittent pneumatic compression device Consult Discharge Plan - Plan Referrals: Keon Hector MD [Non-Partnered Physician] - 03/17/17 9:00 am
--- NOTE | 2017-03-20 14:14 | Palliative - Consult Note ---
Date of Encounter: 03/20/17 Time of Encounter: 13:00 - Assessment and Plan (1) Dyspnea Current Visit: Yes Status: Acute Assessment and plan: Patient currently on Bipap and CT chest reveals large right pleural effusion. Patient is s/p Thoracentesis 03/15 with removal of 2000ml. Pulmonary recommendations pending, patient with supplemental oxygen, diuretics, duonebs to assist with breathing. Position with KETCHIKAN up for optimal breathing. Pleural fluid pathology pending. Patient requiring 5L O2 at present. Patient HBG 9.3 and HCT 33.6 s/p PRBC transfusion x 1 unit. HF with preserved EF 65-70%. Cardiology following with adjustments to meds. Qualifiers: Dyspnea type: dyspnea on exertion Qualified Code(s): R06.09 - Other forms of dyspnea (2) Goals of care, counseling/discussion Current Visit: Yes Status: Acute Assessment and plan: Patient alone in room at time of consult. Contact listed as - Carina #[phone]. Called number and left message to call when available to discuss patient status. Nursing reports that patient has son and daughter that visit but no contact information is available at present. Patient wearing Bipap and unable to engage in conversation d/t dyspnea. Will continue to try to contact family for GOC discussion. Patient is Full Code. Patient with persistent pleural effusions with fluid path pending s/p Thoracentesis. Patient currently resides at home with care from his family. Currently has [facility] and [facility] for bipap and O2. SS reports ECF bed is available upon DC. Patient with CHF with preserved EF but with persistent effusions. Awaiting path report. Patient with morbid obesity and limited ROM. (3) Acute and chronic respiratory failure with hypercapnia Current Visit: Yes Status: Acute Assessment and plan: Bipap, pulmonary following. (4) Acute exacerbation of CHF (congestive heart failure) Current Visit: Yes Status: Acute Qualifiers: Congestive heart failure type: diastolic Qualified Code(s): I50.33 - Acute on chronic diastolic (congestive) heart failure (5) Anemia Current Visit: Yes Status: Acute Assessment and plan: s/p transfusion. GI consult appreciated. Qualifiers: Anemia type: other cause Other causes of anemia: chronic disease, other Qualified Code(s): D63.8 - Anemia in other chronic diseases classified elsewhere (6) Atrial fibrillation Current Visit: Yes Status: Chronic Assessment and plan: cardiology following Qualifiers: Atrial fibrillation type: persistent Qualified Code(s): I48.1 - Persistent atrial fibrillation Palliative-CN HPI - Data of Consult Patient: new to practice Consult date: 03/20/17 Requesting Physician: Dante Cisneros DO - Consult Narrative Palliative Care/Comfort Measures: Palliative care Reason for consult: Goals of Care History of present illness: Mr. Bonner is a 77 year old male admitted with SOB and exacerbation CHF. Patient is day 18 of hospital stay. This palliative care consult is for goals of care discussion. the patient has a PMH of Atrial fibrillation with history of ablations x 2 with complications of perforation requiring open heart repair over 5 years ago. CHF, HLD, HTN, CKD, morbid obesity and has developed right pleural effusion requiring a Thoracentesis. Right Thoracentesis was done on 03/15/17 for removal of 2000ml. Upon this consult the patient is alone in the room on Bipap with settings of O2 50% and rate 10. The patient is KETCHIKAN but opens eyes to name. Patient is unable to speak clearly d/t the mask and O2 needs. His is listed as personal driver - Carina Bonner #[phone]. I attempted to call he but no answer, a message was left to discuss his current status. Nursing reports that he has a son and daughter but no contact numbers are available for them. A review of his chart, labs and diagnostics has been completed. CC: Dante Cisneros DO Past Med Surg Social Fam HX - Past Medical History Attestation: Yes The following information was validated with the patient. Source: old records reviewed, nursing notes reviewed Medical history: atrial fibrillation, CHF (chronic, diastolic), hyperlipidemia, hypertension, renal disease, syncope Psychiatric history: no psych history - Past Surgical History Surgical History: orthopedic, other (right shoulder replacement), other ( ablation and maze procedures for a.fib) - Social History Smoking Status: Former smoker Smokeless Tobacco Status: No Alcohol use: none Drug use: none - Family History Father History Unknown: Yes Adopted: No Family Member Ethnicity: Non- Living Status: Hx Family Cardiac Disorders: Yes Hx Family Respiratory Disorders: No Hx Family Cancer: No Hx Family GI Disorders: No Hx Family Endocrine Disorder: Yes (DM) Hx Family Neuromuscular Disorders: No Hx Family Neurologic Disorders: No Hx Family HEENT Disorders: No Hx Family Autoimmune Disorders: No Medications and Allergies Aspirin Enteric Coated [Aspirin EC] 81 mg PO QAM 06/13/16 [History] DULoxetine [Cymbalta] 60 mg PO DAILY 06/13/16 [History] Gabapentin [Neurontin] 600 mg PO TID 06/13/16 [History] Melatonin 5 mg PO HS 06/13/16 [History] Potassium Chloride [K-Tab ER] 20 meq PO DAILY 06/13/16 [History] Apixaban [Eliquis] 5 mg PO BID #60 tablet 06/15/16 [Rx] Calcium Carbonate [Calcium] 1 tab PO DAILY 03/02/17 [History] Diltiazem CD (24hr) [Cardizem CD] 240 mg PO DAILY 03/02/17 [History] Glucosamine/D3/Boswellia Alondra [Osteo Bi-Flex Tablet] 1 each PO DAILY 03/02/17 [ History] Metoprolol XL (24 HR) Succ [Toprol XL] 75 mg PO BID 03/02/17 [History] Valsartan [Diovan] 160 mg PO DAILY 03/02/17 [History] Furosemide [Lasix] 40 mg PO BID 03/03/17 [History] Ipratropium/Albuterol Neb [Duoneb] 3 ml IH Q6HR PRN 03/03/17 [History] Spironolactone [Aldactone] 25 mg PO DAILY 03/03/17 [History] Thiamine (B-1) [Vitamin B-1] 100 mg PO DAILY 03/03/17 [History] Venlafaxine HCl [Venlafaxine HCl ER] 150 mg PO DAILY 03/03/17 [History] Vitamin E Acetate [Vitamin E] 400 unit PO DAILY 03/03/17 [History] Allergies Influenza Virus Vaccines Allergy (Verified 11/19/16 11:53) Swelling of Lip/Tongue/Throat ROS unobtainable: due to mental status (patient KETCHIKAN and is on Bipap and limited to verbally communicate without getting SOB.) - Constitutional Constitutional ROS PAL: fatigue - EENT Eyes: requires corrective lenses Ears: decreased hearing - Cardiovascular Cardiovascular ROS: dyspnea on exertion, edema, irregular heart rhythm, pedal edema - Respiratory Respiratory: dyspnea, dyspnea on exertion - Genitourinary Genitourinary ROS male: urinary frequency - Musculoskeletal Musculoskeletal ROS IM: muscle weakness - Integumentary ROS Integumentary: dry skin - Neurological Neurological ROS: weakness - Psychiatric Psychiatric general PM: anxiety (due to SOB) Palliative Care-Exam - Constitutional Vitals: Temp Pulse Resp BP Pulse Ox 97.4 F L 67 18 124/76 97 03/20/17 07:00 03/20/17 12:10 03/20/17 12:10 03/20/17 12:10 03/20/17 12:10 General appearance: Present: no acute distress (patient on Bipap and tolerating well) - Head Head Exam: Present: atraumatic, normal inspection, normocephalic - Eye Eye exam: Present: PERRL Pupils: Present: PERRL - ENT ENT exam: Present: mucous membranes moist - Neck Neck exam: Present: full ROM - Respiratory Respiratory exam: Present: decreased breath sounds - Expanded Respiratory Exam Location: decreased breath sounds: Left, Right, Lower, dullness to percussion: Right (lower lobe) - Cardiovascular Cardiovascular exam: Present: irregular rhythm, +S1, +S2 - Expanded Cardiovascular Exam Peripheral pulses: 1+: Femoral (L) PM, Femoral (R) PM, Posterior Tibialis (L), Posterior Tibialis (R), Dorsalis Pedis (L) PM (cool), Dorsalis Pedis (R) PM ( cool), 2+: Carotid (L) PM, Carotid (R) PM, Radial (L), Radial (R) - GI/Abdominal Exam GI/Abdominal exam: Present: normal bowel sounds - Rectal Rectal Exam: Present: deferred - Catheter Type: Urethral (Haney) (dark yellow urine) - Extremities Exam Extremities exam: Present: pedal edema (bilateral 3+ edema) - Expanded Upper Extremities Exam Shoulder exam: Present: tenderness (Right shoulder) - Back Exam Back exam: Present: tenderness - Neurological Exam Neurological exam: Present: altered (patient on Bipap and sleepy. Difficult to communicate with d/t SOB and KETCHIKAN) - Psychiatric Psychiatric exam: Present: flat affect - Skin Skin exam: Present: cyanosis (bilateral feet cool, toes cyanotic, DP 1+ bilaterally), erythema (Allevyn to coccyx), pallor Internal Medicine - CN: Reslt - Labs CBC & Chem 7: 03/20/17 07:45 03/20/17 09:18 Labs: Short CBC 03/20/17 Range/Units 07:45 WBC 8.3 (4.3-11.1) K/mcL Hgb 9.3 L (12.9-16.9) g/dL Hct 33.6 L (37.5-50.1) % Plt Count 260 D (140-400) K/mcL BMP 03/20/17 09:18 Sodium 137 Potassium 3.4 L Chloride 89 L Carbon Dioxide 39 H BUN 14 Creatinine 0.96 Glucose 111 H Calcium 9.2 Liver Function 03/20/17 Range/Units 09:18 Total Bilirubin 2.2 H (0.2-1.2) mg/dL AST 22 (5-34) Units/L ALT 13 (0-55) Units/L Alkaline Phosphatase 114 (38-126) Units/L Albumin 3.2 L (3.5-5.0) g/dL - ABG Interpretation ABG results: ABG ABG pH 7.40 pH Units (7.32-7.45) 03/19/17 15:30 ABG pCO2 75 mmHg (35-45) H* 03/19/17 15:30 ABG pO2 86 mmHg (85-104) 03/19/17 15:30 ABG O2 Saturation 97 % (95-98) 03/19/17 15:30 PT/INR, D-dimer PT 19.2 Seconds (9.4-12.1) H 03/15/17 03:30 - Impressions Impressions Chest CTA 03/20/17 11:00 IMPRESSION: 1. No findings of central pulmonary embolism. There is suboptimal opacification of subsegmental branches. 2. Mild to moderate cardiomegaly with moderate right ventricular hypertrophy. Associated right heart dysfunction is suspected given reflux of the contrast bolus and bowing of the interventricular septum. 3. Likely pulmonary hypertension given marked dilation of the pulmonary arteries given the above findings. 4. Fusiform aneurysmal dilation of the ascending thoracic aorta, measuring up to 4.6 cm x 4.6 cm. 5. Unchanged large right and small to moderate left pleural effusions with associated passive atelectasis in both lungs, including persistent complete collapse of the right lower lobe. Superimposed pneumonia could be present collapse portions of the lung. D/ / Robert Chatterjee MD / Robert Chatterjee MD Interpreting Provider: Robert Chatterjee MD Head CT 03/20/17 11:00 IMPRESSION: 1. No acute intracranial abnormality. D/ / Arian Pope MD / Arian Pope MD Interpreting Provider: Arian Pope MD Consult Discharge Plan - Plan Referrals: Keon Hector MD [Non-Partnered Physician] - 03/17/17 9:00 am Palliative Quality Palliative Quality: Screen for Code Status: Yes, Screen for Goals of Care: Yes, Screen for Pain: Yes, If Pain Regimen Started, Initiate Bowel Regimen: Yes Code Status: 03/02/17 23:30 Resuscitation Status: Active [RES] Routine Comment: Resuscitation Status: Full Code
[2017-03-20] MEDS: Spironolactone 25 MG TABLET PO SCH (16:29)
[2017-03-20] MEDS: Furosemide 40 MG/4 ML VIAL IVP SCH (16:29)
--- NOTE | 2017-03-20 16:47 | Event Note ---
Date of Encounter: 03/20/17 Time of Encounter: 15:00 Conducted meeting with Berhane Epps. Mich Kailey #[phone]. Mich reports that mother has early dementia that effects short term memory. Patient currently resides at home with . 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 Patients current plan is for ECF but concerns about his ability to participate in rehab. Patient off Bipap but to weak to participate in meaningful conversation related to GOC. Discussed patients overall condition with return of pleural effusions. Discussed Full Code status and patient desires. Mich reports that patient has living will and will make an attempt to locate document to bring in for EMR. I discussed overall status as chronic and poor overall performance status as patient has severe spinal disease as shared by Mich. Discussed that patient would meet Hospice criteria with dyspnea at rest and pulmonary HTN, his EF is preserved with CHF. Mich agrees to discuss plan with sister and mother to extent possible. PC team will follow-up and SS Js Hager updated on plan and will also work with family.
--- NOTE | 2017-03-20 16:50 | Pulmonology Progress Note ---
Date of Encounter: 03/20/17 Time of Encounter: 16:48 Assessment and Plan (1) Acute and chronic respiratory failure with hypercapnia Current Visit: Yes Status: Acute Multifactorial and due to diastolic congestive heart failure and obesity hypoventilation syndrome. He likely has undiagnosed obstructive sleep apnea as well. Agree with BiPAP nightly plus on an as-needed basis during the daytime hours for naps, refractory hypoxia, or work of breathing. (2) Pleural effusion on right Current Visit: Yes Status: Acute I reviewed the pleural fluid analysis, which revealed a transudate likely due to diastolic heart failure coupled with A. fib with RVR. There was report of atypical cells on the cell count differential, and cytology is pending. Given the fact that this is clearly a transudate, malignancy is unlikely. Recommend ongoing diuresis as tolerated as this is a transudate of process which will likely recur. (3) Acute exacerbation of CHF (congestive heart failure) Current Visit: Yes Status: Acute Likely diastolic congestive heart failure coupled with A. fib with RVR. He has clinical signs of right heart failure. Good rate control as of late. Agree with diuresis to tolerance. Cardiology is following. Qualifiers: Congestive heart failure type: diastolic Qualified Code(s): I50.33 - Acute on chronic diastolic (congestive) heart failure (4) Pulmonary hypertension Current Visit: Yes Status: Acute I suspect secondary pulmonary hypertension related to diastolic heart failure and cor pulmonale related to untreated obesity hypoventilation syndrome. Agree with ongoing diuresis to tolerance. I would not recommend vasodilator therapy. Subjective Principal diagnosis: exacerbation of CHF with fluid overload Interval history: The pulmonary service was called back to evaluate the patient for respiratory failure and recurrent pleural effusion. Of note, the patient is confused and unable to dyspnea and history or review of systems. I did speak with the patient's at bedside as well as the patient's son who is at bedside. They state that the patient has been intermittently confused. He has not been in any respiratory distress but is intermittently placed on BiPAP while asleep. Objective PUL Vital signs: Last Vital Signs Temp 97.5 F L 03/20/17 15:44 Pulse 61 03/20/17 15:44 Resp 18 03/20/17 15:44 BP 118/79 03/20/17 15:44 Pulse Ox 95 03/20/17 15:44 General: The obese male, no acute distress, confused Eyes: nonicteric ENT: oropharynx moist Neck: supple, no lymphadenopathy Lungs: Distant lung sounds bilaterally, diminished at the right base significantly Cardiovascular: Irregular rhythm, rate controlled Gastrointestinal: normoactive bowel sounds, soft, non-tender, non-distended Integumentary: Bilateral lower extremity chronic venous stasis changes noted Extremities: no cyanosis, or lateral lower extremity edema Musculoskeletal: no deformities Neuro: Confused, interactive, hard of hearing Psych: Confused with odd affect Results - Laboratory Findings CBC and BMP: 03/20/17 07:45 03/20/17 09:18 ABG ABG pH 7.40 pH Units (7.32-7.45) 03/19/17 15:30 ABG pCO2 75 mmHg (35-45) H* 03/19/17 15:30 ABG pO2 86 mmHg (85-104) 03/19/17 15:30 ABG O2 Saturation 97 % (95-98) 03/19/17 15:30 PT/INR, D-dimer PT 19.2 Seconds (9.4-12.1) H 03/15/17 03:30 Abnormal lab findings: Abnormal lab results Hgb 9.3 g/dL (12.9-16.9) L 03/20/17 07:45 Hct 33.6 % (37.5-50.1) L 03/20/17 07:45 MCV 79.2 fL (83.0-100.0) L 03/20/17 07:45 MCH 21.9 pg (28.0-33.3) L 03/20/17 07:45 MCHC 27.7 g/dL (31.6-35.5) L 03/20/17 07:45 RDW 22.5 % (11.5-14.5) H 03/20/17 07:45 Nucleated RBCs/100 WBC 1.1 /100 WBC (0) H 03/08/17 04:30 Large Platelets Present (Not Present) A 03/08/17 04:30 Polychromasia 1+ (Not Present) A 03/08/17 04:30 Hypochromasia Present (Not Present) A 03/08/17 04:30 Poikilocytosis 1+ (Not Present) A 03/07/17 03:15 Anisocytosis 1+ (Not Present) A 03/08/17 04:30 Microcytosis Present (Not Present) A 03/08/17 04:30 Macrocytosis Present (Not Present) A 03/02/17 23:45 Target Cells 1+ (Not Present) A 03/02/17 23:45 PT 19.2 Seconds (9.4-12.1) H 03/15/17 03:30 ABG pCO2 75 mmHg (35-45) H* 03/19/17 15:30 ABG HCO3 46.5 mEQ/L (21-27) H 03/19/17 15:30 ABG Total CO2 48.8 mEq/L (20-26) H 03/19/17 15:30 ABG Base Excess 18.3 mEq/L (-2.0 to 3.0) H 03/19/17 15:30 Potassium 3.4 mEq/L (3.5-4.5) L 03/20/17 09:18 Chloride 89 mEq/L (98-109) L 03/20/17 09:18 Carbon Dioxide 39 mEq/L (19-29) H 03/20/17 09:18 Glucose 111 mg/dL (70-99) H 03/20/17 09:18 POC Glucose 108 (58-89) H 03/17/17 18:10 Ionized Calcium 1.03 mmol/L (1.15-1.35) L 03/06/17 03:15 Total Bilirubin 2.2 mg/dL (0.2-1.2) H 03/20/17 09:18 Direct Bilirubin 1.5 mg/dL (0.0-0.5) H 03/18/17 03:12 Albumin 3.2 g/dL (3.5-5.0) L 03/20/17 09:18 Albumin/Globulin Ratio 1.0 (1.1-2.2) L 03/20/17 09:18 Urine Clarity Cloudy (Clear) A 03/14/17 13:39 Ur Specific [place] 1.030 (1.010-1.025) H 03/14/17 13:39 Urine Protein 100 mg/dL (Neg-Trace) H 03/14/17 13:39 Urine Blood Large (Negative) H 03/14/17 13:39 Urine Bilirubin Small (Negative) H 03/14/17 13:39 Urine Microscopic RBC 50-100 per hpf (0-3) H 03/14/17 13:39 Ur Squamous Epith Cells Many per lpf (None-Few) H 03/14/17 13:39 Hyaline Casts Moderate per lpf (None-Few) H 03/14/17 13:39 Vancomycin Trough 46.0 mcg/mL (10-20) H* 03/16/17 21:50 - Microbiology Findings Microbiology Findings: Microbiology, Last 48 Hours 03/15/17 08:55 Body Fluid Culture - Final Pleural Fluid - Clinical Findings Intake & Output: Intake & Output 03/20/17 03/20/17 03/20/17 07:59 15:59 23:59 Intake Total 400 / 400 0 / 0 Output Total 200 / 200 500 / 500 Balance 200 / 200 -500 / -500 Weight 126 kg - VTE Documentation of Mechanical Device: Intermittent pneumatic compression device Consult Discharge Plan - Plan Referrals: Keon Hector MD [Non-Partnered Physician] - 03/17/17 9:00 am
[2017-03-21 06:17] LABS: Platelet Count 290 K/mcL (140-400); Red Cell Distribution Width 22.1 % (11.5-14.5)
[2017-03-21 06:18] LABS: Hematocrit 32.2 % (37.5-50.1); Hemoglobin 9.2 g/dL (12.9-16.9); Mean Corpuscular HGB Conc 28.6 g/dL (31.6-35.5); Mean Corpuscular Hemoglobin 22.4 pg (28.0-33.3); Mean Corpuscular Volume 78.5 fL (83.0-100.0); Mean Platelet Volume 9.9 fL (9.4-12.4)
[2017-03-21 06:31] LABS: BUN/Creatinine Ratio 17 (6-26); Blood Urea Nitrogen 13 mg/dL (8-26); Calcium 9.2 mg/dL (8.6-10.8); Carbon Dioxide 37 mEq/L (19-29); Chloride 90 mEq/L (98-109); Glucose 97 mg/dL (70-99); Osmolality,Calculated 282 (280-300); Potassium 3.1 mEq/L (3.5-4.5); Sodium 136 mEq/L (136-145); eGFR For African Americans > 60 (> 60); eGFR For Non-African Americans > 60 (> 60)
[2017-03-21] MEDS: Piperacillin/Tazobactam 3.375 GM in D5% in Water (Mini-Bag+) 100 ML IVPB SCH ×3 (07:09→23:49)
[2017-03-21] MEDS ORDERED: Aminoglycoside Consult 1 EACH MC ONE (08:25)
--- NOTE | 2017-03-21 08:44 | Internal Med Progress Note ---
Date of Encounter: 03/21/17 Time of Encounter: 08:41 - Assessment and plan (1) Acute and chronic respiratory failure with hypercapnia Current Visit: Yes Status: Acute Assessment and plan: Patient has acute on chronic respiratory failure. Noted that patient has overnight low oxygen saturation. Presently on BiPAP. Tolerating well. Plan: Will continue present treatment for now Pulmonary on the board and we will follow their recommendations (2) Pleural effusion Current Visit: Yes Status: Acute Assessment and plan: Pleural fluid transudative in nature. Pathology pending. Close monitoring. Possible re-aspiration if clinically worsens. (3) Collapse of right lung Current Visit: Yes Status: Acute Assessment and plan: Remains present on repeat CT today. Will ask pulm for further input/evaluation. (4) Cellulitis of left upper extremity Current Visit: Yes Status: Acute Assessment and plan: Little better today. (5) Pneumonia Current Visit: Yes Status: Suspected Assessment and plan: Currently on IV abx. Qualifiers: Pneumonia type: due to other aerobic Gram-negative bacteria Laterality: bilateral Lung location: lower lobe of lung Qualified Code(s): J15.6 - Pneumonia due to other aerobic Gram-negative bacteria - Subjective Interval history: Seen and examined. Chart reviewed. Patient is comfortably sleeping in a lying down position. Patient denies chest pain, shortness of breath, dizziness or diarrhea. - Constitutional Vitals: Temp Pulse Resp BP Pulse Ox 97.5 F L 70 14 120/83 97 03/21/17 03:57 03/21/17 03:57 03/21/17 04:10 03/21/17 03:57 03/21/17 04:10 General appearance: Present: morbidly obese, obese - Head Head exam: Present: atraumatic, normocephalic - Eye Eye exam: Present: PERRL, conjuntiva pink, sclera anicteric Pupils: Present: PERRL - Neck Neck exam general surgery: Present: supple, trachea midline. Absent: lymphadenopathy - Respiratory Respiratory exam: Present: CTAB. Absent: accessory muscle use, rales, rhonchi, wheezes - Cardiovascular Cardiovascular exam: Present: RRR, +S1, +S2. Absent: diastolic murmur, gallop, rubs, systolic murmur - GI/Abdominal GI/Abdominal exam: Present: normal bowel sounds, soft, no peritoneal signs. Absent: distended, tenderness - Extremities Exam Extremities exam: Present: warm, radial pulses palpable and symetrical. Absent : calf tenderness, cyanotic, pedal edema - Neurological Exam Neurological exam: Present: CN II-XII intact, oriented X3, no focal deficits. Absent: pronater drift, facial droop, speech deficit - Skin Skin exam: Present: dry, intact Internal Medicine: Result - Labs CBC & Chem 7: 03/21/17 06:01 03/21/17 06:01 Labs: Short CBC 03/21/17 Range/Units 06:01 WBC 8.6 (4.3-11.1) K/mcL Hgb 9.2 L (12.9-16.9) g/dL Hct 32.2 L (37.5-50.1) % Plt Count 290 (140-400) K/mcL BMP 03/20/17 03/21/17 09:18 06:01 Sodium 137 136 Potassium 3.4 L 3.1 L Chloride 89 L 90 L Carbon Dioxide 39 H 37 H BUN 14 13 Creatinine 0.96 0.77 Glucose 111 H 97 Calcium 9.2 9.2 Liver Function 03/20/17 Range/Units 09:18 Total Bilirubin 2.2 H (0.2-1.2) mg/dL AST 22 (5-34) Units/L ALT 13 (0-55) Units/L Alkaline Phosphatase 114 (38-126) Units/L Albumin 3.2 L (3.5-5.0) g/dL - ABG Interpretation ABG results: ABG ABG pH 7.40 pH Units (7.32-7.45) 03/19/17 15:30 ABG pCO2 75 mmHg (35-45) H* 03/19/17 15:30 ABG pO2 86 mmHg (85-104) 03/19/17 15:30 ABG O2 Saturation 97 % (95-98) 03/19/17 15:30 PT/INR, D-dimer PT 19.2 Seconds (9.4-12.1) H 03/15/17 03:30 - Impressions Impressions Chest CTA 03/20/17 11:00 IMPRESSION: 1. No findings of central pulmonary embolism. There is suboptimal opacification of subsegmental branches. 2. Mild to moderate cardiomegaly with moderate right ventricular hypertrophy. Associated right heart dysfunction is suspected given reflux of the contrast bolus and bowing of the interventricular septum. 3. Likely pulmonary hypertension given marked dilation of the pulmonary arteries given the above findings. 4. Fusiform aneurysmal dilation of the ascending thoracic aorta, measuring up to 4.6 cm x 4.6 cm. 5. Unchanged large right and small to moderate left pleural effusions with associated passive atelectasis in both lungs, including persistent complete collapse of the right lower lobe. Superimposed pneumonia could be present collapse portions of the lung. D/ / Robert Chatterjee MD / Robert Chatterjee MD Interpreting Provider: Robert Chatterjee MD Head CT 03/20/17 11:00 IMPRESSION: 1. No acute intracranial abnormality. D/ / Arian Pope MD / Arian Pope MD Interpreting Provider: Arian Pope MD - VTE Documentation of Mechanical Device: Intermittent pneumatic compression device Consult Discharge Plan - Plan Referrals: Keon Hector MD [Non-Partnered Physician] - 03/17/17 9:00 am
[2017-03-21] MEDS: Metoprolol XL (24 HR) Succ 25 MG TAB.ER.24H PO SCH (09:13)
[2017-03-21] MEDS: Spironolactone 25 MG TABLET PO SCH (09:13)
[2017-03-21] MEDS: Diltiazem CD (24hr) 240 MG CAPSULE PO SCH (09:13)
[2017-03-21] MEDS: Venlafaxine XR (24 HR) 150 MG CAP.ER.24H PO SCH (09:13)
[2017-03-21] MEDS: Furosemide 40 MG/4 ML VIAL IVP SCH ×2 (09:14→21:16)
[2017-03-21] MEDS: Gabapentin 300 MG CAPSULE PO SCH ×2 (09:14→19:36)
--- NOTE | 2017-03-21 09:34 | Pulmonology Progress Note ---
Date of Encounter: 03/21/17 Time of Encounter: 09:30 Assessment and Plan (1) Acute and chronic respiratory failure with hypercapnia Current Visit: Yes Status: Acute Multifactorial and due to diastolic congestive heart failure and obesity hypoventilation syndrome. He likely has undiagnosed obstructive sleep apnea as well. Agree with BiPAP nightly plus on an as-needed basis during the daytime hours for naps, refractory hypoxia, or work of breathing. (2) Pleural effusion on right Current Visit: Yes Status: Acute I reviewed the pleural fluid analysis, which revealed a transudate likely due to diastolic heart failure coupled with A. fib with RVR. There was report of atypical cells on the cell count differential, and cytology is pending. Given the fact that this is clearly a transudate, malignancy is unlikely. Recommend ongoing diuresis as tolerated. I would advise against serial thoracentesis in a recurrent transudative effusion. (3) Acute exacerbation of CHF (congestive heart failure) Current Visit: Yes Status: Acute Likely diastolic congestive heart failure coupled with A. fib with RVR. He has clinical signs of right heart failure. Good rate control as of late. Agree with diuresis to tolerance. Cardiology is following and managing along with the primary service. Qualifiers: Congestive heart failure type: diastolic Qualified Code(s): I50.33 - Acute on chronic diastolic (congestive) heart failure (4) Pulmonary hypertension Current Visit: Yes Status: Acute I suspect secondary pulmonary hypertension related to diastolic heart failure and cor pulmonale related to untreated obesity hypoventilation syndrome. Agree with ongoing diuresis to tolerance. I would not recommend vasodilator therapy. (5) Failure to thrive in adult Current Visit: Yes Status: Acute Overall poor performance status as of late. I discussed goals of care with the patient's son on 03/20/2017 (he reports that the patient's is suffering from the early stages of dementia). The patient's son states that the patient was very independent prior to his recent illnesses, he would likely not want prolonged half-way care. I agree with palliative care consultation and consideration of hospice. Subjective Principal diagnosis: exacerbation of CHF with fluid overload Interval history: The pulmonary service was called back to evaluate the patient for respiratory failure and recurrent pleural effusion. Of note, the patient is confused and unable to give history or review of systems. Patient is sleeping comfortably in bed on BiPAP. Objective PUL Vital signs: Last Vital Signs Temp 96.8 F L 03/21/17 07:10 Pulse 72 03/21/17 07:10 Resp 16 03/21/17 07:10 BP 153/82 03/21/17 07:10 Pulse Ox 94 03/21/17 07:10 General: The obese male, no acute distress, confused Eyes: nonicteric ENT: oropharynx moist Neck: supple, no lymphadenopathy Lungs: Distant lung sounds bilaterally, diminished at the right base significantly Cardiovascular: Irregular rhythm, rate controlled Gastrointestinal: normoactive bowel sounds, soft, non-tender, non-distended Integumentary: Bilateral lower extremity chronic venous stasis changes noted Extremities: no cyanosis, or lateral lower extremity edema Musculoskeletal: no deformities Neuro: Confused, interactive, hard of hearing Psych: Confused with odd affect Results - Laboratory Findings CBC and BMP: 03/21/17 06:01 03/21/17 06:01 ABG ABG pH 7.40 pH Units (7.32-7.45) 03/19/17 15:30 ABG pCO2 75 mmHg (35-45) H* 03/19/17 15:30 ABG pO2 86 mmHg (85-104) 03/19/17 15:30 ABG O2 Saturation 97 % (95-98) 03/19/17 15:30 PT/INR, D-dimer PT 19.2 Seconds (9.4-12.1) H 03/15/17 03:30 Abnormal lab findings: Abnormal lab results RBC 4.10 M/mcL (4.19-5.50) L 03/21/17 06:01 Hgb 9.2 g/dL (12.9-16.9) L 03/21/17 06:01 Hct 32.2 % (37.5-50.1) L 03/21/17 06:01 MCV 78.5 fL (83.0-100.0) L 03/21/17 06:01 MCH 22.4 pg (28.0-33.3) L 03/21/17 06:01 MCHC 28.6 g/dL (31.6-35.5) L 03/21/17 06:01 RDW 22.1 % (11.5-14.5) H 03/21/17 06:01 Nucleated RBCs/100 WBC 1.1 /100 WBC (0) H 03/08/17 04:30 Large Platelets Present (Not Present) A 03/08/17 04:30 Polychromasia 1+ (Not Present) A 03/08/17 04:30 Hypochromasia Present (Not Present) A 03/08/17 04:30 Poikilocytosis 1+ (Not Present) A 03/07/17 03:15 Anisocytosis 1+ (Not Present) A 03/08/17 04:30 Microcytosis Present (Not Present) A 03/08/17 04:30 Macrocytosis Present (Not Present) A 03/02/17 23:45 Target Cells 1+ (Not Present) A 03/02/17 23:45 PT 19.2 Seconds (9.4-12.1) H 03/15/17 03:30 ABG pCO2 75 mmHg (35-45) H* 03/19/17 15:30 ABG HCO3 46.5 mEQ/L (21-27) H 03/19/17 15:30 ABG Total CO2 48.8 mEq/L (20-26) H 03/19/17 15:30 ABG Base Excess 18.3 mEq/L (-2.0 to 3.0) H 03/19/17 15:30 Potassium 3.1 mEq/L (3.5-4.5) L 03/21/17 06:01 Chloride 90 mEq/L (98-109) L 03/21/17 06:01 Carbon Dioxide 37 mEq/L (19-29) H 03/21/17 06:01 POC Glucose 108 (58-89) H 03/17/17 18:10 Ionized Calcium 1.03 mmol/L (1.15-1.35) L 03/06/17 03:15 Total Bilirubin 2.2 mg/dL (0.2-1.2) H 03/20/17 09:18 Direct Bilirubin 1.5 mg/dL (0.0-0.5) H 03/18/17 03:12 Albumin 3.2 g/dL (3.5-5.0) L 03/20/17 09:18 Albumin/Globulin Ratio 1.0 (1.1-2.2) L 03/20/17 09:18 Urine Clarity Cloudy (Clear) A 03/14/17 13:39 Ur Specific [place] 1.030 (1.010-1.025) H 03/14/17 13:39 Urine Protein 100 mg/dL (Neg-Trace) H 03/14/17 13:39 Urine Blood Large (Negative) H 03/14/17 13:39 Urine Bilirubin Small (Negative) H 03/14/17 13:39 Urine Microscopic RBC 50-100 per hpf (0-3) H 03/14/17 13:39 Ur Squamous Epith Cells Many per lpf (None-Few) H 03/14/17 13:39 Hyaline Casts Moderate per lpf (None-Few) H 03/14/17 13:39 Vancomycin Trough 46.0 mcg/mL (10-20) H* 03/16/17 21:50 - Microbiology Findings Microbiology Findings: Microbiology, Last 48 Hours 03/15/17 08:55 Body Fluid Culture - Final Pleural Fluid - Clinical Findings Intake & Output: Intake & Output 03/20/17 03/21/17 03/21/17 23:59 07:59 15:59 Intake Total 100 / 100 100 / 100 Output Total 750 / 750 950 / 950 Balance -650 / -650 -850 / -850 Weight 122.5 kg - VTE Documentation of Mechanical Device: Intermittent pneumatic compression device Consult Discharge Plan - Plan Referrals: Keon Hector MD [Non-Partnered Physician] - 03/17/17 9:00 am
--- NOTE | 2017-03-21 10:49 | Cardiology Progress Note ---
Date of Encounter: 03/21/17 Time of Encounter: 10:46 Assessment and Plan (1) Congestive heart failure (CHF) Current Visit: No Status: Acute Echo- LVEF 65-70%, RV hypokinetic with TD velocity 4cm/s; mild MR, moderate TR, moderate pulm HTN with RVSP 52, IVC dilated. Right sided heart failure symptoms. Recurrent pleural effusions. CTA of the chest completed today shows no acute PE. There is a large right and small left pleural effusion. IV lasix stopped previously. Last one time dose yesterday. Was on diamox 250 mg daily (carbon dioxide elevated). Kidney function remains normal. Net negative -14, 853 ml, negative -1800 ml yesterday. Responding to lasix and aldactone. Continues to have significant fluid overload. Continue IV diuresis, bipap at night, Na/Fluid restriction diet. Replace potassium- extra 20 Meq given today. Pulmonology and paliative care now consulted. Appreciate input. We will continue to follow. Qualifiers: Congestive heart failure type: diastolic Congestive heart failure chronicity: acute Qualified Code(s): I50.31 - Acute diastolic (congestive) heart failure (2) Atrial fibrillation with RVR Current Visit: Yes Status: Acute - HR 80s-90s continue to monitor - Continue toprol 75 mg PO BID and cardizem 240mg daily. (original home doses) - 12 hour tele: avg HR=80 afib. No significant bradycardia or pauses. No VT. - Consider sleep study in outpatient setting. - parul held d/t anemia requiring blood transfusion during stay for Hgb 7.9. - No evidence of bleeding noted. Consider restarting once stable. Hgb trending up-quintero. Discussion w patient/family: The assessment and plan as outlined above was discussed with the patient and/or family members who expressed understanding and agreement. All questions were answered. Thank you for involving us in the care of your patient. Please call with any questions. Subjective Principal diagnosis: exacerbation of CHF with fluid overload Interval history: Patient continues to not be conversational. No complaints. Objective Vital Signs, Last 4 Hours Temp Pulse Resp BP Pulse Ox 03/21/17 07:10 96.8 F L 72 16 153/82 94 General: No Apparent Distress, Other (Does not conversate, responds appropriatly ) HEENT: Atraumatic, Normocephaly, Mucus Membranes Moist Neck: No JVD, Normal carotid pulses Cardiac: Other Lungs: Normal Breath Sounds, No Wheeze, Rales, Rhonchi, Other (diminished bases) Neuro: Alert and responsive, No focal deficits noted Abdomen: Soft, Non-Tender Skin: Other (Skin with red color and weeping. cyanosis in toes. pulses with doppler. Left foot colder than right. ) Musculoskeletal: No Chest Wall Tenderness Extremities: No Clubbing, No Cyanosis, Normal Pulses, Other (anasarca, weeping. ) Results 03/21/17 06:01 03/21/17 06:01 Lab Results 03/21/17 03/21/17 06:01 06:01 WBC 8.6 Hgb 9.2 L Hct 32.2 L Plt Count 290 Sodium 136 Potassium 3.1 L Chloride 90 L Carbon Dioxide 37 H BUN 13 Creatinine 0.77 Glucose 97 Calcium 9.2 - EKG Interpretation EKG results cardiology: other (telemetry shows rate controlled atrial fibrillation.) - VTE Documentation of Mechanical Device: Intermittent pneumatic compression device Consult Discharge Plan - Plan Referrals: Keon Hector MD [Non-Partnered Physician] - 03/17/17 9:00 am
[2017-03-21] MEDS ORDERED: Potassium Chloride Elixir 20 MEQ/15 ML UDC PO ONE (10:57)
[2017-03-21 12:38] LABS: ABG Base Excess 6.7 mEq/L (-2.0 to 3.0); ABG HCO3 35.4 mEQ/L (21-27); ABG Oxygen Saturation 94 % (95-98); ABG PH 7.27 pH Units (7.32-7.45); ABG PO2 79 mmHg (85-104); ABG TCO2 37.8 mEq/L (20-26)
[2017-03-21 12:39] LABS: ABG PCO2 77 mmHg (35-45); Blood Gas FiO2 100 %
--- NOTE | 2017-03-21 13:19 | Palliative Progress Note ---
Date of Encounter: 03/21/17 Time of Encounter: 09:40 - Assessment and plan (1) Dyspnea Current Visit: Yes Status: Acute Assessment and plan: About the same to slightly better per the patient. Plan per hospitalist team. Appear to be multifactorial with ground of lung disease as well as diastolic heart failure. Qualifiers: Dyspnea type: dyspnea on exertion Qualified Code(s): R06.09 - Other forms of dyspnea (2) Acute and chronic respiratory failure with hypercapnia Current Visit: Yes Status: Acute Assessment and plan: CO2 is still very high, she is requiring BiPAP. And per pulmonary and hospitalist team. (3) Goals of care, counseling/discussion Current Visit: Yes Status: Acute Assessment and plan: Currently full code. Long discussion with patient's son and daughter in individual phone calls this morning. Will he is considering change in CODE STATUS. #1 Gianfranco is the patient's , however according to both her son and her daughter she is not truly able to make decisions for him given her altered level of dementia. Therefore I am communicating primarily with the patient's daughter who is the second medical power of supervisor [employer]. [place] in length patient's current status, as well as his CODE STATUS pros and cons. She is considering change in CODE STATUS. With the patient's son and daughter were asking some questions regards to hospice. At this time the plan will be to attempt to get the patient to [facility] for rehabilitation and then transition to hospice if she fails to respond well to rehabilitation. (4) Atrial fibrillation with RVR Current Visit: Yes Status: Acute Assessment and plan: Rate is controlled at this time, cardiology is following. - Time Spent With Patient Total time spent is greater than 50% in coordination of care (as documented) at patient's floor/unit and/or counseling patient: - Subjective Interval history: Patient states that he is comfortable, feels his breathing is about the same to slightly better. He is not on BiPAP at this time. He has no complaint of pain. - Constitutional Vitals: Abnormal lab results RBC 4.10 M/mcL (4.19-5.50) L 03/21/17 06:01 Hgb 9.2 g/dL (12.9-16.9) L 03/21/17 06:01 Hct 32.2 % (37.5-50.1) L 03/21/17 06:01 MCV 78.5 fL (83.0-100.0) L 03/21/17 06:01 MCH 22.4 pg (28.0-33.3) L 03/21/17 06:01 MCHC 28.6 g/dL (31.6-35.5) L 03/21/17 06:01 RDW 22.1 % (11.5-14.5) H 03/21/17 06:01 Nucleated RBCs/100 WBC 1.1 /100 WBC (0) H 03/08/17 04:30 Large Platelets Present (Not Present) A 03/08/17 04:30 Polychromasia 1+ (Not Present) A 03/08/17 04:30 Hypochromasia Present (Not Present) A 03/08/17 04:30 Poikilocytosis 1+ (Not Present) A 03/07/17 03:15 Anisocytosis 1+ (Not Present) A 03/08/17 04:30 Microcytosis Present (Not Present) A 03/08/17 04:30 Macrocytosis Present (Not Present) A 03/02/17 23:45 Target Cells 1+ (Not Present) A 03/02/17 23:45 PT 19.2 Seconds (9.4-12.1) H 03/15/17 03:30 ABG pH 7.27 pH Units (7.32-7.45) L 03/21/17 12:33 ABG pCO2 77 mmHg (35-45) H* 03/21/17 12:33 ABG pO2 79 mmHg (85-104) L 03/21/17 12:33 ABG HCO3 35.4 mEQ/L (21-27) H 03/21/17 12:33 ABG Total CO2 37.8 mEq/L (20-26) H 03/21/17 12:33 ABG O2 Saturation 94 % (95-98) L 03/21/17 12:33 ABG Base Excess 6.7 mEq/L (-2.0 to 3.0) H 03/21/17 12:33 Potassium 3.1 mEq/L (3.5-4.5) L 03/21/17 06:01 Chloride 90 mEq/L (98-109) L 03/21/17 06:01 Carbon Dioxide 37 mEq/L (19-29) H 03/21/17 06:01 POC Glucose 108 (58-89) H 03/17/17 18:10 Ionized Calcium 1.03 mmol/L (1.15-1.35) L 03/06/17 03:15 Total Bilirubin 2.2 mg/dL (0.2-1.2) H 03/20/17 09:18 Direct Bilirubin 1.5 mg/dL (0.0-0.5) H 03/18/17 03:12 Albumin 3.2 g/dL (3.5-5.0) L 03/20/17 09:18 Albumin/Globulin Ratio 1.0 (1.1-2.2) L 03/20/17 09:18 Urine Clarity Cloudy (Clear) A 03/14/17 13:39 Ur Specific [place] 1.030 (1.010-1.025) H 03/14/17 13:39 Urine Protein 100 mg/dL (Neg-Trace) H 03/14/17 13:39 Urine Blood Large (Negative) H 03/14/17 13:39 Urine Bilirubin Small (Negative) H 03/14/17 13:39 Urine Microscopic RBC 50-100 per hpf (0-3) H 03/14/17 13:39 Ur Squamous Epith Cells Many per lpf (None-Few) H 03/14/17 13:39 Hyaline Casts Moderate per lpf (None-Few) H 03/14/17 13:39 Vancomycin Trough 46.0 mcg/mL (10-20) H* 03/16/17 21:50 General appearance: Present: no acute distress - Head Head exam: Present: atraumatic, normal inspection - Eye Eye exam: Present: normal appearance - ENT ENT exam: Present: mucous membranes moist - Neck Neck exam: Present: normal inspection - Respiratory Respiratory exam: Present: decreased breath sounds - Cardiovascular Cardiovascular exam: Present: irregular rhythm - GI/Abdominal GI/Abdominal exam: Present: normal bowel sounds, soft. Absent: tenderness - Extremities Exam Extremities exam: Present: normal inspection. Absent: pedal edema, tenderness - Neurological Exam Neurological exam: Present: altered - Psychiatric Psychiatric exam: Absent: agitated, anxious - Skin Skin exam: Present: dry, warm Palliative Quality Palliative Quality: Screen for Code Status: Yes, Screen for Goals of Care: Yes, Screen for Pain: Yes, If Pain Regimen Started, Initiate Bowel Regimen: Yes, Screen for Nausea/Vomitting: Yes Code Status: 03/02/17 23:30 Resuscitation Status: Active [RES] Routine Comment: Resuscitation Status: Full Code - Labs CBC & Chem 7: 03/21/17 06:01 03/21/17 06:01 Labs: Laboratory Results - last 24 hr 03/21/17 03/21/17 03/21/17 06:01 06:01 12:33 WBC 8.6 RBC 4.10 L Hgb 9.2 L Hct 32.2 L MCV 78.5 L MCH 22.4 L MCHC 28.6 L RDW 22.1 H Plt Count 290 MPV 9.9 ABG pH 7.27 L ABG pCO2 77 H* ABG pO2 79 L ABG HCO3 35.4 H ABG Total CO2 37.8 H ABG O2 Saturation 94 L ABG Base Excess 6.7 H Inspired O2 100 Sodium 136 Potassium 3.1 L Chloride 90 L Carbon Dioxide 37 H BUN 13 Creatinine 0.77 Est GFR ( Amer) > 60 Est GFR (Non-Af Amer) > 60 BUN/Creatinine Ratio 17 Glucose 97 Calculated Osmolality 282 Calcium 9.2 - ABG Interpretation ABG results: ABG ABG pH 7.27 pH Units (7.32-7.45) L 03/21/17 12:33 ABG pCO2 77 mmHg (35-45) H* 03/21/17 12:33 ABG pO2 79 mmHg (85-104) L 03/21/17 12:33 ABG O2 Saturation 94 % (95-98) L 03/21/17 12:33 PT/INR, D-dimer PT 19.2 Seconds (9.4-12.1) H 03/15/17 03:30 Consult Discharge Plan - Plan Referrals: Keon Hector MD [Non-Partnered Physician] - 03/17/17 9:00 am
--- NOTE | 2017-03-21 14:12 | Event Note ---
Date of Encounter: 03/21/17 Time of Encounter: 14:08 77-year-old male, Admitted with worsening congestive heart failure diastolic in nature. Has possible underlying undiagnosed sleep apnea syndrome along with chronic obstructive pulmonary disease. Prolonged hospitalization. Noted that patient has worsening clinically. Repeat ABG does not show any change from the previous one. Case discussed with pulmonary/palliative care. Noted that patient's CODE STATUS is full code. Spoke to patient's daughter Miss Gayle. She is not sure about decision making and prefers to come here from [place] with her family. Explained Miss Gayle that meantime patient will be transferred to ICU bed 8. Case discussed with historic sites registrar and he accepted the transfer to ICU. Palliative care informed.
--- NOTE | 2017-03-21 14:39 | Event Note ---
Date of Encounter: 03/21/17 Time of Encounter: 14:37 Pete is a 77 year old male initially admitted with worsening congestive diastolic heart failure preserved EF. He has had a prolonged hospitalization. He appeared volume overloaded and continues to be aggressively diuresed. Cumulative net 16L output since admission. Transudative right pleural effusion awaiting cytology. Today 03/21 he was noted to be clinically worse on BiPAP. More confused and reportedly turning purple with low oxygen saturation. Most recent ABG 7.27/77/79 /35.4/94/+6.7. Yesterday he was on hi flow nasal cannula. Palliative is on board and has been in discussion with family which includes and children. Currently is POA but son Mich reports she has been suffering from dementia. Daughter in the 2nd POA and have been discussing patient's wishes for long-term goals of care. Patient's current code status is FULL CODE. Family continues to be undecided. Patient to be transferred to ICU bed 8 for worsening respiratory status and possible intubation if indicated. On exam patient is obese. He is awake but somnolent. BP stable, on monitor rate controlled atrial fibrillation with 99% oxygen saturation on BiPAP 16/8 100% O2. He follows some simple commands. No accessory muscle use. Lung sounds are clear but diminished in the bases. Heart rhythm is irregularly irregular. +3 pitting edema to bilateral lower extremities and some edema in left upper extremity. Abdomen is distended but nontender with hypoactive bowel sounds, no fluid wave or ascites. Plan: Patient is awake and answering some questions, oxygen sat 100%, no indication to intubate at this time Repeat ABG Continue diuresis, will add Diamox 500 mg Continue to monitor I/Os Will await family to discuss further management and code status Intubate if clinically decompensates
[2017-03-21 15:26] LABS: ABG Base Excess 13.5 mEq/L (-2.0 to 3.0); ABG HCO3 41.8 mEQ/L (21-27); ABG Oxygen Saturation 99 % (95-98); ABG PH 7.36 pH Units (7.32-7.45); ABG PO2 148 mmHg (85-104); ABG TCO2 44.1 mEq/L (20-26)
[2017-03-21 15:31] LABS: ABG PCO2 74 mmHg (35-45); Blood Gas FiO2 100 %
--- NOTE | 2017-03-21 16:42 | Event Note ---
Date of Encounter: 03/21/17 Time of Encounter: 16:42 Had a long discussion with patient's , patient's daughter and patient's son. Explained at length regarding CODE STATUS. Options discussed. Option A): Full code. Includes CPR and intubation. Option B) : DNR comfort care arrest DNI: This 1 discussed at length and patient' s family there is his /son and daughter accepted this CODE STATUS. Option C): DNR comfort care: Patient's and family rejected this option I spent altogether 25 minutes with patient's family along with the patient's registered nurse who is in charge of him during his ICU stay. Patient's and her children verbalize understanding. He does not have any question at the end of discussion. Please see CODE STATUS as above. Patient will stay in ICU overnight and we will accept to 2 NE. tomorrow
[2017-03-21] MEDS ORDERED: Naloxone 0.4 MG/ML INJ IVP PRN (19:59)
[2017-03-21] MEDS ORDERED: Acetaminophen 325 MG TABLET PO PRN (19:59)
[2017-03-21] MEDS ORDERED: Vancomycin 1,250 MG in D5% in Water 250 ML IVPB SCH (21:00)
[2017-03-21] MEDS ORDERED: Vancomycin 1,750 MG in D5% in Water 250 ML IVPB SCH (21:00)
[2017-03-21] MEDS: Ipratropium/Albuterol Neb 3 ML IH SCH (21:18)
[2017-03-22 03:35] LABS: Hemoglobin 8.2 g/dL (12.9-16.9)
[2017-03-22 03:37] LABS: Basophils # 0.1 K/mcL (0.0-0.2); Eosinophils # 0.3 K/mcL (0.0-0.6); Eosinophils % 3.8 %; Hematocrit 29.6 % (37.5-50.1); Immature Granulocytes % 0.4 % (0-4); Lymphocytes # 0.8 K/mcL (0.6-4.6); Lymphocytes % 9.5 %; Mean Corpuscular HGB Conc 27.7 g/dL (31.6-35.5); Mean Corpuscular Volume 79.6 fL (83.0-100.0); Mean Platelet Volume 9.7 fL (9.4-12.4); Monocytes # 0.9 K/mcL (0.0-1.3); Monocytes % 11.2 %; Neutrophils # 5.9 K/mcL (1.6-8.9); Platelet Count 341 K/mcL (140-400); Red Blood Count 3.72 M/mcL (4.19-5.50); Segmented Neutrophils % 74.1 %
[2017-03-22 03:44] LABS: BUN/Creatinine Ratio 15 (6-26); Blood Urea Nitrogen 17 mg/dL (8-26); Calcium 8.9 mg/dL (8.6-10.8); Carbon Dioxide 38 mEq/L (19-29); Chloride 89 mEq/L (98-109); Glucose 110 mg/dL (70-99); Osmolality,Calculated 282 (280-300); Potassium 3.6 mEq/L (3.5-4.5); Sodium 135 mEq/L (136-145); eGFR For African Americans > 60 (> 60); eGFR For Non-African Americans > 60 (> 60)
[2017-03-22 04:00] LABS: Anisocytosis 2+ (Not Present); Hypochromasia Present (Not Present); Macrocytosis Present (Not Present); Microcytosis Present (Not Present); Ovalocytes 1+ (Not Present); Polychromasia 1+ (Not Present)
[2017-03-22 04:03] LABS: Large Platelets Present (Not Present); Platelet Clumps Few (Not Present); Platelet Estimate Normal (Normal); Poikilocytosis 2+ (Not Present); Schistocytes 1+ (Not Present)
[2017-03-22] MEDS: Ipratropium/Albuterol Neb 3 ML IH SCH ×5 (04:24→21:36)
--- NOTE | 2017-03-22 06:43 | Pulmonology Progress Note ---
<Leroy Diamond - Last Filed: 03/22/17 11:46> Date of Encounter: 03/22/17 Time of Encounter: 06:42 Assessment and Plan (1) Acute and chronic respiratory failure with hypercapnia Current Visit: Yes Status: Acute multifactorial due to diastolic congestive heart failure and obesity hypoventilation syndrome likely has undiagnosed obstructive sleep apnea BiPAP dependent continued diuresis with minimal response code status changed to DNR-CCA DNI patient to be transferred to care of Dr. Mccauley - spoke with Palliative Care, request transfer to [facility] (2) Acute exacerbation of CHF (congestive heart failure) Current Visit: Yes Status: Acute acute right sided diastolic CHF ECHO 65-70%, RV hypokinetic with TD velocity 4cm/s; mild MR, moderate TR, moderate pulm HTN with RVSP 52, IVC dilated clinical signs of right heart failure, pitting edema bilateral extremities cumulative net -16L since admission continue aggressive diuresis as tolerated renal function remains normal Diamox 500 IV cardiology on board Qualifiers: Congestive heart failure type: diastolic Qualified Code(s): I50.33 - Acute on chronic diastolic (congestive) heart failure (3) Atrial fibrillation Current Visit: Yes Status: Chronic rate controlled continue home dose Cardizem 240 daily Eliquis held d/t anemia requiring blood transfusion during stay for Hgb 7.9 hemoglobin downtrending 8.2 (9.2) no signs of active bleeding Qualifiers: Atrial fibrillation type: persistent Qualified Code(s): I48.1 - Persistent atrial fibrillation (4) DVT prophylaxis Current Visit: No Status: Acute (5) Failure to thrive in adult Current Visit: Yes Status: Acute changed code status to DNR-CCA DNI (6) Pleural effusion on right Current Visit: Yes Status: Acute transudative in nature pathology pending recommend ongoing diuresis as tolerated advise against serial thoracentesis in a recurrent transudative effusion (7) Pulmonary hypertension Current Visit: Yes Status: Acute I suspect secondary pulmonary hypertension related to diastolic heart failure and cor pulmonale related to untreated obesity hypoventilation syndrome. Agree with ongoing diuresis to tolerance. I would not recommend vasodilator therapy. (8) Goals of care, counseling/discussion Current Visit: Yes Status: Acute family meeting yesterday 03/21 changed code status to DNR-CCA DNI (9) Morbid obesity Current Visit: Yes Status: Chronic Qualifiers: Obesity type: unspecified obesity type Qualified Code(s): E66.01 - Morbid ( severe) obesity due to excess calories (10) Pneumonia Current Visit: Yes Status: Suspected suspected pneumonia completed 8 days of Zosyn and Vancomycin and will discontinue Qualifiers: Pneumonia type: due to other aerobic Gram-negative bacteria Laterality: bilateral Lung location: lower lobe of lung Qualified Code(s): J15.6 - Pneumonia due to other aerobic Gram-negative bacteria Subjective Principal diagnosis: exacerbation of CHF with fluid overload Interval history: Oxygen saturation to 70-80s last night when Fi02 on BiPAP was decreased. Saturations improved once return to 100% FiO2. Patient seen and examined at bedside. Patient is awake but confused. He is only oriented to person. He follows simple commands. Denies any pain at this time when asked. Objective PUL Vital signs: Last Vital Signs Temp 97.3 F L 03/22/17 04:00 Pulse 65 03/22/17 06:00 Resp 14 03/22/17 06:00 BP 127/45 03/22/17 06:00 Pulse Ox 99 03/22/17 06:00 General appearance: no acute distress, other (awake but pleasantly confused, oriented to person, obese) Eyes: nonicteric, other (PERRL) ENT: oropharynx moist, other (BiPAP) Neck: supple Effort: mildly labored Auscultation: bilateral: clear, diminished breath sounds ([place]) Cardiovascular: regular rate and rhythm Gastrointestinal: hypoactive bowel sounds, non-tender, other (distended, no fluid wave or ascites) Extremities: edema (+2 pitting edema bilateral lower extremities and left upper extremity) Musculoskeletal: no deformities non-focal exam, pupils equal and round, unable to assess due to mental status Results - Laboratory Findings CBC and BMP: 03/22/17 02:55 03/22/17 02:55 ABG ABG pH 7.36 pH Units (7.32-7.45) 03/21/17 15:15 ABG pCO2 74 mmHg (35-45) H* 03/21/17 15:15 ABG pO2 148 mmHg (85-104) H 03/21/17 15:15 ABG O2 Saturation 99 % (95-98) H 03/21/17 15:15 PT/INR, D-dimer PT 19.2 Seconds (9.4-12.1) H 03/15/17 03:30 Abnormal lab findings: Abnormal lab results RBC 3.72 M/mcL (4.19-5.50) L 03/22/17 02:55 Hgb 8.2 g/dL (12.9-16.9) L 03/22/17 02:55 Hct 29.6 % (37.5-50.1) L 03/22/17 02:55 MCV 79.6 fL (83.0-100.0) L 03/22/17 02:55 MCH 22.0 pg (28.0-33.3) L 03/22/17 02:55 MCHC 27.7 g/dL (31.6-35.5) L 03/22/17 02:55 RDW 22.0 % (11.5-14.5) H 03/22/17 02:55 Nucleated RBCs/100 WBC 1.1 /100 WBC (0) H 03/08/17 04:30 Clumped Platelets Few (Not Present) A 03/22/17 02:55 Large Platelets Present (Not Present) A 03/22/17 02:55 Polychromasia 1+ (Not Present) A 03/22/17 02:55 Hypochromasia Present (Not Present) A 03/22/17 02:55 Poikilocytosis 2+ (Not Present) A 03/22/17 02:55 Anisocytosis 2+ (Not Present) A 03/22/17 02:55 Microcytosis Present (Not Present) A 03/22/17 02:55 Macrocytosis Present (Not Present) A 03/22/17 02:55 Target Cells 1+ (Not Present) A 03/02/17 23:45 Ovalocytes 1+ (Not Present) A 03/22/17 02:55 Schistocytes 1+ (Not Present) A 03/22/17 02:55 PT 19.2 Seconds (9.4-12.1) H 03/15/17 03:30 ABG pCO2 74 mmHg (35-45) H* 03/21/17 15:15 ABG pO2 148 mmHg (85-104) H 03/21/17 15:15 ABG HCO3 41.8 mEQ/L (21-27) H 03/21/17 15:15 ABG Total CO2 44.1 mEq/L (20-26) H 03/21/17 15:15 ABG O2 Saturation 99 % (95-98) H 03/21/17 15:15 ABG Base Excess 13.5 mEq/L (-2.0 to 3.0) H 03/21/17 15:15 Sodium 135 mEq/L (136-145) L 03/22/17 02:55 Chloride 89 mEq/L (98-109) L 03/22/17 02:55 Carbon Dioxide 38 mEq/L (19-29) H 03/22/17 02:55 Glucose 110 mg/dL (70-99) H 03/22/17 02:55 POC Glucose 127 (58-89) H 03/21/17 18:01 Ionized Calcium 1.03 mmol/L (1.15-1.35) L 03/06/17 03:15 Total Bilirubin 2.2 mg/dL (0.2-1.2) H 03/20/17 09:18 Direct Bilirubin 1.5 mg/dL (0.0-0.5) H 03/18/17 03:12 Albumin 3.2 g/dL (3.5-5.0) L 03/20/17 09:18 Albumin/Globulin Ratio 1.0 (1.1-2.2) L 03/20/17 09:18 Urine Clarity Cloudy (Clear) A 03/14/17 13:39 Ur Specific [place] 1.030 (1.010-1.025) H 03/14/17 13:39 Urine Protein 100 mg/dL (Neg-Trace) H 03/14/17 13:39 Urine Blood Large (Negative) H 03/14/17 13:39 Urine Bilirubin Small (Negative) H 03/14/17 13:39 Urine Microscopic RBC 50-100 per hpf (0-3) H 03/14/17 13:39 Ur Squamous Epith Cells Many per lpf (None-Few) H 03/14/17 13:39 Hyaline Casts Moderate per lpf (None-Few) H 03/14/17 13:39 Vancomycin Trough 46.0 mcg/mL (10-20) H* 03/16/17 21:50 - Clinical Findings Intake & Output: Intake & Output 03/21/17 03/21/17 03/22/17 15:59 23:59 07:59 Intake Total 500 / 500 350 / 350 100 / 100 Output Total 200 / 200 125 / 125 150 / 150 Balance 300 / 300 225 / 225 -50 / -50 Weight 120.474 kg - VTE Documentation of Mechanical Device: Intermittent pneumatic compression device Consult Discharge Plan - Plan Referrals: Keon Hector MD [Non-Partnered Physician] - 03/17/17 9:00 am <Natanael Padilla - Last Filed: 03/22/17 13:13> Date of Encounter: 03/22/17 Assessment and Plan (1) Acute and chronic respiratory failure with hypercapnia Current Visit: Yes Status: Acute (2) Pleural effusion on right Current Visit: Yes Status: Acute (3) Acute exacerbation of CHF (congestive heart failure) Current Visit: Yes Status: Acute Qualifiers: Qualified Code(s): I50.33 - Acute on chronic diastolic (congestive) heart failure (4) Pulmonary hypertension Current Visit: Yes Status: Acute (5) Failure to thrive in adult Current Visit: Yes Status: Acute Objective PUL Vital signs: Last Vital Signs Temp 97.6 F 03/22/17 11:00 Pulse 74 03/22/17 11:00 Resp 21 03/22/17 11:00 BP 114/89 03/22/17 11:00 Pulse Ox 94 03/22/17 11:00 Results - Laboratory Findings CBC and BMP: 03/22/17 02:55 03/22/17 02:55 ABG ABG pH 7.36 pH Units (7.32-7.45) 03/21/17 15:15 ABG pCO2 74 mmHg (35-45) H* 03/21/17 15:15 ABG pO2 148 mmHg (85-104) H 03/21/17 15:15 ABG O2 Saturation 99 % (95-98) H 03/21/17 15:15 PT/INR, D-dimer PT 19.2 Seconds (9.4-12.1) H 03/15/17 03:30 Abnormal lab findings: Abnormal lab results RBC 3.72 M/mcL (4.19-5.50) L 03/22/17 02:55 Hgb 8.2 g/dL (12.9-16.9) L 03/22/17 02:55 Hct 29.6 % (37.5-50.1) L 03/22/17 02:55 MCV 79.6 fL (83.0-100.0) L 03/22/17 02:55 MCH 22.0 pg (28.0-33.3) L 03/22/17 02:55 MCHC 27.7 g/dL (31.6-35.5) L 03/22/17 02:55 RDW 22.0 % (11.5-14.5) H 03/22/17 02:55 Nucleated RBCs/100 WBC 1.1 /100 WBC (0) H 03/08/17 04:30 Clumped Platelets Few (Not Present) A 03/22/17 02:55 Large Platelets Present (Not Present) A 03/22/17 02:55 Polychromasia 1+ (Not Present) A 03/22/17 02:55 Hypochromasia Present (Not Present) A 03/22/17 02:55 Poikilocytosis 2+ (Not Present) A 03/22/17 02:55 Anisocytosis 2+ (Not Present) A 03/22/17 02:55 Microcytosis Present (Not Present) A 03/22/17 02:55 Macrocytosis Present (Not Present) A 03/22/17 02:55 Target Cells 1+ (Not Present) A 03/02/17 23:45 Ovalocytes 1+ (Not Present) A 03/22/17 02:55 Schistocytes 1+ (Not Present) A 03/22/17 02:55 PT 19.2 Seconds (9.4-12.1) H 03/15/17 03:30 ABG pCO2 74 mmHg (35-45) H* 03/21/17 15:15 ABG pO2 148 mmHg (85-104) H 03/21/17 15:15 ABG HCO3 41.8 mEQ/L (21-27) H 03/21/17 15:15 ABG Total CO2 44.1 mEq/L (20-26) H 03/21/17 15:15 ABG O2 Saturation 99 % (95-98) H 03/21/17 15:15 ABG Base Excess 13.5 mEq/L (-2.0 to 3.0) H 03/21/17 15:15 Sodium 135 mEq/L (136-145) L 03/22/17 02:55 Chloride 89 mEq/L (98-109) L 03/22/17 02:55 Carbon Dioxide 38 mEq/L (19-29) H 03/22/17 02:55 Glucose 110 mg/dL (70-99) H 03/22/17 02:55 POC Glucose 127 (58-89) H 03/21/17 18:01 Ionized Calcium 1.03 mmol/L (1.15-1.35) L 03/06/17 03:15 Total Bilirubin 2.2 mg/dL (0.2-1.2) H 03/20/17 09:18 Direct Bilirubin 1.5 mg/dL (0.0-0.5) H 03/18/17 03:12 Albumin 3.2 g/dL (3.5-5.0) L 03/20/17 09:18 Albumin/Globulin Ratio 1.0 (1.1-2.2) L 03/20/17 09:18 Urine Clarity Cloudy (Clear) A 03/14/17 13:39 Ur Specific [place] 1.030 (1.010-1.025) H 03/14/17 13:39 Urine Protein 100 mg/dL (Neg-Trace) H 03/14/17 13:39 Urine Blood Large (Negative) H 03/14/17 13:39 Urine Bilirubin Small (Negative) H 03/14/17 13:39 Urine Microscopic RBC 50-100 per hpf (0-3) H 03/14/17 13:39 Ur Squamous Epith Cells Many per lpf (None-Few) H 03/14/17 13:39 Hyaline Casts Moderate per lpf (None-Few) H 03/14/17 13:39 Vancomycin Trough 46.0 mcg/mL (10-20) H* 03/16/17 21:50 - Clinical Findings Intake & Output: Intake & Output 03/21/17 03/22/17 03/22/17 23:59 07:59 15:59 Intake Total 350 / 350 100 / 100 0 / 0 Output Total 125 / 125 250 / 250 200 / 200 Balance 225 / 225 -150 / -150 -200 / -200 Weight 120.474 kg
[2017-03-22] MEDS: Piperacillin/Tazobactam 3.375 GM in D5% in Water (Mini-Bag+) 100 ML IVPB SCH (07:52)
[2017-03-22] MEDS: Furosemide 40 MG/4 ML VIAL IVP SCH ×2 (07:52→16:48)
[2017-03-22] MEDS ORDERED: *HR* Metoprolol 5 MG/5 ML VIAL IVP PRN ×2 (08:17→09:58)
[2017-03-22] MEDS ORDERED: acetaZOLAMIDE 250 MG TABLET PO SCH ×2 (09:00)
[2017-03-22] MEDS ORDERED: Venlafaxine XR (24 HR) 150 MG CAP.ER.24H PO SCH (09:00)
[2017-03-22] MEDS ORDERED: Metoprolol XL (24 HR) Succ 50 MG TAB.ER.24H PO SCH (09:00)
[2017-03-22] MEDS ORDERED: Spironolactone 25 MG TABLET PO SCH (09:00)
[2017-03-22] MEDS ORDERED: Diltiazem CD (24hr) 240 MG CAPSULE PO SCH (09:00)
[2017-03-22] MEDS ORDERED: Acetaminophen 325 MG TABLET PO PRN (09:58)
[2017-03-22] MEDS ORDERED: Naloxone 0.4 MG/ML INJ IVP PRN (09:58)
--- NOTE | 2017-03-22 10:35 | Cardiology Progress Note ---
Date of Encounter: 03/22/17 Time of Encounter: 10:32 Assessment and Plan (1) Congestive heart failure (CHF) Current Visit: No Status: Acute Acute right sided/ diastolic CHF. Echo- LVEF 65-70%, RV hypokinetic with TD velocity 4cm/s; mild MR, moderate TR, moderate pulm HTN with RVSP 52, IVC dilated. Patient continues to have recurrent fluid overload despite diuresis. Continue agressive IV diuresis. Continue aldactone. Lasix dose increased today by assistive technology specialist. Appreciate input. Net negative -16,578 ml, negative -325 ml yesterday. Less responsive to lasix yesterday. Kidney function remains normal. Continues to have significant fluid overload. Palliative care following. Poor prognosis. Patient is now DNRCCA DNI. Continue IV diuresis, bipap at night, Na/Fluid restriction diet. Potassium normal today. We will continue to follow. Qualifiers: Congestive heart failure type: diastolic Congestive heart failure chronicity: acute Qualified Code(s): I50.31 - Acute diastolic (congestive) heart failure (2) Atrial fibrillation with RVR Current Visit: Yes Status: Acute HR 80s-90s continue to monitor. Toprol XL held yesterday d/t low blood pressure. On cardizem 240mg daily. (original home doses) 12 hour tele: avg HR=80 afib. Nocturnal bradycardia with 2 sec paused seen. Eliquis held d/t anemia requiring blood transfusion during stay for Hgb 7.9. Hgb trending down again today. no evidence of acute bleeding. Discussion w patient/family: The assessment and plan as outlined above was discussed with the patient and/or family members who expressed understanding and agreement. All questions were answered. Thank you for involving us in the care of your patient. Please call with any questions. Subjective Principal diagnosis: exacerbation of CHF with fluid overload Interval history: Patient transferred to ICU yesterday d/t decline in respiratory status. Now on continuous bipap. Pt is alert but not conversational. Answers yes and no. Denies pain. No distress noted. Objective Vital Signs, Last 4 Hours Temp Pulse Resp BP Pulse Ox 03/22/17 09:46 11 100 03/22/17 09:00 65 20 107/75 100 03/22/17 08:00 62 19 99/85 92 03/22/17 07:47 98.0 F 03/22/17 07:00 64 20 98/62 98 General: No Apparent Distress HEENT: Atraumatic, Normocephaly, Mucus Membranes Moist Neck: No JVD Cardiac: Reg Rate and Rhythm, Normal S1 and S2, No Murmur Lungs: Normal Breath Sounds, No Wheeze, Rales, Rhonchi Neuro: Alert and responsive, No focal deficits noted Abdomen: Soft, Other (Distended) Skin: Other (Redness noted in right lower extremity) Musculoskeletal: No Chest Wall Tenderness Extremities: No Cyanosis (doppler pulses only cyanosis on lLE great toe. Cap refil less than three seconds. ), Other (anasarca. More edema in left arm than right. 2+ edema up to abdomen. No significant change from yesterday. ) Results 03/22/17 02:55 03/22/17 02:55 Lab Results 03/22/17 03/22/17 03/22/17 02:55 02:55 02:55 WBC 8.0 Hgb 8.2 L Hct 29.6 L Plt Count 341 Sodium 135 L Potassium 3.6 Chloride 89 L Carbon Dioxide 38 H BUN 17 Creatinine 1.15 Glucose 110 H Calcium 8.9 Magnesium 1.6 - EKG Interpretation EKG results cardiology: personally reviewed - VTE Documentation of Mechanical Device: Intermittent pneumatic compression device Consult Discharge Plan - Plan Referrals: Keon Hector MD [Non-Partnered Physician] - 03/17/17 9:00 am
[2017-03-22] MEDS: *HR* Metoprolol 5 MG/5 ML VIAL IVP SCH ×3 (11:41→23:57)
[2017-03-22] MEDS ORDERED: *HR* Metoprolol 5 MG/5 ML VIAL IVP SCH (12:00)
--- NOTE | 2017-03-22 12:52 | Palliative Progress Note ---
Date of Encounter: 03/22/17 Time of Encounter: 11:00 - Assessment and plan (1) Dyspnea Current Visit: Yes Status: Acute Assessment and plan: Patient on Bipap 100% FiO2. Sats 91%. Duonebs, diamox and lasix for diuresis, CO2 74 this AM. Position for comfort. Continue Bipap. Patient with pleural effusions with little response to diuresis. Qualifiers: Dyspnea type: dyspnea on exertion Qualified Code(s): R06.09 - Other forms of dyspnea (2) Constipation Current Visit: Yes Status: Acute Assessment and plan: Patient with no BM x 5 days. Overall poor appetite and no mobility. Hypoactive bowel sounds. Will add Colace and Senna scheduled. Monitor BMs. (3) Goals of care, counseling/discussion Current Visit: Yes Status: Acute Assessment and plan: Patient is DNRCC-A, DNI and now requiring 100% FiO2 BIPAP. Alert, but not able to hold conversation. Patient will be transitioned to 2A palliative care bed under hospitalist and will discuss GOC with family. Patient is candidate for hospice care as he has Diastolic CHF with preserved EF but severe pulmonary HTN and persistent pleural effusions despite diuresis not candidate for repeat Thoracentesis or tube. Poor overall performance status, Morbid obesity. (4) Acute and chronic respiratory failure with hypercapnia Current Visit: Yes Status: Acute Assessment and plan: BIPAP 100% FiO2, supportive treatment. (5) Acute exacerbation of CHF (congestive heart failure) Current Visit: Yes Status: Acute Assessment and plan: Cardiology following, medications adjusted Qualifiers: Congestive heart failure type: diastolic Qualified Code(s): I50.33 - Acute on chronic diastolic (congestive) heart failure (6) Anemia Current Visit: Yes Status: Acute Qualifiers: Anemia type: other cause Other causes of anemia: chronic disease, other Qualified Code(s): D63.8 - Anemia in other chronic diseases classified elsewhere (7) Atrial fibrillation Current Visit: Yes Status: Chronic Assessment and plan: Rate controlled on cardizem and lopressor Qualifiers: Atrial fibrillation type: persistent Qualified Code(s): I48.1 - Persistent atrial fibrillation - Time Spent With Patient Total time spent is greater than 50% in coordination of care (as documented) at patient's floor/unit and/or counseling patient: - Subjective Interval history: Patient up in bed, eyes open, alert but unable to hold meaningful conversation. Bipap at 100% FiO2. Stats 91%. Patient is now DNRCC-A, DNI. Will transition to 2A palliative care bed as patient is now 100% Bipap dependent and will update family on plan. Will continue hospitalist services until clarification of GOC can be had with family. - Constitutional Vitals: Abnormal lab results RBC 3.72 M/mcL (4.19-5.50) L 03/22/17 02:55 Hgb 8.2 g/dL (12.9-16.9) L 03/22/17 02:55 Hct 29.6 % (37.5-50.1) L 03/22/17 02:55 MCV 79.6 fL (83.0-100.0) L 03/22/17 02:55 MCH 22.0 pg (28.0-33.3) L 03/22/17 02:55 MCHC 27.7 g/dL (31.6-35.5) L 03/22/17 02:55 RDW 22.0 % (11.5-14.5) H 03/22/17 02:55 Nucleated RBCs/100 WBC 1.1 /100 WBC (0) H 03/08/17 04:30 Clumped Platelets Few (Not Present) A 03/22/17 02:55 Large Platelets Present (Not Present) A 03/22/17 02:55 Polychromasia 1+ (Not Present) A 03/22/17 02:55 Hypochromasia Present (Not Present) A 03/22/17 02:55 Poikilocytosis 2+ (Not Present) A 03/22/17 02:55 Anisocytosis 2+ (Not Present) A 03/22/17 02:55 Microcytosis Present (Not Present) A 03/22/17 02:55 Macrocytosis Present (Not Present) A 03/22/17 02:55 Target Cells 1+ (Not Present) A 03/02/17 23:45 Ovalocytes 1+ (Not Present) A 03/22/17 02:55 Schistocytes 1+ (Not Present) A 03/22/17 02:55 PT 19.2 Seconds (9.4-12.1) H 03/15/17 03:30 ABG pCO2 74 mmHg (35-45) H* 03/21/17 15:15 ABG pO2 148 mmHg (85-104) H 03/21/17 15:15 ABG HCO3 41.8 mEQ/L (21-27) H 03/21/17 15:15 ABG Total CO2 44.1 mEq/L (20-26) H 03/21/17 15:15 ABG O2 Saturation 99 % (95-98) H 03/21/17 15:15 ABG Base Excess 13.5 mEq/L (-2.0 to 3.0) H 03/21/17 15:15 Sodium 135 mEq/L (136-145) L 03/22/17 02:55 Chloride 89 mEq/L (98-109) L 03/22/17 02:55 Carbon Dioxide 38 mEq/L (19-29) H 03/22/17 02:55 Glucose 110 mg/dL (70-99) H 03/22/17 02:55 POC Glucose 127 (58-89) H 03/21/17 18:01 Ionized Calcium 1.03 mmol/L (1.15-1.35) L 03/06/17 03:15 Total Bilirubin 2.2 mg/dL (0.2-1.2) H 03/20/17 09:18 Direct Bilirubin 1.5 mg/dL (0.0-0.5) H 03/18/17 03:12 Albumin 3.2 g/dL (3.5-5.0) L 03/20/17 09:18 Albumin/Globulin Ratio 1.0 (1.1-2.2) L 03/20/17 09:18 Urine Clarity Cloudy (Clear) A 03/14/17 13:39 Ur Specific [place] 1.030 (1.010-1.025) H 03/14/17 13:39 Urine Protein 100 mg/dL (Neg-Trace) H 03/14/17 13:39 Urine Blood Large (Negative) H 03/14/17 13:39 Urine Bilirubin Small (Negative) H 03/14/17 13:39 Urine Microscopic RBC 50-100 per hpf (0-3) H 03/14/17 13:39 Ur Squamous Epith Cells Many per lpf (None-Few) H 03/14/17 13:39 Hyaline Casts Moderate per lpf (None-Few) H 03/14/17 13:39 Vancomycin Trough 46.0 mcg/mL (10-20) H* 03/16/17 21:50 - Head Head exam: Present: atraumatic, normal inspection - Eye Eye exam: Present: PERRL Pupils: Present: PERRL - ENT ENT exam: Present: mucous membranes moist ([place]) - Neck Neck exam: Present: full ROM - Respiratory Respiratory exam: Present: decreased breath sounds - Expanded Respiratory Exam Location: decreased breath sounds: Left, Right, Lower - Cardiovascular Cardiovascular exam: Present: irregular rhythm (Telemetry A-Fib, rate 64), +S1, +S2 - Expanded Cardiovascular Exam Peripheral pulses: 1+: Femoral (L) PM, Femoral (R) PM, Posterior Tibialis (L), Posterior Tibialis (R), 2+: Carotid (L) PM, Carotid (R) PM, Radial (L), Radial ( R), Dorsalis Pedis (L) PM, Dorsalis Pedis (R) PM - GI/Abdominal GI/Abdominal exam: Present: distended (Abdomen firm, hypoactive BS X 4, No BM for 5 days), firm, hypoactive bowel sounds - Rectal Rectal exam: Present: deferred - exam: Present: scrotal swelling (Haney catheter draining dark yellow urine) - Extremities Exam Extremities exam: Present: pedal edema (Bilateral legs cool, toes cyanotic, DP 1 +, 2+ pitting edema) - Back Exam Back exam: Present: full ROM - Neurological Exam Neurological exam: Present: alert (non conversational, [place]) - Psychiatric Psychiatric exam: Present: flat affect - Skin Skin exam: Present: pallor (cool) Palliative Quality Palliative Quality: Screen for Code Status: Yes, Screen for Goals of Care: Yes, Screen for Pain: Yes, If Pain Regimen Started, Initiate Bowel Regimen: Yes, Screen for Nausea/Vomitting: Yes Code Status: 03/02/17 23:30 Resuscitation Status: Active [RES] Routine Comment: Resuscitation Status: Full Code 03/21/17 16:34 CODE [Resuscitation Status: Active] [RES] Routine Comment: No Intbation and CPR. pl. transfer to [facility] 03/22. Resuscitation Status: [id number] - Labs CBC & Chem 7: 03/22/17 02:55 03/22/17 02:55 Labs: Laboratory Results - last 24 hr 05/03/21/17 03/21/17 14:57 15:15 18:01 WBC RBC Hgb Hct MCV MCH MCHC RDW Plt Count MPV Immature Gran % Seg Neutrophils % Lymphocytes % Monocytes % Eosinophils % Basophils % Neutrophils # Lymphocytes # Monocytes # Eosinophils # Basophils # Platelet Estimate Clumped Platelets Large Platelets Polychromasia Hypochromasia Poikilocytosis Anisocytosis Microcytosis Macrocytosis Ovalocytes Schistocytes ABG pH 7.36 ABG pCO2 74 H* ABG pO2 148 H ABG HCO3 41.8 H ABG Total CO2 44.1 H ABG O2 Saturation 99 H ABG Base Excess 13.5 H Blood Gas Modality BIPAP Inspired O2 100 Sodium Potassium Chloride Carbon Dioxide BUN Creatinine Est GFR ( Amer) Est GFR (Non-Af Amer) BUN/Creatinine Ratio Glucose POC Glucose 141 H 127 H Calculated Osmolality Calcium Magnesium 03/22/17 03/22/17 03/22/17 02:55 02:55 02:55 WBC 8.0 RBC 3.72 L Hgb 8.2 L Hct 29.6 L MCV 79.6 L MCH 22.0 L MCHC 27.7 L RDW 22.0 H Plt Count 341 MPV 9.7 Immature Gran % 0.4 Seg Neutrophils % 74.1 Lymphocytes % 9.5 Monocytes % 11.2 Eosinophils % 3.8 Basophils % 1.0 Neutrophils # 5.9 Lymphocytes # 0.8 Monocytes # 0.9 Eosinophils # 0.3 Basophils # 0.1 Platelet Estimate Normal Clumped Platelets Few A Large Platelets Present A Polychromasia 1+ A Hypochromasia Present A Poikilocytosis 2+ A Anisocytosis 2+ A Microcytosis Present A Macrocytosis Present A Ovalocytes 1+ A Schistocytes 1+ A ABG pH ABG pCO2 ABG pO2 ABG HCO3 ABG Total CO2 ABG O2 Saturation ABG Base Excess Blood Gas Modality Inspired O2 Sodium 135 L Potassium 3.6 Chloride 89 L Carbon Dioxide 38 H BUN 17 Creatinine 1.15 Est GFR ( Amer) > 60 Est GFR (Non-Af Amer) > 60 BUN/Creatinine Ratio 15 Glucose 110 H POC Glucose Calculated Osmolality 282 Calcium 8.9 Magnesium 1.6 - ABG Interpretation ABG results: ABG ABG pH 7.36 pH Units (7.32-7.45) 03/21/17 15:15 ABG pCO2 74 mmHg (35-45) H* 03/21/17 15:15 ABG pO2 148 mmHg (85-104) H 03/21/17 15:15 ABG O2 Saturation 99 % (95-98) H 03/21/17 15:15 PT/INR, D-dimer PT 19.2 Seconds (9.4-12.1) H 03/15/17 03:30 Consult Discharge Plan - Plan Referrals: Keon Hector MD [Non-Partnered Physician] - 03/17/17 9:00 am
--- NOTE | 2017-03-22 14:40 | Event Note ---
Date of Encounter: 03/22/17 Time of Encounter: 13:20 Patient transferred to [facility] from ICU. Patients at bedside and daughter arrived from [place] with her family. Conducted family update. Discussed patients overall poor condition and need for 100% FiO2 on BIPAP. Discussed goals of care with increase in diuretics today and need for BIPAP. and daughter agree to continue BIPAP for now. Family informed that patient has persistent pleural effusions despite diuretics. Explained that patient is frail and failure to thrive with morbid obesity. Explained that patient is on BIPAP and I explained that this is not a mcfp solution for his respiratory failure. Patient doesn't desire mechanical ventilation. Dr. Mccauley arrived and discussed patients need to remain in hospital for as long as needed. Continue supportive care for now but will likely need transitioned to GIP in the near future. Family made aware of hospice services. Family desires to update son Mich and other daughter (FERMÍN) Imelda. Bedside prayer conducted by Piper Gaitan, nylon winder and family support provided.
[2017-03-22] MEDS ORDERED: *HR* Morphine 2 MG/ML SYRINGE IVP PRN (15:15)
[2017-03-22] MEDS: Sennosides/Docusate Sodium TABLET PO SCH (16:48)
[2017-03-23] MEDS: Ipratropium/Albuterol Neb 3 ML IH SCH ×3 (04:17→15:37)
[2017-03-23] MEDS ORDERED: Haloperidol Lactate 5 MG/ML VIAL IVP ONE (06:54)
[2017-03-23] MEDS: *HR* Metoprolol 5 MG/5 ML VIAL IVP SCH ×3 (06:57→17:26)
[2017-03-23] MEDS: Furosemide 40 MG/4 ML VIAL IVP SCH ×2 (07:51→17:25)
[2017-03-23] MEDS: Sennosides/Docusate Sodium TABLET PO SCH (07:52)
[2017-03-23] MEDS ORDERED: Diltiazem CD (24hr) 240 MG CAPSULE PO SCH (09:00)
[2017-03-23] MEDS ORDERED: Spironolactone 25 MG TABLET PO SCH (09:00)
[2017-03-23] MEDS ORDERED: Venlafaxine XR (24 HR) 150 MG CAP.ER.24H PO SCH (09:00)
[2017-03-23] MEDS ORDERED: acetaZOLAMIDE 250 MG TABLET PO SCH (09:00)
--- NOTE | 2017-03-23 09:09 | Internal Med Progress Note ---
Date of Encounter: 03/23/17 Time of Encounter: 09:06 - Assessment and plan (1) Acute and chronic respiratory failure with hypercapnia Current Visit: Yes Status: Acute Assessment and plan: Patient has acute on chronic respiratory failure. Noted that patient has overnight low oxygen saturation. Presently on BiPAP. Tolerating well. Plan: Will continue present treatment for now Pulmonary on the board and we will follow their recommendations 03/23/2017 Patient was transferred to ICU. The long chat with the family. Please see all the documentation in chart. Patient was transferred from ICU to palliative care. Palliative care/hospice on the board. Yesterday I had a long discussion with the patient's family members who came from [place]. Plan We will follow the recommendations from palliative care. (2) Pleural effusion Current Visit: Yes Status: Acute Assessment and plan: Pleural fluid transudative in nature. Pathology pending. Close monitoring. Possible re-aspiration if clinically worsens. (3) Collapse of right lung Current Visit: Yes Status: Acute Assessment and plan: Remains present on repeat CT today. Will ask pulm for further input/evaluation. (4) Cellulitis of left upper extremity Current Visit: Yes Status: Acute Assessment and plan: Little better today. (5) Pneumonia Current Visit: Yes Status: Suspected Assessment and plan: Currently on IV abx. Qualifiers: Pneumonia type: due to other aerobic Gram-negative bacteria Laterality: bilateral Lung location: lower lobe of lung Qualified Code(s): J15.6 - Pneumonia due to other aerobic Gram-negative bacteria - Subjective Interval history: Seen and examined. Chart reviewed. Patient is comfortably sleeping in a lying down position. Patient denies chest pain, shortness of breath, dizziness or diarrhea. 03/23/2017 Seen and examined. Chart reviewed. Patient is comfortably sleeping in a lying down position. Patient is presently on a BiPAP. No family members at bedside. - Constitutional Vitals: Temp Pulse Resp BP Pulse Ox 98.1 F 74 13 102/66 89 03/23/17 04:12 03/23/17 04:12 03/23/17 04:17 03/23/17 04:12 03/23/17 04:17 General appearance: Present: A&O X 2, morbidly obese, obese - Head Head exam: Present: atraumatic, normocephalic - Eye Eye exam: Present: PERRL, conjuntiva pink, sclera anicteric Pupils: Present: PERRL - Neck Neck exam general surgery: Present: supple, trachea midline. Absent: lymphadenopathy - Respiratory Respiratory exam: Present: CTAB. Absent: accessory muscle use, rales, rhonchi, wheezes - Cardiovascular Cardiovascular exam: Present: RRR, +S1, +S2. Absent: diastolic murmur, gallop, rubs, systolic murmur - GI/Abdominal GI/Abdominal exam: Present: normal bowel sounds, soft, no peritoneal signs. Absent: distended, tenderness - Extremities Exam Extremities exam: Present: warm, radial pulses palpable and symetrical. Absent : calf tenderness, cyanotic, pedal edema - Neurological Exam Neurological exam: Present: CN II-XII intact, oriented X3, no focal deficits. Absent: pronater drift, facial droop, speech deficit - Skin Skin exam: Present: dry, intact Internal Medicine: Result - Labs CBC & Chem 7: 03/22/17 02:55 03/22/17 02:55 - ABG Interpretation ABG results: ABG ABG pH 7.36 pH Units (7.32-7.45) 03/21/17 15:15 ABG pCO2 74 mmHg (35-45) H* 03/21/17 15:15 ABG pO2 148 mmHg (85-104) H 03/21/17 15:15 ABG O2 Saturation 99 % (95-98) H 03/21/17 15:15 PT/INR, D-dimer PT 19.2 Seconds (9.4-12.1) H 03/15/17 03:30 - VTE Documentation of Mechanical Device: Intermittent pneumatic compression device Consult Discharge Plan - Plan Referrals: Keon Hector MD [Non-Partnered Physician] - (will make will more sure of discharge plans)
--- NOTE | 2017-03-23 09:28 | Palliative Progress Note ---
Date of Encounter: 03/23/17 Time of Encounter: 09:25 - Assessment and plan (1) Dyspnea Current Visit: Yes Status: Acute Assessment and plan: Remains on bipap at 100% Fio2/ aerosols/IV diuretics. Does not appear to have had much improvement. He has low dose IV Morphine if needed but has not utilized. Qualifiers: Dyspnea type: dyspnea on exertion Qualified Code(s): R06.09 - Other forms of dyspnea (2) Goals of care, counseling/discussion Current Visit: Yes Status: Acute Assessment and plan: Patient is lethargic this am, possibly due to Haloperidol given earlier this am. There is no family present. He desaturated quickly earlier when he removed the bipap. I do think his prognosis is poor. If he continues to fight and pull off bipap when awake, and has to be sedated to keep it on, he will not be able to participate with therapy. There is a possibility he will not survive the hospital stay with his multiple medical issues and hypoventilation. Will d/w family when they arrive. (3) Acute exacerbation of CHF (congestive heart failure) Current Visit: Yes Status: Acute Qualifiers: Congestive heart failure type: diastolic Qualified Code(s): I50.33 - Acute on chronic diastolic (congestive) heart failure (4) Atrial fibrillation with RVR Current Visit: Yes Status: Acute (5) Pulmonary hypertension Current Visit: Yes Status: Acute - Time Spent With Patient Total time spent is greater than 50% in coordination of care (as documented) at patient's floor/unit and/or counseling patient: 25 - 35 minutes - Subjective Interval history: Patient became agitated and pulled off bipap earlier this am. According to pt nurse, nasal cannula was applied at this time and pt saturations dropped to 80 quickly. Haldol was ordered by hospitalist and bipap reapplied. He is currently sedated and not responding to voice, has facial grimacing and moves upper extremities with exam, but does not awaken. Bipap remains at 100% FIo2. Ears and lower extremities cyanotic. Toes cool to touch. No family is at bedside. - Constitutional Vitals: Abnormal lab results RBC 3.72 M/mcL (4.19-5.50) L 03/22/17 02:55 Hgb 8.2 g/dL (12.9-16.9) L 03/22/17 02:55 Hct 29.6 % (37.5-50.1) L 03/22/17 02:55 MCV 79.6 fL (83.0-100.0) L 03/22/17 02:55 MCH 22.0 pg (28.0-33.3) L 03/22/17 02:55 MCHC 27.7 g/dL (31.6-35.5) L 03/22/17 02:55 RDW 22.0 % (11.5-14.5) H 03/22/17 02:55 Nucleated RBCs/100 WBC 1.1 /100 WBC (0) H 03/08/17 04:30 Clumped Platelets Few (Not Present) A 03/22/17 02:55 Large Platelets Present (Not Present) A 03/22/17 02:55 Polychromasia 1+ (Not Present) A 03/22/17 02:55 Hypochromasia Present (Not Present) A 03/22/17 02:55 Poikilocytosis 2+ (Not Present) A 03/22/17 02:55 Anisocytosis 2+ (Not Present) A 03/22/17 02:55 Microcytosis Present (Not Present) A 03/22/17 02:55 Macrocytosis Present (Not Present) A 03/22/17 02:55 Target Cells 1+ (Not Present) A 03/02/17 23:45 Ovalocytes 1+ (Not Present) A 03/22/17 02:55 Schistocytes 1+ (Not Present) A 03/22/17 02:55 PT 19.2 Seconds (9.4-12.1) H 03/15/17 03:30 ABG pCO2 74 mmHg (35-45) H* 03/21/17 15:15 ABG pO2 148 mmHg (85-104) H 03/21/17 15:15 ABG HCO3 41.8 mEQ/L (21-27) H 03/21/17 15:15 ABG Total CO2 44.1 mEq/L (20-26) H 03/21/17 15:15 ABG O2 Saturation 99 % (95-98) H 03/21/17 15:15 ABG Base Excess 13.5 mEq/L (-2.0 to 3.0) H 03/21/17 15:15 Sodium 135 mEq/L (136-145) L 03/22/17 02:55 Chloride 89 mEq/L (98-109) L 03/22/17 02:55 Carbon Dioxide 38 mEq/L (19-29) H 03/22/17 02:55 Glucose 110 mg/dL (70-99) H 03/22/17 02:55 POC Glucose 101 (58-89) H 03/23/17 00:18 Ionized Calcium 1.03 mmol/L (1.15-1.35) L 03/06/17 03:15 Total Bilirubin 2.2 mg/dL (0.2-1.2) H 03/20/17 09:18 Direct Bilirubin 1.5 mg/dL (0.0-0.5) H 03/18/17 03:12 Albumin 3.2 g/dL (3.5-5.0) L 03/20/17 09:18 Albumin/Globulin Ratio 1.0 (1.1-2.2) L 03/20/17 09:18 Urine Clarity Cloudy (Clear) A 03/14/17 13:39 Ur Specific [place] 1.030 (1.010-1.025) H 03/14/17 13:39 Urine Protein 100 mg/dL (Neg-Trace) H 03/14/17 13:39 Urine Blood Large (Negative) H 03/14/17 13:39 Urine Bilirubin Small (Negative) H 03/14/17 13:39 Urine Microscopic RBC 50-100 per hpf (0-3) H 03/14/17 13:39 Ur Squamous Epith Cells Many per lpf (None-Few) H 03/14/17 13:39 Hyaline Casts Moderate per lpf (None-Few) H 03/14/17 13:39 Vancomycin Trough 46.0 mcg/mL (10-20) H* 03/16/17 21:50 General appearance: Present: no acute distress - Respiratory Respiratory exam: Present: decreased breath sounds, CTAB - Cardiovascular Cardiovascular exam: Present: irregular rhythm - GI/Abdominal GI/Abdominal exam: Present: diminished bowel sounds, distended, soft - Additional comments: Haney with light won urine - Extremities Exam Additional comments: Bilateral feet with cyanosis and toes are cool to touch. Some mottling noted to knees - Neurological Exam Additional comments: Lethargic at this time and does not awaken, verbalize, or follow commands. He does grimace and move head, upper extremities with examination. - Skin Skin exam: Present: dry, warm Palliative Quality Palliative Quality: Screen for Code Status: Yes, Screen for Goals of Care: Yes, Screen for Pain: Yes, If Pain Regimen Started, Initiate Bowel Regimen: Yes, Screen for Nausea/Vomitting: Yes Code Status: 03/02/17 23:30 Resuscitation Status: Active [RES] Routine Comment: Resuscitation Status: Full Code 03/21/17 16:34 CODE [Resuscitation Status: Active] [RES] Routine Comment: No Intbation and CPR. pl. transfer to [facility] 03/22. Resuscitation Status: [id number] - Labs CBC & Chem 7: 03/22/17 02:55 03/22/17 02:55 Labs: Laboratory Results - last 24 hr 03/22/17 03/22/17 03/22/17 11:19 16:05 19:39 POC Glucose 102 H 101 H 108 H 03/23/17 00:18 POC Glucose 101 H - ABG Interpretation ABG results: ABG ABG pH 7.36 pH Units (7.32-7.45) 03/21/17 15:15 ABG pCO2 74 mmHg (35-45) H* 03/21/17 15:15 ABG pO2 148 mmHg (85-104) H 03/21/17 15:15 ABG O2 Saturation 99 % (95-98) H 03/21/17 15:15 PT/INR, D-dimer PT 19.2 Seconds (9.4-12.1) H 03/15/17 03:30 Consult Discharge Plan - Plan Referrals: Keon Hector MD [Non-Partnered Physician] - (will make will more sure of discharge plans)
[2017-03-23] MEDS ORDERED: Bisacodyl 10 MG RECTAL SUPPOSITORY RC SCH (09:45)
--- NOTE | 2017-03-23 09:46 | Cardiology Progress Note ---
Date of Encounter: 03/23/17 Time of Encounter: 09:43 Assessment and Plan (1) Congestive heart failure (CHF) Current Visit: No Status: Acute Acute right sided/ diastolic CHF. Echo- LVEF 65-70%, RV hypokinetic with TD velocity 4cm/s; mild MR, moderate TR, moderate pulm HTN with RVSP 52, IVC dilated. Patient continues to have recurrent fluid overload despite diuresis. Continue agressive IV diuresis--on IV Lasix 40mg BID. Continue aldactone. Net negative -17,703 ml, negative -1075 ml yesterday. Check BMP this AM. Continues to have fluid overload. Palliative care following. Poor prognosis. Patient is now DNRCCA DNI. Continue IV diuresis, bipap, Na/Fluid restriction diet. Cardiology is signing off. Reconsult PRN. Qualifiers: Congestive heart failure type: diastolic Congestive heart failure chronicity: acute Qualified Code(s): I50.31 - Acute diastolic (congestive) heart failure (2) Atrial fibrillation with RVR Current Visit: Yes Status: Acute HR 70s-90s. IV lopressor held due to hypotension. PO cardizem held due to pt being unable to swallow. IV lopressor as needed for heart rate control as BP will tolerate. Eliquis held d/t anemia requiring blood transfusion during stay for Hgb 7.9. Hgb trending down again, recheck today. Discussion w patient/family: The assessment and plan as outlined above was discussed with the patient and/or family members who expressed understanding and agreement. All questions were answered. Thank you for involving us in the care of your patient. Please call with any questions. Subjective Principal diagnosis: exacerbation of CHF with fluid overload Interval history: Pt on bipap, currently not responding verbally. I/O yesterday -1075mL. Objective Vital Signs Temp Pulse Resp BP Pulse Ox 03/23/17 04:17 13 89 03/23/17 04:12 98.1 F 74 19 102/66 92 03/22/17 23:57 98.2 F 76 18 109/72 92 03/22/17 21:38 13 92 03/22/17 19:43 97.5 F L 82 18 117/76 92 03/22/17 18:35 71 109/68 03/22/17 15:51 13 100 03/22/17 13:34 97.6 F 52 16 120/77 03/22/17 11:47 13 114/89 100 03/22/17 11:00 97.6 F 74 21 114/89 94 03/22/17 09:46 11 100 Intake and Output 03/22/17 03/23/17 03/23/17 23:59 07:59 15:59 Intake Total 0 / 0 Output Total 725 / 725 200 / 200 Balance -725 / -725 -200 / -200 Intake: Oral 0 / 0 Output: Urine 725 / 725 200 / 200 Other: Meal NPO Percent of Meal Consumed 0% Weight 119.92 kg Blood Glucose* 108 101 Patient Weight 03/23/17 23:59 Weight 119.92 kg General: Other (on Bipap, nonconversant) HEENT: Atraumatic, Normocephaly, Mucus Membranes Moist Neck: No JVD, Normal carotid pulses Cardiac: Other (irregularly irregular) Lungs: Normal Breath Sounds, No Wheeze, Rales, Rhonchi Neuro: No focal deficits noted Abdomen: Soft, Non-Tender Skin: No rashes noted on visualized skin Musculoskeletal: No Chest Wall Tenderness Extremities: Other (doppler pulses only cyanosis on lLE great toe. Cap refil less than three seconds. anasarca. More edema in left arm than right. 2+ edema up to abdomen.) Results 03/22/17 02:55 03/22/17 02:55 Active Medications Acetaminophen (Tylenol) 325 mg PO Q6HR PRN PRN Reason: Pain Stop: 09/20/17 20:00 Acetazolamide (Diamox) 250 mg PO DAILY JESSE PRN Reason: Protocol Stop: 09/21/17 09:01 Last Admin: 03/23/17 07:52 Dose: Not Given Albuterol/Ipratropium (Duoneb) 3 ml IH [id number] JESSE PRN Reason: Protocol Stop: 09/20/17 22:01 Last Admin: 03/23/17 04:17 Dose: 3 ml Bisacodyl (Dulcolax) 10 mg RC DAILY [facility] Stop: 09/22/17 09:46 Diltiazem HCl (Cardizem Cd) 240 mg PO DAILY JESSE Stop: 09/21/17 09:01 Last Admin: 03/23/17 07:52 Dose: Not Given Furosemide (Lasix) 40 mg IVP BIDDIURETIC JESSE Stop: 09/20/17 21:01 Last Admin: 03/23/17 07:51 Dose: Not Given Metoprolol Tartrate (Lopressor) 5 mg IVP Q6HR PRN PRN Reason: tachycardia Stop: 09/21/17 08:18 Metoprolol Tartrate (Lopressor) 5 mg IVP Q6HR JESSE Stop: 09/21/17 12:01 Last Admin: 03/23/17 06:57 Dose: Not Given Morphine Sulfate (Morphine Sulfate) 1 mg IVP Q1H PRN PRN Reason: Dyspnea Stop: 09/21/17 15:16 Naloxone HCl (Narcan) 0.4 mg IVP Q2MIN PRN PRN Reason: SEE COMMENTS Stop: 09/20/17 20:00 Potassium Chloride (Potassium Chloride) 20 meq PO BID JESSE Stop: 09/20/17 21:01 Last Admin: 03/23/17 07:52 Dose: Not Given Spironolactone (Aldactone) 25 mg PO DAILY [facility] Stop: 09/21/17 09:01 Last Admin: 03/23/17 07:52 Dose: Not Given Venlafaxine HCl (Effexor Xr) 150 mg PO DAILY JESSE PRN Reason: Protocol Stop: 09/21/17 09:01 Last Admin: 03/23/17 07:52 Dose: Not Given - VTE Documentation of Mechanical Device: Intermittent pneumatic compression device Consult Discharge Plan - Plan Referrals: Keon Hector MD [Non-Partnered Physician] - (will make will more sure of discharge plans)
[2017-03-23 11:58] VITALS: BP 149/73
[2017-03-23] MEDS ORDERED: Haloperidol Lactate 5 MG/ML VIAL IVP PRN ×2 (14:15→17:14)
--- NOTE | 2017-03-23 14:21 | Event Note ---
Date of Encounter: 03/23/17 Time of Encounter: 14:[address] Mccauley, pt , and pt daughter Nalini. Dr. Mccauley discussed 2 plans based on patient's response to treatment. If he responds to treatment, pt needs to participate in therapy and will transfer to rehab. If he fails, Dr. Mccauley stated he would keep here and take care of him. Palliative will continue to follow and assist with symptom management. If he fails, and family decided to discontinue the bipap, he would be eligible for transition to general in hospice, however, this is short term and if symptoms and condition stabilized, would still need discharge plan.
--- NOTE | 2017-04-03 14:00 | Death Note ---
Discharge Sum: Summary - Date and Time Date of admission: 03/02/17 23:30 - Summary Details: Mr. Bonner is a 77 year old male with history of atrial fibrillation on eliquis , diastolic CHF (echo from Oct 2016 showed EF of 60%), chronic kidney disease, hypertension and hyperlipidemia. Patient is somnolent at the time of my evaluation and is not able to give clinical details. No family members at bedside. I have reviewed the medical records from his previous admissions and [facility]. He reported progressively worsening swelling over a few weeks and shortness of breath, generalized weakness, lethargy, swelling of the extremities and abdomen. He apparently presented to the ER by EMS and had CPAP at presentation which was changed to BiPAP in the ER. He was noted to be edematous and was given intravenous Lasix. His potassium was 6 and was given calcium gluconate and Kayexalate and sodium bicarbonate. Chest x-ray reported right pleural effusion/possible pneumonia versus CHF. He was given levofloxacin and transferred to [facility] for further management.Labs done at that [facility] showed serum sodium 139, potassium 6, chloride 88, BUN 57, creatinine 1.5, BNP 1014, WBC 11.2 , hemoglobin 9.7 hematocrit 33.9, platelets, CK 52, PTT 35, INR 4.3, troponin 0.04. Urinalysis was positive for leukocyte esterase. Lactate was 3.71. Patient was hospitalized. Cardiology was consulted. Cardiology recommended medical management. Patient was not a candidate for cardiac catheterization. Patient was treated for pneumonia. Over a period of time Patient gradually declined and deteriorated. Patients CODE STATUS was full code. Patient was getting treatment in the stepdown unit. He was transferred to ICU. Patients family decided to go for a palliative care/hospice management. Patient was transferred to palliative care/hospice. Patient peacefully and family appreciated all the help from the caregivers. - Additional Data Attending physician: Jan Mccauley MD Discharge Sum: Diag - PCOD Probable Cause of : Cardiorespiratory arrest Discharge Sum: Prov - Provider Primary care physician: PCP NO Consults: 03/03/17 05:59 Consult to Cardiology [CONS] Routine Comment: Consulting Provider: Cardiology Terese Reason for Consult: CHF exacerbation Call Completed: No 03/03/17 14:36 Consult to Critical Care [CONS] Routine Consulting Provider: Pulm Crit Care & Sleep Terese Reason for Consult: patient transferred to ICU on amio drip Call Completed: Yes
== END 2017-03-23 19:53 | disposition expired | DRG 291 ==
LOC: 2NENU → SUATTDRO 23:30 → ICNU 03-03 13:57 → 2NENU 03-06 21:59 → ICNU 03-21 15:34 → 2ANU 03-22 12:38
PROVIDERS: ADMIT Internal Medicine; ATTEND Internal Medicine